=== PATIENT | male | born 1940 | race Caucasian/White ===

== ENCOUNTER 2020-05-25 11:01 | Emergency (ER) | payer OTHER, MEDICARE, SELFPAY ==
[2020-05-25] VITALS (7 sets, daily range): BP systolic 136–146; BP diastolic 79–89; PULSE 64–76; RESP 16–20; TEMP 36.7; O2SAT 96–98
--- NOTE | ~2020-05-25 | XR_ITS ---
EXAMINATION: XR chest 2V EXAM DATE: 05/25/2020 13:33 INDICATION: Chlorine exposure. TECHNIQUE: Frontal and lateral projections of the chest obtained and reviewed. Comparison is made to prior examination from 01/28/2014. FINDINGS: The lungs are clear. There are no pleural effusions. The cardiomediastinal silhouette is within normal limits. There is no pneumothorax suspected. The bones and soft tissues are unremarkab le. IMPRESSION: No acute cardiopulmonary findings. Reviewed, dictated and finalized at location B.
--- NOTE | 2020-05-25 11:19 | ED.GENADULT ---
HPI - General Adult General Chief complaint: Environmental Exposure Stated complaint: Chlorine/Gas exposure Time Seen by Provider: 05/25/20 11:15 Source: patient Mode of arrival: ambulatory Limitations: no limitations History of Present Illness HPI narrative: Patient is a 79-year-old male who presents for evaluation following an exposure to chlorinated water. 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 Patient states the water was very warm, steam was rising and this made it difficult for the patient to breathe. He denies any chest pain, he reported mild eye irritation which is now resolved. He states he still has some mild shortness of breath, mild dry cough. No passing out or loss of consciousness. No fall or head trauma. No nausea or vomiting. Related Data Home Medications Medication Instructions Recorded Confirmed amitriptyline 25 mg PO DAILY 05/25/20 finasteride 5 mg PO DAILY 05/25/20 levothyroxine 112 mcg PO DAILY 05/25/20 losartan 50 mg PO DAILY 05/25/20 omeprazole 20 mg PO DAILY 05/25/20 propranolol 20 mg PO DAILY 05/25/20 tamsulosin 0.4 mg PO DAILY 05/25/20 Allergies Allergy/AdvReac Type Severity Reaction Status Date / Time phenytoin Allergy Mild Rash Unverified 05/25/20 11:14 ATORVASTATIN CALCIUM Allergy Unknown WEAKNESS/MUSCLE Uncoded 05/25/20 11:14 PAIN Review of Systems Review of Systems: Narrative: CONSTITUTIONAL: Denies fever CARDIOVASCULAR: Denies chest pain RESPIRATORY: Reports dry cough, mild shortness of breath GASTROINTESTINAL: Denies abdominal pain SKIN: Denies rash MUSCULOSKELETAL: Denies back pain NEUROLOGIC: Denies headache [facility] Past Medical History Medical History (Updated 05/25/20 @ 14:00 by Saundra Livingston MD) Alcohol abuse Arthritis Basal cell carcinoma CVA (cerebral vascular accident) GI bleed Hyperlipidemia Hypertension Hypothyroidism Seizure Surgical History Surgical History (Updated 05/25/20 @ 11:30 by Saundra Livingston MD) History of testicular surgery Social History Social History (Updated 05/25/20 @ 11:31 by Saundra Livingston MD) Smoking status: Former smoker Alcohol intake: current Substance use: never Living arrangements: with family Gender identity (if verbalized by the patient): Male Exam Narrative: Exam Narrative: GENERAL: Awake, alert, conversant HEAD: Normocephalic, atraumatic. EYES: PERRLA and EOMI. ENT: Nares clear, no rhinorrhea or epistaxis. Mucous membranes moist. NECK: Supple. CHEST: No respiratory distress, breathing even and non labored, no chest wall tenderness HEART: Regular rate, sinus rhythm ABDOMEN:Non distended, non tender EXTREMITIES: Normal range of motion. No edema. SKIN: Warm, dry, no rash. NEURO:No focal deficits. Alert and oriented x3 Course Vital Signs Vital signs: Vital Signs Temperature 36.7 C 05/25/20 11:09 Pulse Rate 76 05/25/20 11:09 Respiratory Rate 18 05/25/20 11:09 Blood Pressure 146/79 H 05/25/20 11:09 Pulse Oximetry 98 05/25/20 11:09 Temperature 36.7 C 05/25/20 11:09 Pulse Rate 66 05/25/20 13:12 Respiratory Rate 18 05/25/20 13:12 Blood Pressure 137/85 05/25/20 13:12 Pulse Oximetry 97 05/25/20 13:12 Medical Decision Making MDM Narrative Medical decision making narrative: Patient presented for evaluation after chlorine exposure from a pool pump. Patient with a little bit of irritation with breathing, but no chest pain. Vital signs are stable, no hypoxemia. Laboratory results are reassuring. Chest x-ray without findings of pneumothorax, no evidence of pneumonia. No evidence of pneumomediastinum. Given no chest pain, did not obtain a troponin. Patient was given a DuoNeb after I spoke with [place] poison control, they recommended DuoNeb treatment for this type of inhalation ex
--- NOTE | 2020-05-25 11:31 | ECG_ITS ---
Measurements Intervals [place] Rate: 69 P: 56 DC: 197 QRS: -6 QRSD: 90 T: 65 QT: 378 QTc: 406 Interpretive Statements SINUS RHYTHM LOW QRS VOLTAGE IN PRECORDIAL LEADS BASELINE WANDER- I, II, AVR, AVL, AVF, V1-V6 BORDERLINE ECG Electronically Signed On 05-25-2020 11:47:45 CDT by Charanjit Grossman D.O.
[2020-05-25] MEDS: ALBUTEROL SULFATE NEB 2.5 MG/0.5 ML INH 5 MG INHALATION (11:45)
[2020-05-25] MEDS: IPRATROPIUM BR 0.02% INH SOLN 0.5 MG/2.5 ML VIAL 1 MG INHALATION (11:46)
[2020-05-25 12:04] LABS: Alveolar/Arterial O2 Gradient 24.5 mmHg; Base Excess ABG -3.2 mEq/l (+/-2.0); Carboxyhemoglobin 0.6 % THb (0-2.0); Fractional Inspired Oxygen 21 %; HCO3 ABG 20.2 mEq/l (22.0-26.0); Methemoglobin ABG 0.5 %THb (0-1.5); Oxygen Content ABG 22.4 %vol (16.0-22.0); Oxygen Saturation ABG 96.8 % (95.0-100.0); Oxyhemoglobin 95.7 % THb (90.0-100.0); PO2 ABG 86.9 mmHg (80.0-100.0); PO2 FiO2 Ratio Arterial Blood 4.14 %; Reduced Hemoglobin 3.2 %THb (0-5.0); Total Hemoglobin 16.6 g/dL (12.0-18.0); pH ABG 7.417 (7.350-7.450)
[2020-05-25 12:05] LABS: Device ROOM AIR; Modified Allen's Test Pass; Site Drawn LEFT RADIAL
[2020-05-25 12:17] LABS: Basophils Absolute Auto 0.1 K/mm3 (0.0-0.1); Basophils Percent Auto 0.7 % (0.2-1.2); Eosinophils Absolute Auto 0.2 K/mm3 (0-0.3); Hematocrit 48.2 % (42.0-52.0); Hemoglobin 16.1 g/dL (14.0-18.0); Immature Granulocyte Absolute 0.05 K/mm3 (0.00-0.031); Immature Granulocyte Percent A 0.4 % (0-0.5); Lymphocytes Percent Auto 22.3 % (18.3-44.2); Mean Corpuscular HGB Conc 33.4 g/dl (32-36); Mean Corpuscular Hemoglobin 30.7 pg (26-34); Mean Platelet Volume 9.6 fl (7.4-10.4); Monocytes Absolute Auto 0.7 K/mm3 (0.1-0.6); Monocytes Percent Auto 6.6 % (2.6-8.5); Neutrophils Absolute Auto 7.6 K/mm3 (1.3-6.7); Platelet Count Result 206 k/mm3 (150-375); Red Blood Count 5.24 M/mm3 (4.6-6.20); Red Cell Distribution Width 13.6 % (11.5-14.5); White Blood Count 11.2 K/mm3 (4.5-10.0)
[2020-05-25 12:26] LABS: Blood Urea Nitrogen 16 mg/dL (9-20); Calcium 9.3 mg/dL (8.4-10.2); Carbon Dioxide 25 mmol/L (22-30); Chloride 106 mmol/L (98-107); Estimated CRCL calculation 66 ml/min; Estimated Glomerular Filt Rate > 60; Glucose 134 mg/dL (75-110); Potassium 4.9 mmol/L (3.4-5.0); Sodium 138 mmol/L (137-145)
--- NOTE | 2020-05-25 13:40 | PC.NURSE ---
Poison control called to follow up on patient. I updated them of current situation
--- NOTE | 2020-05-25 14:50 | PC.NURSE ---
Confirmed with EDP that hydralazine is canceled and not to be given to pt.
== END 2020-05-25 14:52 | disposition home or self-care (01) ==
PROVIDERS: Emergency Provider Emergency Medicine
DX: Z77.098 Contact with and (suspected) exposure to other hazardous, chiefly nonmedicinal, chemicals (principal); M19.90 Unspecified osteoarthritis, unspecified site; Z85.828 Personal history of other malignant neoplasm of skin; Z86.73 Personal history of transient ischemic attack (TIA), and cerebral infarction without residual deficits; E78.5 Hyperlipidemia, unspecified; I10 Essential (primary) hypertension; E03.9 Hypothyroidism, unspecified
CPT/HCPCS: 36415; 36600; 71046; 80048; 82375; 82805; 83050; 85025; 93005; 96372; 99283

== ENCOUNTER → 2022-01-30 11:19 | Outpatient (CLI) | payer MEDICARE, SELFPAY ==
--- NOTE | ~2022-01-30 | XR_ITS ---
XR toe 1st LT min 2V 01/30/2022 11:38 Indication: Left first toe pain Procedure: 4 views left first toe Comparison: No prior studies for comparison. Findings: There is an avulsion fracture plantar base of the first distal phalanx, best seen on the la teral view. Mild soft tissue swelling. No other fracture identified. No foreign bodies. Impression: 1: Avulsion fracture plantar base left first distal phalanx. Reviewed, dictated and finalized at location A. R REACTOR OPERATOR Impression: 1: Avulsion fracture plantar base left first distal phalanx.
== END ==
PROVIDERS: PCP Internal Medicine; Visit Provider Internal Medicine
DX: S92.422A Displaced fracture of distal phalanx of left great toe, initial encounter for closed fracture (principal)
CPT/HCPCS: 73660

== ENCOUNTER → 2022-02-26 14:06 | Outpatient (CLI) | payer MEDICARE, SELFPAY ==
--- NOTE | ~2022-02-26 | XR_ITS ---
XR toe 1st LT min 2V DATE: 02/26/2022 14:17 INDICATION: Left great toe pain TECHNIQUE: 3 views COMPARISON: None FINDINGS: There is hallux valgus and bunion deformity. There is mild osteoarthritis at the first metatarsophalangeal joint. No fracture, dislocation, periosteal reaction or bone destruction. There is an accessory ossicle at t he anterior aspect of the interphalangeal joint of the great toe which simulated of fracture on 022. IMPRESSION: Mild osteophyte is at first metatarsophalangeal joint Mild hallux valgus and bunion deformity No fracture or dislocation Reviewed, dictated and finalized at location A.
== END ==
PROVIDERS: PCP Internal Medicine; Visit Provider Internal Medicine
DX: M19.072 Primary osteoarthritis, left ankle and foot (principal); M20.12 Hallux valgus (acquired), left foot; M21.612 Bunion of left foot; M25.775 Osteophyte, left foot
CPT/HCPCS: 73660

== ENCOUNTER → 2022-08-01 16:22 | Outpatient (CLI) | payer MEDICARE, SELFPAY ==
--- NOTE | ~2022-08-01 | XR_ITS ---
EXAMINATION: XR knee RT min 4V DATE: 08/01/2022 16:33 INDICATION: Right knee pain TECHNIQUE: Weight bearing anteroposterior and Randhawa, sunrise, and flexed lateral views of the rig ht knee were obtained COMPARISON: None. FINDINGS: Alignment is normal. No fracture. Mild joint space narrowing in the medial compartment of the right knee. Normal joint spaces in the lateral and patellofemoral compartments. No joint effusion/layering lipohemarthrosis. Small amount of atherosclerotic calcification at the distal femoral artery. Soft ti ssues are otherwise unremarkable. IMPRESSION: 1. Mild osteoarthritis in medial compartment of the right knee. Reviewed, dictated and finalized at location A.
== END ==
PROVIDERS: PCP Family Medicine; Visit Provider Family Medicine
DX: M25.561 Pain in right knee (principal); M17.11 Unilateral primary osteoarthritis, right knee
CPT/HCPCS: 73564

== ENCOUNTER → 2023-03-13 10:42 | Outpatient (CLI) | payer MEDICARE, SELFPAY ==
--- NOTE | ~2023-03-13 | XR_ITS ---
EXAMINATION: XR wrist LT min 3V DATE: 03/13/2023 11:00 INDICATION: Left wrist pain. Fall. TECHNIQUE: 4 views of left wrist were obtained. COMPARISON: None. FINDINGS: Bone alignment is normal. No fracture. There is mild osteoarthritis of first carpometacarpa l joint. There is a fragment of chronic ossification adjacent to pisiform. There is a degenerative cy st in distal ulna. There is a 2 mm subcutaneous density ulnar to fifth metacarpal. IMPRESSION: 1. Mild osteoarthritis of first carpometacarpal joint. 2. 2 mm subcutaneous density ulnar to fifth metacarpal, which may be a dystrophic calcification or fo reign body. Reviewed, dictated and finalized at location A. IMPRESSION: 1. Mild osteoarthritis of first carpometacarpal joint. 2. 2 mm subcutaneous density ulnar to fifth metacarpal, which may be a dystroph ic calcification or foreign body.
== END ==
PROVIDERS: PCP Family Medicine; Visit Provider Family Medicine
DX: M19.042 Primary osteoarthritis, left hand (principal); R93.6 Abnormal findings on diagnostic imaging of limbs
CPT/HCPCS: 73110

== ENCOUNTER 2023-10-19 11:54 | Emergency (ER) | payer MEDICARE, SELFPAY ==
[2023-10-19] VITALS (19 sets, daily range): BP systolic 121–148; BP diastolic 75–95; PULSE 51–70; RESP 16–20; TEMP 36.1; O2SAT 93–99
--- NOTE | ~2023-10-19 | CT_ITS ---
EXAMINATION: CT brain wo con DATE: 10/19/2023 14:48 INDICATION: Ataxia. Dizziness. TECHNIQUE: Computed tomography (CT) of the head was performed without intravenous contrast. The mA wa s adjusted according to patient size. Iterative reconstruction technique was employed. The dose-lengt h product was 681.00 mGy-cm. COMPARISON: Head CT 01/28/2014 FINDINGS: There is old infarct in left cerebellum. There is an old infarct in the right basal ganglia . There are old infarcts in the deep white matter of the frontal lobes bilaterally. There is no intra cranial hemorrhage, acute infarction, or abnormal intracranial mass lesion. The ventricles are normal in size. There is mild mucosal thickening in the paranasal sinuses. There are likely changes of ocul ar lens replacement surgeries. The mastoid air cells are normal. IMPRESSION: 1. Old infarcts in the brain. Reviewed, dictated and finalized at location E. 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
--- NOTE | 2023-10-19 12:04 | ECG_ITS ---
Measurements Intervals [place] Rate: 53 P: 22 VT: 180 QRS: 2 QRSD: 97 T: 62 QT: 451 QTc: 427 Interpretive Statements SINUS BRADYCARDIA BASELINE WANDER- V2 BORDERLINE ECG COMPARED TO ECG 05/25/2020 11:44:57 SINUS BRADYCARDIA NOW PRESENT Electronically Signed On 10-19-2023 14:20:35 PRICING ANALYST by Charanjit Grossman D.O.
[2023-10-19] MEDS: MECLIZINE HCL 25 MG TABLET PO (12:33)
[2023-10-19] MEDS: ONDANSETRON INJ 4 MG/2 ML VIAL IV PUSH (12:46)
[2023-10-19] MEDS: SODIUM CHLORIDE 0.9% IV 500 ML 999 ML IV CONT (12:46)
[2023-10-19 12:50] LABS: Basophils Absolute Auto 0.1 K/mm3 (0.0-0.1); Eosinophils Absolute Auto 0.4 K/mm3 (0-0.3); Eosinophils Percent Auto 4.4 % (0-4.4); Hematocrit 50.4 % (42.0-52.0); Hemoglobin 16.6 g/dL (14.0-18.0); Immature Granulocyte Absolute 0.03 K/mm3 (0.00-0.031); Immature Granulocyte Percent A 0.3 % (0-0.5); Lymphocytes Absolute Auto 2.43 K/mm3 (0.9-3.2); Lymphocytes Percent Auto 27.3 % (18.3-44.2); Mean Corpuscular HGB Conc 32.9 g/dl (32-36); Mean Corpuscular Hemoglobin 30.6 pg (26-34); Mean Corpuscular Volume 92.8 fl (80-100); Mean Platelet Volume 9.4 fl (7.4-10.4); Monocytes Absolute Auto 0.7 K/mm3 (0.1-0.6); Monocytes Percent Auto 7.5 % (2.6-8.5); Neutrophils Absolute Auto 5.3 K/mm3 (1.3-6.7); Neutrophils Percent Auto 59.5 % (45.5-73.1); Platelet Count Result 224 k/mm3 (150-375); Red Blood Count 5.43 M/mm3 (4.6-6.20); Red Cell Distribution Width 13.3 % (11.5-14.5); White Blood Count 8.9 K/mm3 (4.5-10.0)
[2023-10-19 13:01] LABS: Alanine Aminotransferase 47 U/L (6-50); Albumin Level 4.5 g/dL (3.5-5.1); Alkaline Phosphatase 62 U/L (38-126); Anion Gap 11 mmol/L (8-16); Aspartate Amino Transferase 41 U/L (17-59); Blood Urea Nitrogen 18 mg/dL (9-20); Calcium 9.4 mg/dL (8.4-10.2); Carbon Dioxide 21 mmol/L (22-30); Chloride 103 mmol/L (98-107); Estimated CRCL calculation 78 ml/min; Estimated Glomerular Filt Rate > 60; Glucose 156 mg/dL (65-110); Potassium 4.5 mmol/L (3.4-5.0); Sodium 135 mmol/L (137-145)
--- NOTE | 2023-10-19 14:27 | PC.NURSE ---
attempted to ambulate pt at this time. pt sat on the side of bed and felt dizzy, pt stood up and felt more dizzy and started swaying. pt then directed to sit back down
[2023-10-19] MEDS: diazePAM INJ (*CRX) 10 MG/2 ML SYRINGE 2 MG IV PUSH (14:40)
--- NOTE | 2023-10-19 15:32 | ED.GENADULT ---
HPI - General Adult General Chief complaint: Dizziness Stated complaint: nausea, dizzy Time Seen by Provider: 10/19/23 12:23 History of Present Illness HPI narrative: Patient is an 83-year-old male who presents ER with sudden onset dizziness. Spinning in nature. Worse with turning his head. Associated with diaphoresis as well as nausea vomiting. Has history of vertigo in the past and this feels the same. He has no medications to treat it at home. No numbness or weakness to an arm or leg. No slurred speech. No additional concerns. Related Data Home Medications Medication Instructions Recorded Confirmed fish oil-dha-epa 1,200 mg-144 cap PO .QD 01/06/23 07/28/23 mg-216 mg capsule omeprazole 20 mg capsule,delayed 20 mg PO DAILY 01/06/23 07/28/23 release Allergies Allergy/AdvReac Type Severity Reaction Status Date / Time atorvastatin Allergy Mild Weakness,Muscle Verified 10/19/23 14:38 Pain phenytoin Allergy Mild Rash Verified 07/28/23 15:08 Review of Systems Review of Systems: All systems reviewed & are unremarkable except as noted in HPI and below Constitutional: Constitutional: Denies chills and Denies fever(s) ENT: Reports dizziness, Denies nasal congestion and Denies sore throat Gastrointestinal: Gastrointestinal: Denies abdominal pain, Reports nausea and Reports vomiting Neurologic: Denies syncope, Denies headache(s), Denies focal weakness and Denies numbness [facility] Past Medical History Medical History (Updated 10/19/23 @ 16:09 by Bentley Mortensen MD) Alcohol abuse Arthritis Basal cell carcinoma CVA (cerebral vascular accident) GI bleed Hyperlipidemia Hypertension Hypothyroidism Seizure Surgical History Surgical History History of testicular surgery Family History Family History Mother , Age 89 - CHF Breast cancer Glaucoma Father , Age 81 - Farm Accident GERD (gastroesophageal reflux disease) Lymphoma Grandparent , Age 77 - Heart Arrythmia No problems noted. Grandparent , Age 47 - Gangrene No problems noted. Grandparent , Age 70 - Unknown No problems noted. Grandparent , Age 70 - Unknown No problems noted. Sibling , Age 70 - Thyroid Cancer No problems noted. Social History Social History Smoking status: Former smoker Alcohol intake: current Substance use: never Lack of Transportation: No Lack of Food: Never True Current Housing: I Have Housing Concerned About Future Housing: No Difficulty Paying Gas/Electric Bills: No Difficulty Paying for Meds: No Currently Unemployed: No Education: Master's Degree or Higher Difficulty w/ Childcare or Family Care: No Living arrangements: with family Gender identity (if verbalized by the patient): Male Exam Narrative: GENERAL: Well-appearing, well-nourished, and in no acute distress. HEAD: Normocephalic, atraumatic. EYES: PERRL and left gaze nystagmus. ENT: Mucous membranes moist. TMs normal bilaterally. CHEST: Clear to auscultation. No respiratory distress. HEART: Regular rate and rhythm. Normal peripheral pulses. ABDOMEN: Soft, nontender, nondistended, normal active bowel sounds. EXTREMITIES: Normal range of motion. +1 edema. SKIN: Warm, dry, no rash. NEURO: No upper or lower extremity drift. No facial droop. No dysarthria. Alert and oriented x3. PSYCH: Normal mood and affect. Course Course Emergency Course: Patient with difficulty ambulating after meclizine and fluids. Received a CT scan and Valium after that. Symptoms resolved and he is ambulatory without any issue. Feels comfortable with discharge home. Vital Signs Vital signs: Vital Signs [place]
== END 2023-10-19 16:31 | disposition home or self-care (01) ==
PROVIDERS: Emergency Provider Emergency Medicine; PCP Family Medicine
DX: R42 Dizziness and giddiness (principal); R00.1 Bradycardia, unspecified; M19.90 Unspecified osteoarthritis, unspecified site; I10 Essential (primary) hypertension; E03.9 Hypothyroidism, unspecified; G40.909 Epilepsy, unspecified, not intractable, without status epilepticus; E78.5 Hyperlipidemia, unspecified; Z86.73 Personal history of transient ischemic attack (TIA), and cerebral infarction without residual deficits
CPT/HCPCS: 36415; 70450; 80053; 85025; 93005; 96361; 96374; 96375; 99284; A9270; J2405; J3360; J7040

== ENCOUNTER → 2023-10-28 12:21 | Outpatient (CLI) | payer MEDICARE, SELFPAY ==
--- NOTE | ~2023-10-28 | XR_ITS ---
XR knee RT min 4V 10/28/2023 12:51 Indication: Right knee pain Procedure: 4 views right knee Comparison: 08/01/2022 Findings: There is anatomic alignment. No joint effusion. No fracture or subluxation. No joint effusi on. No foreign bodies. Impression: 1: No acute abnormality of the right knee. Reviewed, dictated and finalized at location B. UNITY MUSIC THERAPIST Impression: 1: No acute abnormality of the right knee.
== END ==
PROVIDERS: PCP Family Medicine; Visit Provider Emergency Medicine
DX: M25.561 Pain in right knee (principal)
CPT/HCPCS: 73564

== ENCOUNTER 2023-10-28 12:47 | Outpatient (CLI) | payer MEDICARE, SELFPAY ==
[2023-10-28 14:48] LABS: Anion Gap 9 mmol/L (8-16); Blood Urea Nitrogen 19 mg/dL (9-20); Calcium 9.7 mg/dL (8.4-10.2); Carbon Dioxide 26 mmol/L (22-30); Chloride 103 mmol/L (98-107); Estimated Glomerular Filt Rate > 60; Glucose 87 mg/dL (65-110); Potassium 4.6 mmol/L (3.4-5.0); Sodium 138 mmol/L (137-145)
[2023-10-28 15:36] LABS: Hemoglobin A1C 5.7 % (<5.7)
== END 2023-10-28 12:48 | disposition home or self-care (01) ==
PROVIDERS: PCP Family Medicine; Visit Provider Emergency Medicine
DX: R26.81 Unsteadiness on feet (principal); H81.8X9 Other disorders of vestibular function, unspecified ear; R73.01 Impaired fasting glucose; M17.11 Unilateral primary osteoarthritis, right knee
CPT/HCPCS: 36415; 73564; 80048; 82607; 83036

== ENCOUNTER 2024-02-22 15:45 | Outpatient (CLI) | payer MEDICARE, SELFPAY ==
[2024-02-22 16:36] LABS: Alanine Aminotransferase 39 U/L (6-50); Aspartate Amino Transferase 36 U/L (17-59)
== END 2024-02-22 15:46 | disposition home or self-care (01) ==
LOC: ANHLAB 15:49
PROVIDERS: PCP Family Medicine; Visit Provider Podiatrist Foot & Ankle Surgery
DX: B35.1 Tinea unguium (principal)
CPT/HCPCS: 36415; 84450; 84460

== ENCOUNTER 2024-05-23 15:39 | Outpatient (CLI) | payer MEDICARE, SELFPAY ==
[2024-05-23 16:50] LABS: Alanine Aminotransferase 30 U/L (6-50); Aspartate Amino Transferase 52 U/L (17-59)
== END 2024-05-23 15:40 | disposition home or self-care (01) ==
PROVIDERS: PCP Family Medicine; Visit Provider Podiatrist Foot & Ankle Surgery
DX: B35.1 Tinea unguium (principal)
CPT/HCPCS: 36415; 84450; 84460

== ENCOUNTER 2024-06-08 13:05 | Outpatient (CLI) | payer MEDICARE, SELFPAY ==
--- NOTE | ~2024-06-08 | XR_ITS ---
XR chest 2V Ordering provider: Jesús Gregg MD History: 83 years Male with . Supraventricular tachycardia . Comparison: May 25, 2020 FINDINGS: MEDIASTINUM: The cardiac silhouette is not enlarged. LUNGS: No infiltrates, effusions or pneumothorax. OTHER: No free air under the diaphragm. Degenerative changes of the spine. IMPRESSION: No acute cardiopulmonary pathology. Reviewed, dictated and finalized at location A.
== END 2024-06-08 13:06 | disposition home or self-care (01) ==
LOC: ANHIMG 13:16
PROVIDERS: PCP Family Medicine; Visit Provider Internal Medicine Cardiovascular Disease
DX: I47.10 Supraventricular tachycardia, unspecified (principal)
CPT/HCPCS: 71046

== ENCOUNTER 2024-08-22 14:44 | Outpatient (CLI) | payer MEDICARE, SELFPAY ==
[2024-08-22 15:52] LABS: Alanine Aminotransferase 31 U/L (6-50); Aspartate Amino Transferase 34 U/L (17-59)
== END 2024-08-22 14:45 | disposition home or self-care (01) ==
LOC: ANHLAB 14:48
PROVIDERS: PCP Family Medicine; Visit Provider Podiatrist Foot & Ankle Surgery
DX: B35.1 Tinea unguium (principal)
CPT/HCPCS: 36415; 84450; 84460

== ENCOUNTER → 2024-10-03 09:17 | Outpatient (REF) | payer MEDICARE, SELFPAY | LOC: ANHLAB 09:17 | PROVIDERS: PCP Family Medicine; Visit Provider Plastic Surgery | DX: C44.319 Basal cell carcinoma of skin of other parts of face (principal); L98.8 Other specified disorders of the skin and subcutaneous tissue | CPT/HCPCS: 88305 ==

== ENCOUNTER → 2024-10-20 15:32 | Outpatient (REF) | payer MEDICARE, SELFPAY | LOC: ANHLAB 15:32 | PROVIDERS: PCP Family Medicine; Visit Provider Plastic Surgery | DX: C44.319 Basal cell carcinoma of skin of other parts of face (principal) | CPT/HCPCS: 88305 ==

== ENCOUNTER 2024-10-26 12:40 | Emergency (ER) | payer MEDICARE, SELFPAY ==
--- NOTE | ~2024-10-26 | XR_ITS ---
EXAMINATION: XR foot RT min 3V DATE: 10/26/2024 13:08 INDICATION: Right foot bruising. TECHNIQUE: 4 views of right foot were obtained. COMPARISON: None. FINDINGS: There is mild hallux valgus. No fracture. Joint spaces are normal. There is an enthesophyte at plantar aspect of calcaneal tuberosity. IMPRESSION: 1. Mild hallux valgus. Reviewed, dictated and finalized at location A. IDE PLANT SUPERVISOR IMPRESSION: 1. Mild hallux valgus.
[2024-10-26 12:54] VITALS: BP 140/83; PULSE 73; RESP 16; TEMP 36.4; O2SAT 99
--- NOTE | 2024-10-26 13:39 | ED_ITS ---
HPI - Extremity Injury (Lower) General Chief Complaint: Extremity Injury, Lower Stated Complaint: right foot looks bruised Source: patient Mode of arrival: ambulatory Limitations: no limitations History of Present Illness HPI Narrative: 84 y/o male presented for c/o bruising to the top of the right foot, base of toes. First noticed 2-3 days ago. Denies any known injury. Reports a history of peripheral neuropathy and denies any significant change in baseline pain level. Denies swelling, wounds or deformity. Related Data Home Medications Medication Instructions Recorded Confirmed fish oil-dha-epa 1,200 mg-144 cap PO .QD 01/06/23 08/09/24 mg-216 mg capsule aspirin 81 mg tablet,delayed 81 mg PO DAILY 08/09/24 08/09/24 release (Adult Aspirin Regimen) vit C 250 mg-vit E 90 mg-zinc 40 1 tablet PO BID 08/09/24 08/09/24 mg-copper 1 mg-xrdrsz-dxsjtl capsule (PreserVision AREDS-2) cholecalciferol (vitamin D3) 1,250 1,250 mcg PO WEEKLY 10/20/24 mcg (50,000 unit) capsule semaglutide (weight loss) 0.25 0.25 mg subcut WEEKLY 10/20/24 mg/0.5 mL subcutaneous pen injector (Quantum OPS) Allergies Allergy/AdvReac Type Severity Reaction Status Date / Time atorvastatin Allergy Mild Weakness,Muscle Verified 10/26/24 13:02 Pain phenytoin Allergy Mild Rash Verified 10/26/24 13:02 Review of Systems Review of Systems: CONSTITUTIONAL: Denies body aches, fever, chills CARDIOVASCULAR: Denies chest pain, palpitations, or edema. RESPIRATORY: Denies cough or dyspnea. SKIN: Denies rash, or wounds. MUSCULOSKELETAL: per HPI NEUROLOGIC: Denies numbness, tingling, or weakness. All systems reviewed & are unremarkable except as noted in HPI and below PMFSH Past Medical History Medical History Alcohol abuse Arthritis Basal cell carcinoma CVA (cerebral vascular accident) GI bleed Hyperlipidemia Hypertension Hypothyroidism Seizure Surgical History Surgical History History of testicular surgery Family History Family History Mother , Age 89 - CHF Breast cancer Glaucoma Father , Age 81 - Farm Accident GERD (gastroesophageal reflux disease) Lymphoma Grandparent , Age 77 - Heart Arrythmia No problems noted. Grandparent , Age 47 - Gangrene No problems noted. Grandparent , Age 70 - Unknown No problems noted. Grandparent , Age 70 - Unknown No problems noted. Sibling , Age 70 - Thyroid Cancer No problems noted. Social History Social History Smoking status: Former smoker Alcohol intake: former Substance use: never Current Housing: Decline to Answer Concerned About Future Housing: Decline to Answer Difficulty Paying Gas/Electric Bills: Decline to Answer Difficulty Paying for Meds: Decline to Answer Currently Unemployed: Decline to Answer Education: Decline to Answer Difficulty w/ Childcare or Family Care: Decline to Answer Living arrangements: with family Gender identity (if verbalized by the patient): Male Comments At time of signature, I have reviewed and agree with nursing past medical, surgical, social and family history unless otherwise noted. Please see nursing chart for further information. There is no relevant family history pertinent to the presenting complaint Exam Narrative: GENERAL: Well-appearing CHEST: Speaks in full sentences. No respiratory distress. HEART: Regular rate and rhythm. Normal and equal peripheral pulses. EXTREMITIES: Right foot with ecchymosis to MTPs, tender with palpation to 3rd and 4th MTP dorsal aspect, nontender to plantar aspect. Minimal swelling to dorsal foot. Foot has normal strength and baseline sensation, normal range of motion without pain with movement. No open wounds, or obvious deformity; alignment normal, pulses palpable and equal bilaterally, skin warm, dry, pink. Capillary refill less than 3 seconds. SKIN: Warm, dry NEURO: Alert and oriented x3. PSYCH: Normal mood and affect Course Course Emergency Course: Patient is aware of diagnosis, understands and agrees to treatment plan. Anticipatory guidance given. Patient agrees to follow-up as directed and is aware of reasons to seek care at the emergency department. Portions of this record may have been created with voice recognition software Level of Care: Express Care Visit Vital Signs Vital signs: Vital Signs Temperature 97.5 F L 10/26/24 12:54 Pulse Rate 73 10/26/24 12:54 Respiratory Rate 16 10/26/24 12:54 Blood Pressure 140/83 10/26/24 12:54 Pulse Oximetry 99 10/26/24 12:54 Temperature 97.5 F L 10/26/24 12:54 Pulse Rate 73 10/26/24 12:54 Respiratory Rate 16 10/26/24 12:54 Blood Pressure 140/83 10/26/24 12:54 Pulse Oximetry 99 10/26/24 12:54 Oxygen Delivery Room Air 10/26/24 12:57 Reviewed MDM - Extremity Injury (Lower) MDM Narrative Medical decision making narrative: Discussed physical exam findings and x-ray. Advised supportive measures and signs/symptoms to go to the ER. Pt is appropriate for outpt treatment and f/u. Differential Diagnosis Differential diagnosis: Likely fracture of toe and other (foot fracture, contusion, PVD) Imaging Data Radiologist's impression: Patient: Quan Cabrales : 1940 MR#: [id number] Age: 84 Acct:[id number] Loc: [id number] ADM Date: 10/26/24Attending Dr: Ordering Physician: Jordana Rivas APRN Date of Service: 10/26/24 Procedure(s): XR foot RT min 3V Accession Number(s): [id number] cc: Jordana Rivas APRN; Lonnie Morrow DO~ EXAMINATION: XR foot RT min 3V DATE: 10/26/2024 13:08 INDICATION: Right foot bruising. TECHNIQUE: 4 views of right foot were obtained. COMPARISON: None. FINDINGS: There is mild hallux valgus. No fracture. Joint spaces are normal. There is an enthesophyte at plantar aspect of calcaneal tuberosity. IMPRESSION: 1. Mild hallux valgus. Discharge Plan Discharge Clinical Impression: Superficial bruising of foot Patient Disposition: Home, Self-Care Condition: Stable Instructions: Foot Contusion (ED) Additional Instructions: Xray did not show a fracture today. You may need to have another xray if symptoms persist. Rest and elevate the right leg; bear weight as tolerated Apply ice 15-20 minute intervals several times a day Tylenol 1000mg every 8 hours as needed for pain Follow up with your primary care provider in 3 days Go to the ER for worsening symptoms or concerns - redness, swelling, pain etc Prescriptions: No Action fish oil-dha-epa 1,200-144-216 mg capsule PO .QD aspirin [Adult Aspirin Regimen] 81 mg tablet,delayed release (DR/EC) 81 mg PO DAILY PreserVision AREDS-2 250-90-40-1 mg capsule 1 tablet PO BID [place] 0.25 mg/0.5 mL pen injector 0.25 mg subcut WEEKLY Rx Instructions: administer weeks 1 through 4 of therapy cholecalciferol (vitamin D3) 1,250 mcg (50,000 unit) capsule 1,250 mcg PO WEEKLY losartan 50 mg tablet 50 mg PO DAILY Qty: 90 1RF ezetimibe [Zetia] 10 mg tablet 10 mg PO DAILY Qty: 90 1RF levothyroxine 125 mcg tablet 125 mcg PO DAILY Qty: 90 1RF propranolol 20 mg tablet 20 mg PO BID Qty: 180 1RF omeprazole 20 mg capsule,delayed release(DR/EC) 20 mg PO BID Qty: 180 1RF tamsulosin 0.4 mg capsule 0.8 mg PO DAILY Qty: 180 1RF finasteride 5 mg tablet 5 mg PO DAILY Qty: 90 1RF Follow-up/Referrals: Lonnie Morrow, [Primary Care Provider] -
== END 2024-10-26 14:00 | disposition home or self-care (01) ==
PROVIDERS: Emergency Provider Nurse Practitioner Family; PCP Family Medicine
DX: S90.31XA Contusion of right foot, initial encounter (principal); X58.XXXA Exposure to other specified factors, initial encounter; I10 Essential (primary) hypertension; E03.9 Hypothyroidism, unspecified; E78.5 Hyperlipidemia, unspecified; Z86.73 Personal history of transient ischemic attack (TIA), and cerebral infarction without residual deficits; M19.90 Unspecified osteoarthritis, unspecified site; Z85.828 Personal history of other malignant neoplasm of skin; Z87.891 Personal history of nicotine dependence; Z79.82 Long term (current) use of aspirin
CPT/HCPCS: 73630; 99213; G0463

== ENCOUNTER 2025-03-27 10:13 | Inpatient (IN) | payer MEDICARE, SELFPAY ==
[2025-03-27] VITALS (40 sets, daily range): BP systolic 76–163; BP diastolic 60–103; PULSE 57–110; RESP 15–39; TEMP 36.4–37.2; O2SAT 89–98; BMI 29.2
--- NOTE | ~2025-03-27 | XR_ITS ---
XR abdomen/kub 1V 03/31/2025 15:58 INDICATION: Abdominal pain. Evaluate for obstruction. TECHNIQUE: KUB COMPARISON: None FINDINGS: Bowel gas pattern is normal. Moderate colonic fecal loading. There is no evidence of free a ir, mass, organomegaly, ascites or obstruction. No abnormal calculi are seen. There are pelvic phleb oliths. The bones appear intact. IMPRESSION: 1: No acute abdominal abnormality identified. Reviewed, dictated and finalized at location A.
--- NOTE | ~2025-03-27 | CT_ITS ---
EXAMINATION: CT abdomen pelvis w con DATE: 03/27/2025 10:50 INDICATION: Right upper quadrant abdominal pain. Hypertension. TECHNIQUE: Computed tomography (CT) of the abdomen and pelvis was performed with 100 mL Omnipaque-350 intravenous contrast. Automated exposure control and iterative reconstruction technique were employe d. The dose-length product was 664.89 mGy-cm. COMPARISON: None FINDINGS: Dependent atelectasis in the bilateral lower lobes. No pleural effusion. Heart size is normal. Athero sclerotic coronary artery calcification and aortic valve calcific lesion. Minimal pericardial effusio n. Liver, gallbladder, spleen, bilateral adrenal glands are normal. There are bilateral renal cysts t he largest on the right measuring 5.0 cm. Peripancreatic inflammatory stranding about the uncinate pr ocess, head and body of the pancreas consistent with acute interstitial pancreatitis. No evident panc reatic necrosis or abscess. Small amount of nonloculated peripancreatic fluid between the uncinate pr ocess of the pancreas and the duodenum and tracking caudally along the right anterior pararenal space . No bowel obstruction. Bladder is normal. No free intraperitoneal gas or fluid. No pathologically en larged abdominal or pelvic lymphadenopathy. Mild scattered degenerative skeletal changes in the spine and pelvis. Bone island at the right sacral ala. IMPRESSION: 1. Acute interstitial pancreatitis. Reviewed, dictated and finalized at location B.
--- NOTE | ~2025-03-27 | MR_ITS ---
MRI of the abdomen: Clinical indication: Pancreatitis. Technique: Coronal SSFSE ARC, WATER:coronal LAVA-FLEX, Coronal 2D FIESTA FatSat, Axial SSFSE BH ARC, Axial 3D DualEcho BH, Axial SSFSE-IR, Axial DWI b=500, Axial 2D FIESTA FatSat, pre and dynamic postco ntrast Axial LAVA ARC, postcontrast Coronal In and Opposed phase LAVA FLEX . Following intravenous ad ministration of 20 cc MultiHance gadolinium, T1-weighted fat-sat imaging was performed in the axial a nd coronal planes. COMPARISON: CT dated 03/29/2025 Findings: There is minimal gallbladder wall thickening. No distinct gallstone seen. The common bile d uct is normal in course and caliber. No filling defects are seen within the CBD. No evidence of intra hepatic biliary ductal dilatation. The pancreatic duct is normal in size. There is probable edematous change of the pancreatic head and neck. There is irregular developing flu id collection in the region of pancreatic head and neck, which could reflect pancreatic necrosis and/ or developing pseudocyst. Liver, spleen, and adrenal glands appear normal. Bilateral renal cysts are present. The aorta and the paraaortic regions appear normal. Small bilateral pleural effusions are noted. Impression: Findings compatible with pancreatitis, especially involving the head and neck, with probable developi ng pancreatic necrosis and/or pseudocyst. No evidence of cholelithiasis or choledocholithiasis. Small bilateral pleural effusions. Reviewed, dictated and finalized at [facility]. Impression: Findings compatible with pancreatitis, especially involving the head and neck, with probable developing pancreatic necrosis and/or pseudocyst. No evidence of cholelithiasis or choledocholithiasis. Small bilateral pleural effusions.
--- NOTE | ~2025-03-27 | XR_ITS ---
EXAM: XR thoracic spine 2V DATE: 04/02/2025 10:54 HISTORY: right mid back pain . COMPARISON: X-ray chest 04/01/2025. FINDINGS: Vertebral body alignment intact. Exaggerated thoracic kyphosis. Osteopenia. Vertebral body heights preserved. Multilevel moderate degenerative disc disease including bridging osteophytes. No traumatic malalignment or fracture. Minimal basilar scar/atelectasis. Possible small pleural effusion s. IMPRESSION: No acute fracture or traumatic malalignment detected in the thoracic spine. Reviewed, dictated and finalized at location K. IMPRESSION: No acute fracture or traumatic malalignment detected in the thoraci c spine.
--- NOTE | ~2025-03-27 | US_ITS ---
EXAMINATION: US abdomen limited DATE: 03/29/2025 10:31 INDICATION: Cholesterolosis. TECHNIQUE: Multiple grayscale and Doppler ultrasound images of the abdomen were obtained. COMPARISON: 03/27/2025 FINDINGS: The pancreatic head and body are normal in appearance. The pancreatic tail is not visualized. Normal caliber main pancreatic duct measuring 2 mm at the neck of the pancreas. The visualized proximal infe rior vena cava is normal. Liver has normal echogenicity and contour, with a smooth surface. No liver lesion identified. No intrahepatic biliary duct dilation suspected. Portal venous flow was seen in th e hepatopetal, normal direction and has normal Doppler waveform. Again seen is ring down artifact ramón sing from the tiny echogenic focus in the gallbladder wall at the fundus consistent with adenomyomato sis. The gallbladder is otherwise normal in appearance. There is no cholelithiasis. The common bile duct measures 5-6 mm, which is normal. Sonographic Fernandez sign was reported as negative by the sonogr apher. IMPRESSION: 1. Focal adenomyomatosis at the fundus of the gallbladder. Otherwise unremarkable right upper quadran t ultrasound. Reviewed, dictated and finalized at location B. IMPRESSION: 1. Focal adenomyomatosis at the fundus of the gallbladder. Otherwise unremarkab le right upper quadrant ultrasound.
--- NOTE | ~2025-03-27 | US_ITS ---
EXAMINATION: US right upper quadrant DATE: 03/27/2025 12:01 INDICATION: Abdominal pain TECHNIQUE: Multiple grayscale and Doppler ultrasound images of the abdomen were obtained. COMPARISON: CT dated 03/27/2025 FINDINGS: There is less pancreas appears unremarkable on ultrasound images of the other was peripancreatic stra nding and prior CT consistent with acute interstitial pancreatitis. Main pancreatic duct measures 2 m m at the body of the pancreas which is normal. No peripancreatic fluid collections identified. Liver has normal echogenicity and contour, with a smooth surface. No liver lesion identified. No intrahepat ic biliary duct dilation suspected. Portal venous flow was seen in the hepatopetal, normal direction and has normal Doppler waveform. There is ringdown artifact such with tiny subtle hyperdensities michael g the wall of the gallbladder fundus consistent with cholesterol crystals in the setting of focal ayush nomyomatosis. No gallbladder dilation, wall thickening or cholelithiasis. Sonographic Fernandez sign was reported as negative by the nuclear weapons specialist. Common bile duct measures 6 7 7 mm in diameter which is wit hin normal limits for age./Portions the right kidney demonstrates normal contour and axis tube with n o hydronephrosis. IMPRESSION: 1. Focal adenomyosis at the fundus of the gallbladder. No choledocholithiasis and no evident biliary or pancreatic ductal dilation.. 2. Normal appearance to the pancreas on ultrasound imaging although findings on prior CT are consiste nt with acute interstitial pancreatitis. Reviewed, dictated and finalized at location B. IMPRESSION: 1. Focal adenomyosis at the fundus of the gallbladder. No choledocholithiasis a nd no evident biliary or pancreatic ductal dilation.. 2. Normal appearance to the pancreas on ultrasound imaging although findings on prior CT are consistent with acute interstitial pancreatitis.
--- NOTE | ~2025-03-27 | CT_ITS ---
CT abdomen pelvis w con Ordering provider: El Esteves MD History: 84 years Male with . acute pancreatitis follow up . Comparison: March 27, 2025 Technique: CT abdomen and pelvis with IV and without oral contrast. Automated exposure control and it erative reconstruction technique were employed. The dose-length product was 1232.78 mGy-cm. 100 mL Om nipaque 350 was given IV. Findings: VISUALIZED LOWER CHEST: Bilateral pleural effusion more on the right side with adjacent atelectasis. Underlying emphysematous changes. Small nodule in the right middle lobe laterally measuring 4.6 mm. Minimal effusion the right oblique fissure. Trace of pericardial effusion UPPER ABDOMINAL ORGANS: Liver: Normal. Gallbladder: Normal. Spleen: Normal. Stomach/duodenum: Sliding hiatus hernia. Pancreas: fat stranding is seen around the head of the pancreas which is increased compared to the pr evious study. No fluid collection is noted. Minimal free fluid is seen anterior to the duodenum. Adrenals: Normal. Kidneys: Bilateral renal cysts with the largest measures 4.5 cm on the right side. PELVIC ORGANS: The bladder is normal. BOWEL AND MESENTERY: Colon: No evidence of diverticulitis. Appendix is not demonstrated. Small Bowel: Normal. No obstruction. Peritoneum/mesentery: No free air or free fluid. No mesenteric lymphadenopathy. RETROPERITONEUM: Mild atheromatous disease of the abdominal aorta. No retroperitoneal lymphadenopat hy. Small para-aortic lymph nodes. MUSCULOSKELETAL: Superficial soft tissues: Small fat-containing umbilical hernia. Otherwise, The superficial soft tiss ues are normal. Bones: Age appropriate degenerative changes of the spine. IMPRESSION: 1. Pancreatitis with slightly increased fat stranding with no definite collections. 2. Trace of pericardial effusion. 3. Bilateral pleural effusion with adjacent atelectasis. 4. Nodule in the right middle lobe. 6 months follow-up CT is advised. Reviewed, dictated and finalized at location A. IMPRESSION: 1. Pancreatitis with slightly increased fat stranding with no definite collect ions. 2. Trace of pericardial effusion. 3. Bilateral pleural effusion with adjacent atelectasis. 4. Nodule in the right middle lobe. 6 months follow-up CT is advised.
--- NOTE | ~2025-03-27 | XR_ITS ---
EXAMINATION: XR chest 1V portable DATE: 04/01/2025 12:19 INDICATION: Hypoxia and pleural effusions TECHNIQUE: frontal view of the chest was obtained. COMPARISON: Chest radiograph dated 03/29/2025 FINDINGS: Mild biapical pleural-parenchymal scarring. There is blunting at the bilateral cardiophrenic angles c onsistent with persistent small bilateral pleural effusions. Mild streaky left basilar atelectasis. T he cardiomediastinal silhouette is normal. Visualized bones and soft tissues are unremarkable. IMPRESSION: 1. Small bilateral pleural effusions with mild streaky left basilar atelectasis. Reviewed, dictated and finalized at location A. IMPRESSION: 1. Small bilateral pleural effusions with mild streaky left basilar atelectasis .
--- NOTE | ~2025-03-27 | NM_ITS ---
EXAMINATION: NM hepatobiliary w pharm DATE: 03/31/2025 12:44 INDICATION: Assess gallbladder ejection fraction. Pancreatitis. COMPARISON: CT dated 03/29/2025 TECHNIQUE: 5 mCi Tc-99m mebrofenin (Choletec) was administered intravenously. Scintigraphic images o f the abdomen were obtained for one hour. 2 mg morphine was administered by slow intravenous infusion , and imaging was continued for 30 additional minutes. FINDINGS: There is normal clearance of radiotracer from the blood pool. There is homogeneous tracer uptake by t he liver. Activity progresses to the common bile duct an bowel with activity first visible at 20 min utes of imaging. Following morphine administration there is gradual accumulation of activity in the g allbladder. There is also progression of activity through the small bowel as well as some reflux of a ctivity into the stomach. IMPRESSION: 1. No biliary obstruction but with delayed accumulation of activity within the gallbladder which occ urs following morphine administration but which essentially precludes acute cholecystitis. Reviewed, dictated and finalized at location A. IMPRESSION: 1. No biliary obstruction but with delayed accumulation of activity within the gallbladder which occurs following morphine administration but which essential ly precludes acute cholecystitis.
--- NOTE | ~2025-03-27 | XR_ITS ---
EXAM: XR lumbar spine 2-3V DATE: 04/02/2025 10:54 HISTORY: back pain . COMPARISON: CT abdomen pelvis 03/29/2025. FINDINGS: 5 nonrib-bearing lumbar-type vertebral bodies. Pedicles intact. Normal vertebral body alig nment. Vertebral body heights preserved. Multilevel disc space narrowing, moderate at L2-3. Moderate mid and lower lumbar facet hypertrophy and sclerosis. No fracture or dislocation. Atherosclerotic aor tic calcifications, without evident aneurysm IMPRESSION: Multilevel lumbar degenerative disc disease, moderate at L2-3. Moderate mid and lower lum bar facet arthropathy. Reviewed, dictated and finalized at location K. IMPRESSION: Multilevel lumbar degenerative disc disease, moderate at L2-3. Mode rate mid and lower lumbar facet arthropathy.
--- NOTE | ~2025-03-27 | XR_ITS ---
XR chest 2V Ordering provider: Bentley Mortensen MD History: 84 years Male with . SOA . Comparison: June 08, 2024. FINDINGS: MEDIASTINUM: The cardiac silhouette is not enlarged. LUNGS: No , effusions or pneumothorax. Opacification in the left lung base. OTHER: No free air under the diaphragm. Degenerative changes of the spine. IMPRESSION: Left basilar atelectasis versus pneumonia. Reviewed, dictated and finalized at location A.
--- NOTE | ~2025-03-27 | XR_ITS ---
EXAMINATION: XR chest 1V portable DATE: 03/29/2025 11:04 INDICATION: Shortness of breath with no oxygen requirement TECHNIQUE: 03/27/2025 COMPARISON: Chest radiograph and CT abdomen and pelvis dated 03/27/2025 FINDINGS: There is artifactual gradient of increasing density at the left side of the image including both the long and the chest wall. Mild opacities in the left lower lung zone, likely combination of a left par acardial fat pad and mild left basilar atelectasis. No pulmonary edema, pleural effusion or pneumotho rax. The cardiomediastinal silhouette is normal. IMPRESSION: 1. Mild opacities in the left lower lung zone likely combination of left pericardial fat pad and atel ectasis with differential including pneumonia in the appropriate clinical setting. Reviewed, dictated and finalized at location B. IMPRESSION: 1. Mild opacities in the left lower lung zone likely combination of left perica rdial fat pad and atelectasis with differential including pneumonia in the appr opriate clinical setting.
[2025-03-27 10:27] LABS: Glucose Point of Care 106 mg/dl (65-105)
--- NOTE | 2025-03-27 10:27 | ECG_ITS ---
Test Date: 2025-03-27 10:27:28 Measurements Intervals [place] Rate: 60 P: 44 AL: 192 QRS: 1 QRSD: 85 T: 62 QT: 416 QTc: 418 Interpretive Statements SINUS RHYTHM LOW QRS VOLTAGE IN PRECORDIAL LEADS BASELINE ARTIFACT- II, III, AVR, AVL, AVF BORDERLINE ECG No previous ECG available for comparison Electronically Signed On 03-27-2025 11:02:17 CDT by Charanjit Grossman D.O.
[2025-03-27 10:31] LABS: Basophils Absolute Auto 0.1 K/mm3 (0.0-0.1); Basophils Percent Auto 0.3 % (0.2-1.2); Eosinophils Absolute Auto 0.1 K/mm3 (0-0.3); Eosinophils Percent Auto 0.7 % (0-4.4); Hematocrit 46.5 % (42.0-52.0); Hemoglobin 15.3 g/dL (14.0-18.0); Immature Granulocyte Absolute 0.08 K/mm3 (0.00-0.031); Immature Granulocyte Percent A 0.4 % (0-0.5); Lymphocytes Absolute Auto 0.84 K/mm3 (0.9-3.2); Lymphocytes Percent Auto 4.3 % (18.3-44.2); Mean Corpuscular HGB Conc 32.9 g/dl (32-36); Mean Corpuscular Hemoglobin 29.7 pg (26-34); Mean Corpuscular Volume 90.1 fl (80-100); Mean Platelet Volume 9.4 fl (7.4-10.4); Monocytes Absolute Auto 0.7 K/mm3 (0.1-0.6); Monocytes Percent Auto 3.8 % (2.6-8.5); Neutrophils Absolute Auto 17.8 K/mm3 (1.3-6.7); Neutrophils Percent Auto 90.5 % (45.5-73.1); Platelet Count Result 230 k/mm3 (150-375); Red Blood Count 5.16 M/mm3 (4.6-6.20); Red Cell Distribution Width 13.7 % (11.5-14.5); White Blood Count 19.7 K/mm3 (4.5-10.0)
[2025-03-27] MEDS: SODIUM CHLORIDE 0.9% IV 1,000 ML 999 ML IV CONT (10:36)
[2025-03-27 10:42] LABS: Estimated CRCL calculation 53 ml/min; Estimated Glomerular Filt Rate > 60
[2025-03-27 10:48] LABS: Alanine Aminotransferase 172 U/L (6-50); Albumin Level 4.3 g/dL (3.5-5.1); Alkaline Phosphatase 121 U/L (38-126); Anion Gap 7 mmol/L (4-12); Aspartate Amino Transferase 295 U/L (17-59); Bilirubin,Total 1.6 mg/dL (0.2-1.3); Blood Urea Nitrogen 22 mg/dL (9-20); Calcium 9.5 mg/dL (8.4-10.2); Carbon Dioxide 24 mmol/L (22-30); Chloride 102 mmol/L (98-107); Estimated CRCL calculation 73 ml/min; Estimated Glomerular Filt Rate > 60; Glucose 136 mg/dL (65-110); Potassium 4.2 mmol/L (3.4-5.0); Sodium 133 mmol/L (137-145)
--- NOTE | 2025-03-27 11:23 | ED_ITS ---
HPI - General Adult General Chief complaint: Nausea/Vomiting/Diarrhea Stated complaint: N/V Time Seen by Provider: 03/27/25 10:28 History of Present Illness HPI narrative: Patient is an 84-year-old male who presents ER with epigastric pain. Sudden onset this morning at 5:00 a.m.. Associated nausea vomiting. Nausea improved with Zofran. Patient did not spun arrival in the 70s. Reports he has not had similar pain before. No fevers or chills or sweats. No chest pain. Has not had any fevers or chills. No alleviating factors. Related Data Home Medications ?Medication ?Instructions ?Recorded ?Confirmed ?Last Taken ?Type fish oil-dha-epa 1,200 mg-144 cap PO .QD 01/06/23 12/08/24 Unknown History mg-216 mg capsule aspirin 81 mg tablet,delayed 81 mg PO DAILY 08/09/24 12/08/24 Unknown History release (Adult Aspirin Regimen) vit C 250 mg-vit E 90 mg-zinc 40 1 tablet PO BID 08/09/24 12/08/24 Unknown History mg-copper 1 [id number] capsule (PreserVision AREDS-2) cholecalciferol (vitamin D3) 1,250 1,250 mcg PO WEEKLY 10/20/24 12/08/24 Unknown History mcg (50,000 unit) capsule semaglutide (weight loss) 0.25 0.25 mg subcut WEEKLY 10/20/24 12/08/24 Unknown History mg/0.5 mL subcutaneous pen injector (Wegovy) Allergies Allergy/AdvReac Type Severity Reaction Status Date / Time atorvastatin Allergy Mild Weakness,Muscle Verified 12/08/24 12:59 Pain phenytoin Allergy Mild Rash Verified 12/08/24 12:59 Review of Systems 2 Review of Systems: All systems reviewed & are unremarkable except as noted in HPI and below Constitutional: Constitutional: Reports no additional constitutional complaints ENT: Reports system reviewed and no additional complaints, except as documented Cardiovascular: Cardiovascular: Reports no additional cardiovascular complaints Respiratory: Respiratory: Reports no additional respiratory complaints Gastrointestinal: Gastrointestinal: Reports abdominal pain, Denies diarrhea, Reports nausea and Reports vomiting Genitourinary: Genitourinary: Reports no additional male genitourinary complaints [facility] Past Medical History Medical History (Updated 03/27/25 @ 16:52 by Bentley Mortensen MD) Seizure CVA (cerebral vascular accident) Basal cell carcinoma Alcohol abuse Hypothyroidism Arthritis GI bleed Hyperlipidemia Hypertension Surgical History Surgical History History of testicular surgery Family History Family History Mother , Age 89 - CHF Breast cancer Glaucoma Father , Age 81 - Farm Accident GERD (gastroesophageal reflux disease) Lymphoma Grandparent , Age 77 - Heart Arrythmia No problems noted. Grandparent , Age 47 - Gangrene No problems noted. Grandparent , Age 70 - Unknown No problems noted. Grandparent , Age 70 - Unknown No problems noted. Sibling , Age 70 - Thyroid Cancer No problems noted. Social History Social History Smoking status: Former smoker Alcohol intake: former Substance use: never Current Housing: Decline to Answer Concerned About Future Housing: Decline to Answer Difficulty Paying Gas/Electric Bills: Decline to Answer Difficulty Paying for Meds: Decline to Answer Currently Unemployed: Decline to Answer Education: Decline to Answer Difficulty w/ Childcare or Family Care: Decline to Answer Living arrangements: with family Gender identity (if verbalized by the patient): Male Exam 2 Narrative: GENERAL: Well-appearing, well-nourished, and in no acute distress. HEAD: Normocephalic, atraumatic. EYES: PERRL and EOMI. ENT: Mucous membranes moist. CHEST: Clear to auscultation. No respiratory distress. HEART: Regular rate and rhythm. Normal peripheral pulses. ABDOMEN: Soft, tender palpation with guarding epigastrium and right upper quadrant., nondistended, normal active bowel sounds. EXTREMITIES: Normal range of motion. No edema. SKIN: Warm, dry, no rash. NEURO: Alert and oriented x3. PSYCH: Normal mood and affect. Course Course Emergency Course: Pain improving on its own. Blood pressure began to increase prior to fluids however he was given a bolus given hypertension. He has evidence pancreatitis. GI consulted. Will also start on broad-spectrum antibiotics in case there is an ascending infection towards the gallbladder that he is afebrile. May have passed some biliary sludge causing his pain given the abnormal contour of the gallbladder. Patient accepted by hospitalist service. Patient did have some mild hypoxia, could be related to obstructive sleep apnea. Patient denies any alcohol use. Vital Signs Vital signs: Vital Signs Temperature 97.6 F 03/27/25 10:18 Pulse Rate 77 03/27/25 10:18 Respiratory Rate 20 03/27/25 10:18 Blood Pressure 76/62 L 03/27/25 10:18 Pulse Oximetry 92 03/27/25 10:18 Oxygen Delivery Room Air 03/27/25 10:18 Temperature 97.6 F 03/27/25 10:18 Pulse Rate 107 H 03/27/25 15:45 Respiratory Rate 25 H 03/27/25 15:45 Blood Pressure 148/80 H 03/27/25 15:31 Pulse Oximetry 93 03/27/25 15:55 Oxygen Delivery Nasal Cannula 03/27/25 15:55 Oxygen Flow Rate 2 03/27/25 15:55 Medical Decision Making Vital Signs Vital Signs: Vital Signs Temperature 97.6 F 03/27/25 10:18 Pulse Rate 77 03/27/25 10:18 Respiratory Rate 20 03/27/25 10:18 Blood Pressure 76/62 L 03/27/25 10:18 Pulse Oximetry 92 03/27/25 10:18 Oxygen Delivery Room Air 03/27/25 10:18 Temperature 97.6 F 03/27/25 10:18 Pulse Rate 107 H 03/27/25 15:45 Respiratory Rate 25 H 03/27/25 15:45 Blood Pressure 148/80 H 03/27/25 15:31 Pulse Oximetry 93 03/27/25 15:55 Oxygen Delivery Nasal Cannula 03/27/25 15:55 Oxygen Flow Rate 2 03/27/25 15:55 Lab Data 03/27/25 10:26 03/27/25 10:40 Labs: Lab Results 03/27/25 03/27/25 03/27/25 Range/Units 10:26 10:40 12:52 WBC 19.7 H (4.5-10.0) K/mm3 RBC 5.16 (4.6-6.20) M/mm3 Hgb 15.3 (14.0-18.0) g/dL Hct 46.5 (42.0-52.0) % MCV 90.1 (80-100) fl MCH 29.7 (26-34) pg MCHC 32.9 (32-36) g/dl RDW 13.7 (11.5-14.5) % Plt Count 230 (150-375) k/mm3 MPV 9.4 (7.4-10.4) fl Immature Gran % (Auto) 0.4 (0-0.5) % Neut % (Auto) 90.5 H (45.5-73.1) % Lymph % (Auto) 4.3 L (18.3-44.2) % [place] % (Auto) 3.8 (2.6-8.5) % Eos % (Auto) 0.7 (0-4.4) % Baso % (Auto) 0.3 (0.2-1.2) % Lymph # (Auto) 0.84 L (0.9-3.2) K/mm3 [place] # (Auto) 0.7 H (0.1-0.6) K/mm3 Eos # (Auto) 0.1 (0-0.3) K/mm3 Baso # (Auto) 0.1 (0.0-0.1) K/mm3 Abs Immat Gran (auto) 0.08 H (0.00-0.031) K/mm3 Absolute Neuts (auto) 17.8 H (1.3-6.7) K/mm3 Absolute Nucleated RBC 0.000 (0.0-0.012) K/mm3 Nucleated RBC % 0.0 (0.0-0.2) % Sodium 133 L (137-145) mmol/L Potassium 4.2 (3.4-5.0) mmol/L Chloride 102 (98-107) mmol/L Carbon Dioxide 24 (22-30) mmol/L Anion Gap 7 (4-12) mmol/L BUN 22 H (9-20) mg/dL Creatinine 0.71 1.00 (0.7-1.3) mg/dL Estim Creat Clear Calc 73 53 ml/min Estimated GFR > 60 > 60 (59 - ) Glucose 136 H (65-110) mg/dL POC Capillary Glucose 106 H (65-105) mg/dl Calcium 9.5 (8.4-10.2) mg/dL Total Bilirubin 1.6 H (0.2-1.3) mg/dL AST 295 H (17-59) U/L ALT 172 H (6-50) U/L Alkaline Phosphatase 121 (38-126) U/L Total Protein 7.0 (6.3-8.2) g/dL Albumin 4.3 (3.5-5.1) g/dL Lipase 05057 H (23-300) U/L TSH Pending Urine Color Yellow (Yellow) Urine Appearance Clear (Clear) Urine pH 7.5 (5.0-9.0) Ur Specific [place] 1.043 H (1.001-1.035) Urine Protein Negative (Negative) mg/dL Urine Glucose (UA) Negative (Negative) mg/dL Urine Ketones Negative (Negative) mg/dL Ur Blood (Man) Negative (Negative) Urine Nitrate Negative (Negative) Urine Bilirubin Negative (Negative) Urine Urobilinogen 2.0 H (<2.0) mg/dL Leukocyte Esterase Rfl Negative (Negative) MAGAN/UL Imaging Data Radiologist's impression: ITS Impressions Abdomen/Pelvis CT 03/27/25 11:04 IMPRESSION: 1. Acute interstitial pancreatitis. Upper Quadrant Ultrasound 03/27/25 12:04 IMPRESSION: 1. Focal adenomyosis at the fundus of the gallbladder. No choledocholithiasis and no evident biliary or pancreatic ductal dilation.. 2. Normal appearance to the pancreas on ultrasound imaging although findings on prior CT are consistent with acute interstitial pancreatitis. Chest X-Ray 03/27/25 13:49 IMPRESSION: Left basilar atelectasis versus pneumonia. Discharge Plan Discharge Clinical Impression: Pancreatitis, Pneumonia, Hypoxia Patient Disposition: Still a Patient Condition: Guarded Prognosis
[2025-03-27 12:16] LABS: Lipase 17543 U/L (23-300)
[2025-03-27 12:59] LABS: Add Urine Microscopic? YES; Appearance Urine Clear (Clear); Bilirubin Urine Negative (Negative); Blood Urine Negative (Negative); Color Urine Yellow (Yellow); Glucose Urine UA Negative (Negative); Ketones Urine Negative (Negative); Leukocyte Esterase Ur Negative LEU/UL (Negative); Nitrate Urine Negative (Negative); Protein Urine Negative (Negative); Specific Grav Ur 1.043 (1.001-1.035); pH Urine 7.5 (5.0-9.0)
--- OUTSIDE RECORDS SUMMARY | 2025-03-27 13:23 | XMS_ITS | Clinical Summary ---
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 11/30/19 24 Active vitamin B-12 (CYANOCOBALAMIN) 500 MCG tablet Take 1 tablet (500 mcg total) by mouth daily. Active ezetimibe (ZETIA) 10 MG tablet Take 1 tablet (10 mg total) by mouth daily. Active finasteride (PROSCAR) 5 MG tablet Take 1 tablet (5 mg total) by mouth nightly. Active omeprazole (PRILOSEC) 20 MG capsule Take 1 capsule (20 mg total) by mouth daily. Active WEGOVY 0.25 mg/dose injection (PEN) Inject 0.25 mg into the skin once a week. Active tamsulosin (FLOMAX) 0.4 MG Cap Take 2 capsules (0.8 mg total) by mouth daily. Active terbinafine (LAMISIL) 250 MG tablet Take 1 tablet (250 mg total) by mouth 2 (two) times a week. Active Multiple Vitamins-Minerals (PRESERVISION AREDS 2) Cap Take 2 capsules by mouth daily. 11/30/19 18 Active vitamin D3 (CHOLECALCIFEROL) 1.25 mg capsule Take 1 capsule (1.25 mg total) by mouth once a week. Active [place]-3 Fatty Acids (FISH OIL) 1200 MG CAPSULE DELAYED RELEASE Take 1,200 mg by mouth daily. Active propranolol (INDERAL) 20 MG tabletIndications: Essential tremor Take 1 tablet (20 mg total) by mouth 2 (two) times daily. 180 tablet 1 02/29/20 025 Active levothyroxine (SYNTHROID) 112 MCG tabletIndications: Acquired hypothyroidism Take 1 tablet (112 mcg total) by mouth every morning. 90 tablet 1 02/29/20 025 Active losartan (COZAAR) 50 MG tabletIndications: Primary hypertension Take 1 tablet (50 mg total) by mouth daily. 90 tablet 02/29/20 25 025 Active Cholecalciferol (VITAMIN D) 50 MCG (1999 UT) Cap 11/30/19 23 Discontinu ed(Formula ry change) KRILL OIL OR 11/30/19 18 Discontinu ed(Formula ry change) Levothyroxine Sodium 112 MCG Cap Take 112 mcg by mouth daily. Discontinu ed(Other- Please enter comment in Notes field) losartan (COZAAR) 50 MG tablet Take 1 tablet (50 mg total) by mouth daily. Discontinu ed(Reorder ) propranolol (INDERAL) 20 MG tablet Take 1 tablet (20 mg total) by mouth 2 (two) times daily. Discontinu ed(Reorder ) Active Problems Problem Noted Date Diagnosed Date Statin myopathy 02/28/2025 Overview (02/28/2025): Initial visit 02/28/2025: He reports he had muscle pain and weakness after trying statin medication. He is currently on ezetimibe 10 mg daily. Assessment & Plan (02/28/2025 1:30 PM CDT): Continue ezetimibe 10 mg daily. Requesting records from previous provider regarding recent labs. Essential tremor 02/28/2025 Overview (02/28/2025): Initial visit 02/28/2025: He reports he has been diagnosed with essential tremor and takes propranolol 20 mg twice daily. He is requesting refill of propranolol. Assessment & Plan (02/28/2025 1:37 PM CDT): Stable. Continue propranolol 20 mg twice daily. Need for spqqzkzqfz-xayvbkk-wbjvbwshx (Tdap) vac cine 02/28/2025 Assessment & Plan (02/28/2025 11:19 AM CDT): Requested records from [employer] regarding TDAP. Gastroesophageal reflux dise ase, unspecified whether esophagitis present 02/28/2025 Overview (02/28/2025): Initial visit 02/28/2025: He reports he has had gastric reflux for the majority of his life. He is currently taking omeprazole 20 mg daily and reports he has been taking this for many years. Assessment & Plan (02/28/2025 1:37 PM CDT): Patient's neuropathy could potentially be related to long-term PPI therapy and decrease vitamin B12 absorption. Requesting records regarding patient's most recent lab work. Other polyneuropathy 02/28/2025 Overview (02/28/2025): Initial visit 02/28/2025: Patient reports he has peripheral neuropathy in his feet and has previously seen podiatry. He reports he is unsure of cause however thinks it may be related to previous history of alcohol abuse for an 8 year time period. When he saw podiatry, they have given him topical L baclofen/gabapentin/amitriptyline/clonidine/lidocaine 2% 6% 5% 0.2% 2% cream and he can use 2 g up to twice daily. He reports this is helpful for his neuropathy symptoms. Assessment & Plan (02/28/2025 1:34 PM CDT): Requesting records from previous provider regarding vitamin B12 levels. 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 Status post bilateral cataract extraction 2024 Overview (02/28/2025): Initial visit 02/28/2025: He reports he has had bilateral cataract surgery. History of seizures 02/28/2025 Overview (02/28/2025): Initial visit 02/28/2025: He reports he had some seizures in the 1980s and was placed on Dilantin and had allergic reaction with hives and there was switched to Tegretol. He is not currently on seizure medication and denies any recent seizure. History of alcohol use 02/28/2025 Overview (02/28/2025): Initial visit 02/28/2025: Reports he has a history of a time period of approximately 8 years in which he was drinking heavily. He reports he is not currently drinking alcohol. Overweight (BMI 25.0-29.9) 02/28/2025 Overview (02/28/2025): Initial visit 02/28/2025: He reports he is lost weight since being started on Wegovy by cardiology. He reports he takes Wegovy 0.25 mg weekly. Assessment & Plan (02/28/2025 1:44 PM CDT): Continue plan of care per cardiology. Requesting records regarding patient's recent labs as I would like to evaluate renal function. Immunity status testing 02/28/2025 Overview (02/28/2025): Initial visit 02/28/2025: Patient reports he thinks he had measles as a kid however unsure if he received vaccine previously Assessment & Plan (02/28/2025 1:46 PM CDT): Due to patient's age and low likelihood of having received current MMR vaccine, I recommend we check his measles titers given the current circumstances of the measles in [place]. Hard of hearing 08/24/2024 Overview (02/28/2025): Initial visit 02/28/2025: He reports he has bilateral hearing aids. He is currently wearing hearing aid in left ear. Heart disease, unspecified 08/18/2024 Primary hypertension 06/08/2024 Overview (02/28/2025): Initial visit 02/28/2025: Reports he has controlled hypertension. Taking losartan 50 mg once daily. Assessment & Plan (02/28/2025 1:31 PM CDT): Blood pressure is appropriate in office today. Continue losartan 50 mg since daily at this time. Requesting record of most recent lab results from previous provider to evaluate renal function. Discussed with patient that we may want to decrease his losartan to 25 mg daily as we do not have to be as aggressive with blood pressure control at his age. Will continue to monitor and discuss again at subsequent visit. B12 deficiency 06/08/2024 Enlarged prostate 06/08/2024 Overview (02/28/2025): Initial visit 02/28/2025: Reports he is taking tamsulosin 0.4 mg twice daily and finasteride 5 mg nightly. Hyperlipidemia, unspecified 06/08/2024 Overview (02/28/2025): fay gayathri Acquired hypothyroidism 06/08/2024 Overview (02/28/2025): Initial visit 02/28/2025: He reports he was diagnosed with hypothyroidism in 2014 and is currently taking levothyroxine 112 mcg daily in AM. He is requesting refill. Assessment & Plan (02/28/2025 1:32 PM CDT): Continue levothyroxine 112 mcg daily at this time. Refill placed to patient's pharmacy. Requesting record of most recent lab results from previous provider to evaluate thyroid function. Other abnormal glucose 06/08/2024 Vitamin D deficiency 06/08/2024 Resolved Problems Problem Noted Date Diagnosed Date Resolved Date Contact with and (suspected) exposure to other communicable diseases 06/08/2024 02/28/2025 Obesity 06/08/2024 02/28/2025 Overview (02/28/2025): contravenotcovered Seizure disorder ([facility] 06/08/2024 02/28/2025 Overview (02/28/2025): idiopathich none sinece 85 Supraventricular tachycardia ([facility]) 06/08/2024 02/28/2025 Encounters Date Type Department Care Team Description 03/23/2025 Scan HEALTH INFO SRVCS Scanned, Doc Med Group 02/28/2025 10:20 AM CDT [facility] [place] [address] [place] [address] Jennifer Mae, New Patient (Just needed a new PCP. /No questions or concerns today. /) 02/28/2025 Travel 02/23/2025 Scan MG HEALTH INFO SRVCS Scanned, Doc Med Group 02/22/2025 Patient Outreach [facility] [place] [address] [place] [address] Jennifer Mae, Pre-visit Gap Closure from Last 3 Months Immunizations Immunization Administration Dates Next Due Arexvy Respiratory Syncytial Virus (RSV, adjuvanted) 0.5 mL, PF 08/18/2023 FLUAD (IIV, Trivalent, 0.5 M L Pre-filled Syringe) 08/09/2024,08/15/2019,09/01/2018 Fluzone High Dose (IIV, triv alent, 0.5mL) 08/26/2017,09/01/2016,08/27/2015 H1N1 Injectable 2009 Influenza 11/12/2009 Influenza (Generic) 08/25/2013,12/10/2012,2008 Influenza Adult (Generic) 08/18/2023,08/2022,08/19/2021,2019 Pneumococcal (Pneumovax 23) 12/28/2017, 3 Pneumococcal (Prevnar 13) 05/30/2015 Shingrix 08/15/2019,03/26/2018 Family History Medical History Relation Comments Cancer Brother 1 Thyroid- metasti sized No Known Problems Brother 3 Miscarriages / Stillbirths Daughter twice Cancer Father Lymphoma-cured Vision loss Father macular degenera tion Alcohol Abuse Maternal Uncle Cancer Mother bilateral breast -controlled No Known Problems Son 2 Relation Status Comments Brother 1 Brother 2 Brother 3 Alive Daughter Alive Father Maternal Uncle Mother Son 1 Alive Son 2 Alive Social History Tobacco Use Types Packs/Day Years Used Date Smoking Tobacco: Former Cigarettes Q uit: 11/30/1958 Passive Smoke Exposure: Past Smokeless Tobacco: Never Tobacco Cessation:Counseling Given: No Comments:maybe one a week Alcohol Use Standard Drinks/Week Comments Not Currently 0 (1 standard drink = 0.6 oz pur e alcohol) [id number] PHQ-2 Answer Date Recorded Patient Health Questionnaire-2 Score 0 02/28/2025 Sex and Gender Information Value Date Recorded Sex Assigned at Male 02/28/2025 10:33 AM CDT Legal Sex Male 3:45 PM CDT Gender Identity Male 02/28/2025 10:33 AM CDT Sexual Orientation Not on file Last Filed Vital Signs Vital Sign Reading Time Taken Comments Blood Pressure 110/67 02/28/2025 10:29 AM CDT Pulse 62 02/28/2025 10:29 AM CDT Temperature 36.8 C (98.3 F) 02/28/2025 10:29 AM CDT Respiratory Rate 16 02/28/2025 10:29 AM CDT Oxygen Saturation 98% 02/28/2025 10:29 AM CDT Inhaled Oxygen Concentration - - Weight 96.6 kg (213 lb) 02/28/2025 10:29 AM CDT Height 180.3 cm (5' 11 ) 02/28/2025 10:29 AM CDT Body Mass Index 29.71 02/28/2025 10:29 AM CDT Plan of Treatment Upcoming Encounters Date Type Department Care Team (Late st Contact Info) Description 05/16/2025 9:40 AM CDT Office Visit [facility] [place] [address] [place] [address] Jennifer Mae, [address] [place] [address] Health Maintenance Due Date Last Done Comments DTaP, Tdap and Td Vaccines (1 - Tdap) 1959 Annual Medicare Wellness Visit 2005 COVID-19 Vaccine ( season) 2026 08/09/2024, 09/01/2023, 09/08/2022, Additional history exists Postponed from 02/06/2025 (Patient Refused) Pneumococcal Vaccine: 50+ Years Completed 12/28/2017, 05/30/2015, 12/10/2012 Zoster Vaccines Completed 08/15/2019, 03/26/2018 RSV Immunization or 60+ Years Completed 08/18/2023 PHQ-2 (Physician [place]) Completed 02/28/2025 Meningococcal B Vaccine Aged Out No l onger eligible based on patient's age to complete this topic Meningococcal Vaccine Aged Out No asad phong eligible based on patient's age to complete this topic RSV Immunizations Under 20 Months Aged Out No longer eligible based on patient's age to complete this topic Procedures Procedure Name Priority Date/Time Associated Diagnosis Comments RUBEOLA IGG Routine 03/01/2025 2:07 PM CDT Immunity status testing from Last 3 Months Results * RUBEOLA IGG (03/01/2025 2:07 PM CDT) MEASLES AB IGG (CSF) >300.00 AU/mL [facility] Comment: AU/mL Interpretation ----- <13.50 Not consistent with immunity 13.50-16.49 Equivocal >16.49 Consistent with immunity The presence of measles IgG suggests immunization or past or current infection with measles virus. For additional information, please refer to http://education.Open-Plug/faq/LTI161 (This link is being provided for informational/ educational purposes only.) 03/01/2025 2:07 PM CDT 03/01/2025 2:08 PM CDT Narrative Resulting Agency Comment Performing Organization Information: Site ID: [place] Name[facility] Address: [address] [address] Director: Izabela Romero MD us Jennifer Mae DO LABORATORY Final Result [facility] [id number] [id number], from Last 3 Months Insurance [employer] Care Teams Entry Level Project Engineer Relationship Specialty Start Date End Date Jennifer Mae DO [address] [place] [address] PCP - General FAMILY PRACTICE 02/07/25
--- OUTSIDE RECORDS SUMMARY | 2025-03-27 13:23 | XMS_ITS | CONTINUITY OF CARE DOCUMENT ---
Author Name godwin connelly Address Unknown Organization [facility] Address [address] [place] [address] Phone [phone] Care Team Providers Care Filing And Polishing Supervisor Name Role Phone Jesús Gregg MD Unavailable eJsús Gregg MD Unavailable LIZBET BAYGAUTAM Unavailable PROBLEMS Condition Status Date Provider Notes Diastolic dysfunction and lvh active Jesús Gregg MD Exposure to SARS-associated coronavirus;had vaccine active Jesús Gregg MD B12 deficiency active Jesús Gregg MD Hyperlipidemia;NEG CRP and lpa active Jesús Gregg MD state[facility] HYPERTENSION active Jesús Gregg MD Hypothyroidism active Jesús Gregg MD Enlarged prostate active Jesús Gregg MD n eg psa Obesity active Jesús Gregg MD contrave notcovered Screening active Jesús Gregg MD PREDIABETES; active Jesús Gregg MD SEIZURE disorder active Jesús Gregg MD id iopathich none sinece 85 Vitamin D deficiency active Jesús Michael D Erythrocytosis active Jesús Gregg MD low iron SVT;nml tsh active Jesús Grgeg MD Hard of hearing active Jesús Gregg MD ENCOUNTERS Date Type Provider Location Encounter Diag nosis - In-person encounter Office Visit Jesús Gregg MD [facility] Hyperlipidemia;NEG CRP and lpaEnlarged prostateObesityScreeningHard of hearing - In-person encounter Office Visit Jesús Gregg MD [facility] Exposure to SARS-associated coronavirus;had [id number] deficiencyHyperlipidemia;NEG CRP and lpaHYPERTENSIONHypothyroidismEnlarged prostateObesityScreeningPREDIABETES;SEIZ URE disorderVitamin D deficiencyErythrocytosisSVT;nml tsh VITAL SIGNS Date Observation Value Provider Body Mass Index (Ratio) 31.80 kg/m2 Deanna Gregg MD oxygen saturation, oximetry 94 % Georgiana Reyes pulse rate 70 /min Georgiana Reyes blood pressure, cuff size regular Yoni apodaca Reyes blood pressure, diastolic 72 mm[Hg] [facility], systolic 118 mm[Hg] Tab estebana Reyes weight E&M 228 [lb_av] Georgiana Reyes respiratory rate E&M 12 /min Georgiana Reyes height E&M 71 [in_i] Georgiana Reyes Body Mass Index (Ratio) 33.05 kg/m2 Deanna Gregg MD blood pressure, diastolic 82 mm[Hg] [facility] blood pressure, systolic 128 mm[Hg] Kathe kLog blood pressure, cuff size regular Yoni apodaca Reyes blood pressure, diastolic 82 mm[Hg] Ta bitha Reyes blood pressure, systolic 128 mm[Hg] Tab estebana Reyes oxygen saturation, oximetry 97 % Georgiana Reyes pulse rate 70 /min Georgiana Reyes respiratory rate E&M 12 /min Georgiana Reyes weight E&M 237 [lb_av] Georgiana Reyes height E&M 71 [in_i] Georgiana Reyes ALLERGIES Allergy Name Onset Date Reaction Criticality Status DILANTIN High Criticality active STATINS High Criticality active RESULTS Date Observation Value Provider Reference Range Interpretation Location hemoglobin A1C, blood, as % of total hemoglobin 6.2 % OF TOTAL HGB [facility] <5.7 [place] [address] [id number] [facility] prostate specific antigen 0.16 ng/mL [facility] < OR = 4.00 Normal [place] [address] [place] [address] [facility] triiodothyronine (T3), serum 98 ng/dL [facility] 76-181 Normal [place] [address] [place] [address] [facility] C-reactive protein, by highly sensitive test <0.2 mg/L [facility] Normal [place] [address] [place] [address] [facility] basophils as percent of blood leukocytes 1.6 % [facility] Normal [place] [address] [place] [address] [facility] eosinophils as percent of blood leukocytes 4.9 % [facility] [address] [place] [address] [facility] monocyte count, blood 10.5 % [facility] Normal [facility] [address] [place] [address] [facility] lymphocyte count, blood 27.4 % [facility] Normal [facility] [address] [place] [address] [facility] neutrophils as percent of blood leukocytes 55.6 % [facility] Normal [facility] [address] [place] [address] [facility] basophils, absolute, manual 114 cells/m cL [facility] 0-200 Normal [facility] [address] [place] [address] [facility] eosinophils, absolute, manual 348 cells/m cL [facility] 15-500 Normal [place] [facility] [address] [place]if [place] [address] [facility] monocytes, absolute, manual 746 cells/m cL [facility] 200-950 Normal [facility] [address] [place]if [place] [address] [facility] lymphocytes, absolute 1945 CELLS/U L [facility] 850-3900 Normal [place] [facility] [address] [place]if [place] [address] [facility] Absolute Neutrophil count 3948 cells/m cL [facility] 0398-4568 Normal [place] [facility] [address] [place]if [place] [address] [facility] mean platelet volume 10.0 fL [facility] 7.5-12.5 Normal [place] [facility] [address] [place]if MAR[place] [address] [facility] platelet count 229 THOUSAN D/UL [facility] 140-400 Normal [place] [facility] [address] [place]if [place] [address] [facility] red blood cell distribution width 13.1 % [facility] 11.0-15.0 Normal [facility] [address] Sharif MAR[place] [address] [facility] mean corpuscular hemoglobin concentration, RBC 32.4 G/DL [facility] 32.0-36.0 Normal [place] [facility] [address] [place]if [place] [address] [facility] mean corpuscular hemoglobin, RBC 30.3 pg [facility] 27.0-33.0 Normal [place] [facility] [address] [place]if MAR[place] [address] [facility] mean corpuscular volume, RBC 93.6 fL [facility] 80.0-100.0 Normal [place] [facility] [address] [place] [address] [facility] hematocrit, blood 52.8 % [facility] 38.5-50.0 High [place] [address] [place]if [place] [address] [facility] hemoglobin electrophoresis, blood 17.1 [facility] 13.2-17.1 Normal [place] [address] Sharif [place] [address] [facility] Vo erythrocyte (RBC) count 5.64 MILLION /UL [facility] 4.20-5.80 Normal [place] [address] [place]if [place] [address] [facility] Vo leukocyte (white blood cells) count, blood 7.1 THOUSAN D/UL [facility] 3.8-10.8 Normal [place] [address] [place]if [place] [address] [facility] Vo thyroxine, serum, free 1.4 ng/dL [facility] 0.8-1.8 Normal [place] [address] Sharif [place] [address] [facility] Vo thyroid stimulating hormone, serum 3.49 u[IU]/m L [facility] 0.40-4.50 Normal [place] [address] [place]if [place] [address] [facility] Vo cholesterol, non-HDL, total 142 MG/DL (CALC) [facility] <130 [place] [address] [place]if [place] [address] [facility] Vo cholesterol/HDL ratio, serum, percent 3.8 (calc) [facility] <5.0 Normal [place] [address] [place]if [place] [address] [facility] Vo LDL cholesterol, serum 122 MG/DL (CALC) [facility] [place] [address] [place]if [place] [address] [facility] Vo triglyceride, serum, fasting 101 mg/dL [facility] <150 Normal [place] [address] [place]if [place] [address] [facility] Thi Vo HDL cholesterol, serum 51 mg/dL [facility] > OR = 40 Normal [place] [address] [place] [address] [facility] cholesterol, serum 193 mg/dL [facility] <200 Normal [place] [address] Sharif MARI [address] [facility] Thi Vo ferritin, serum 44 ng/mL [facility] 24-380 Normal [place] [address] Sharif MARI [address] [facility] Vo iron saturation percent, serum 36 % (CALC) [facility] 20-48 Normal [place] [address] Sharif [place] [address] [facility] Vo iron binding capacity, total 358 MCG/DL (CALC) [facility] 250-425 Normal [place] [address] Sharif [place] [address] [facility] Vo iron, serum 130 ug/dL [facility] 50-180 Normal [place] [address] Sharif MARI [address] [facility] Vo microalbumin/creati nine ratio, urine 3 MG/G CREAT [facility] <30 Normal [facility] [address] [address] [address] Izabela Romero MD microalbumin/total urine volume 4 mg/L [facility] Units converted. See lab report for original value. Normal [facility] [address] [address] [place] [address] Izabela Romero MD creatinine, random, urine 121 mg/dL [facility] 20-320 Normal [facility] [address] [address] [place] [address] Izabela Romero MD HISTORY OF MEDICATION USE Medication Status Instructions Dates Provider Indications Com ments Wegovy 0.25 mg/0.5 mL pen injector active 1 pen injector subcutaneously once a week Jesús Gregg MD HYPERTENSION Contrave 8-90 mg tablet extended release completed Take 1 tablet by mouth as directed one tablet daily in morning x1 week, then one tablet twice daily x1 week, then two tabs in morning and one tablet in evening x1 week, then two tabs by mouth twice daily - Jesús Gregg MD ergocalciferol (vitamin D2) 1,250 mcg (50,000 unit) capsule active TAKE 1 CAPSULE BY MOUTH EVERY WEEK Jesús Gregg MD aspirin 81 mg tablet,chewable active Jesús Gregg MD tamsulosin 0.4 mg capsule active TAKE 2 CAPSULES BY MOUTH ONCE DAILY Georgiana Reyes omeprazole 20 mg capsule,delayed release(DR/EC) active TAKE 1 CAPSULE BY MOUTH TWICE DAILY Georgiana Reyes aspirin tablet 81 mg completed Take 1 tablet by mouth once a day - Jesús Gregg MD propranolol 20 mg tablet active Take 1 tablet by mouth twice a day Georgiana Reyes terbinafine HCl 250 mg tablet active Take 1 tablet by mouth once a day Georgiana Reyes losartan 50 mg tablet active Take 1 tablet by mouth every morning Georgiana Reyes amitriptyline 25 mg tablet active Take 1 tablet by mouth every night Georgiana Reyes ezetimibe 10 mg tablet active Take 1 tablet by mouth once a day Georgiana Reyes cyanocobalamin (vitamin B-12) 2,500 mcg tablet active Take 1 tablet by mouth once a day Georgiana Reyes finasteride 5 mg tablet active Take 1 tablet by mouth once a day Georgiana Reyes levothyroxine 125 mcg tablet active Take 1 tablet by mouth once a day Georgiana Reyes INSURANCE PROVIDERS Payer name Policy type / Coverage type [place] [employer] party ID [employer] MEDICARE [facility] Medicare [id number] 600 ADVANCE DIRECTIVES Name Date DISCUSSED - NO DECISION MADE TREATMENT PLAN Date Name Performer Cardiology Jesús Gregg MD Cardiology Jesús Gregg MD Cardiology Jesús Gregg MD Cardiology Jesús Gregg MD Cardiology: 8 beat 182 on 2 week recodirn 2 0 at 137 2 9 runs total Jesús Gregg MD Cardiology:neg uacr and ihs n eg egfr and strees echo 13 n eg ab i Jesús Gregg MD Cardiology: 6 .2 Jesús Serotmargarita SKINNER Cardiology Jesús Serotmargarita SKINENR Cardiology Jesús Serota Cardiology Jesús Serota Cardiology Jesús Serota :6.2 Jesús Serotmargarita SKINNER Jesús Serota Cardiology:sx Jesús Serotmargarita SKINNER Cardiology Jesús Serota Cardiology Jesús Serota Cardiology Jesús Serota Cardiology Jesús Serota Cardiology Jesús Serota Cardiology Jesús Serota Cardiology:5.8 Jesús Serotmargarita SKINNER Cardiology:neg egfr and strees echo 13 n eg ab i Jesús Serotmargarita SKINNER Cardiology:8 beat 18 2 on 2 week recodirn 2 0 at 137 2 9 runs total Jesús Gregg MD Cardiology Jesús Gregg MD Date Name Holter Monitor [address], Coronary Calcium Score RPM (remote patient monitoring) Sleep Study Home PSA, TOTAL HEMOGLOBIN A1c RPM (remote patient monitoring) TSH, free T4, total T3 Holter Monitor 24 Hr Complete Echo CXR- PA/Lat IRON AND TOTAL IRON BINDING CAPACITY FERRITIN CBC (INCLUDES DIFF/P LT) CT, Coronary Calcium Score CRP, high sensitivit y LIPID PANEL Lipoprotein (a) Microalb/Creatinine Urine, Random HISTORY OF PROCEDURES Procedure Date Procedure Name Provider Procedure Notes S tatus Complex e/m visit add on Jesús Gregg MD completed EKG Jesús Gregg MD complete d
--- OUTSIDE RECORDS SUMMARY | 2025-03-27 13:23 | XMS_ITS | Encounter Summary ---
Author Organization [facility] Address [address] [place] [address] Care Team Providers Care Molder Name Role Phone Jennifer Mae DO Primary Care Provider [phone] Encounter Details Date Type Department Care Team (Latest Contact Info) Description 03/23/2025 Scan HEALTH INFO SRVCS Scanned, Doc Med Group Social History Tobacco Use Types Packs/Day Years Used Date Smoking Tobacco: Former Cigarettes Q uit: 11/30/1958 Passive Smoke Exposure: Past Smokeless Tobacco: Never Comments:maybe one a week Alcohol Use Standard Drinks/Week Comments Not Currently 0 (1 standard drink = 0.6 oz pur e alcohol) [id number] PHQ-2 Answer Date Recorded Patient Health Questionnaire-2 Score 0 02/28/2025 Sex and Gender Information Value Date Recorded Sex Assigned at Male 02/28/2025 10:33 AM CDT Legal Sex Male 3:45 PM CDT Gender Identity Male 02/28/2025 10:33 AM CDT Sexual Orientation Not on file documented as of this encounter Plan of Treatment Upcoming Encounters Date Type Department Care Team (Late st Contact Info) Description 05/16/2025 9:40 AM CDT Office Visit [facility] [place] [address] [place] [address] Jennifer Mae DO [address] [place] [address] documented as of this encounter Visit Diagnoses Not on filedocumented in this encounter Care Teams Molder Relationship Specialty Start Date End Date Jennifer Mae DO [address] [place], [place] [id number] PCP - General FAMILY PRACTICE 02/07/25 documented as of this encounter
--- NOTE | 2025-03-27 14:41 | P.HP_ITS ---
H&P: HPI History of Present Illness Date/Time: 03/27/25 14:41 Chief Complaint: Abdominal pain Narrative: This is an 84-year-old male with a significant past medical history of seizure, CVA, basal cell carcinoma, alcohol abuse, hypothyroidism, arthritis, hypertension, hyperlipidemia, former smoker who presented to the hospital for evaluation of abdominal pain, nausea, vomiting. Patient states that his nausea, vomiting, abdominal pain started this morning. He states that he was started on Wegovy the end of last year for weight loss and has been tapering off the medication per his Tax Expert recommendation. He reported that he took the Wegovy last yesterday. He denies any fever, chills, nausea, vomiting, diarrhea, chest pain, shortness a breath currently. He reports that he used to drink alcohol however he quit 19 years ago. Workup in the hospital included an abdomen/pelvis CT which showed acute interstitial pancreatitis. Right upper quadrant ultrasound showed focal adenomyosis at the fundus of the gallbladder, no choledocholithiasis and no evidence of biliary or pancreatic ductal dilation, normal appearance to the pancreas on US imaging. Chest x-ray shown left basilar atelectasis versus pneumonia. Initial labs showed a white blood cell count 19.7, sodium 133, blood sugar 106-136, total bili 1.6, AST 295, ALT 172, lipase 17,543. UA was obtained and showed a urine specific gravity of 1.043, 2.0 urine urobilinogen, otherwise negative. EKG showed sinus rhythm with a rate of 60, QTC 418. Patient was given 1500 mL of IV fluids, Rocephin, Flagyl while in the ED. GI was consulted. Review of Systems Review of Systems: All systems reviewed & are unremarkable except as noted in HPI and below [facility] Past Medical History Medical History Seizure CVA (cerebral vascular accident) Basal cell carcinoma Alcohol abuse Hypothyroidism Arthritis GI bleed Hyperlipidemia Hypertension Surgical History Surgical History History of testicular surgery Family History Family History Mother , Age 89 - CHF Breast cancer Glaucoma Father , Age 81 - Farm Accident GERD (gastroesophageal reflux disease) Lymphoma Grandparent , Age 77 - Heart Arrythmia No problems noted. Grandparent , Age 47 - Gangrene No problems noted. Grandparent , Age 70 - Unknown No problems noted. Grandparent , Age 70 - Unknown No problems noted. Sibling , Age 70 - Thyroid Cancer No problems noted. Social History Social History Smoking status: Former smoker Alcohol intake: former Substance use: never Current Housing: Decline to Answer Concerned About Future Housing: Decline to Answer Difficulty Paying Gas/Electric Bills: Decline to Answer Difficulty Paying for Meds: Decline to Answer Currently Unemployed: Decline to Answer Education: Decline to Answer Difficulty w/ Childcare or Family Care: Decline to Answer Living arrangements: with family Gender identity (if verbalized by the patient): Male Meds Home Medications and Allergies Home Medications ?Medication ?Instructions ?Recorded ?Confirmed ?Type fish oil-dha-epa 1,200 mg-144 cap PO .QD 01/06/23 12/08/24 History mg-216 mg capsule aspirin 81 mg tablet,delayed 81 mg PO DAILY 08/09/24 12/08/24 History release (Adult Aspirin Regimen) vit C 250 mg-vit E 90 mg-zinc 40 1 tablet PO BID 08/09/24 12/08/24 History mg-copper 1 [id number] capsule (PreserVision AREDS-2) losartan 50 mg tablet 50 mg PO DAILY #90 tabs 08/12/24 12/08/24 Rx omeprazole 20 mg capsule,delayed 20 mg PO BID #180 caps 09/21/24 12/08/24 Rx release tamsulosin 0.4 mg capsule 0.8 mg (2 x 0.4 mg) PO DAILY #180 10/10/24 12/08/24 Rx caps cholecalciferol (vitamin D3) 1,250 1,250 mcg PO WEEKLY 10/20/24 12/08/24 History mcg (50,000 unit) capsule semaglutide (weight loss) 0.25 0.25 mg subcut WEEKLY 10/20/24 12/08/24 History mg/0.5 mL subcutaneous pen injector (Avery) finasteride 5 mg tablet 5 mg PO DAILY #90 tabs 10/25/24 12/08/24 Rx ezetimibe 10 mg tablet (Zetia) 10 mg PO DAILY #90 tabs 12/13/24 Rx levothyroxine 125 mcg tablet 125 mcg PO DAILY #90 tabs 12/13/24 Rx Allergies Allergy/AdvReac Type Severity Reaction Status Date / Time atorvastatin Allergy Mild Weakness,Muscle Verified 12/08/24 12:59 Pain phenytoin Allergy Mild Rash Verified 12/08/24 12:59 Vital Signs Vital Signs - 24 hr 03/27/25 10:18 03/27/25 10:25 03/27/25 10:30 Temperature 97.6 F Pulse Rate 77 62 57 L Respiratory Rate 20 18 18 Blood Pressure 76/62 L Pulse Oximetry 92 Oxygen Delivery Room Air Oxygen Flow Rate 03/27/25 10:31 03/27/25 10:50 03/27/25 11:00 Temperature Pulse Rate 67 85 88 Respiratory Rate 15 26 H 19 Blood Pressure 96/60 L Pulse Oximetry 91 Oxygen Delivery Oxygen Flow Rate 03/27/25 11:03 03/27/25 11:15 03/27/25 11:24 Temperature Pulse Rate 88 93 Respiratory Rate 18 25 H Blood Pressure 111/86 Pulse Oximetry 91 90 89 L Oxygen Delivery Room Air Oxygen Flow Rate 03/27/25 11:24 03/27/25 14:40 Temperature Pulse Rate 104 H Respiratory Rate 24 H Blood Pressure 163/103 H Pulse Oximetry 92 94 Oxygen Delivery Nasal Cannula Oxygen Flow Rate 2 Exam Narrative: General: In no acute distress, well nourished Head: atraumatic, no encephalopathy Eyes: PERRLA, sclera clear ENT: moist mucous membranes, nasal passages clear Neck: supple, no JVD, no adenopathy, trachea midline Cardiac: Normal S1 and S2. RRR, No murmur, gallops or friction rubs, peripheral pulses intact. Respiratory: Lungs clear to auscultation, no adventitious lung sounds, currently on 2L NC Gastrointestinal: soft, non-distended, tenderness over epigastric region, normoactive bowel sounds. : voiding without difficulty. Extremities: moves all extremities well, no edema Skin: clean, dry, intact. No wounds or lesions. Neuro: Alert and oriented x4, cranial nerves intact, no neuro deficits. Psych: normal mood, normal affect, interactive H&P: Results Labs Labs: Short CBC 03/27/25 Range/Units 10:26 WBC 19.7 H (4.5-10.0) K/mm3 Hgb 15.3 (14.0-18.0) g/dL Hct 46.5 (42.0-52.0) % Plt Count 230 (150-375) k/mm3 BMP 03/27/25 03/27/25 10:26 10:40 Sodium 133 L Potassium 4.2 Chloride 102 Carbon Dioxide 24 BUN 22 H Creatinine 0.71 1.00 Glucose 136 H Calcium 9.5 Liver Function 03/27/25 Range/Units 10:26 Total Bilirubin 1.6 H (0.2-1.3) mg/dL AST 295 H (17-59) U/L ALT 172 H (6-50) U/L Alkaline Phosphatase 121 (38-126) U/L Albumin 4.3 (3.5-5.1) g/dL Urine 03/27/25 Range/Units 12:52 Urine Color Yellow (Yellow) Urine Appearance Clear (Clear) Urine pH 7.5 (5.0-9.0) Ur Specific [place] 1.043 H (1.001-1.035) Urine Protein Negative (Negative) mg/dL Urine Glucose (UA) Negative (Negative) mg/dL Imaging Abdomen/pelvis CT: Radiologist's impression: EXAMINATION: CT abdomen pelvis w con DATE: 03/27/2025 10:50 INDICATION: Right upper quadrant abdominal pain. Hypertension. TECHNIQUE: Computed tomography (CT) of the abdomen and pelvis was performed with 100 mL Omnipaque-350 intravenous contrast. Automated exposure control and iterative reconstruction technique were employed. The dose-length product was 664.89 mGy-cm. COMPARISON: None FINDINGS: Dependent atelectasis in the bilateral lower lobes. No pleural effusion. Heart size is normal. Atherosclerotic coronary artery calcification and aortic valve calcific lesion. Minimal pericardial effusion. Liver, gallbladder, spleen, bilateral adrenal glands are normal. There are bilateral renal cysts the largest on the right measuring 5.0 cm. Peripancreatic inflammatory stranding about the uncinate process, head and body of the pancreas consistent with acute interstitial pancreatitis. No evident pancreatic necrosis or abscess. Small amount of nonloculated peripancreatic fluid between the uncinate process of the pancreas and the duodenum and tracking caudally along the right anterior pararenal space. No bowel obstruction. Bladder is normal. No free intraperitoneal gas or fluid. No pathologically enlarged abdominal or pelvic lymphadenopathy. Mild scattered degenerative skeletal changes in the spine and pelvis. Bone island at the right sacral ala. IMPRESSION: 1. Acute interstitial pancreatitis. Reviewed, dictated and finalized at location B. Upper quadrant ultrasound: Radiologist's impression: EXAMINATION: US right upper quadrant DATE: 03/27/2025 12:01 INDICATION: Abdominal pain TECHNIQUE: Multiple grayscale and Doppler ultrasound images of the abdomen were obtained. COMPARISON: CT dated 03/27/2025 FINDINGS: There is less pancreas appears unremarkable on ultrasound images of the other was peripancreatic stranding and prior CT consistent with acute interstitial pancreatitis. Main pancreatic duct measures 2 mm at the body of the pancreas which is normal. No peripancreatic fluid collections identified. Liver has normal echogenicity and contour, with a smooth surface. No liver lesion identified. No intrahepatic biliary duct dilation suspected. Portal venous flow was seen in the hepatopetal, normal direction and has normal Doppler waveform. There is ringdown artifact such with tiny subtle hyperdensities along the wall of the gallbladder fundus consistent with cholesterol crystals in the setting of focal adenomyomatosis. No gallbladder dilation, wall thickening or cholelithiasis. Sonographic Fernandez sign was reported as negative by the track laying machine operator. Common bile duct measures 6 7 7 mm in diameter which is within normal limits for age./Portions the right kidney demonstrates normal contour and axis tube with no hydronephrosis. IMPRESSION: 1. Focal adenomyosis at the fundus of the gallbladder. No choledocholithiasis and no evident biliary or pancreatic ductal dilation.. 2. Normal appearance to the pancreas on ultrasound imaging although findings on prior CT are consistent with acute interstitial pancreatitis. Reviewed, dictated and finalized at location B. Chest x-ray: Radiologist's impression: XR chest 2V Ordering provider: Bentley Mortensen MD History: 84 years Male with . SOA . Comparison: June 08, 2024. FINDINGS: MEDIASTINUM: The cardiac silhouette is not enlarged. LUNGS: No , effusions or pneumothorax. Opacification in the left lung base. OTHER: No free air under the diaphragm. Degenerative changes of the spine. IMPRESSION: Left basilar atelectasis versus pneumonia. Reviewed, dictated and finalized at location A. Assessment and Plan Assessment and plan (1) Acute pancreatitis: Code(s): K85.90 - Acute pancreatitis without necrosis or infection, unspecified Status: Acute Assessment and Plan: Patient states his symptoms started this morning with nausea, vomiting, abdominal pain. He takes Wegovy for weight loss in his last injection was yeste rday. He denies any recent use of alcohol, states he quit 19 years ago. * CT of the abdomen and pelvis show acute interstitial pancreatitis * Right upper quadrant ultrasound showed focal adenomyosis at the fundus of the gallbladder, no choledocholithiasis and no evidence of biliary or pancreatic ductal dilation, normal appearance to the pancreas * Lipase 17,543 * GI consulted * Patient was given 1.5 L IV fluids while in the ED * Continue LR at 125ml/hr * Keep Hct <42 per GI recommendation * Q.6 hour hematocrit and BUN ordered * Continue Rocephin and Flagyl for now * White blood cell count initially 19.7 * Will start a clear liquid diet as tolerated * Continue pain and nausea control * Repeat ultrasound in 3-4 days per GI recommendation (2) Transaminitis: Code(s): R74.01 - Elevation of levels of liver transaminase levels Status: Acute Assessment and Plan: Likely secondary to acute pancreatitis * AST 295, ALT 172 * Continue to trend (3) Elevated bilirubin: Code(s): R17 - Unspecified jaundice Status: Acute Assessment and Plan: * Bilirubin 1.6 * Continue to trend (4) Hypertension: Qualifiers: Hypertension type: primary hypertension Qualified Code(s): I10 - Essential (primary) hypertension Code(s): I10 - Essential (primary) hypertension Status: Acute Assessment and Plan: * Blood pressure ranging 111/86 to 163/103 * Continue losartan (5) Hyperlipidemia: Qualifiers: Hyperlipidemia type: pure hypercholesterolemia Qualified Code(s): E78.00 - Pure hypercholesterolemia, unspecified Code(s): E78.5 - Hyperlipidemia, unspecified Status: Acute Assessment and Plan: * Continue Zeita, aspirin (6) Hypothyroidism: Qualifiers: Hypothyroidism type: acquired Qualified Code(s): E03.9 - Hypothyroidism, unspecified Code(s): E03.9 - Hypothyroidism, unspecified Status: Acute Assessment and Plan: * Continue Synthroid Quality VTE Prophylaxis VTE prophylaxis: pharmacologic ordered Hospitalist MIPS Advance Care Plan I have confirmed that the patient's Advanced Care Plan is present, code status is documented, or surrogate decision maker is listed in patient medical record.: Yes Medication Reconciliation I have utilized all available resources to obtain, update and review the patients current medications (includes all prescriptions, OTC, herbals, cannabis, and nutritional supplements).: Yes
[2025-03-27] MEDS: LACTATED RINGERS 500 ML 999 ML IV CONT (14:46)
[2025-03-27] MEDS: metroNIDAZOLE 500 MG/ISO 100ML 500 MG/100 ML BAG 100 MG IVPB ×2 (15:29→21:01)
--- NOTE | 2025-03-27 16:52 | P.CONGI_ITS ---
Assessment and Plan Assessment and plan (1) Acute pancreatitis: Code(s): K85.90 - Acute pancreatitis without necrosis or infection, unspecified Status: Acute Assessment and Plan: The differential diagnosis for this patient's acute pancreatitis primarily includes biliary pancreatitis versus alcohol-induced pancreatitis. While no overt gallstones or sludge were observed, the presence of gallbladder adenomyosis raises the possibility of subtle, masked microlithiasis or sludge as an underlying cause. Notably, the significant elevation in AST and ALT strongly suggests a biliary etiology. A repeat ultrasound might be indicated in 3-4 days. Initial management should prioritize the prevention of pancreatic necrosis through adequate intravenous hydration with lactated Ringer's solution. A starting infusion rate of approximately 1.5 cc/kg/hr, which translates to around 150 cc/hr for this patient, is appropriate. This rate should be carefully adjusted based on the patient's age and cardiopulmonary status. Close monitoring of hematocrit and BUN every 6 hours for the initial 24 hours is crucial to ensure adequate hemodilution, with a target Hct reduction towards 40%, given the elevated initial value and the associated risk of necrotizing pancreatitis if hemoconcentration persists. Current antibiotic coverage appears adequate, particularly given the suspicion for a biliary origin. While the patient's leukocytosis is most likely secondary to SIRS commonly seen in the early stages of acute pancreatitis, the antibiotic regimen covers potential ascending cholangitis. GI Consult Note Consult date/time: 03/27/25 16:52 HPI: Quan Cabrales is a 84 year old male with a history of seizure disorder, CVA, alcohol abuse, who presented with a 3 day history of nausea, vomiting and severe abdominal pain. He was evaluated this morning in the ED and a diagnosis of interstitial pancreatitis was made on CT scan. Abdominal sonogram did not reveal gallstones, but adenomyosis. The most remarkable laboratory results show: WBC 19.8, Hb 15.3, Hct 46.5, Na 133, K 4.2, Creatinine 0.71, BUN 22, AST 295, ALT 172, Bb 1.6. Lipase 17,543. Review of Systems 2 Review of Systems: All systems reviewed & are unremarkable except as noted in HPI and below PMFSH Past Medical History Medical History (Updated 03/27/25 @ 16:52 by Bentley Mortensen MD) Seizure CVA (cerebral vascular accident) Basal cell carcinoma Alcohol abuse Hypothyroidism Arthritis GI bleed Hyperlipidemia Hypertension Surgical History Surgical History History of testicular surgery Family History Family History Mother , Age 89 - CHF Breast cancer Glaucoma Father , Age 81 - Farm Accident GERD (gastroesophageal reflux disease) Lymphoma Grandparent , Age 77 - Heart Arrythmia No problems noted. Grandparent , Age 47 - Gangrene No problems noted. Grandparent , Age 70 - Unknown No problems noted. Grandparent , Age 70 - Unknown No problems noted. Sibling , Age 70 - Thyroid Cancer No problems noted. Social History Social History Smoking status: Former smoker Alcohol intake: former Substance use: never Current Housing: Decline to Answer Concerned About Future Housing: Decline to Answer Difficulty Paying Gas/Electric Bills: Decline to Answer Difficulty Paying for Meds: Decline to Answer Currently Unemployed: Decline to Answer Education: Decline to Answer Difficulty w/ Childcare or Family Care: Decline to Answer Living arrangements: with family Gender identity (if verbalized by the patient): Male Meds Home Medications and Allergies Home Medications ?Medication ?Instructions ?Recorded ?Confirmed ?Type fish oil-dha-epa 1,200 mg-144 cap PO .QD 01/06/23 12/08/24 History mg-216 mg capsule aspirin 81 mg tablet,delayed 81 mg PO DAILY 08/09/24 12/08/24 History release (Adult Aspirin Regimen) vit C 250 mg-vit E 90 mg-zinc 40 1 tablet PO BID 08/09/24 12/08/24 History mg-copper 1 [id number] capsule (PreserVision AREDS-2) losartan 50 mg tablet 50 mg PO DAILY #90 tabs 08/12/24 12/08/24 Rx omeprazole 20 mg capsule,delayed 20 mg PO BID #180 caps 09/21/24 12/08/24 Rx release tamsulosin 0.4 mg capsule 0.8 mg (2 x 0.4 mg) PO DAILY #180 10/10/24 12/08/24 Rx caps cholecalciferol (vitamin D3) 1,250 1,250 mcg PO WEEKLY 10/20/24 12/08/24 History mcg (50,000 unit) capsule semaglutide (weight loss) 0.25 0.25 mg subcut WEEKLY 10/20/24 12/08/24 History mg/0.5 mL subcutaneous pen injector (Avery) finasteride 5 mg tablet 5 mg PO DAILY #90 tabs 10/25/24 12/08/24 Rx ezetimibe 10 mg tablet (Zetia) 10 mg PO DAILY #90 tabs 12/13/24 Rx levothyroxine 125 mcg tablet 125 mcg PO DAILY #90 tabs 12/13/24 Rx Allergies Allergy/AdvReac Type Severity Reaction Status Date / Time atorvastatin Allergy Mild Weakness,Muscle Verified 12/08/24 12:59 Pain phenytoin Allergy Mild Rash Verified 12/08/24 12:59 Vital Signs Vital Signs - 24 hr 03/27/25 10:18 03/27/25 10:25 03/27/25 10:30 Temperature 97.6 F Pulse Rate 77 62 57 L Respiratory Rate 20 18 18 Blood Pressure 76/62 L Pulse Oximetry 92 Oxygen Delivery Room Air Oxygen Flow Rate 03/27/25 10:31 03/27/25 10:50 03/27/25 11:00 Temperature Pulse Rate 67 85 88 Respiratory Rate 15 26 H 19 Blood Pressure 96/60 L Pulse Oximetry 91 Oxygen Delivery Oxygen Flow Rate 03/27/25 11:03 03/27/25 11:15 03/27/25 11:24 Temperature Pulse Rate 88 93 Respiratory Rate 18 25 H Blood Pressure 111/86 Pulse Oximetry 91 90 89 L Oxygen Delivery Room Air Oxygen Flow Rate 03/27/25 11:24 03/27/25 11:30 03/27/25 11:31 Temperature Pulse Rate 90 88 Respiratory Rate 31 H 27 H Blood Pressure 130/78 Pulse Oximetry 92 93 92 Oxygen Delivery Nasal Cannula Oxygen Flow Rate 2 03/27/25 11:45 03/27/25 12:00 03/27/25 12:01 Temperature Pulse Rate 89 86 84 Respiratory Rate 25 H 24 H 22 H Blood Pressure 129/86 Pulse Oximetry 91 91 93 Oxygen Delivery Oxygen Flow Rate 03/27/25 12:15 03/27/25 12:30 03/27/25 12:31 Temperature Pulse Rate 88 99 93 Respiratory Rate 25 H 29 H 28 H Blood Pressure 145/85 H Pulse Oximetry 92 90 90 Oxygen Delivery Oxygen Flow Rate 03/27/25 12:45 03/27/25 12:51 03/27/25 13:00 Temperature Pulse Rate 99 96 96 Respiratory Rate 23 H 26 H 39 H Blood Pressure 163/95 H Pulse Oximetry 97 95 Oxygen Delivery Oxygen Flow Rate 03/27/25 13:01 03/27/25 13:15 03/27/25 13:45 Temperature Pulse Rate 95 93 96 Respiratory Rate 26 H 30 H 30 H Blood Pressure 136/90 Pulse Oximetry 96 94 94 Oxygen Delivery Oxygen Flow Rate 03/27/25 14:00 03/27/25 14:15 03/27/25 14:30 Temperature Pulse Rate 96 100 101 H Respiratory Rate 23 H 29 H 29 H Blood Pressure Pulse Oximetry 90 Oxygen Delivery Oxygen Flow Rate 03/27/25 14:40 03/27/25 14:40 03/27/25 14:45 Temperature Pulse Rate 104 H 105 H 104 H Respiratory Rate 24 H 23 H 20 Blood Pressure 163/103 H 163/103 H Pulse Oximetry 94 94 94 Oxygen Delivery Oxygen Flow Rate 03/27/25 15:00 03/27/25 15:01 03/27/25 15:15 Temperature Pulse Rate 103 H 102 H 100 Respiratory Rate 29 H 26 H 28 H Blood Pressure 145/78 H Pulse Oximetry Oxygen Delivery Oxygen Flow Rate 03/27/25 15:30 03/27/25 15:31 03/27/25 15:45 Temperature Pulse Rate 106 H 105 H 107 H Respiratory Rate 21 H 25 H 25 H Blood Pressure 148/80 H Pulse Oximetry Oxygen Delivery Oxygen Flow Rate 03/27/25 15:55 Temperature Pulse Rate Respiratory Rate Blood Pressure Pulse Oximetry 93 Oxygen Delivery Nasal Cannula Oxygen Flow Rate 2 Exam 2 Narrative: General: In no acute distress, well nourished Head: atraumatic, no encephalopathy Eyes: EOMI, PERRLA, sclera clear ENT: moist mucous membranes, nasal passages clear Neck: supple, no JVD, no adenopathy, trachea midline Cardiac: Normal S1 and S2. No murmur, gallops or friction rubs, peripheral pulses intact. Respiratory: Lungs clear to auscultation, no adventitious lung sounds Gastrointestinal: soft, non-distended, non-tender, normoactive bowel sounds. : voiding without difficulty. Extremities: moves all extremities well, no edema, good ROM, strength 5/5 Skin: clean, dry, intact. No wounds or lesions. Neuro: Alert and oriented x4, cranial nerves intact, no neuro deficits. Psych: normal mood, normal affect, interactive Results Labs 03/27/25 10:26 03/27/25 10:40 Labs: Short CBC 03/27/25 Range/Units 10:26 WBC 19.7 H (4.5-10.0) K/mm3 Hgb 15.3 (14.0-18.0) g/dL Hct 46.5 (42.0-52.0) % Plt Count 230 (150-375) k/mm3 BMP 03/27/25 03/27/25 10:26 10:40 Sodium 133 L Potassium 4.2 Chloride 102 Carbon Dioxide 24 BUN 22 H Creatinine 0.71 1.00 Glucose 136 H Calcium 9.5 Liver Function 03/27/25 Range/Units 10:26 Total Bilirubin 1.6 H (0.2-1.3) mg/dL AST 295 H (17-59) U/L ALT 172 H (6-50) U/L Alkaline Phosphatase 121 (38-126) U/L Albumin 4.3 (3.5-5.1) g/dL Urine 03/27/25 Range/Units 12:52 Urine Color Yellow (Yellow) Urine Appearance Clear (Clear) Urine pH 7.5 (5.0-9.0) Ur Specific [place] 1.043 H (1.001-1.035) Urine Protein Negative (Negative) mg/dL Urine Glucose (UA) Negative (Negative) mg/dL
--- NOTE | 2025-03-27 16:52 | ADMGEN ---
This patient, Quan Cabrales, was admitted to Medical Room 261-01. Patient/family oriented to hospital policies and general routines including ID bracelet, bed and alarms, visiting hours, pain management, procedures, bathroom and other care routines, personal items, smoking policy, room service/diet, and visiting hours. Information on how to activate the Rapid Response Team has been discussed. Patient/Family are encouraged to report perceived risks to care and to ask questions if they do not understand what they are told or what they should do.
[2025-03-27] MEDS: LACTATED RINGERS 1,000 ML 125 ML IV CONT (17:22)
[2025-03-27 18:34] LABS: Hematocrit 52.9 % (42.0-52.0); Hemoglobin 16.6 g/dL (14.0-18.0); Mean Corpuscular HGB Conc 31.4 g/dl (32-36); Mean Corpuscular Hemoglobin 29.9 pg (26-34); Mean Corpuscular Volume 95.1 fl (80-100); Mean Platelet Volume 9.4 fl (7.4-10.4); Platelet Count Result 210 k/mm3 (150-375); Red Blood Count 5.56 M/mm3 (4.6-6.20); Red Cell Distribution Width 13.8 % (11.5-14.5); White Blood Count 24.4 K/mm3 (4.5-10.0)
[2025-03-27 18:45] LABS: Blood Urea Nitrogen 20 mg/dL (9-20)
[2025-03-27] MEDS: ACETAMINOPHEN 325 MG TABLET 650 MG PO (19:10)
[2025-03-27] MEDS: ONDANSETRON INJ 4 MG/2 ML VIAL IV PUSH (19:10)
[2025-03-27] MEDS: CALCIUM CARBONATE (TUMS) 500 MG (200 MG ELEMENTAL) PO (20:55)
[2025-03-27] MEDS: PROPRANOLOL HCL 20 MG TABLET PO (20:55)
[2025-03-27] MEDS: PANTOPRAZOLE 40 MG TABLET PO (20:56)
[2025-03-27] MEDS: MORPHINE SULFATE (*CRX) 2 MG/ML INJ IV PUSH (21:05)
[2025-03-27] MEDS: TAMSULOSIN HCL 0.4 MG CAPSULE 0.8 MG PO (21:08)
[2025-03-27] MEDS: FINASTERIDE 5 MG TABLET PO (21:09)
[2025-03-28] VITALS (8 sets, daily range): BP systolic 129–142; BP diastolic 61–78; PULSE 85–99; RESP 14–97; TEMP 36.8; O2SAT 91–99
[2025-03-28] MEDS: LACTATED RINGERS 1,000 ML 125 ML IV CONT ×2 (01:42→16:14)
[2025-03-28] MEDS: LEVOTHYROXINE SODIUM 125 MCG TABLET PO (05:38)
[2025-03-28] MEDS: metroNIDAZOLE 500 MG/ISO 100ML 500 MG/100 ML BAG 100 MG IVPB ×3 (05:38→20:59)
[2025-03-28 05:56] LABS: Alanine Aminotransferase 219 U/L (6-50); Albumin Level 3.6 g/dL (3.5-5.1); Alkaline Phosphatase 108 U/L (38-126); Anion Gap 8 mmol/L (4-12); Aspartate Amino Transferase 136 U/L (17-59); Bilirubin,Total 1.6 mg/dL (0.2-1.3); Blood Urea Nitrogen 17 mg/dL (9-20); Calcium 8.9 mg/dL (8.4-10.2); Carbon Dioxide 22 mmol/L (22-30); Chloride 104 mmol/L (98-107); Estimated CRCL calculation 76 ml/min; Estimated Glomerular Filt Rate > 60; Glucose 110 mg/dL (65-110); Magnesium 1.7 mg/dL (1.6-2.3); Potassium 3.9 mmol/L (3.4-5.0); Sodium 134 mmol/L (137-145)
--- NOTE | 2025-03-28 08:17 | P.PNIM_ITS ---
Progress Note: A&P Assessment and Plan (1) Acute pancreatitis: Code(s): K85.90 - Acute pancreatitis without necrosis or infection, unspecified Status: Acute Assessment and Plan: Patient states his symptoms started this morning with nausea, vomiting, abdominal pain. He takes Wegovy for weight loss in his last injection was yesterday. He denies any recent use of alcohol, states he quit 19 years ago. * CT of the abdomen and pelvis show acute interstitial pancreatitis * Right upper quadrant ultrasound showed focal adenomyosis at the fundus of the gallbladder, no choledocholithiasis and no evidence of biliary or pancreatic ductal dilation, normal appearance to the pancreas * Lipase 17,543 * GI consulted * Patient was given 1.5 L IV fluids while in the ED * Continue LR at 125ml/hr * Keep Hct <42 per GI recommendation * Q.6 hour hematocrit and BUN ordered * Continue Rocephin and Flagyl for now * White blood cell count initially 19.7 * Will start a clear liquid diet as tolerated * Continue pain and nausea control * Repeat ultrasound in 3-4 days per GI recommendation * advancing diet to clears (2) Transaminitis: Code(s): R74.01 - Elevation of levels of liver transaminase levels Status: Acute Assessment and Plan: Likely secondary to acute pancreatitis * AST 295, ALT 172 * Continue to trend (3) Elevated bilirubin: Code(s): R17 - Unspecified jaundice Status: Acute Assessment and Plan: * Bilirubin 1.6 * Continue to trend (4) Hypertension: Qualifiers: Hypertension type: primary hypertension Qualified Code(s): I10 - Essential (primary) hypertension Code(s): I10 - Essential (primary) hypertension Status: Acute Assessment and Plan: * Blood pressure stable * Continue losartan (5) Hyperlipidemia: Qualifiers: Hyperlipidemia type: pure hypercholesterolemia Qualified Code(s): E78.00 - Pure hypercholesterolemia, unspecified Code(s): E78.5 - Hyperlipidemia, unspecified Status: Acute Assessment and Plan: * Continue Zeita, aspirin (6) Hypothyroidism: Qualifiers: Hypothyroidism type: acquired Qualified Code(s): E03.9 - Hypothyroidism, unspecified Code(s): E03.9 - Hypothyroidism, unspecified Status: Acute Assessment and Plan: * Continue Synthroid Time Spent With Patient Time with patient: 25 - 35 minutes Subjective Date/time seen: 03/28/25 08:17 Interval history: 84-year-old male with PMH/ of seizure, CVA, basal cell carcinoma, alcohol abuse, hypothyroidism, arthritis, hypertension, hyperlipidemia, former smoker who admitted to the hospital for evaluation of abdominal pain, nausea, vomiting. He recently was started on Wegovy for weight loss and has been tapering off the medication per his [employer] recommendation. CT which showed acute interstitial pancreatitis. Right upper quadrant ultrasound showed focal adenomyosis at the fundus of the gallbladder, no choledocholithiasis and no evidence of biliary or pancreatic ductal dilation, normal appearance to the pancreas on US imaging. Chest x-ray shown left basilar atelectasis versus pneumonia. Initial labs showed a white blood cell count 19.7, sodium 133, blood sugar 106- 136, total bili 1.6, AST 295, ALT 172, lipase 17,543. UA was obtained and showed a urine specific gravity of 1.043, 2.0 urine urobilinogen, otherwise negative. EKG showed sinus rhythm with a rate of 60, QTC 418. Patient was given 1500 mL of IV fluids, Rocephin, Flagyl while in the ED. Pt is seen and examined. Gi is consulted. On IV antibiotics, IV fluids. He denies n/v/d. no abd pain during exam. Unlikley pneumonia as not having any resp complains/issues Review of Systems Review of Systems: All systems reviewed & are unremarkable except as noted in HPI and below Exam Narrative: General: In no acute distress, well nourished Head: atraumatic, no encephalopathy Eyes: PERRLA, sclera clear ENT: moist mucous membranes, nasal passages clear Neck: supple, no JVD, no adenopathy, trachea midline Cardiac: Normal S1 and S2. RRR, No murmur, gallops or friction rubs, peripheral pulses intact. Respiratory: Lungs clear to auscultation, no adventitious lung sounds, currently on 2L NC Gastrointestinal: soft, non-distended, tenderness over epigastric region, nor moactive bowel sounds. : voiding without difficulty. Extremities: moves all extremities well, no edema Skin: clean, dry, intact. No wounds or lesions. Neuro: Alert and oriented x4, cranial nerves intact, no neuro deficits. Psych: normal mood, normal affect, interactive Objective Data Vital Signs Vital Signs: Vital Signs - 24 hr 03/27/25 10:18 03/27/25 10:25 03/27/25 10:30 Temperature 97.6 F Pulse Rate 77 62 57 L Respiratory Rate 20 18 18 Blood Pressure 76/62 L Pulse Oximetry 92 Oxygen Delivery Room Air Oxygen Flow Rate Fraction of Inspired Oxygen 03/27/25 10:31 03/27/25 10:50 03/27/25 11:00 Temperature Pulse Rate 67 85 88 Respiratory Rate 15 26 H 19 Blood Pressure 96/60 L Pulse Oximetry 91 Oxygen Delivery Oxygen Flow Rate Fraction of Inspired Oxygen 03/27/25 11:03 03/27/25 11:15 03/27/25 11:24 Temperature Pulse Rate 88 93 Respiratory Rate 18 25 H Blood Pressure 111/86 Pulse Oximetry 91 90 89 L Oxygen Delivery Room Air Oxygen Flow Rate Fraction of Inspired Oxygen 03/27/25 11:24 03/27/25 11:30 03/27/25 11:31 Temperature Pulse Rate 90 88 Respiratory Rate 31 H 27 H Blood Pressure 130/78 Pulse Oximetry 92 93 92 Oxygen Delivery Nasal Cannula Oxygen Flow Rate 2 Fraction of Inspired Oxygen 03/27/25 11:45 03/27/25 12:00 03/27/25 12:01 Temperature Pulse Rate 89 86 84 Respiratory Rate 25 H 24 H 22 H Blood Pressure 129/86 Pulse Oximetry 91 91 93 Oxygen Delivery Oxygen Flow Rate Fraction of Inspired Oxygen 03/27/25 12:15 03/27/25 12:30 03/27/25 12:31 Temperature Pulse Rate 88 99 93 Respiratory Rate 25 H 29 H 28 H Blood Pressure 145/85 H Pulse Oximetry 92 90 90 Oxygen Delivery Oxygen Flow Rate Fraction of Inspired Oxygen 03/27/25 12:45 03/27/25 12:51 03/27/25 13:00 Temperature Pulse Rate 99 96 96 Respiratory Rate 23 H 26 H 39 H Blood Pressure 163/95 H Pulse Oximetry 97 95 Oxygen Delivery Oxygen Flow Rate Fraction of Inspired Oxygen 03/27/25 13:01 03/27/25 13:15 03/27/25 13:45 Temperature Pulse Rate 95 93 96 Respiratory Rate 26 H 30 H 30 H Blood Pressure 136/90 Pulse Oximetry 96 94 94 Oxygen Delivery Oxygen Flow Rate Fraction of Inspired Oxygen 03/27/25 14:00 03/27/25 14:15 03/27/25 14:30 Temperature Pulse Rate 96 100 101 H Respiratory Rate 23 H 29 H 29 H Blood Pressure Pulse Oximetry 90 Oxygen Delivery Oxygen Flow Rate Fraction of Inspired Oxygen 03/27/25 14:40 03/27/25 14:40 03/27/25 14:45 Temperature Pulse Rate 104 H 105 H 104 H Respiratory Rate 24 H 23 H 20 Blood Pressure 163/103 H 163/103 H Pulse Oximetry 94 94 94 Oxygen Delivery Oxygen Flow Rate Fraction of Inspired Oxygen 03/27/25 15:00 03/27/25 15:01 03/27/25 15:15 Temperature Pulse Rate 103 H 102 H 100 Respiratory Rate 29 H 26 H 28 H Blood Pressure 145/78 H Pulse Oximetry Oxygen Delivery Oxygen Flow Rate Fraction of Inspired Oxygen 03/27/25 15:30 03/27/25 15:31 03/27/25 15:45 Temperature Pulse Rate 106 H 105 H 107 H Respiratory Rate 21 H 25 H 25 H Blood Pressure 148/80 H Pulse Oximetry Oxygen Delivery Oxygen Flow Rate Fraction of Inspired Oxygen 03/27/25 15:55 03/27/25 17:08 03/27/25 17:20 Temperature 98.9 F Pulse Rate 108 H Respiratory Rate 18 Blood Pressure 154/87 H Pulse Oximetry 93 94 Oxygen Delivery Nasal Cannula Room Air Oxygen Flow Rate 2 Fraction of Inspired Oxygen 03/27/25 20:00 03/27/25 20:45 03/27/25 20:55 Temperature Pulse Rate 74 110 H Respiratory Rate 20 Blood Pressure Pulse Oximetry 98 94 Oxygen Delivery Room Air Nasal Cannula Oxygen Flow Rate 1 Fraction of Inspired Oxygen 03/27/25 20:58 03/28/25 03:43 Temperature 98.8 F 98.2 F Pulse Rate 110 H 90 Respiratory Rate 18 16 Blood Pressure 155/91 H 129/73 Pulse Oximetry 98 91 Oxygen Delivery Oxygen Flow Rate Fraction of Inspired Oxygen Intake/Output Intake/Output: Intake & Output 03/25/25 03/26/25 03/27/25 03/28/25 23:59 23:59 23:59 23:59 Intake Total 1770 1350 Output Total 350 Balance 1420 1350 Meds/Results Medications: Active Medications Generic Name Dose Route Start Last Admin Trade Name Freq PRN Reason Stop Dose Admin Acetaminophen 650 mg 03/27/25 15:10 03/27/25 19:10 Acetaminophen 325 Mg Tablet PO 650 mg Q4H PRN Administration Mild Pain (1-3) or Fever Aspirin 81 mg 03/28/25 09:00 Aspirin 81 Mg Enteric Tablet PO DAILY [facility] Calcium Carbonate 200 mg 03/27/25 20:13 03/27/25 20:55 Calcium Carbonate (Tums) 500 Mg (200 Mg Elemental) PO 200 mg Q6H PRN Administration Indigestion Cyanocobalamin 500 mcg 03/28/25 09:00 Cyanocobalamin 500 Mcg Tablet PO DAILY [facility] Diclofenac Sodium 0 applic 03/28/25 21:00 Diclofenac Sodium 1% 100 Gm Gel (*Bkc) TOPICAL HS [facility] Ezetimibe 10 mg 03/28/25 09:00 Ezetimibe 10 Mg Tablet PO DAILY [facility] Enoxaparin Sodium 40 mg 03/28/25 09:00 Enoxaparin 40 Mg/0.4 Ml Syringe SUB-Q DAILY [facility] Ergocalciferol 50,000 units 03/28/25 09:00 Ergocalciferol 50,000 Units Capsule PO Tu@0900 [facility] Finasteride 5 mg 03/27/25 21:00 03/27/25 21:09 Finasteride 5 Mg Tablet PO 5 mg HS [facility] Administration Fish Oil 1 gm 03/28/25 09:00 [place] 3 Polyunsat Fatty Acids 1 Gm Cap PO DAILY [facility] Ceftriaxone Sodium 1 gm in 50 mls @ 100 mls/hr 03/28/25 09:00 Rocephin 1 Gm/Ns 50 Ml IVPB Q24H [facility] Metronidazole 500 mg in 100 mls @ 100 mls/hr 03/27/25 22:00 03/28/25 06:38 Flagyl 500 Mg/Iso Soln 100 Ml IVPB Infused Q8H [facility] Infusion Lactated Ringer's 1,000 mls @ 125 mls/hr 03/27/25 14:35 03/28/25 01:42 Lr - Lactated Ringers Iv IV CONT 125 mls/hr .Q8H [facility] Administration Levothyroxine Sodium 125 mcg 03/28/25 06:30 03/28/25 05:38 Levothyroxine Sodium 125 Mcg Tablet PO 125 mcg DAILY@0630 [facility] Administration Losartan Potassium 50 mg 03/28/25 09:00 Losartan Potassium 50 Mg Tablet PO DAILY [facility] Meclizine HCl 12.5 mg 03/27/25 20:13 Meclizine Hcl 12.5 Mg Tablet PO TID PRN dizziness Morphine Sulfate 2 mg 03/27/25 14:35 03/27/25 21:05 Morphine Sulfate (*Crx) 2 Mg/Ml Inj IV PUSH 2 mg Q2H PRN Administration Pain Rated 7-10 Ondansetron HCl 4 mg 03/27/25 14:35 03/27/25 19:10 Ondansetron Inj 4 Mg/2 Ml Vial IV PUSH 4 mg Q4H PRN Administration Nausea Pantoprazole Sodium 40 mg 03/27/25 20:15 03/27/25 20:56 Pantoprazole 40 Mg Tablet PO 40 mg QAM [facility] Administration Propranolol HCl 20 mg 03/27/25 21:00 03/27/25 20:55 Propranolol Hcl 20 Mg Tablet PO 20 mg Q12H [facility] Administration Tamsulosin HCl 0.8 mg 03/27/25 21:00 03/27/25 21:08 Tamsulosin Hcl 0.4 Mg Capsule PO 0.8 mg HS [facility] Administration Terbinafine HCl 250 mg 03/28/25 09:00 Terbinafine Hcl 250 Mg Tablet PO TuFr@0900 [facility] Radiology Results: ITS Impressions Abdomen/Pelvis CT 03/27/25 11:04 IMPRESSION: 1. Acute interstitial pancreatitis. Upper Quadrant Ultrasound 03/27/25 12:04 IMPRESSION: 1. Focal adenomyosis at the fundus of the gallbladder. No choledocholithiasis and no evident biliary or pancreatic ductal dilation.. 2. Normal appearance to the pancreas on ultrasound imaging although findings on prior CT are consistent with acute interstitial pancreatitis. Chest X-Ray 03/27/25 13:49 IMPRESSION: Left basilar atelectasis versus pneumonia. Labs Labs: Laboratory Results - last 24 hr 03/27/25 03/27/25 03/27/25 10:26 10:40 12:52 WBC 19.7 H RBC 5.16 Hgb 15.3 Hct 46.5 MCV 90.1 MCH 29.7 MCHC 32.9 RDW 13.7 Plt Count 230 MPV 9.4 Immature Gran % (Auto) 0.4 Neut % (Auto) 90.5 H Lymph % (Auto) 4.3 L [place] % (Auto) 3.8 Eos % (Auto) 0.7 Baso % (Auto) 0.3 Lymph # (Auto) 0.84 L [place] # (Auto) 0.7 H Eos # (Auto) 0.1 Baso # (Auto) 0.1 Abs Immat Gran (auto) 0.08 H Absolute Neuts (auto) 17.8 H Absolute Nucleated RBC 0.000 Nucleated RBC % 0.0 Sodium 133 L Potassium 4.2 Chloride 102 Carbon Dioxide 24 Anion Gap 7 BUN 22 H Creatinine 0.71 1.00 Estim Creat Clear Calc 73 53 Estimated GFR > 60 > 60 Glucose 136 H POC Capillary Glucose 106 H Calcium 9.5 Magnesium Total Bilirubin 1.6 H AST 295 H ALT 172 H Alkaline Phosphatase 121 Total Protein 7.0 Albumin 4.3 Lipase 35560 H TSH 3.260 Urine Color Yellow Urine Appearance Clear Urine pH 7.5 Ur Specific [place] 1.043 H Urine Protein Negative Urine Glucose (UA) Negative Urine Ketones Negative Ur Blood (Man) Negative Urine Nitrate Negative Urine Bilirubin Negative Urine Urobilinogen 2.0 H Leukocyte Esterase Rfl Negative 03/27/25 03/28/25 18:29 04:46 WBC 24.4 H RBC 5.56 Hgb 16.6 Hct 52.9 H MCV 95.1 D MCH 29.9 MCHC 31.4 L RDW 13.8 Plt Count 210 MPV 9.4 Immature Gran % (Auto) Neut % (Auto) Lymph % (Auto) [place] % (Auto) Eos % (Auto) Baso % (Auto) Lymph # (Auto) [place] # (Auto) Eos # (Auto) Baso # (Auto) Abs Immat Gran (auto) Absolute Neuts (auto) Absolute Nucleated RBC Nucleated RBC % Sodium 134 L Potassium 3.9 Chloride 104 Carbon Dioxide 22 Anion Gap 8 BUN 20 17 Creatinine 0.68 L Estim Creat Clear Calc 76 Estimated GFR > 60 Glucose 110 POC Capillary Glucose Calcium 8.9 Magnesium 1.7 Total Bilirubin 1.6 H AST 136 H ALT 219 H Alkaline Phosphatase 108 Total Protein 6.0 L Albumin 3.6 Lipase TSH Urine Color Urine Appearance Urine pH Ur Specific [place] Urine Protein Urine Glucose (UA) Urine Ketones Ur Blood (Man) Urine Nitrate Urine Bilirubin Urine Urobilinogen Leukocyte Esterase Rfl Quality VTE Prophylaxis VTE prophylaxis: pharmacologic ordered
[2025-03-28] MEDS: CYANOCOBALAMIN 500 MCG TABLET PO (09:42)
[2025-03-28] MEDS: ASPIRIN 81 MG ENTERIC TABLET PO (09:42)
[2025-03-28] MEDS: PROPRANOLOL HCL 20 MG TABLET PO ×2 (09:43→20:56)
[2025-03-28] MEDS: PANTOPRAZOLE 40 MG TABLET PO (09:43)
[2025-03-28] MEDS: ERGOCALCIFEROL 50,000 UNITS CAPSULE 50000 UNITS PO (09:43)
[2025-03-28] MEDS: EZETIMIBE 10 MG TABLET PO (09:43)
[2025-03-28] MEDS: LOSARTAN POTASSIUM 50 MG TABLET PO (09:43)
[2025-03-28] MEDS: ENOXAPARIN 40 MG/0.4 ML SYRINGE SUB-Q (09:44)
[2025-03-28] MEDS: TERBINAFINE HCL 250 MG TABLET PO (09:44)
[2025-03-28] MEDS: ACETAMINOPHEN 325 MG TABLET 650 MG PO (10:02)
--- NOTE | 2025-03-28 10:49 | P.CDI_ITS ---
CDI Query Clarification Request Pneumonia documented by ER provider, Please clarify if pneumonia has been ruled in or ruled out. The chart reflects the following: ER documented: Clinical Impression: Pancreatitis, Pneumonia, Hypoxia Chest X-Ray 03/27/25 13:49 IMPRESSION: Left basilar atelectasis versus pneumonia Initial labs showed a white blood cell count 19.7, sodium 133, blood sugar 106- 136, total bili 1.6, AST 295, ALT 172, lipase 17,543. UA was obtained and showed a urine specific gravity of 1.043, 2.0 urine urobilinogen, otherwise negative. EKG showed sinus rhythm with a rate of 60, QTC 418. Patient was given 1500 mL of IV fluids, Rocephin, Flagyl while in the ED. <Melany Vang RN - Last Filed: 03/28/25 10:54> Provider Comments doesnot appear to be pnemonia at this time <Cee Menard APRN - Last Filed: 03/28/25 15:37>
[2025-03-28] MEDS: MORPHINE SULFATE (*CRX) 2 MG/ML INJ IV PUSH (13:55)
[2025-03-28 13:58] LABS: Glucose Point of Care 150 mg/dl (65-105)
--- NOTE | 2025-03-28 14:38 | P.PNGI_ITS ---
Progress Note: A&P Assessment and Plan (1) Acute pancreatitis: Code(s): K85.90 - Acute pancreatitis without necrosis or infection, unspecified Status: Acute Assessment and Plan: better on iv fluids, normal bun, hct 50, monitor clinically he is better elevated liver enzymes from pancreatitis imaging revealed normal bile duct size he denies alcohol use (2) Transaminitis: Code(s): R74.01 - Elevation of levels of liver transaminase levels Status: Acute (3) Leukocytosis: Code(s): D72.829 - Elevated white blood cell count, unspecified Status: Acute Assessment and Plan: could be from pancreatitis covered with abx (4) Abdominal pain: Code(s): R10.9 - Unspecified abdominal pain Status: Acute Subjective Date/time seen: 03/28/25 14:38 Interval history: he is feeling better since admission, still with pain but requiring less pain med tolerated liquid diet Review of Systems Review of Systems: All systems reviewed & are unremarkable except as noted in HPI and below Exam Const: General: comfortable and no acute distress HENMT: Face/Nose/Sinus: Normal nares present Eyes: General: appearance normal, both eyes and all related structures Neck: Neck: supple Resp: Auscultation: clear to auscultation bilaterally Cardio: Rate: regular rate Rhythm: regular rhythm GI: Inspection: non-distended GI Palp: Yes Soft to palpation and Yes Tenderness to palpation present (GI) (minimally tender, no rebound, improved sin ce yesterday) Auscultation: normal bowel sounds Skin: General skin exam: normal color Neuro: Speech: normal speech Motor exam (neuro): 5/5 motor strength present throughout Extrem: General: normal to inspection Psych: Mental Status: mental status grossly normal Objective Data Vital Signs Vital Signs: Vital Signs - 24 hr 03/27/25 14:40 03/27/25 14:40 03/27/25 14:45 Temperature Pulse Rate 104 H 105 H 104 H Respiratory Rate 24 H 23 H 20 Blood Pressure 163/103 H 163/103 H Pulse Oximetry 94 94 94 Oxygen Delivery Oxygen Flow Rate Fraction of Inspired Oxygen 03/27/25 15:00 03/27/25 15:01 03/27/25 15:15 Temperature Pulse Rate 103 H 102 H 100 Respiratory Rate 29 H 26 H 28 H Blood Pressure 145/78 H Pulse Oximetry Oxygen Delivery Oxygen Flow Rate Fraction of Inspired Oxygen 03/27/25 15:30 03/27/25 15:31 03/27/25 15:45 Temperature Pulse Rate 106 H 105 H 107 H Respiratory Rate 21 H 25 H 25 H Blood Pressure 148/80 H Pulse Oximetry Oxygen Delivery Oxygen Flow Rate Fraction of Inspired Oxygen 03/27/25 15:55 03/27/25 17:08 03/27/25 17:20 Temperature 98.9 F Pulse Rate 108 H Respiratory Rate 18 Blood Pressure 154/87 H Pulse Oximetry 93 94 Oxygen Delivery Nasal Cannula Room Air Oxygen Flow Rate 2 Fraction of Inspired Oxygen 03/27/25 20:00 03/27/25 20:45 03/27/25 20:55 Temperature Pulse Rate 74 110 H Respiratory Rate 20 Blood Pressure Pulse Oximetry 98 94 Oxygen Delivery Room Air Nasal Cannula Oxygen Flow Rate 1 Fraction of Inspired Oxygen 03/27/25 20:58 03/28/25 03:43 03/28/25 09:43 Temperature 98.8 F 98.2 F Pulse Rate 110 H 90 97 Respiratory Rate 18 16 Blood Pressure 155/91 H 129/73 Pulse Oximetry 98 91 Oxygen Delivery Oxygen Flow Rate Fraction of Inspired Oxygen 03/28/25 09:45 03/28/25 09:50 Temperature Pulse Rate Respiratory Rate 97 H Blood Pressure 130/61 Pulse Oximetry 99 Oxygen Delivery Oxygen Flow Rate Fraction of Inspired Oxygen Intake/Output Intake/Output: Intake & Output 03/25/25 03/26/25 03/27/25 03/28/25 23:59 23:59 23:59 23:59 Intake Total 1770 1350 Output Total 350 Balance 1420 1350 Meds/Results Medications: Active Medications Generic Name Dose Route Start Last Admin Trade Name Freq PRN Reason Stop Dose Admin Acetaminophen 650 mg 03/27/25 15:10 03/28/25 10:02 Acetaminophen 325 Mg Tablet PO 650 mg Q4H PRN Administration Mild Pain (1-3) or Fever Aspirin 81 mg 03/28/25 09:00 03/28/25 09:42 Aspirin 81 Mg Enteric Tablet PO 81 mg DAILY [facility] Administration Calcium Carbonate 200 mg 03/27/25 20:13 03/27/25 20:55 Calcium Carbonate (Tums) 500 Mg (200 Mg Elemental) PO 200 mg Q6H PRN Administration Indigestion Cyanocobalamin 500 mcg 03/28/25 09:00 03/28/25 09:42 Cyanocobalamin 500 Mcg Tablet PO 500 mcg DAILY [facility] Administration Diclofenac Sodium 0 applic 03/28/25 21:00 Diclofenac Sodium 1% 100 Gm Gel (*Bkc) TOPICAL HS [facility] Ezetimibe 10 mg 03/28/25 09:00 03/28/25 09:43 Ezetimibe 10 Mg Tablet PO 10 mg DAILY [facility] Administration Enoxaparin Sodium 40 mg 03/28/25 09:00 03/28/25 09:44 Enoxaparin 40 Mg/0.4 Ml Syringe SUB-Q 40 mg DAILY [facility] Administration Ergocalciferol 50,000 units 03/28/25 09:00 03/28/25 09:43 Ergocalciferol 50,000 Units Capsule PO 50,000 units Tu@0900 [facility] Administration Finasteride 5 mg 03/27/25 21:00 03/27/25 21:09 Finasteride 5 Mg Tablet PO 5 mg HS [facility] Administration Fish Oil 1 gm 03/28/25 21:00 [place] 3 Polyunsat Fatty Acids 1 Gm Cap PO QHS [facility] Ceftriaxone Sodium 1 gm in 50 mls @ 100 mls/hr 03/28/25 09:00 03/28/25 09:44 Rocephin 1 Gm/Ns 50 Ml IVPB 100 mls/hr Q24H [facility] Administration Metronidazole 500 mg in 100 mls @ 100 mls/hr 03/27/25 22:00 03/28/25 13:35 Flagyl 500 Mg/Iso Soln 100 Ml IVPB 100 mls/hr Q8H [facility] Administration Lactated Ringer's 1,000 mls @ 125 mls/hr 03/27/25 14:35 03/28/25 01:42 Lr - Lactated Ringers Iv IV CONT 125 mls/hr .Q8H [facility] Administration Levothyroxine Sodium 125 mcg 03/28/25 06:30 03/28/25 05:38 Levothyroxine Sodium 125 Mcg Tablet PO 125 mcg DAILY@0630 [facility] Administration Losartan Potassium 50 mg 03/28/25 09:00 03/28/25 09:43 Losartan Potassium 50 Mg Tablet PO 50 mg DAILY [facility] Administration Meclizine HCl 12.5 mg 03/27/25 20:13 Meclizine Hcl 12.5 Mg Tablet PO TID PRN dizziness Morphine Sulfate 2 mg 03/27/25 14:35 03/28/25 13:55 Morphine Sulfate (*Crx) 2 Mg/Ml Inj IV PUSH 2 mg Q2H PRN Administration Pain Rated 7-10 Ondansetron HCl 4 mg 03/27/25 14:35 03/27/25 19:10 Ondansetron Inj 4 Mg/2 Ml Vial IV PUSH 4 mg Q4H PRN Administration Nausea Pantoprazole Sodium 40 mg 03/27/25 20:15 03/28/25 09:43 Pantoprazole 40 Mg Tablet PO 40 mg QAM [facility] Administration Propranolol HCl 20 mg 03/27/25 21:00 03/28/25 09:43 Propranolol Hcl 20 Mg Tablet PO 20 mg Q12H [facility] Administration Tamsulosin HCl 0.8 mg 03/27/25 21:00 03/27/25 21:08 Tamsulosin Hcl 0.4 Mg Capsule PO 0.8 mg HS [facility] Administration Terbinafine HCl 250 mg 03/28/25 09:00 03/28/25 09:44 Terbinafine Hcl 250 Mg Tablet PO 250 mg TuFr@0900 [facility] Administration Radiology Results: ITS Impressions Abdomen/Pelvis CT 03/27/25 11:04 IMPRESSION: 1. Acute interstitial pancreatitis. Upper Quadrant Ultrasound 03/27/25 12:04 IMPRESSION: 1. Focal adenomyosis at the fundus of the gallbladder. No choledocholithiasis and no evident biliary or pancreatic ductal dilation.. 2. Normal appearance to the pancreas on ultrasound imaging although findings on prior CT are consistent with acute interstitial pancreatitis. Chest X-Ray 03/27/25 13:49 IMPRESSION: Left basilar atelectasis versus pneumonia. Labs Labs: Laboratory Results - last 24 hr 03/27/25 03/27/25 03/28/25 10:26 18:29 04:46 WBC 24.4 H RBC 5.56 Hgb 16.6 Hct 52.9 H MCV 95.1 D MCH 29.9 MCHC 31.4 L RDW 13.8 Plt Count 210 MPV 9.4 Sodium 134 L Potassium 3.9 Chloride 104 Carbon Dioxide 22 Anion Gap 8 BUN 20 17 Creatinine 0.68 L Estim Creat Clear Calc 76 Estimated GFR > 60 Glucose 110 POC Capillary Glucose Calcium 8.9 Magnesium 1.7 Total Bilirubin 1.6 H AST 136 H ALT 219 H Alkaline Phosphatase 108 Total Protein 6.0 L Albumin 3.6 TSH 3.260 03/28/25 13:50 WBC RBC Hgb Hct MCV MCH MCHC RDW Plt Count MPV Sodium Potassium Chloride Carbon Dioxide Anion Gap BUN Creatinine Estim Creat Clear Calc Estimated GFR Glucose POC Capillary Glucose 150 H Calcium Magnesium Total Bilirubin AST ALT Alkaline Phosphatase Total Protein Albumin TSH
[2025-03-28 16:56] LABS: Hematocrit 43.3 % (42.0-52.0); Hemoglobin 14.3 g/dL (14.0-18.0); Mean Corpuscular Hemoglobin 29.9 pg (26-34); Mean Corpuscular Volume 90.4 fl (80-100); Mean Platelet Volume 9.2 fl (7.4-10.4); Platelet Count Result 128 k/mm3 (150-375); Red Blood Count 4.79 M/mm3 (4.6-6.20); Red Cell Distribution Width 13.9 % (11.5-14.5); White Blood Count 13.1 K/mm3 (4.5-10.0)
[2025-03-28 17:06] LABS: Blood Urea Nitrogen 15 mg/dL (9-20)
[2025-03-28] MEDS: OMEGA 3 POLYUNSAT FATTY ACIDS 1 GM CAP PO (20:55)
[2025-03-28] MEDS: TAMSULOSIN HCL 0.4 MG CAPSULE 0.8 MG PO (20:56)
[2025-03-28] MEDS: DICLOFENAC SODIUM 1% 100 GM GEL (*BKC) TOPICAL (20:56)
[2025-03-28] MEDS: FINASTERIDE 5 MG TABLET PO (20:56)
[2025-03-29] VITALS (9 sets, daily range): BP systolic 113–138; BP diastolic 62–80; PULSE 86–88; RESP 16–20; TEMP 36.6–37; O2SAT 88–94
[2025-03-29] MEDS: metroNIDAZOLE 500 MG/ISO 100ML 500 MG/100 ML BAG 100 MG IVPB ×3 (05:04→23:50)
[2025-03-29] MEDS: LEVOTHYROXINE SODIUM 125 MCG TABLET PO (05:04)
[2025-03-29 05:35] LABS: Alanine Aminotransferase 124 U/L (6-50); Albumin Level 3.3 g/dL (3.5-5.1); Alkaline Phosphatase 99 U/L (38-126); Anion Gap 9 mmol/L (4-12); Aspartate Amino Transferase 51 U/L (17-59); Bilirubin,Total 1.1 mg/dL (0.2-1.3); Blood Urea Nitrogen 15 mg/dL (9-20); Calcium 8.5 mg/dL (8.4-10.2); Carbon Dioxide 20 mmol/L (22-30); Chloride 102 mmol/L (98-107); Estimated CRCL calculation 83 ml/min; Estimated Glomerular Filt Rate > 60; Glucose 113 mg/dL (65-110); Magnesium 1.7 mg/dL (1.6-2.3); Potassium 3.7 mmol/L (3.4-5.0); Sodium 131 mmol/L (137-145)
--- NOTE | 2025-03-29 07:12 | WPDGIPROGNO ---
Progress Note: A&P Assessment and Plan (1) Acute pancreatitis: Code(s): K85.90 - Acute pancreatitis without necrosis or infection, unspecified Status: Acute Assessment and Plan: Patient with acute pancreatitis, clinically doing well. Transaminases in robyn tendency to decrease, suggesting biliary etiology despite initial sonogram not showing gallstones. However, there is still suspicion of biliary pancreatitis therefore will order a repeat abdominal sonogram today. Will advance diet and continue monitoring. Subjective Date/time seen: 03/29/25 07:12 Interval history: Patient doing better, minimal abdominal pain, tolerating liquid diet very Exam Narrative: Abdomen soft, nontender, nondistended, rest of the examination wit Objective Data Vital Signs Vital Signs: Vital Signs - 24 hr 03/28/25 09:43 03/28/25 09:45 03/28/25 09:50 Temperature Pulse Rate 97 Respiratory Rate 97 H Blood Pressure 130/61 Pulse Oximetry 99 Oxygen Delivery Fraction of Inspired Oxygen 03/28/25 14:00 03/28/25 20:00 03/28/25 20:56 Temperature 98.3 F Pulse Rate 85 85 Respiratory Rate 14 Blood Pressure 132/78 Pulse Oximetry 91 Oxygen Delivery Room Air Fraction of Inspired Oxygen 03/28/25 21:15 03/28/25 22:14 03/29/25 06:00 Temperature 98.2 F 98.4 F Pulse Rate 99 94 86 Respiratory Rate 18 20 20 Blood Pressure 142/77 H 132/80 Pulse Oximetry 92 94 91 Oxygen Delivery Room Air Fraction of Inspired Oxygen 21 Intake/Output Intake/Output: Intake & Output 03/26/25 03/27/25 03/28/25 03/29/25 23:59 23:59 23:59 23:59 Intake Total 1770 2840 475 Output Total 350 150 300 Balance 1420 2690 175 Meds/Results Medications: Active Medications Generic Name Dose Route Start Last Admin Trade Name Freq PRN Reason Stop Dose Admin Acetaminophen 650 mg 03/27/25 15:10 03/28/25 10:02 Acetaminophen 325 Mg Tablet PO 650 mg Q4H PRN Administration Mild Pain (1-3) or Fever Aspirin 81 mg 03/28/25 09:00 03/28/25 09:42 Aspirin 81 Mg Enteric Tablet PO 81 mg DAILY DANYELL Administration Calcium Carbonate 200 mg 03/27/25 20:13 03/27/25 20:55 Calcium Carbonate (Tums) 500 Mg (200 Mg Elemental) PO 200 mg Q6H PRN Administration Indigestion Cyanocobalamin 500 mcg 03/28/25 09:00 03/28/25 09:42 Cyanocobalamin 500 Mcg Tablet PO 500 mcg DAILY DANYELL Administration Diclofenac Sodium 0 applic 03/28/25 21:00 03/28/25 20:56 Diclofenac Sodium 1% 100 Gm Gel (*Bkc) TOPICAL 1 applic HS DANYELL Administration Ezetimibe 10 mg 03/28/25 09:00 03/28/25 09:43 Ezetimibe 10 Mg Tablet PO 10 mg DAILY DANYELL Administration Enoxaparin Sodium 40 mg 03/28/25 09:00 03/28/25 09:44 Enoxaparin 40 Mg/0.4 Ml Syringe SUB-Q 40 mg DAILY DANYELL Administration Ergocalciferol 50,000 units 03/28/25 09:00 03/28/25 09:43 Ergocalciferol 50,000 Units Capsule PO 50,000 units Tu@0900 DANYELL Administration Finasteride 5 mg 03/27/25 21:00 03/28/25 20:56 Finasteride 5 Mg Tablet PO 5 mg HS DANYELL Administration Fish Oil 1 gm 03/28/25 21:00 03/28/25 20:55 [place] 3 Polyunsat Fatty Acids 1 Gm Cap PO 1 gm QHS DANYELL Administration Ceftriaxone Sodium 1 gm in 50 mls @ 100 mls/hr 03/28/25 09:00 03/28/25 10:15 Rocephin 1 Gm/Ns 50 Ml IVPB Infused Q24H DANYELL Infusion Metronidazole 500 mg in 100 mls @ 100 mls/hr 03/27/25 22:00 03/29/25 05:04 Flagyl 500 Mg/Iso Soln 100 Ml IVPB 100 mls/hr Q8H DANYELL Administration Lactated Ringer's 1,000 mls @ 125 mls/hr 03/27/25 14:35 03/29/25 04:38 Lr - Lactated Ringers Iv IV CONT Not Given .Q8H DANYELL Levothyroxine Sodium 125 mcg 03/28/25 06:30 03/29/25 05:04 Levothyroxine Sodium 125 Mcg Tablet PO 125 mcg DAILY@0630 DANYELL Administration Losartan Potassium 50 mg 03/28/25 09:00 03/28/25 09:43 Losartan Potassium 50 Mg Tablet PO 50 mg DAILY DANYELL Administration Meclizine HCl 12.5 mg 03/27/25 20:13 Meclizine Hcl 12.5 Mg Tablet PO TID PRN dizziness Morphine Sulfate 2 mg 03/27/25 14:35 03/28/25 13:55 Morphine Sulfate (*Crx) 2 Mg/Ml Inj IV PUSH 2 mg Q2H PRN Administration Pain Rated 7-10 Ondansetron HCl 4 mg 03/27/25 14:35 03/27/25 19:10 Ondansetron Inj 4 Mg/2 Ml Vial IV PUSH 4 mg Q4H PRN Administration Nausea Pantoprazole Sodium 40 mg 03/27/25 20:15 03/28/25 09:43 Pantoprazole 40 Mg Tablet PO 40 mg QAM DANYELL Administration Propranolol HCl 20 mg 03/27/25 21:00 03/28/25 20:56 Propranolol Hcl 20 Mg Tablet PO 20 mg Q12H DANYELL Administration Tamsulosin HCl 0.8 mg 03/27/25 21:00 03/28/25 20:56 Tamsulosin Hcl 0.4 Mg Capsule PO 0.8 mg HS DANYELL Administration Terbinafine HCl 250 mg 03/28/25 09:00 03/28/25 09:44 Terbinafine Hcl 250 Mg Tablet PO 250 mg TuFr@0900 DANYELL Administration Radiology Results: ITS Impressions Abdomen/Pelvis CT 03/27/25 11:04 IMPRESSION: 1. Acute interstitial pancreatitis. Upper Quadrant Ultrasound 03/27/25 12:04 IMPRESSION: 1. Focal adenomyosis at the fundus of the gallbladder. No choledocholithiasis and no evident biliary or pancreatic ductal dilation.. 2. Normal appearance to the pancreas on ultrasound imaging although findings on prior CT are consistent with acute interstitial pancreatitis. Chest X-Ray 03/27/25 13:49 IMPRESSION: Left basilar atelectasis versus pneumonia. Labs Labs: Laboratory Results - last 24 hr 03/28/25 03/28/25 03/29/25 13:50 16:51 04:54 WBC 13.1 H RBC 4.79 Hgb 14.3 Hct 43.3 MCV 90.4 MCH 29.9 MCHC 33.0 RDW 13.9 Plt Count 128 L MPV 9.2 Sodium 131 L Potassium 3.7 Chloride 102 Carbon Dioxide 20 L Anion Gap 9 BUN 15 15 Creatinine 0.62 L Estim Creat Clear Calc 83 Estimated GFR > 60 Glucose 113 H POC Capillary Glucose 150 H Calcium 8.5 Magnesium 1.7 Total Bilirubin 1.1 AST 51 ALT 124 H Alkaline Phosphatase 99 Total Protein 6.0 L Albumin 3.3 L
--- NOTE | 2025-03-29 08:13 | P.PNIM_ITS ---
Progress Note: A&P Assessment and Plan (1) Hospital-acquired pneumonia: Code(s): J18.9 - Pneumonia, unspecified organism; Y95 - Nosocomial condition Status: Acute Assessment and Plan: WBC elevated at 22.4, compared to 13.1 on 03/28. Remains afebrile. Endorsing increased SOB and difficulty with deep breathing. CXR: Mild opacities in the left lower lung zone likely combination of left pericardial fat pad and atelectasis with differential including pneumonia in the appropriate clinical setting. Appears worse compared to CXR from 03/27 which showed left basilar atelectasis vs pneumonia - started on CAP tx: cefepime q8H started 03/29 - MRSA ordered - Viral PCR: Flu/COVID/RSV ordered - Consider ordering legionella, mycoplasma and pneumococcal - 1 L NC, baseline room air. Wean as tolerated, keep SpO2 >90. - Monitor vital signs, I&Os, neuro status and patient is a fall risk - Follow WBC, serum electrolytes, temperature curves and cultures - Send sputum cultures (2) Acute pancreatitis: Code(s): K85.90 - Acute pancreatitis without necrosis or infection, unspecified Status: Acute Assessment and Plan: Nausea, vomiting, abdominal pain. Takes Wegovy for weight loss in his last injection was 03/26. He denies any recent use of alcohol, states he quit 19 years ago. 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 - Keep Hct <42 per GI recommendation Q.6 hour hematocrit and BUN ordered - GI consulted Ddx: acute pancreatitis primarily includes biliary pancreatitis versus alcohol-induced pancreatitis. No overt gallstones or sludge were observed, the presence of gallbladder adenomyosis raises the possibility of subtle, masked microlithiasis or sludge as an underlying cause. Significant elevation in AST and ALT strongly suggests a biliary etiology. LR 150 ml/hr to prevent pancreatic necrosis Leukocytosis is most likely secondary to SIRS commonly seen in the early stages of acute pancreatitis, the antibiotic regimen covers potential ascending cholangitis. Continue rocephin and flagyl (3) Transaminitis: Code(s): R74.01 - Elevation of levels of liver transaminase levels Status: Acute Assessment and Plan: Likely secondary to acute pancreatitis Downtrending, continue to monitor (4) Elevated bilirubin: Code(s): R17 - Unspecified jaundice Status: Acute Assessment and Plan: * Bilirubin 1.6 on admission, returned to WNL * Continue to trend (5) Hypertension: Qualifiers: Hypertension type: primary hypertension Qualified Code(s): I10 - Essential (primary) hypertension Code(s): I10 - Essential (primary) hypertension Status: Acute Assessment and Plan: Chronic, continue home medications - losartan 50 mg daily - propranolol 20 mg BID - blood pressures remain stable, continue to monitor (6) Hyperlipidemia: Qualifiers: Hyperlipidemia type: pure hypercholesterolemia Qualified Code(s): E78.00 - Pure hypercholesterolemia, unspecified Code(s): E78.5 - Hyperlipidemia, unspecified Status: Acute Assessment and Plan: * Continue Zeita, aspirin (7) Hypothyroidism: Qualifiers: Hypothyroidism type: acquired Qualified Code(s): E03.9 - Hypothyroidism, unspecified Code(s): E03.9 - Hypothyroidism, unspecified Status: Acute Assessment and Plan: * Continue Synthroid Time Spent With Patient Time with patient: 25 - 35 minutes Subjective Date/time seen: 03/29/25 08:13 Interval history: 84-year-old male with a significant past medical history of seizure, CVA, basal cell carcinoma, alcohol abuse, hypothyroidism, arthritis, hypertension, hyperlipidemia, former smoker who presented to the hospital for evaluation of abdominal pain, nausea, vomiting. Patient is pleasant sitting up in bed. Patient states he is having slight difficulty with deep breathing. He denies feeling short of breath but was slightly hypoxic at 88% on room air per RN, placed on 1L NC at that time. Chest XR ordered and showing worsening opacities since admission. Started on HAP. Patient has not had a BM or passed gas since Thursday. Continues to have a slight abdominal pain. Started on bowel regimen. He has been advanced to a bland low fiber diet by GI. He has no other complaints denying chest pain, palpitations and nausea/vomiting. Review of Systems Review of Systems: All systems reviewed & are unremarkable except as noted in HPI and below Exam Narrative: AF General: well nourished, well-developed male in no acute respiratory distress who is nontoxic appearing, lying semi recumbent in bed. HEENT: Normocephalic. Atraumatic. Pupils equal round reactive to light. Extraoc ular movement intact. Sclera clear and anicteric. Nares patent. No oral lesions. Moist mucous membranes. Tongue is midline. Palate sallie symmetrically. No facial asymmetry. Neck: Neck was supple. No dominant adenopathy, thyromegaly or masses. 2+ carotid upstrokes without bruits. Chest: Lungs are clear to auscultation bilaterlly. No wheezes or crackles. CV: Heart was regular rate and rhythm. S1/S2. No murmurs, gallops, or rubs. Abd: Abdomen was soft. Nontender. Nondistended. Postive bowel sounds. No organomegaly or masses. Ext: No clubbing, cyanosis, or edema. 2+ DP pulses bilaterally. Neuro: Patient is alert and oriented x4. Strenth is 5/5 in both upper and lower extremities. Cranial nerves 2-12 are intact. Speech is clear. Psych: Normal nood and affect. Patient is pleasant and cooperative. Skin: Warm and dry. No rashes noted. Objective Data Vital Signs Vital Signs: Vital Signs - 24 hr 03/28/25 09:43 03/28/25 09:45 03/28/25 09:50 Temperature Pulse Rate 97 Respiratory Rate 97 H Blood Pressure 130/61 Pulse Oximetry 99 Oxygen Delivery Fraction of Inspired Oxygen 03/28/25 14:00 03/28/25 20:00 03/28/25 20:56 Temperature 98.3 F Pulse Rate 85 85 Respiratory Rate 14 Blood Pressure 132/78 Pulse Oximetry 91 Oxygen Delivery Room Air Fraction of Inspired Oxygen 03/28/25 21:15 03/28/25 22:14 03/29/25 06:00 Temperature 98.2 F 98.4 F Pulse Rate 99 94 86 Respiratory Rate 18 20 20 Blood Pressure 142/77 H 132/80 Pulse Oximetry 92 94 91 Oxygen Delivery Room Air Fraction of Inspired Oxygen 21 03/29/25 08:00 Temperature Pulse Rate Respiratory Rate Blood Pressure Pulse Oximetry 92 Oxygen Delivery Room Air Fraction of Inspired Oxygen Intake/Output Intake/Output: Intake & Output 03/26/25 03/27/25 03/28/25 03/29/25 23:59 23:59 23:59 23:59 Intake Total 1770 2840 475 Output Total 350 150 800 Balance 1420 2690 -325 Meds/Results Medications: Active Medications Generic Name Dose Route Start Last Admin Trade Name Freq PRN Reason Stop Dose Admin Acetaminophen 650 mg 03/27/25 15:10 03/28/25 10:02 Acetaminophen 325 Mg Tablet PO 650 mg Q4H PRN Administration Mild Pain (1-3) or Fever Aspirin 81 mg 03/28/25 09:00 03/28/25 09:42 Aspirin 81 Mg Enteric Tablet PO 81 mg DAILY DANYELL Administration Calcium Carbonate 200 mg 03/27/25 20:13 03/27/25 20:55 Calcium Carbonate (Tums) 500 Mg (200 Mg Elemental) PO 200 mg Q6H PRN Administration Indigestion Cyanocobalamin 500 mcg 03/28/25 09:00 03/28/25 09:42 Cyanocobalamin 500 Mcg Tablet PO 500 mcg DAILY DANYELL Administration Diclofenac Sodium 0 applic 03/28/25 21:00 03/28/25 20:56 Diclofenac Sodium 1% 100 Gm Gel (*Bkc) TOPICAL 1 applic HS DANYELL Administration Ezetimibe 10 mg 03/28/25 09:00 03/28/25 09:43 Ezetimibe 10 Mg Tablet PO 10 mg DAILY DANYELL Administration Enoxaparin Sodium 40 mg 03/28/25 09:00 03/28/25 09:44 Enoxaparin 40 Mg/0.4 Ml Syringe SUB-Q 40 mg DAILY DANYELL Administration Ergocalciferol 50,000 units 03/28/25 09:00 03/28/25 09:43 Ergocalciferol 50,000 Units Capsule PO 50,000 units Tu@0900 DANYELL Administration Finasteride 5 mg 03/27/25 21:00 03/28/25 20:56 Finasteride 5 Mg Tablet PO 5 mg HS DANYELL Administration Fish Oil 1 gm 03/28/25 21:00 03/28/25 20:55 [place] 3 Polyunsat Fatty Acids 1 Gm Cap PO 1 gm QHS DANYELL Administration Ceftriaxone Sodium 1 gm in 50 mls @ 100 mls/hr 03/28/25 09:00 03/28/25 10:15 Rocephin 1 Gm/Ns 50 Ml IVPB Infused Q24H DANYELL Infusion Metronidazole 500 mg in 100 mls @ 100 mls/hr 03/27/25 22:00 03/29/25 05:04 Flagyl 500 Mg/Iso Soln 100 Ml IVPB 100 mls/hr Q8H DANYELL Administration Lactated Ringer's 1,000 mls @ 125 mls/hr 03/27/25 14:35 03/29/25 04:38 Lr - Lactated Ringers Iv IV CONT Not Given .Q8H DANYELL Levothyroxine Sodium 125 mcg 03/28/25 06:30 03/29/25 05:04 Levothyroxine Sodium 125 Mcg Tablet PO 125 mcg DAILY@0630 DANYELL Administration Losartan Potassium 50 mg 03/28/25 09:00 03/28/25 09:43 Losartan Potassium 50 Mg Tablet PO 50 mg DAILY DANYELL Administration Meclizine HCl 12.5 mg 03/27/25 20:13 Meclizine Hcl 12.5 Mg Tablet PO TID PRN dizziness Morphine Sulfate 2 mg 03/27/25 14:35 03/28/25 13:55 Morphine Sulfate (*Crx) 2 Mg/Ml Inj IV PUSH 2 mg Q2H PRN Administration Pain Rated 7-10 Ondansetron HCl 4 mg 03/27/25 14:35 03/27/25 19:10 Ondansetron Inj 4 Mg/2 Ml Vial IV PUSH 4 mg Q4H PRN Administration Nausea Pantoprazole Sodium 40 mg 03/27/25 20:15 03/28/25 09:43 Pantoprazole 40 Mg Tablet PO 40 mg QAM DANYELL Administration Propranolol HCl 20 mg 03/27/25 21:00 03/28/25 20:56 Propranolol Hcl 20 Mg Tablet PO 20 mg Q12H DANYELL Administration Tamsulosin HCl 0.8 mg 03/27/25 21:00 03/28/25 20:56 Tamsulosin Hcl 0.4 Mg Capsule PO 0.8 mg HS DANYELL Administration Terbinafine HCl 250 mg 03/28/25 09:00 03/28/25 09:44 Terbinafine Hcl 250 Mg Tablet PO 250 mg TuFr@0900 DANYELL Administration Radiology Results: ITS Impressions Abdomen/Pelvis CT 03/27/25 11:04 IMPRESSION: 1. Acute interstitial pancreatitis. Upper Quadrant Ultrasound 03/27/25 12:04 IMPRESSION: 1. Focal adenomyosis at the fundus of the gallbladder. No choledocholithiasis and no evident biliary or pancreatic ductal dilation.. 2. Normal appearance to the pancreas on ultrasound imaging although findings on prior CT are consistent with acute interstitial pancreatitis. Chest X-Ray 03/27/25 13:49 IMPRESSION: Left basilar atelectasis versus pneumonia. Labs Labs: Laboratory Results - last 24 hr 03/28/25 03/28/25 03/29/25 13:50 16:51 04:54 WBC 13.1 H RBC 4.79 Hgb 14.3 Hct 43.3 MCV 90.4 MCH 29.9 MCHC 33.0 RDW 13.9 Plt Count 128 L MPV 9.2 Sodium 131 L Potassium 3.7 Chloride 102 Carbon Dioxide 20 L Anion Gap 9 BUN 15 15 Creatinine 0.62 L Estim Creat Clear Calc 83 Estimated GFR > 60 Glucose 113 H POC Capillary Glucose 150 H Calcium 8.5 Magnesium 1.7 Total Bilirubin 1.1 AST 51 ALT 124 H Alkaline Phosphatase 99 Total Protein 6.0 L Albumin 3.3 L Quality VTE Prophylaxis VTE prophylaxis: pharmacologic ordered
[2025-03-29 08:27] LABS: Hematocrit 42.1 % (42.0-52.0); Hemoglobin 14.1 g/dL (14.0-18.0); Mean Corpuscular HGB Conc 33.5 g/dl (32-36); Mean Corpuscular Hemoglobin 30.1 pg (26-34); Mean Platelet Volume 10.3 fl (7.4-10.4); Platelet Count Result 139 k/mm3 (150-375); Red Blood Count 4.68 M/mm3 (4.6-6.20); Red Cell Distribution Width 14.1 % (11.5-14.5); White Blood Count 22.4 K/mm3 (4.5-10.0)
[2025-03-29 08:54] LABS: Lipase 443 U/L (23-300)
[2025-03-29] MEDS: PROPRANOLOL HCL 20 MG TABLET PO ×2 (10:40→21:35)
[2025-03-29] MEDS: PANTOPRAZOLE 40 MG TABLET PO (10:40)
[2025-03-29] MEDS: LOSARTAN POTASSIUM 50 MG TABLET PO (10:40)
[2025-03-29] MEDS: ASPIRIN 81 MG ENTERIC TABLET PO (10:40)
[2025-03-29] MEDS: EZETIMIBE 10 MG TABLET PO (10:41)
[2025-03-29] MEDS: CYANOCOBALAMIN 500 MCG TABLET PO (10:41)
[2025-03-29] MEDS: ENOXAPARIN 40 MG/0.4 ML SYRINGE SUB-Q (10:43)
--- NOTE | 2025-03-29 10:56 | PC.NURSE ---
Am medications administered late due to patient NPO for ultrasound, Shannen ARREAGA aware
[2025-03-29] MEDS: polyethylene glycoL 3350 17 GM POWD.PACK PO (11:43)
--- NOTE | 2025-03-29 15:19 | WPDGIPROGNO ---
Progress Note: A&P Assessment and Plan (1) Acute pancreatitis: Code(s): K85.90 - Acute pancreatitis without necrosis or infection, unspecified Status: Acute Assessment and Plan: Increased white blood cell count noted. While the patient's clinical status has improved and hematocrit is now stable and within an adequate range (reflecting successful hydration), a new chest x-ray reveals findings suggestive of pneumonia, antibiotics were started. Given the patient's hospitalization exceeding 48 hours, frequent hematocrit checks every 6 hours are no longer necessary. Today's repeat ultrasound showed no evidence of sludge. However, the presence of adenomyosis and the initially elevated transaminases not trending down warrant surgical consultation for a possible laparoscopic cholecystectomy at some point. A follow-up abdominal CT scan will be obtained to investigate alternative causes for the recent increase in WBC. Subjective Date/time seen: 03/29/25 15:19 Interval history: the patient is tolerating bland diet No nausea, vomiting or fever. Exam Narrative: Abdomen: Soft, nontender, nondistended, rest of the examination wi Objective Data Vital Signs Vital Signs: Vital Signs - 24 hr 03/28/25 20:00 03/28/25 20:56 03/28/25 21:15 Temperature 98.2 F Pulse Rate 85 99 Respiratory Rate 18 Blood Pressure 142/77 H Pulse Oximetry 92 Oxygen Delivery Room Air Oxygen Flow Rate Fraction of Inspired Oxygen 03/28/25 22:14 03/29/25 06:00 03/29/25 08:00 Temperature 98.4 F Pulse Rate 94 86 Respiratory Rate 20 20 Blood Pressure 132/80 Pulse Oximetry 94 91 92 Oxygen Delivery Room Air Room Air Oxygen Flow Rate Fraction of Inspired Oxygen 21 03/29/25 10:40 03/29/25 11:11 03/29/25 11:12 Temperature Pulse Rate 88 Respiratory Rate Blood Pressure Pulse Oximetry 88 L 94 Oxygen Delivery Room Air Nasal Cannula Oxygen Flow Rate 1 Fraction of Inspired Oxygen 03/29/25 14:00 Temperature 97.8 F Pulse Rate 87 Respiratory Rate 18 Blood Pressure 113/62 Pulse Oximetry 92 Oxygen Delivery Oxygen Flow Rate Fraction of Inspired Oxygen Intake/Output Intake/Output: Intake & Output 03/26/25 03/27/25 03/28/25 03/29/25 23:59 23:59 23:59 23:59 Intake Total 1770 2840 1805 Output Total 350 150 800 Balance 1420 2690 1005 Meds/Results Medications: Active Medications Generic Name Dose Route Start Last Admin Trade Name Freq PRN Reason Stop Dose Admin Acetaminophen 650 mg 03/27/25 15:10 03/28/25 10:02 Acetaminophen 325 Mg Tablet PO 650 mg Q4H PRN Administration Mild Pain (1-3) or Fever Aspirin 81 mg 03/28/25 09:00 03/29/25 10:40 Aspirin 81 Mg Enteric Tablet PO 81 mg DAILY DANYELL Administration Calcium Carbonate 200 mg 03/27/25 20:13 03/27/25 20:55 Calcium Carbonate (Tums) 500 Mg (200 Mg Elemental) PO 200 mg Q6H PRN Administration Indigestion Cyanocobalamin 500 mcg 03/28/25 09:00 03/29/25 10:41 Cyanocobalamin 500 Mcg Tablet PO 500 mcg DAILY [facility] Administration Diclofenac Sodium 0 applic 03/28/25 21:00 03/28/25 20:56 Diclofenac Sodium 1% 100 Gm Gel (*Bkc) TOPICAL 1 applic HS DANYELL Administration Ezetimibe 10 mg 03/28/25 09:00 03/29/25 10:41 Ezetimibe 10 Mg Tablet PO 10 mg DAILY DANYELL Administration Enoxaparin Sodium 40 mg 03/28/25 09:00 03/29/25 10:43 Enoxaparin 40 Mg/0.4 Ml Syringe SUB-Q 40 mg DAILY DANYELL Administration Ergocalciferol 50,000 units 03/28/25 09:00 03/28/25 09:43 Ergocalciferol 50,000 Units Capsule PO 50,000 units Tu@0900 DANYELL Administration Finasteride 5 mg 03/27/25 21:00 03/28/25 20:56 Finasteride 5 Mg Tablet PO 5 mg HS DANYELL Administration Fish Oil 1 gm 03/28/25 21:00 03/28/25 20:55 [place] 3 Polyunsat Fatty Acids 1 Gm Cap PO 1 gm QHS DANYELL Administration Metronidazole 500 mg in 100 mls @ 100 mls/hr 03/27/25 22:00 03/29/25 14:35 Flagyl 500 Mg/Iso Soln 100 Ml IVPB 100 mls/hr Q8H DANYELL Administration Cefepime HCl 2 gm in 50 mls @ 100 mls/hr 03/29/25 14:30 Maxipime 2 Gm/Ns 50 Ml IVPB Q8HR [facility] Levothyroxine Sodium 125 mcg 03/28/25 06:30 03/29/25 05:04 Levothyroxine Sodium 125 Mcg Tablet PO 125 mcg DAILY@0630 DANYELL Administration Losartan Potassium 50 mg 03/28/25 09:00 03/29/25 10:40 Losartan Potassium 50 Mg Tablet PO 50 mg DAILY DANYELL Administration Meclizine HCl 12.5 mg 03/27/25 20:13 Meclizine Hcl 12.5 Mg Tablet PO TID PRN dizziness Morphine Sulfate 2 mg 03/27/25 14:35 03/28/25 13:55 Morphine Sulfate (*Crx) 2 Mg/Ml Inj IV PUSH 2 mg Q2H PRN Administration Pain Rated 7-10 Ondansetron HCl 4 mg 03/27/25 14:35 03/27/25 19:10 Ondansetron Inj 4 Mg/2 Ml Vial IV PUSH 4 mg Q4H PRN Administration Nausea Pantoprazole Sodium 40 mg 03/27/25 20:15 03/29/25 10:40 Pantoprazole 40 Mg Tablet PO 40 mg QAM DANYELL Administration Polyethylene Glycol 17 gm 03/29/25 11:10 03/29/25 11:43 Polyethylene Glycol 3350 17 Gm Powd.Pack PO 17 gm QAM DANYELL Administration Propranolol HCl 20 mg 03/27/25 21:00 03/29/25 10:40 Propranolol Hcl 20 Mg Tablet PO 20 mg Q12H DANYELL Administration Senna/Docusate Sodium 1 tab 03/29/25 21:00 Senna/Docusate Sodium Tablet PO [facility] Tamsulosin HCl 0.8 mg 03/27/25 21:00 03/28/25 20:56 Tamsulosin Hcl 0.4 Mg Capsule PO 0.8 mg HS [facility] Administration Terbinafine HCl 250 mg 03/28/25 09:00 03/28/25 09:44 Terbinafine Hcl 250 Mg Tablet PO 250 mg TuFr@0900 DANYELL Administration Radiology Results: ITS Impressions Abdomen/Pelvis CT 03/27/25 11:04 IMPRESSION: 1. Acute interstitial pancreatitis. Upper Quadrant Ultrasound 03/27/25 12:04 IMPRESSION: 1. Focal adenomyosis at the fundus of the gallbladder. No choledocholithiasis and no evident biliary or pancreatic ductal dilation.. 2. Normal appearance to the pancreas on ultrasound imaging although findings on prior CT are consistent with acute interstitial pancreatitis. Abdomen Ultrasound 03/29/25 10:33 IMPRESSION: 1. Focal adenomyomatosis at the fundus of the gallbladder. Otherwise unremarkable right upper quadrant ultrasound. Chest X-Ray 03/29/25 11:25 IMPRESSION: 1. Mild opacities in the left lower lung zone likely combination of left pericardial fat pad and atelectasis with differential including pneumonia in the appropriate clinical setting. Labs Labs: Laboratory Results - last 24 hr 03/28/25 03/29/25 03/29/25 16:51 04:53 04:54 WBC 13.1 H 22.4 H RBC 4.79 4.68 Hgb 14.3 14.1 Hct 43.3 42.1 MCV 90.4 90.0 MCH 29.9 30.1 MCHC 33.0 33.5 RDW 13.9 14.1 Plt Count 128 L 139 L MPV 9.2 10.3 Sodium 131 L Potassium 3.7 Chloride 102 Carbon Dioxide 20 L Anion Gap 9 BUN 15 15 Creatinine 0.62 L Estim Creat Clear Calc 83 Estimated GFR > 60 Glucose 113 H Calcium 8.5 Magnesium 1.7 Total Bilirubin 1.1 AST 51 ALT 124 H Alkaline Phosphatase 99 Total Protein 6.0 L Albumin 3.3 L Lipase 443 H
[2025-03-29] MEDS: CEFEPIME 2 GM/NS 50 ML 2 GM/50 ML BAG IVPB ×2 (15:40→23:05)
[2025-03-29 15:55] LABS: Influenza A QL RT-PCR Negative (Negative); Influenza B QL RT-PCR Negative (Negative); RSV RNA, RT-PCR Negative (Negative); SARS-CoV-2 RNA PCR Negative (Negative)
[2025-03-29 16:31] LABS: MRSA (PCR) NOT DETECTED (NOT DETECTE)
[2025-03-29] MEDS: TAMSULOSIN HCL 0.4 MG CAPSULE 0.8 MG PO (21:34)
[2025-03-29] MEDS: SENNA/DOCUSATE SODIUM TABLET 1 TAB PO (21:34)
[2025-03-29] MEDS: OMEGA 3 POLYUNSAT FATTY ACIDS 1 GM CAP PO (21:34)
[2025-03-29] MEDS: FINASTERIDE 5 MG TABLET PO (21:34)
[2025-03-29] MEDS: DICLOFENAC SODIUM 1% 100 GM GEL (*BKC) TOPICAL (23:08)
[2025-03-30] VITALS (11 sets, daily range): BP systolic 120–148; BP diastolic 73–79; PULSE 79–91; RESP 16–20; TEMP 36.4–37.8; O2SAT 90–92
[2025-03-30] MEDS: LEVOTHYROXINE SODIUM 125 MCG TABLET PO (04:57)
[2025-03-30] MEDS: CEFEPIME 2 GM/NS 50 ML 2 GM/50 ML BAG IVPB (05:00)
[2025-03-30] MEDS: metroNIDAZOLE 500 MG/ISO 100ML 500 MG/100 ML BAG 100 MG IVPB (05:24)
[2025-03-30 05:28] LABS: Basophils Percent Auto 0.2 % (0.2-1.2); Hematocrit 40.9 % (42.0-52.0); Hemoglobin 13.9 g/dL (14.0-18.0); Immature Granulocyte Percent A 1.3 % (0-0.5); Immature Platelet Fraction Pct 4.1 % (0.9-11.2); Lymphocytes Absolute Auto 0.78 K/mm3 (0.9-3.2); Lymphocytes Percent Auto 3.4 % (18.3-44.2); Mean Corpuscular Hemoglobin 30.1 pg (26-34); Mean Corpuscular Volume 88.5 fl (80-100); Mean Platelet Volume 10.3 fl (7.4-10.4); Monocytes Percent Auto 8.8 % (2.6-8.5); Neutrophils Absolute Auto 19.9 K/mm3 (1.3-6.7); Neutrophils Percent Auto 86.3 % (45.5-73.1); Platelet Count Result 143 k/mm3 (150-375); Red Blood Count 4.62 M/mm3 (4.6-6.20); Red Cell Distribution Width 13.8 % (11.5-14.5); White Blood Count 23.1 K/mm3 (4.5-10.0)
[2025-03-30 05:39] LABS: Alanine Aminotransferase 83 U/L (6-50); Albumin Level 3.2 g/dL (3.5-5.1); Alkaline Phosphatase 109 U/L (38-126); Anion Gap 10 mmol/L (4-12); Aspartate Amino Transferase 31 U/L (17-59); Bilirubin,Total 1.4 mg/dL (0.2-1.3); Blood Urea Nitrogen 16 mg/dL (9-20); Calcium 8.5 mg/dL (8.4-10.2); Carbon Dioxide 20 mmol/L (22-30); Chloride 100 mmol/L (98-107); Estimated CRCL calculation 81 ml/min; Estimated Glomerular Filt Rate > 60; Glucose 99 mg/dL (65-110); Magnesium 1.9 mg/dL (1.6-2.3); Potassium 3.5 mmol/L (3.4-5.0); Sodium 130 mmol/L (137-145)
--- NOTE | 2025-03-30 06:53 | P.PNIM_ITS ---
Progress Note: A&P Assessment and Plan (1) Pleural effusion: Code(s): J90 - Pleural effusion, not elsewhere classified Status: Acute Assessment and Plan: WBC elevated at 22.4, compared to 13.1 on 03/28. Remains afebrile. Endorsing increased SOB and difficulty with deep breathing. CXR: Mild opacities in the left lower lung zone likely combination of left pericardial fat pad and atelectasis with differential including pneumonia in the appropriate clinical setting. Appears worse compared to CXR from 03/27 which showed left basilar atelectasis vs pneumonia CT abd/pelvis: bilateral pleural effusion with adjacent atelectasis - started on HAP tx however not HAP per pulmonology, antibiotics discontinued - MRSA negative - Viral PCR: Flu/COVID/RSV ordered - 4 L NC, baseline room air. Wean as tolerated, keep SpO2 >90. - Monitor vital signs, I&Os, neuro status and patient is a fall risk - Follow WBC, serum electrolytes, temperature curves and cultures - Send sputum cultures - Pulmonology consulted by GI Does not appear to be HAP, likely pancreatitis with volume overload No antibiotics required, patient remains on antibiotics for pancreatitis Recommend minimizing IV fluids and begin mariano diuresis as tolerated from pancreatic perspective Spoke with GI and will hold on diuresis at this time as patient is voiding normally and concern for pancreatitis (2) Acute pancreatitis: Code(s): K85.90 - Acute pancreatitis without necrosis or infection, unspecified Status: Acute Assessment and Plan: Nausea, vomiting, abdominal pain. Takes Wegovy for weight loss in his last injection was 03/26. He denies any recent use of alcohol, states he quit 19 years ago. - Lipase 17,543, repeat 443 - Given 1.5 L IV fluids in the ED, was on LR 125 ml/hr however DC for worsening SOB - Antibiotics discontinued as concern for cholangitis has resolved - Diet: low fiber, tolerating well - CT of the abdomen and pelvis show acute interstitial pancreatitis - Right upper quadrant ultrasound showed focal adenomyosis at the fundus of the gallbladder, no choledocholithiasis and no evidence of biliary or pancreatic ductal dilation, normal appearance to the pancreas - Repeat US today to reassess biliary pancreatitis concern Focal adenomyomatosis at the fundus of the gallbladder. - Repeat CT abdomen/pelvis showed pancreatitis with slightly increased fat stranding with no definite collections - Keep Hct <42 per GI recommendation Q.6 hour hematocrit and BUN ordered - GI consulted Ddx: acute pancreatitis primarily includes biliary pancreatitis versus alcohol-induced pancreatitis. No overt gallstones or sludge were observed, the presence of gallbladder adenomyosis raises the possibility of subtle, masked microlithiasis or sludge as an underlying cause. Significant elevation in AST and ALT strongly suggests a biliary etiology. Leukocytosis is most likely inflammatory from the pancreatitis (3) Transaminitis: Code(s): R74.01 - Elevation of levels of liver transaminase levels Status: Acute Assessment and Plan: Likely secondary to acute pancreatitis Downtrending, continue to monitor (4) Elevated bilirubin: Code(s): R17 - Unspecified jaundice Status: Acute Assessment and Plan: * Bilirubin 1.6 on admission, returned to WNL * Continue to trend (5) Adenomyomatosis of gallbladder: Code(s): D13.5 - Benign neoplasm of extrahepatic bile ducts Status: Acute Assessment and Plan: The patient was found to have adenomyomatosis in the fundus of the gallbladder. This is an incidental finding on ultrasound. This is not a finding that warrants a cholecystectomy and would not cause the biliary pancreatitis. (6) Pulmonary nodule: Code(s): R91.1 - Solitary pulmonary nodule Status: Acute Assessment and Plan: CT abd/pelvis showed a nodule in the right middle lobe Follow up in the outpatient setting with CT in 6 months (7) Hypertension: Qualifiers: Hypertension type: primary hypertension Qualified Code(s): I10 - Essential (primary) hypertension Code(s): I10 - Essential (primary) hypertension Status: Acute Assessment and Plan: Chronic, continue home medications - losartan 50 mg daily - propranolol 20 mg BID - blood pressures remain stable, continue to monitor (8) Hyperlipidemia: Qualifiers: Hyperlipidemia type: pure hypercholesterolemia Qualified Code(s): E78.00 - Pure hypercholesterolemia, unspecified Code(s): E78.5 - Hyperlipidemia, unspecified Status: Acute Assessment and Plan: * Continue Zeita, aspirin (9) Hypothyroidism: Qualifiers: Hypothyroidism type: acquired Qualified Code(s): E03.9 - Hypothyroidism, unspecified Code(s): E03.9 - Hypothyroidism, unspecified Status: Acute Assessment and Plan: * Continue Synthroid Time Spent With Patient Time with patient: Greater than 35 minutes Subjective Date/time seen: 03/30/25 06:53 Interval history: 84-year-old male with a significant past medical history of seizure, CVA, basal cell carcinoma, alcohol abuse, hypothyroidism, arthritis, hypertension, hyperlipidemia, former smoker who presented to the hospital for evaluation of abdominal pain, nausea, vomiting. Patient is lying comfortably in bed. He continues to endorse slight shortness of breath but notes that is improved and denies cough. He has been requiring more oxygen supplementation up to 4 L overnight. Attempted to be weaned by pulmonology however was again placed on 4 L due to hypoxia. He is tolerating his current diet well denying any nausea/vomiting/abdominal pain. He has no other complaints denying chest pain and palpitations. Review of Systems Review of Systems: All systems reviewed & are unremarkable except as noted in HPI and below Exam Narrative: AF HR 80 RR 16 Spo2 92 4L NC (baseline RA) BP 120/73 General: male in no acute respiratory distress who is nontoxic appearing, lying semi recumbent in bed. HEENT: Normocephalic. Atraumatic. Extraocular movement intact. Sclera clear and anicteric. No facial asymmetry. Chest: Lungs are crackles to auscultation bilaterally. No wheezes. CV: Heart was regular rate and rhythm. Abd: Abdomen was soft. Nontender. Nondistended. Positive bowel sounds. Ext: No clubbing, cyanosis, or edema. DP pulses bilaterally. Neuro: Patient is alert and oriented x4. Speech is clear. Objective Data Vital Signs Vital Signs: Vital Signs - 24 hr 03/29/25 08:00 03/29/25 10:40 03/29/25 11:11 Temperature Pulse Rate 88 Respiratory Rate Blood Pressure Pulse Oximetry 92 88 L Oxygen Delivery Room Air Room Air Oxygen Flow Rate 03/29/25 11:12 03/29/25 14:00 03/29/25 19:35 Temperature 97.8 F 98.6 F Pulse Rate 87 86 Respiratory Rate 18 16 Blood Pressure 113/62 138/71 Pulse Oximetry 94 92 93 Oxygen Delivery Nasal Cannula Oxygen Flow Rate 1 03/29/25 21:29 03/29/25 21:35 03/30/25 04:58 Temperature 97.6 F Pulse Rate 86 79 Respiratory Rate 16 Blood Pressure 131/77 Pulse Oximetry 93 91 Oxygen Delivery Nasal Cannula Oxygen Flow Rate 2 Intake/Output Intake/Output: Intake & Output 03/27/25 03/28/25 03/29/25 03/30/25 23:59 23:59 23:59 23:59 Intake Total 1770 2840 2645 1000 Output Total 350 150 800 Balance 1420 2690 1845 1000 Meds/Results Medications: Active Medications Generic Name Dose Route Start Last Admin Trade Name Freq PRN Reason Stop Dose Admin Acetaminophen 650 mg 03/27/25 15:10 03/28/25 10:02 Acetaminophen 325 Mg Tablet PO 650 mg Q4H PRN Administration Mild Pain (1-3) or Fever Aspirin 81 mg 03/28/25 09:00 03/29/25 10:40 Aspirin 81 Mg Enteric Tablet PO 81 mg DAILY DANYELL Administration Calcium Carbonate 200 mg 03/27/25 20:13 03/27/25 20:55 Calcium Carbonate (Tums) 500 Mg (200 Mg Elemental) PO 200 mg Q6H PRN Administration Indigestion Cyanocobalamin 500 mcg 03/28/25 09:00 03/29/25 10:41 Cyanocobalamin 500 Mcg Tablet PO 500 mcg DAILY DANYELL Administration Diclofenac Sodium 0 applic 03/28/25 21:00 03/29/25 23:08 Diclofenac Sodium 1% 100 Gm Gel (*Bkc) TOPICAL 1 applic HS DANYELL Administration Ezetimibe 10 mg 03/28/25 09:00 03/29/25 10:41 Ezetimibe 10 Mg Tablet PO 10 mg DAILY DANYELL Administration Enoxaparin Sodium 40 mg 03/28/25 09:00 03/29/25 10:43 Enoxaparin 40 Mg/0.4 Ml Syringe SUB-Q 40 mg DAILY DANYELL Administration Ergocalciferol 50,000 units 03/28/25 09:00 03/28/25 09:43 Ergocalciferol 50,000 Units Capsule PO 50,000 units Tu@0900 DANYELL Administration Finasteride 5 mg 03/27/25 21:00 03/29/25 21:34 Finasteride 5 Mg Tablet PO 5 mg HS DANYELL Administration Fish Oil 1 gm 03/28/25 21:00 03/29/25 21:34 [place] 3 Polyunsat Fatty Acids 1 Gm Cap PO 1 gm QHS DANYELL Administration Metronidazole 500 mg in 100 mls @ 100 mls/hr 03/27/25 22:00 03/30/25 06:24 Flagyl 500 Mg/Iso Soln 100 Ml IVPB Infused Q8H DANYELL Infusion Cefepime HCl 2 gm in 50 mls @ 100 mls/hr 03/29/25 14:30 03/30/25 05:30 Maxipime 2 Gm/Ns 50 Ml IVPB Infused Q8HR DANYELL Infusion Levothyroxine Sodium 125 mcg 03/28/25 06:30 03/30/25 04:57 Levothyroxine Sodium 125 Mcg Tablet PO 125 mcg DAILY@0630 DANYELL Administration Losartan Potassium 50 mg 03/28/25 09:00 03/29/25 10:40 Losartan Potassium 50 Mg Tablet PO 50 mg DAILY DANYELL Administration Meclizine HCl 12.5 mg 03/27/25 20:13 Meclizine Hcl 12.5 Mg Tablet PO TID PRN dizziness Morphine Sulfate 2 mg 03/27/25 14:35 03/28/25 13:55 Morphine Sulfate (*Crx) 2 Mg/Ml Inj IV PUSH 2 mg Q2H PRN Administration Pain Rated 7-10 Ondansetron HCl 4 mg 03/27/25 14:35 03/27/25 19:10 Ondansetron Inj 4 Mg/2 Ml Vial IV PUSH 4 mg Q4H PRN Administration Nausea Pantoprazole Sodium 40 mg 03/27/25 20:15 03/29/25 10:40 Pantoprazole 40 Mg Tablet PO 40 mg QAM DANYELL Administration Polyethylene Glycol 17 gm 03/29/25 11:10 03/29/25 11:43 Polyethylene Glycol 3350 17 Gm Powd.Pack PO 17 gm QAM DANYELL Administration Propranolol HCl 20 mg 03/27/25 21:00 03/29/25 21:35 Propranolol Hcl 20 Mg Tablet PO 20 mg Q12H DANYELL Administration Senna/Docusate Sodium 1 tab 03/29/25 21:00 03/29/25 21:34 Senna/Docusate Sodium Tablet PO 1 tab HS [facility] Administration Tamsulosin HCl 0.8 mg 03/27/25 21:00 03/29/25 21:34 Tamsulosin Hcl 0.4 Mg Capsule PO 0.8 mg HS DANYELL Administration Terbinafine HCl 250 mg 03/28/25 09:00 03/28/25 09:44 Terbinafine Hcl 250 Mg Tablet PO 250 mg TuFr@0900 DANYELL Administration Radiology Results: ITS Impressions Upper Quadrant Ultrasound 03/27/25 12:04 IMPRESSION: 1. Focal adenomyosis at the fundus of the gallbladder. No choledocholithiasis and no evident biliary or pancreatic ductal dilation.. 2. Normal appearance to the pancreas on ultrasound imaging although findings on prior CT are consistent with acute interstitial pancreatitis. Abdomen Ultrasound 03/29/25 10:33 IMPRESSION: 1. Focal adenomyomatosis at the fundus of the gallbladder. Otherwise unremarkable right upper quadrant ultrasound. Chest X-Ray 03/29/25 11:25 IMPRESSION: 1. Mild opacities in the left lower lung zone likely combination of left pericardial fat pad and atelectasis with differential including pneumonia in the appropriate clinical setting. Abdomen/Pelvis CT 03/29/25 23:27 IMPRESSION: 1. Pancreatitis with slightly increased fat stranding with no definite collections. 2. Trace of pericardial effusion. 3. Bilateral pleural effusion with adjacent atelectasis. 4. Nodule in the right middle lobe. 6 months follow-up CT is advised. Labs Labs: Laboratory Results - last 24 hr 03/29/25 03/29/25 03/29/25 04:53 04:54 14:45 WBC 22.4 H RBC 4.68 Hgb 14.1 Hct 42.1 MCV 90.0 MCH 30.1 MCHC 33.5 RDW 14.1 Plt Count 139 L MPV 10.3 Immature Gran % (Auto) Neut % (Auto) Lymph % (Auto) [place] % (Auto) Eos % (Auto) Baso % (Auto) Lymph # (Auto) [place] # (Auto) Eos # (Auto) Baso # (Auto) Abs Immat Gran (auto) Absolute Neuts (auto) Absolute Nucleated RBC Nucleated RBC % % Immature Plt Fraction Sodium Potassium Chloride Carbon Dioxide Anion Gap BUN Creatinine Estim Creat Clear Calc Estimated GFR Glucose Calcium Magnesium Total Bilirubin AST ALT Alkaline Phosphatase Total Protein Albumin Lipase 443 H Nasal MRSA (PCR) Not detected Influenza A (RT-PCR) Influenza B (RT-PCR) RSV (RT-PCR) SARS-CoV-2 RNA (RT-PCR) 03/29/25 03/30/25 14:46 04:42 WBC 23.1 H RBC 4.62 Hgb 13.9 L Hct 40.9 L MCV 88.5 MCH 30.1 MCHC 34.0 RDW 13.8 Plt Count 143 L MPV 10.3 Immature Gran % (Auto) 1.3 H Neut % (Auto) 86.3 H Lymph % (Auto) 3.4 L [place] % (Auto) 8.8 H Eos % (Auto) 0.0 Baso % (Auto) 0.2 Lymph # (Auto) 0.78 L [place] # (Auto) 2.0 H Eos # (Auto) 0.0 Baso # (Auto) 0.0 Abs Immat Gran (auto) 0.30 H Absolute Neuts (auto) 19.9 H Absolute Nucleated RBC 0.000 Nucleated RBC % 0.0 % Immature Plt Fraction 4.1 Sodium 130 L Potassium 3.5 Chloride 100 Carbon Dioxide 20 L Anion Gap 10 BUN 16 Creatinine 0.64 L Estim Creat Clear Calc 81 Estimated GFR > 60 Glucose 99 Calcium 8.5 Magnesium 1.9 Total Bilirubin 1.4 H AST 31 ALT 83 H Alkaline Phosphatase 109 Total Protein 6.0 L Albumin 3.2 L Lipase Nasal MRSA (PCR) Influenza A (RT-PCR) Negative Influenza B (RT-PCR) Negative RSV (RT-PCR) Negative SARS-CoV-2 RNA (RT-PCR) Negative Quality VTE Prophylaxis VTE prophylaxis: pharmacologic ordered
--- NOTE | 2025-03-30 07:01 | WPDGIPROGNO ---
Progress Note: A&P Assessment and Plan (1) Acute pancreatitis: Code(s): K85.90 - Acute pancreatitis without necrosis or infection, unspecified Status: Acute Assessment and Plan: The patient was admitted with acute pancreatitis that has responded well to fluid resuscitation, avoiding hemoconcentration and subsequent necrosis. While a follow-up CT scan, requested for increasing leukocytosis, showed no pancreatic complications, the marked elevation in white blood cell count without intra-abdominal complications is not easily explained. The patient is currently receiving cefepime and metronidazole for an initial suspicion of biliary-source / intra-abdominal infection. However, given the new onset pleural effusions in the context of disproportionate leukocytosis for his uncomplicated pancreatitis course, a Pulmonary consultation is warranted. Despite the absence of evident gallstones or sludge on imaging, the initial elevation of transaminases and its rapid resolution remains suggestive of a biliary etiology. Therefore, a surgical consultation is also recommended to assess the need for cholecystectomy once the pulmonary issues and leukocytosis are addressed. Will order procalcitonin and CRP now to help working out infectious etiologies and guide further management (? change of antibiotics? ) (2) Pleural effusion: Code(s): J90 - Pleural effusion, not elsewhere classified Status: Acute Subjective Date/time seen: 03/30/25 07:01 Interval history: the patient is not complaining of abdominal pain, and is tolerating feedings well. White count steadily increasing from 22.[address] yesterday showed no pancreatic necrosis, only mild increase in peripancreatic fluid and new onset pleural effusions Exam Narrative: alert and awake, oriented x3, cooperative. Lungs: Decreased breath sound in both bases. Abdomen: Soft, nontender, nondistended, no rebound. Rest of the exam unchanged. Objective Data Vital Signs Vital Signs: Vital Signs - 24 hr 03/29/25 08:00 03/29/25 10:40 03/29/25 11:11 Temperature Pulse Rate 88 Respiratory Rate Blood Pressure Pulse Oximetry 92 88 L Oxygen Delivery Room Air Room Air Oxygen Flow Rate 03/29/25 11:12 03/29/25 14:00 03/29/25 19:35 Temperature 97.8 F 98.6 F Pulse Rate 87 86 Respiratory Rate 18 16 Blood Pressure 113/62 138/71 Pulse Oximetry 94 92 93 Oxygen Delivery Nasal Cannula Oxygen Flow Rate 1 03/29/25 21:29 03/29/25 21:35 03/30/25 04:58 Temperature 97.6 F Pulse Rate 86 79 Respiratory Rate 16 Blood Pressure 131/77 Pulse Oximetry 93 91 Oxygen Delivery Nasal Cannula Oxygen Flow Rate 2 Intake/Output Intake/Output: Intake & Output 03/27/25 03/28/25 03/29/25 03/30/25 23:59 23:59 23:59 23:59 Intake Total 1770 2840 2645 1000 Output Total 350 150 800 Balance 1420 2690 1845 1000 Meds/Results Medications: Active Medications Generic Name Dose Route Start Last Admin Trade Name Freq PRN Reason Stop Dose Admin Acetaminophen 650 mg 03/27/25 15:10 03/28/25 10:02 Acetaminophen 325 Mg Tablet PO 650 mg Q4H PRN Administration Mild Pain (1-3) or Fever Aspirin 81 mg 03/28/25 09:00 03/29/25 10:40 Aspirin 81 Mg Enteric Tablet PO 81 mg DAILY DANYELL Administration Calcium Carbonate 200 mg 03/27/25 20:13 03/27/25 20:55 Calcium Carbonate (Tums) 500 Mg (200 Mg Elemental) PO 200 mg Q6H PRN Administration Indigestion Cyanocobalamin 500 mcg 03/28/25 09:00 03/29/25 10:41 Cyanocobalamin 500 Mcg Tablet PO 500 mcg DAILY DANYELL Administration Diclofenac Sodium 0 applic 03/28/25 21:00 03/29/25 23:08 Diclofenac Sodium 1% 100 Gm Gel (*Bkc) TOPICAL 1 applic HS DANYELL Administration Ezetimibe 10 mg 03/28/25 09:00 03/29/25 10:41 Ezetimibe 10 Mg Tablet PO 10 mg DAILY DANYELL Administration Enoxaparin Sodium 40 mg 03/28/25 09:00 03/29/25 10:43 Enoxaparin 40 Mg/0.4 Ml Syringe SUB-Q 40 mg DAILY DANYELL Administration Ergocalciferol 50,000 units 03/28/25 09:00 03/28/25 09:43 Ergocalciferol 50,000 Units Capsule PO 50,000 units Tu@0900 DANYELL Administration Finasteride 5 mg 03/27/25 21:00 03/29/25 21:34 Finasteride 5 Mg Tablet PO 5 mg HS DANYELL Administration Fish Oil 1 gm 03/28/25 21:00 03/29/25 21:34 [place] 3 Polyunsat Fatty Acids 1 Gm Cap PO 1 gm QHS DANYELL Administration Metronidazole 500 mg in 100 mls @ 100 mls/hr 03/27/25 22:00 03/30/25 06:24 Flagyl 500 Mg/Iso Soln 100 Ml IVPB Infused Q8H DANYELL Infusion Cefepime HCl 2 gm in 50 mls @ 100 mls/hr 03/29/25 14:30 03/30/25 05:30 Maxipime 2 Gm/Ns 50 Ml IVPB Infused Q8HR DANYELL Infusion Levothyroxine Sodium 125 mcg 03/28/25 06:30 03/30/25 04:57 Levothyroxine Sodium 125 Mcg Tablet PO 125 mcg DAILY@0630 DANYELL Administration Losartan Potassium 50 mg 03/28/25 09:00 03/29/25 10:40 Losartan Potassium 50 Mg Tablet PO 50 mg DAILY DANYELL Administration Meclizine HCl 12.5 mg 03/27/25 20:13 Meclizine Hcl 12.5 Mg Tablet PO TID PRN dizziness Morphine Sulfate 2 mg 03/27/25 14:35 03/28/25 13:55 Morphine Sulfate (*Crx) 2 Mg/Ml Inj IV PUSH 2 mg Q2H PRN Administration Pain Rated 7-10 Ondansetron HCl 4 mg 03/27/25 14:35 03/27/25 19:10 Ondansetron Inj 4 Mg/2 Ml Vial IV PUSH 4 mg Q4H PRN Administration Nausea Pantoprazole Sodium 40 mg 03/27/25 20:15 03/29/25 10:40 Pantoprazole 40 Mg Tablet PO 40 mg QAM DANYELL Administration Polyethylene Glycol 17 gm 03/29/25 11:10 03/29/25 11:43 Polyethylene Glycol 3350 17 Gm Powd.Pack PO 17 gm QAM DANYELL Administration Propranolol HCl 20 mg 03/27/25 21:00 03/29/25 21:35 Propranolol Hcl 20 Mg Tablet PO 20 mg Q12H DANYELL Administration Senna/Docusate Sodium 1 tab 03/29/25 21:00 03/29/25 21:34 Senna/Docusate Sodium Tablet PO 1 tab HS DANYELL Administration Tamsulosin HCl 0.8 mg 03/27/25 21:00 03/29/25 21:34 Tamsulosin Hcl 0.4 Mg Capsule PO 0.8 mg HS DANYELL Administration Terbinafine HCl 250 mg 03/28/25 09:00 03/28/25 09:44 Terbinafine Hcl 250 Mg Tablet PO 250 mg TuFr@0900 DANYELL Administration Radiology Results: ITS Impressions Upper Quadrant Ultrasound 03/27/25 12:04 IMPRESSION: 1. Focal adenomyosis at the fundus of the gallbladder. No choledocholithiasis and no evident biliary or pancreatic ductal dilation.. 2. Normal appearance to the pancreas on ultrasound imaging although findings on prior CT are consistent with acute interstitial pancreatitis. Abdomen Ultrasound 03/29/25 10:33 IMPRESSION: 1. Focal adenomyomatosis at the fundus of the gallbladder. Otherwise unremarkable right upper quadrant ultrasound. Chest X-Ray 03/29/25 11:25 IMPRESSION: 1. Mild opacities in the left lower lung zone likely combination of left pericardial fat pad and atelectasis with differential including pneumonia in the appropriate clinical setting. Abdomen/Pelvis CT 03/29/25 23:27 IMPRESSION: 1. Pancreatitis with slightly increased fat stranding with no definite collections. 2. Trace of pericardial effusion. 3. Bilateral pleural effusion with adjacent atelectasis. 4. Nodule in the right middle lobe. 6 months follow-up CT is advised. Labs Labs: Laboratory Results - last 24 hr 03/29/25 03/29/25 03/29/25 04:53 04:54 14:45 WBC 22.4 H RBC 4.68 Hgb 14.1 Hct 42.1 MCV 90.0 MCH 30.1 MCHC 33.5 RDW 14.1 Plt Count 139 L MPV 10.3 Immature Gran % (Auto) Neut % (Auto) Lymph % (Auto) [place] % (Auto) Eos % (Auto) Baso % (Auto) Lymph # (Auto) [place] # (Auto) Eos # (Auto) Baso # (Auto) Abs Immat Gran (auto) Absolute Neuts (auto) Absolute Nucleated RBC Nucleated RBC % % Immature Plt Fraction Sodium Potassium Chloride Carbon Dioxide Anion Gap BUN Creatinine Estim Creat Clear Calc Estimated GFR Glucose Calcium Magnesium Total Bilirubin AST ALT Alkaline Phosphatase Total Protein Albumin Lipase 443 H Nasal MRSA (PCR) Not detected Influenza A (RT-PCR) Influenza B (RT-PCR) RSV (RT-PCR) SARS-CoV-2 RNA (RT-PCR) 03/29/25 03/30/25 14:46 04:42 WBC 23.1 H RBC 4.62 Hgb 13.9 L Hct 40.9 L MCV 88.5 MCH 30.1 MCHC 34.0 RDW 13.8 Plt Count 143 L MPV 10.3 Immature Gran % (Auto) 1.3 H Neut % (Auto) 86.3 H Lymph % (Auto) 3.4 L [place] % (Auto) 8.8 H Eos % (Auto) 0.0 Baso % (Auto) 0.2 Lymph # (Auto) 0.78 L [place] # (Auto) 2.0 H Eos # (Auto) 0.0 Baso # (Auto) 0.0 Abs Immat Gran (auto) 0.30 H Absolute Neuts (auto) 19.9 H Absolute Nucleated RBC 0.000 Nucleated RBC % 0.0 % Immature Plt Fraction 4.1 Sodium 130 L Potassium 3.5 Chloride 100 Carbon Dioxide 20 L Anion Gap 10 BUN 16 Creatinine 0.64 L Estim Creat Clear Calc 81 Estimated GFR > 60 Glucose 99 Calcium 8.5 Magnesium 1.9 Total Bilirubin 1.4 H AST 31 ALT 83 H Alkaline Phosphatase 109 Total Protein 6.0 L Albumin 3.2 L Lipase Nasal MRSA (PCR) Influenza A (RT-PCR) Negative Influenza B (RT-PCR) Negative RSV (RT-PCR) Negative SARS-CoV-2 RNA (RT-PCR) Negative
[2025-03-30 08:00] LABS: Lactic Acid Reflex 1.3 mmol/L (0.7-2.0)
[2025-03-30 08:14] LABS: CRP 19.7 mg/dL (<1.0)
[2025-03-30] MEDS: ASPIRIN 81 MG ENTERIC TABLET PO (08:14)
[2025-03-30] MEDS: LOSARTAN POTASSIUM 50 MG TABLET PO (08:14)
[2025-03-30] MEDS: EZETIMIBE 10 MG TABLET PO (08:14)
[2025-03-30] MEDS: CYANOCOBALAMIN 500 MCG TABLET PO (08:14)
[2025-03-30] MEDS: PROPRANOLOL HCL 20 MG TABLET PO ×2 (08:14→20:24)
[2025-03-30] MEDS: PANTOPRAZOLE 40 MG TABLET PO (08:14)
[2025-03-30] MEDS: ENOXAPARIN 40 MG/0.4 ML SYRINGE SUB-Q (08:15)
[2025-03-30] MEDS: polyethylene glycoL 3350 17 GM POWD.PACK PO (08:15)
[2025-03-30 08:19] LABS: Procalcitonin 1.5 ng/mL
[2025-03-30 09:48] LABS: NT Pro B Type Natriuretic Pept 5360 pg/mL (19.9-100)
--- NOTE | 2025-03-30 09:53 | P.CONPL_ITS ---
Assessment and Plan Assessment and plan (1) Pleural effusion: Code(s): J90 - Pleural effusion, not elsewhere classified Status: Acute Assessment and Plan: patient admitted with pancreatitis, treated with IV fluids and is 6.9 L cumulative positive since admission, repeat CT scan on 03/29 with small to moderate right-sided pleural effusion right greater than left with BNP 5306, currently on room air. etiology of pleural effusions includes: pancreatitis with fluid overload. Plan: Currently patient is asymptomatic other than some mild restriction when he takes a deep breath, on room air. I would not perform a thoracentesis at this time. would minimize his IV fluids and begin gentle diuresis if this can be tolerated from his pancreatitis viewpoint. He does not need antibiotics from a pulmonary perspective. Will sign off, call with questions. History of Present Illness History of Present Illness Consult date: 03/30/25 Chief complaint: pancreatitis Narrative: 03/30/2025: This is a new pulmonary consult for bilateral pleural effusions. 84-year-old with a history of seizures, CVA, hypothyroidism, arthritis, hypertension, hyperlipidemia. Patient tells me he is a never smoker and has no secondhand tobacco smoke. No history of COPD. No history of asthma. 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 Patient presented to the hospital on 03/27 with pancreatitis and a CT scan of the abdomen that showed no pleural effusions with dependent atelectasis. Patient was treated with IV fluids, cefepime, Flagyl and has improved. Repeat CT scan on 03/29/2025 demonstrated small to moderate bilateral pleural effusions right greater than left with compressive atelectasis. 03/30/2025: Patient tells me that it feels like it is somewhat hard to take a deep breath but he is in no respiratory distress and denies robyn shortness of breath. Currently patient denies any other respiratory symptoms. He denies fever, chills, cough, rigors, sweats, phlegm production, hemoptysis or chest pain. Patient is on 4 L nasal cannula when I enter the room with saturations 96%. I turned him to room air and after 12 minutes his saturations were 91%. Since admission the patient is 6.9 L cumulative positive. BNP is 5360. Review of Systems 2 Constitutional: Constitutional: Reports no additional constitutional complaints Eyes: Eyes: Reports no additional eye complaints ENT: Reports system reviewed and no additional complaints, except as documented Cardiovascular: Cardiovascular: Reports no additional cardiovascular complaints Respiratory: Respiratory: Reports no additional respiratory complaints Gastrointestinal: Gastrointestinal: Reports no additional gastrointestinal complaints Musculoskeletal: Musculoskeletal: Reports no additional musculoskeletal complaints Neurologic: Reports system reviewed and no additional complaints, except as documented Psychiatric: Psychiatric: Reports no additional psychiatric complaints Endocrine: Endocrine: Reports no additional endocrine complaints Hematologic/Lymphatic: Hematologic/Lymphatic: Reports no additional hematologic/lymphatic complaints Allergic/Immunologic: Allergic/Immunologic: Reports no additional allergic/immunologic complaints [facility] Past Medical History Medical History (Updated 03/30/25 @ 07:05 by El Esteves MD) Abdominal pain Leukocytosis Seizure CVA (cerebral vascular accident) Basal cell carcinoma Alcohol abuse Hypothyroidism Arthritis GI bleed Hyperlipidemia Hypertension Surgical History Surgical History History of testicular surgery Family History Family History Mother , Age 89 - CHF Breast cancer Glaucoma Father , Age 81 - Farm Accident GERD (gastroesophageal reflux disease) Lymphoma Grandparent , Age 77 - Heart Arrythmia No problems noted. Grandparent , Age 47 - Gangrene No problems noted. Grandparent , Age 70 - Unknown No problems noted. Grandparent , Age 70 - Unknown No problems noted. Sibling , Age 70 - Thyroid Cancer No problems noted. Social History Social History Smoking status: Never smoker Alcohol intake: former Substance use: never Do You Feel Safe in your Home?: Yes Lack of Transportation: No Lack of Food: Never True Current Housing: I Have Housing Concerned About Future Housing: No Difficulty Paying Gas/Electric Bills: No Difficulty Paying for Meds: No Currently Unemployed: No Education: Master's Degree or Higher Difficulty w/ Childcare or Family Care: No Living arrangements: with family Gender identity (if verbalized by the patient): Male Spiritual care concerns: No Meds Home Medications and Allergies Home Medications ?Medication ?Instructions ?Recorded ?Confirmed ?Type aspirin 81 mg tablet,delayed 81 mg PO DAILY 08/09/24 03/27/25 History release (Adult Aspirin Regimen) vit C 250 mg-vit E 90 mg-zinc 40 1 tablet PO BID 08/09/24 03/27/25 History mg-copper 1 kn-juganr-ercujo capsule (PreserVision AREDS-2) losartan 50 mg tablet 50 mg PO DAILY #90 tabs 08/12/24 03/27/25 Rx omeprazole 20 mg capsule,delayed 20 mg PO BID #180 caps 09/21/24 03/27/25 Rx release tamsulosin 0.4 mg capsule 0.8 mg (2 x 0.4 mg) PO DAILY #180 10/10/24 03/27/25 Rx caps cholecalciferol (vitamin D3) 1,250 1,250 mcg PO WEEKLY 10/20/24 03/27/25 History mcg (50,000 unit) capsule semaglutide (weight loss) 0.25 0.25 mg subcut WEEKLY 10/20/24 03/27/25 History mg/0.5 mL subcutaneous pen injector (Avery) finasteride 5 mg tablet 5 mg PO DAILY #90 tabs 10/25/24 03/27/25 Rx ezetimibe 10 mg tablet (Zetia) 10 mg PO DAILY #90 tabs 12/13/24 03/27/25 Rx levothyroxine 125 mcg tablet 125 mcg PO DAILY #90 tabs 12/13/24 03/27/25 Rx cyanocobalamin (vitamin B-12) 500 500 mcg PO DAILY 03/27/25 03/27/25 History mcg tablet (Vitamin B-12) diclofenac sodium 1 % topical gel 4 g topical HS 03/27/25 03/27/25 History (Arthritis Pain (diclofenac)) meclizine 12.5 mg tablet 12.5 mg PO TID PRN dizziness 03/27/25 03/27/25 History omega 8-mtf-svs-fish oil 1,200 mg 1 cap PO DAILY 03/27/25 03/27/25 History (144 mg-216 mg) capsule (Fish Oil) propranolol 20 mg tablet 20 mg PO Q12H 03/27/25 03/27/25 History terbinafine HCl 250 mg tablet 250 mg PO .twice weekly 03/27/25 03/27/25 History Allergies Allergy/AdvReac Type Severity Reaction Status Date / Time atorvastatin Allergy Mild Weakness,Muscle Verified 12/08/24 12:59 Pain phenytoin Allergy Mild Rash Verified 12/08/24 12:59 Vital Signs Vital Signs - 24 hr 03/29/25 10:40 03/29/25 11:11 03/29/25 11:12 Temperature Pulse Rate 88 Respiratory Rate Blood Pressure Pulse Oximetry 88 L 94 Oxygen Delivery Room Air Nasal Cannula Oxygen Flow Rate 1 03/29/25 14:00 03/29/25 19:35 03/29/25 21:29 Temperature 36.6 C 37.0 C Pulse Rate 87 86 Respiratory Rate 18 16 Blood Pressure 113/62 138/71 Pulse Oximetry 92 93 93 Oxygen Delivery Nasal Cannula Oxygen Flow Rate 2 03/29/25 21:35 03/30/25 04:58 03/30/25 08:12 Temperature 36.4 C Pulse Rate 86 79 80 Respiratory Rate 16 Blood Pressure 131/77 120/73 Pulse Oximetry 91 92 Oxygen Delivery Oxygen Flow Rate 03/30/25 08:14 Temperature Pulse Rate 80 Respiratory Rate Blood Pressure Pulse Oximetry Oxygen Delivery Oxygen Flow Rate Exam 2 Const: General: cooperative, healthy appearing and comfortable O rientation/consciousness: oriented to person, oriented to place and oriented to time HENMT: Head: normal to inspection Ears: hearing grossly normal bilaterally Eyes: General: appearance normal, both eyes and all related structures Neck: Neck: normal visual inspection Chest: Chest palpation & inspection: normal inspection of the chest Resp: Effort & Inspection: normal respiratory effort and able to speak in complete sentences Auscultation: crackles, no rales, no rhonchi, no wheezes and lung sounds not diminished Other: Bibasilar crackles, decreased breath sounds right base Cardio: Jugular venous distension: no JVD GI: Inspection: normal to inspection GI Palp: No abdominal tenderness Skin: General skin exam: normal color Neuro: General: oriented to person, oriented to place and oriented to time Extrem: General: normal to inspection and no edema Psych: Appearance: grossly normal Results Laboratory Findings 03/30/25 04:42 03/30/25 04:42 Abnormal lab findings: Abnormal Labs 03/27/25 03/27/25 03/27/25 10:26 12:52 18:29 WBC 19.7 H 24.4 H Hgb Hct 52.9 H MCHC 31.4 L Plt Count Immature Gran % (Auto) Neut % (Auto) 90.5 H Lymph % (Auto) 4.3 L [place] % (Auto) Lymph # (Auto) 0.84 L [place] # (Auto) 0.7 H Abs Immat Gran (auto) 0.08 H Absolute Neuts (auto) 17.8 H Sodium 133 L Carbon Dioxide BUN 22 H Creatinine Glucose 136 H POC Capillary Glucose 106 H Total Bilirubin 1.6 H AST 295 H ALT 172 H C-Reactive Protein NT-Pro-B Natriuret Pep Total Protein Albumin Lipase 67825 H Ur Specific [place] 1.043 H Urine Urobilinogen 2.0 H 03/28/25 03/28/25 03/28/25 04:46 13:50 16:51 WBC 13.1 H Hgb Hct MCHC Plt Count 128 L Immature Gran % (Auto) Neut % (Auto) Lymph % (Auto) [place] % (Auto) Lymph # (Auto) [place] # (Auto) Abs Immat Gran (auto) Absolute Neuts (auto) Sodium 134 L Carbon Dioxide BUN Creatinine 0.68 L Glucose POC Capillary Glucose 150 H Total Bilirubin 1.6 H AST 136 H ALT 219 H C-Reactive Protein NT-Pro-B Natriuret Pep Total Protein 6.0 L Albumin Lipase Ur Specific [place] Urine Urobilinogen 03/29/25 03/29/25 03/30/25 04:53 04:54 04:42 WBC 22.4 H 23.1 H Hgb 13.9 L Hct 40.9 L MCHC Plt Count 139 L 143 L Immature Gran % (Auto) 1.3 H Neut % (Auto) 86.3 H Lymph % (Auto) 3.4 L [place] % (Auto) 8.8 H Lymph # (Auto) 0.78 L [place] # (Auto) 2.0 H Abs Immat Gran (auto) 0.30 H Absolute Neuts (auto) 19.9 H Sodium 131 L 130 L Carbon Dioxide 20 L 20 L BUN Creatinine 0.62 L 0.64 L Glucose 113 H POC Capillary Glucose Total Bilirubin 1.4 H AST ALT 124 H 83 H C-Reactive Protein NT-Pro-B Natriuret Pep Total Protein 6.0 L 6.0 L Albumin 3.3 L 3.2 L Lipase 443 H Ur Specific [place] Urine Urobilinogen 03/30/25 03/30/25 07:18 07:25 WBC Hgb Hct MCHC Plt Count Immature Gran % (Auto) Neut % (Auto) Lymph % (Auto) [place] % (Auto) Lymph # (Auto) [place] # (Auto) Abs Immat Gran (auto) Absolute Neuts (auto) Sodium Carbon Dioxide BUN Creatinine Glucose POC Capillary Glucose Total Bilirubin AST ALT C-Reactive Protein 19.7 H NT-Pro-B Natriuret Pep 5360 H Total Protein Albumin Lipase Ur Specific [place] Urine Urobilinogen Diagnostic Findings Additional studies: ITS Impressions Abdomen/Pelvis CT 03/27/25 11:04 IMPRESSION: 1. Acute interstitial pancreatitis. Upper Quadrant Ultrasound 03/27/25 12:04 IMPRESSION: 1. Focal adenomyosis at the fundus of the gallbladder. No choledocholithiasis and no evident biliary or pancreatic ductal dilation.. 2. Normal appearance to the pancreas on ultrasound imaging although findings on prior CT are consistent with acute interstitial pancreatitis. Chest X-Ray 03/27/25 13:49 IMPRESSION: Left basilar atelectasis versus pneumonia. Abdomen Ultrasound 03/29/25 10:33 IMPRESSION: 1. Focal adenomyomatosis at the fundus of the gallbladder. Otherwise unremarkable right upper quadrant ultrasound. Chest X-Ray 03/29/25 11:25 IMPRESSION: 1. Mild opacities in the left lower lung zone likely combination of left pericardial fat pad and atelectasis with differential including pneumonia in the appropriate clinical setting. Abdomen/Pelvis CT 03/29/25 23:27 IMPRESSION: 1. Pancreatitis with slightly increased fat stranding with no definite collections. 2. Trace of pericardial effusion. 3. Bilateral pleural effusion with adjacent atelectasis. 4. Nodule in the right middle lobe. 6 months follow-up CT is advised.
--- NOTE | 2025-03-30 11:15 | PM.CNGS ---
Assessment and Plan Assessment and plan (1) Acute pancreatitis: Code(s): K85.90 - Acute pancreatitis without necrosis or infection, unspecified Status: Acute Assessment and Plan: Patient presents with acute pancreatitis, which has been improving. Etiology unclear and GI has been following. I have discussed the patient's case with Dr. Thomson. At present, there are no findings on imaging that would cause biliary pancreatitis or indicate a need for a cholecystectomy at this time. Additionally, his more acute issue seems to be his deteriorating respiratory condition. Therefore, we will sign off at this time. Please do not hesitate to call if there are any changes or new findings regarding his gallbladder and we could re-evaluate him at that time. (2) Adenomyomatosis of gallbladder: Code(s): D13.5 - Benign neoplasm of extrahepatic bile ducts Status: Acute Assessment and Plan: The patient was found to have adenomyomatosis in the fundus of the gallbladder. This is an incidental finding on ultrasound. This is not a finding that warrants a cholecystectomy and would not cause the biliary pancreatitis. (3) Transaminitis: Code(s): R74.01 - Elevation of levels of liver transaminase levels Status: Acute (4) Hospital-acquired pneumonia: Code(s): J18.9 - Pneumonia, unspecified organism; Y95 - Nosocomial condition Status: Acute (5) Pleural effusion: Code(s): J90 - Pleural effusion, not elsewhere classified Status: Acute (6) Hypertension: Qualifiers: Hypertension type: primary hypertension Qualified Code(s): I10 - Essential (primary) hypertension Code(s): I10 - Essential (primary) hypertension Status: Acute (7) History of alcohol abuse: Code(s): F10.11 - Alcohol abuse, in remission Status: Acute Plan I have discussed the patient's case and plan of care with Dr. Thomson. History of Present Illness Consult details Consult date: 03/30/25 Reason for consult: other (Possible biliary pancreatitis) Requesting physician: El Esteves MD Narrative: This is an 84-year-old man with a history of seizures, CVA, alcohol abuse (10 years ago), and HTN, who we have been asked to see in surgical consultation for possible biliary pancreatitis. He presented to the ED 3 days ago with complaints of epigastric pain x less than 6 hours. He had associated nausea and vomiting. Workup in the ED showed CT evidence of acute interstitial pancreatitis. Lipase 17,000. Labs also showed a white blood cell count 99207, total bilirubin 1.6, AST 295, ALT 172. He has been admitted and treated for the pancreatitis. GI has been following. Right upper quadrant abdominal ultrasound showed focal adenomyomatosis at the fundus of the gallbladder, but no cholelithiasis or findings of acute cholecystitis. His pancreatitis has been improving with a lipase down to 400. He is no longer having any abdominal pain. Although, his white blood cell count has been trending up over the past few days to 23,000. LFTs have been improving. He had a repeat abdominal ultrasound and CT scan of the abdomen and pelvis yesterday. Ultrasound still showed focal adenomyomatosis at the fundus of the gallbladder, but otherwise unremarkable exam. CT scan showed pancreatitis with slightly increased fat stranding but no definitive fluid collections, trace pericardial effusion, bilateral pleural effusions with adjacent atelectasis, and nodule in the right middle lobe. He has developed increased work of breathing and hypoxia over the last 24 hours. He is now on 4 L of O2 after being on room air yesterday. He is now being treated for hospital-acquired pneumonia and pulmonology has been consulted. He has no abdominal complaints today. He has been advanced to a low-fiber diet and is tolerating solid foods. No previous episodes of pancreatitis. He denies any previous abdominal surgery. Of note, he has been taking Wegovy for the past year with about 30 lb weight loss. Review of Systems Review of Systems: All systems reviewed & are unremarkable except as noted in HPI and below PMFSH Past Medical History Medical History Abdominal pain Leukocytosis Seizure CVA (cerebral vascular accident) Basal cell carcinoma Alcohol abuse Hypothyroidism Arthritis GI bleed Hyperlipidemia Hypertension Surgical History Surgical History History of testicular surgery Family History Family History Mother , Age 89 - CHF Breast cancer Glaucoma Father , Age 81 - Farm Accident GERD (gastroesophageal reflux disease) Lymphoma Grandparent , Age 77 - Heart Arrythmia No problems noted. Grandparent , Age 47 - Gangrene No problems noted. Grandparent , Age 70 - Unknown No problems noted. Grandparent , Age 70 - Unknown No problems noted. Sibling , Age 70 - Thyroid Cancer No problems noted. Social History Social History Smoking status: Never smoker Alcohol intake: former Substance use: never Do You Feel Safe in your Home?: Yes Lack of Transportation: No Lack of Food: Never True Current Housing: I Have Housing Concerned About Future Housing: No Difficulty Paying Gas/Electric Bills: No Difficulty Paying for Meds: No Currently Unemployed: No Education: Master's Degree or Higher Difficulty w/ Childcare or Family Care: No Living arrangements: with family Gender identity (if verbalized by the patient): Male Spiritual care concerns: No Meds Home Medications and Allergies Home Medications ?Medication ?Instructions ?Recorded ?Confirmed ?Type aspirin 81 mg tablet,delayed 81 mg PO DAILY 08/09/24 03/27/25 History release (Adult Aspirin Regimen) vit C 250 mg-vit E 90 mg-zinc 40 1 tablet PO BID 08/09/24 03/27/25 History mg-copper 1 ke-ztyasw-fldgnl capsule (PreserVision AREDS-2) losartan 50 mg tablet 50 mg PO DAILY #90 tabs 08/12/24 03/27/25 Rx omeprazole 20 mg capsule,delayed 20 mg PO BID #180 caps 09/21/24 03/27/25 Rx release tamsulosin 0.4 mg capsule 0.8 mg (2 x 0.4 mg) PO DAILY #180 10/10/24 03/27/25 Rx caps cholecalciferol (vitamin D3) 1,250 1,250 mcg PO WEEKLY 10/20/24 03/27/25 History mcg (50,000 unit) capsule semaglutide (weight loss) 0.25 0.25 mg subcut WEEKLY 10/20/24 03/27/25 History mg/0.5 mL subcutaneous pen injector (Wegovy) finasteride 5 mg tablet 5 mg PO DAILY #90 tabs 10/25/24 03/27/25 Rx ezetimibe 10 mg tablet (Zetia) 10 mg PO DAILY #90 tabs 12/13/24 03/27/25 Rx levothyroxine 125 mcg tablet 125 mcg PO DAILY #90 tabs 12/13/24 03/27/25 Rx cyanocobalamin (vitamin B-12) 500 500 mcg PO DAILY 03/27/25 03/27/25 History mcg tablet (Vitamin B-12) diclofenac sodium 1 % topical gel 4 g topical HS 03/27/25 03/27/25 History (Arthritis Pain (diclofenac)) meclizine 12.5 mg tablet 12.5 mg PO TID PRN dizziness 03/27/25 03/27/25 History omega 3-pnx-rqk-fish oil 1,200 mg 1 cap PO DAILY 03/27/25 03/27/25 History (144 mg-216 mg) capsule (Fish Oil) propranolol 20 mg tablet 20 mg PO Q12H 03/27/25 03/27/25 History terbinafine HCl 250 mg tablet 250 mg PO .twice weekly 03/27/25 03/27/25 History Allergies Allergy/AdvReac Type Severity Reaction Status Date / Time atorvastatin Allergy Mild Weakness,Muscle Verified 12/08/24 12:59 Pain phenytoin Allergy Mild Rash Verified 12/08/24 12:59 Vital Signs Vital Signs - 24 hr 03/29/25 14:00 03/29/25 19:35 03/29/25 21:29 Temperature 97.8 F 98.6 F Pulse Rate 87 86 Respiratory Rate 18 16 Blood Pressure 113/62 138/71 Pulse Oximetry 92 93 93 Oxygen Delivery Nasal Cannula Oxygen Flow Rate 2 03/29/25 21:35 03/30/25 04:58 03/30/25 08:12 Temperature 97.6 F Pulse Rate 86 79 80 Respiratory Rate 16 Blood Pressure 131/77 120/73 Pulse Oximetry 91 92 Oxygen Delivery Oxygen Flow Rate 03/30/25 08:14 Temperature Pulse Rate 80 Respiratory Rate Blood Pressure Pulse Oximetry Oxygen Delivery Oxygen Flow Rate Exam Const: General: comfortable and awake Nutritional Appearance: average body habitus Orientation/consciousness: patient oriented x3 HENMT: Head: normocephalic and atraumatic Ears: hearing grossly normal bilaterally Mouth: Yes moist mucous membranes Eyes: General: appearance normal, both eyes and all related structures Pupils: Equal, round and reactive pupils present Neck: Neck: normal visual inspection and full ROM Resp: Effort & Inspection: labored (increased work of breathing) and tachypneic Auscultation: clear to auscultation bilaterally Cardio: Rate: regular rate Rhythm: regular rhythm Peripheral pulses: Peripheral pulses 2+ throughout GI: Inspection: non-distended GI Palp: Yes Soft to palpation, No Tenderness to palpation present (GI), No Guarding due to palpation present (GI), Yes No hepatosplenomegaly present, Yes Hernia present umbilical < 3 cm (soft, reducible, nontender) and No Rebound tenderness present Auscultation: Hypoactive bowel sounds present Skin: General skin exam: normal color Neuro: General: moves all extremities and no focal motor deficits Speech: normal speech Motor exam (neuro): 5/5 motor strength present throughout Extrem: General: normal to inspection and no edema Psych: Mental Status: mental status grossly normal Attitude: cooperative Insight: Good insight present (Psych) Judgement: Good judgement present (Psych) Results Labs 03/30/25 04:42 03/30/25 04:42 Labs: Abnormal lab results 03/30/25 03/30/25 03/30/25 Range/Units 04:42 07:18 07:25 WBC 23.1 H (4.5-10.0) K/mm3 Hgb 13.9 L (14.0-18.0) g/dL Hct 40.9 L (42.0-52.0) % Plt Count 143 L (150-375) k/mm3 Immature Gran % (Auto) 1.3 H (0-0.5) % Neut % (Auto) 86.3 H (45.5-73.1) % Lymph % (Auto) 3.4 L (18.3-44.2) % [place] % (Auto) 8.8 H (2.6-8.5) % Lymph # (Auto) 0.78 L (0.9-3.2) K/mm3 [place] # (Auto) 2.0 H (0.1-0.6) K/mm3 Abs Immat Gran (auto) 0.30 H (0.00-0.031) K/mm3 Absolute Neuts (auto) 19.9 H (1.3-6.7) K/mm3 Sodium 130 L (137-145) mmol/L Carbon Dioxide 20 L (22-30) mmol/L Creatinine 0.64 L (0.7-1.3) mg/dL Total Bilirubin 1.4 H (0.2-1.3) mg/dL ALT 83 H (6-50) U/L C-Reactive Protein 19.7 H (<1.0) mg/dL NT-Pro-B Natriuret Pep 5360 H (19.9-100) pg/mL Total Protein 6.0 L (6.3-8.2) g/dL Albumin 3.2 L (3.5-5.1) g/dL Diabetes panel 03/30/25 Range/Units 04:42 Sodium 130 L (137-145) mmol/L Potassium 3.5 (3.4-5.0) mmol/L Chloride 100 (98-107) mmol/L Carbon Dioxide 20 L (22-30) mmol/L BUN 16 (9-20) mg/dL Creatinine 0.64 L (0.7-1.3) mg/dL Glucose 99 (65-110) mg/dL Calcium 8.5 (8.4-10.2) mg/dL AST 31 (17-59) U/L ALT 83 H (6-50) U/L Alkaline Phosphatase 109 (38-126) U/L Total Protein 6.0 L (6.3-8.2) g/dL Albumin 3.2 L (3.5-5.1) g/dL Calcium panel 03/30/25 Range/Units 04:42 Calcium 8.5 (8.4-10.2) mg/dL Albumin 3.2 L (3.5-5.1) g/dL Pituitary panel 03/30/25 Range/Units 04:42 Sodium 130 L (137-145) mmol/L Potassium 3.5 (3.4-5.0) mmol/L Chloride 100 (98-107) mmol/L Carbon Dioxide 20 L (22-30) mmol/L BUN 16 (9-20) mg/dL Creatinine 0.64 L (0.7-1.3) mg/dL Glucose 99 (65-110) mg/dL Calcium 8.5 (8.4-10.2) mg/dL Adrenal panel 03/30/25 Range/Units 04:42 Sodium 130 L (137-145) mmol/L Potassium 3.5 (3.4-5.0) mmol/L Chloride 100 (98-107) mmol/L Carbon Dioxide 20 L (22-30) mmol/L BUN 16 (9-20) mg/dL Creatinine 0.64 L (0.7-1.3) mg/dL Glucose 99 (65-110) mg/dL Calcium 8.5 (8.4-10.2) mg/dL Total Bilirubin 1.4 H (0.2-1.3) mg/dL AST 31 (17-59) U/L ALT 83 H (6-50) U/L Alkaline Phosphatase 109 (38-126) U/L Total Protein 6.0 L (6.3-8.2) g/dL Albumin 3.2 L (3.5-5.1) g/dL All other labs normal. Imaging Additional studies: ITS Impressions Abdomen/Pelvis CT 03/27/25 11:04 IMPRESSION: 1. Acute interstitial pancreatitis. Upper Quadrant Ultrasound 03/27/25 12:04 IMPRESSION: 1. Focal adenomyosis at the fundus of the gallbladder. No choledocholithiasis and no evident biliary or pancreatic ductal dilation.. 2. Normal appearance to the pancreas on ultrasound imaging although findings on prior CT are consistent with acute interstitial pancreatitis. Chest X-Ray 03/27/25 13:49 IMPRESSION: Left basilar atelectasis versus pneumonia. Abdomen Ultrasound 03/29/25 10:33 IMPRESSION: 1. Focal adenomyomatosis at the fundus of the gallbladder. Otherwise unremarkable right upper quadrant ultrasound. Chest X-Ray 03/29/25 11:25 IMPRESSION: 1. Mild opacities in the left lower lung zone likely combination of left pericardial fat pad and atelectasis with differential including pneumonia in the appropriate clinical setting. Abdomen/Pelvis CT 03/29/25 23:27 IMPRESSION: 1. Pancreatitis with slightly increased fat stranding with no definite collections. 2. Trace of pericardial effusion. 3. Bilateral pleural effusion with adjacent atelectasis. 4. Nodule in the right middle lobe. 6 months follow-up CT is advised.
--- NOTE | 2025-03-30 15:06 | WPDGIPROGNO ---
Progress Note: A&P Assessment and Plan (1) Acute pancreatitis: Code(s): K85.90 - Acute pancreatitis without necrosis or infection, unspecified Status: Acute Assessment and Plan: Case reviewed with the covering hospitalist today. Consistent with this morning's assessment, the white blood cell count is elevated beyond what is typically expected for the patient's non-severe pancreatitis. Nevertheless, current findings of increased peripancreatic inflammation correlate with elevated procalcitonin and C-reactive protein levels. Although no obvious source of active infection has been identified, the leukocytosis likely reflects the persistent peripancreatic inflammation. The plan is to continue monitoring without antibiotics at this time, daily checking the above inflammatory markers for improvement.. Subjective Date/time seen: 03/30/25 15:06 Objective Data Vital Signs Vital Signs: Vital Signs - 24 hr 03/29/25 19:35 03/29/25 21:29 03/29/25 21:35 Temperature 98.6 F Pulse Rate 86 86 Respiratory Rate 16 Blood Pressure 138/71 Pulse Oximetry 93 93 Oxygen Delivery Nasal Cannula Oxygen Flow Rate 2 Fraction of Inspired Oxygen 03/30/25 04:58 03/30/25 08:00 03/30/25 08:12 Temperature 97.6 F Pulse Rate 79 80 Respiratory Rate 16 Blood Pressure 131/77 120/73 Pulse Oximetry 91 92 92 Oxygen Delivery Nasal Cannula Oxygen Flow Rate 4 Fraction of Inspired Oxygen 03/30/25 08:14 03/30/25 14:00 03/30/25 14:17 Temperature 98.3 F Pulse Rate 80 81 80 Respiratory Rate 18 16 Blood Pressure 141/76 H Pulse Oximetry 91 92 Oxygen Delivery Nasal Cannula Oxygen Flow Rate 4 Fraction of Inspired Oxygen 21 Intake/Output Intake/Output: Intake & Output 03/27/25 03/28/25 03/29/25 03/30/25 23:59 23:59 23:59 23:59 Intake Total 1770 2840 2645 1236 Output Total 350 150 800 Balance 1420 2690 1845 1236 Meds/Results Medications: Active Medications Generic Name Dose Route Start Last Admin Trade Name Freq PRN Reason Stop Dose Admin Acetaminophen 650 mg 03/27/25 15:10 03/28/25 10:02 Acetaminophen 325 Mg Tablet PO 650 mg Q4H PRN Administration Mild Pain (1-3) or Fever Aspirin 81 mg 03/28/25 09:00 03/30/25 08:14 Aspirin 81 Mg Enteric Tablet PO 81 mg DAILY DANYELL Administration Calcium Carbonate 200 mg 03/27/25 20:13 03/27/25 20:55 Calcium Carbonate (Tums) 500 Mg (200 Mg Elemental) PO 200 mg Q6H PRN Administration Indigestion Cyanocobalamin 500 mcg 03/28/25 09:00 03/30/25 08:14 Cyanocobalamin 500 Mcg Tablet PO 500 mcg DAILY DANYELL Administration Diclofenac Sodium 0 applic 03/28/25 21:00 03/29/25 23:08 Diclofenac Sodium 1% 100 Gm Gel (*Bkc) TOPICAL 1 applic HS DANYELL Administration Ezetimibe 10 mg 03/28/25 09:00 03/30/25 08:14 Ezetimibe 10 Mg Tablet PO 10 mg DAILY DANYELL Administration Enoxaparin Sodium 40 mg 03/28/25 09:00 03/30/25 08:15 Enoxaparin 40 Mg/0.4 Ml Syringe SUB-Q 40 mg DAILY DANYELL Administration Ergocalciferol 50,000 units 03/28/25 09:00 03/28/25 09:43 Ergocalciferol 50,000 Units Capsule PO 50,000 units Tu@0900 DANYELL Administration Finasteride 5 mg 03/27/25 21:00 03/29/25 21:34 Finasteride 5 Mg Tablet PO 5 mg HS DANYELL Administration Fish Oil 1 gm 03/28/25 21:00 03/29/25 21:34 [place] 3 Polyunsat Fatty Acids 1 Gm Cap PO 1 gm QHS DANYELL Administration Levothyroxine Sodium 125 mcg 03/28/25 06:30 03/30/25 04:57 Levothyroxine Sodium 125 Mcg Tablet PO 125 mcg DAILY@0630 DANYELL Administration Losartan Potassium 50 mg 03/28/25 09:00 03/30/25 08:14 Losartan Potassium 50 Mg Tablet PO 50 mg DAILY DANYELL Administration Meclizine HCl 12.5 mg 03/27/25 20:13 Meclizine Hcl 12.5 Mg Tablet PO TID PRN dizziness Melatonin 3 mg 03/30/25 21:13 Melatonin 3 Mg Tablet PO 03/30/25 21:14 ONCE ONE Morphine Sulfate 2 mg 03/27/25 14:35 03/28/25 13:55 Morphine Sulfate (*Crx) 2 Mg/Ml Inj IV PUSH 2 mg Q2H PRN Administration Pain Rated 7-10 Ondansetron HCl 4 mg 03/27/25 14:35 03/27/25 19:10 Ondansetron Inj 4 Mg/2 Ml Vial IV PUSH 4 mg Q4H PRN Administration Nausea Pantoprazole Sodium 40 mg 03/27/25 20:15 03/30/25 08:14 Pantoprazole 40 Mg Tablet PO 40 mg QAM DANYELL Administration Polyethylene Glycol 17 gm 03/29/25 11:10 03/30/25 08:15 Polyethylene Glycol 3350 17 Gm Powd.Pack PO 17 gm QAM DANYELL Administration Propranolol HCl 20 mg 03/27/25 21:00 03/30/25 08:14 Propranolol Hcl 20 Mg Tablet PO 20 mg Q12H DANYELL Administration Senna/Docusate Sodium 1 tab 03/29/25 21:00 03/29/25 21:34 Senna/Docusate Sodium Tablet PO 1 tab HS DANYELL Administration Tamsulosin HCl 0.8 mg 03/27/25 21:00 03/29/25 21:34 Tamsulosin Hcl 0.4 Mg Capsule PO 0.8 mg HS DANYELL Administration Terbinafine HCl 250 mg 03/28/25 09:00 03/28/25 09:44 Terbinafine Hcl 250 Mg Tablet PO 250 mg TuFr@0900 DANYELL Administration Radiology Results: ITS Impressions Upper Quadrant Ultrasound 03/27/25 12:04 IMPRESSION: 1. Focal adenomyosis at the fundus of the gallbladder. No choledocholithiasis and no evident biliary or pancreatic ductal dilation.. 2. Normal appearance to the pancreas on ultrasound imaging although findings on prior CT are consistent with acute interstitial pancreatitis. Abdomen Ultrasound 03/29/25 10:33 IMPRESSION: 1. Focal adenomyomatosis at the fundus of the gallbladder. Otherwise unremarkable right upper quadrant ultrasound. Chest X-Ray 03/29/25 11:25 IMPRESSION: 1. Mild opacities in the left lower lung zone likely combination of left pericardial fat pad and atelectasis with differential including pneumonia in the appropriate clinical setting. Abdomen/Pelvis CT 03/29/25 23:27 IMPRESSION: 1. Pancreatitis with slightly increased fat stranding with no definite collections. 2. Trace of pericardial effusion. 3. Bilateral pleural effusion with adjacent atelectasis. 4. Nodule in the right middle lobe. 6 months follow-up CT is advised. Labs Labs: Laboratory Results - last 24 hr 03/29/25 03/29/25 03/30/25 14:45 14:46 04:42 WBC 23.1 H RBC 4.62 Hgb 13.9 L Hct 40.9 L MCV 88.5 MCH 30.1 MCHC 34.0 RDW 13.8 Plt Count 143 L MPV 10.3 Immature Gran % (Auto) 1.3 H Neut % (Auto) 86.3 H Lymph % (Auto) 3.4 L [place] % (Auto) 8.8 H Eos % (Auto) 0.0 Baso % (Auto) 0.2 Lymph # (Auto) 0.78 L [place] # (Auto) 2.0 H Eos # (Auto) 0.0 Baso # (Auto) 0.0 Abs Immat Gran (auto) 0.30 H Absolute Neuts (auto) 19.9 H Absolute Nucleated RBC 0.000 Nucleated RBC % 0.0 % Immature Plt Fraction 4.1 Sodium 130 L Potassium 3.5 Chloride 100 Carbon Dioxide 20 L Anion Gap 10 BUN 16 Creatinine 0.64 L Estim Creat Clear Calc 81 Estimated GFR > 60 Glucose 99 Lactic Acid Calcium 8.5 Magnesium 1.9 Total Bilirubin 1.4 H AST 31 ALT 83 H Alkaline Phosphatase 109 C-Reactive Protein NT-Pro-B Natriuret Pep Total Protein 6.0 L Albumin 3.2 L Procalcitonin Nasal MRSA (PCR) Not detected Influenza A (RT-PCR) Negative Influenza B (RT-PCR) Negative RSV (RT-PCR) Negative SARS-CoV-2 RNA (RT-PCR) Negative 03/30/25 03/30/25 07:18 07:25 WBC RBC Hgb Hct MCV MCH MCHC RDW Plt Count MPV Immature Gran % (Auto) Neut % (Auto) Lymph % (Auto) [place] % (Auto) Eos % (Auto) Baso % (Auto) Lymph # (Auto) [place] # (Auto) Eos # (Auto) Baso # (Auto) Abs Immat Gran (auto) Absolute Neuts (auto) Absolute Nucleated RBC Nucleated RBC % % Immature Plt Fraction Sodium Potassium Chloride Carbon Dioxide Anion Gap BUN Creatinine Estim Creat Clear Calc Estimated GFR Glucose Lactic Acid 1.3 Calcium Magnesium Total Bilirubin AST ALT Alkaline Phosphatase C-Reactive Protein 19.7 H NT-Pro-B Natriuret Pep 5360 H Total Protein Albumin Procalcitonin 1.5 Nasal MRSA (PCR) Influenza A (RT-PCR) Influenza B (RT-PCR) RSV (RT-PCR) SARS-CoV-2 RNA (RT-PCR)
[2025-03-30] MEDS: TAMSULOSIN HCL 0.4 MG CAPSULE 0.8 MG PO (20:22)
[2025-03-30] MEDS: OMEGA 3 POLYUNSAT FATTY ACIDS 1 GM CAP PO (20:23)
[2025-03-30] MEDS: SENNA/DOCUSATE SODIUM TABLET 1 TAB PO (20:23)
[2025-03-30] MEDS: FINASTERIDE 5 MG TABLET PO (20:23)
[2025-03-30] MEDS: MELATONIN 3 MG TABLET PO (20:23)
[2025-03-30] MEDS: ACETAMINOPHEN 325 MG TABLET 650 MG PO (20:24)
[2025-03-30] MEDS: DICLOFENAC SODIUM 1% 100 GM GEL (*BKC) TOPICAL (20:27)
[2025-03-31] VITALS (10 sets, daily range): BP systolic 118–140; BP diastolic 65–88; PULSE 71–86; RESP 16–20; TEMP 36.7–37.4; O2SAT 92–96
[2025-03-31] MEDS: LEVOTHYROXINE SODIUM 125 MCG TABLET PO (04:48)
[2025-03-31 05:21] LABS: Basophils Absolute Auto 0.1 K/mm3 (0.0-0.1); Basophils Percent Auto 0.3 % (0.2-1.2); Eosinophils Absolute Auto 0.1 K/mm3 (0-0.3); Eosinophils Percent Auto 0.6 % (0-4.4); Hemoglobin 14.1 g/dL (14.0-18.0); Immature Granulocyte Absolute 0.23 K/mm3 (0.00-0.031); Immature Granulocyte Percent A 1.2 % (0-0.5); Lymphocytes Absolute Auto 1.08 K/mm3 (0.9-3.2); Lymphocytes Percent Auto 5.6 % (18.3-44.2); Mean Corpuscular HGB Conc 33.6 g/dl (32-36); Mean Corpuscular Hemoglobin 29.6 pg (26-34); Mean Corpuscular Volume 88.1 fl (80-100); Monocytes Absolute Auto 1.7 K/mm3 (0.1-0.6); Monocytes Percent Auto 8.5 % (2.6-8.5); Neutrophils Absolute Auto 16.2 K/mm3 (1.3-6.7); Neutrophils Percent Auto 83.8 % (45.5-73.1); Platelet Count Result 177 k/mm3 (150-375); Red Blood Count 4.77 M/mm3 (4.6-6.20); Red Cell Distribution Width 13.7 % (11.5-14.5); White Blood Count 19.3 K/mm3 (4.5-10.0)
[2025-03-31 05:35] LABS: Alanine Aminotransferase 61 U/L (6-50); Albumin Level 3.1 g/dL (3.5-5.1); Alkaline Phosphatase 118 U/L (38-126); Anion Gap 6 mmol/L (4-12); Aspartate Amino Transferase 25 U/L (17-59); Bilirubin,Total 1.6 mg/dL (0.2-1.3); Blood Urea Nitrogen 15 mg/dL (9-20); Calcium 8.4 mg/dL (8.4-10.2); Carbon Dioxide 27 mmol/L (22-30); Chloride 96 mmol/L (98-107); Estimated CRCL calculation 79 ml/min; Estimated Glomerular Filt Rate > 60; Glucose 103 mg/dL (65-110); Magnesium 2.1 mg/dL (1.6-2.3); Potassium 3.3 mmol/L (3.4-5.0); Sodium 129 mmol/L (137-145)
[2025-03-31 05:44] LABS: CRP 17.6 mg/dL (<1.0)
--- NOTE | 2025-03-31 06:46 | WPDGIPROGNO ---
Progress Note: A&P Assessment and Plan (1) Acute pancreatitis: Code(s): K85.90 - Acute pancreatitis without necrosis or infection, unspecified Status: Acute Assessment and Plan: Patient with acute mild interstitial pancreatitis showing clinical improvement. Serial inflammatory markers (WBC, procalcitonin, CRP) show a downward trend, reflecting resolution of peripancreatic inflammatory changes. Pulmonary service concluded no pulmonary infectious process, attributing pleural effusions to the initial 48 hours of intensive fluid resuscitation. Antibiotics were therefore discontinued. Surgical evaluation determined no indication for cholecystectomy at this time due to the lack of objective evidence of gallstones. A HIDA scan will be ordered to evaluate gallbladder ejection fraction as a baseline. Reassessment for cholecystectomy will be considered if pancreatitis recurs and is asssociated with elevated transaminases. Subjective Date/time seen: 03/31/25 06:46 Interval history: Patient continues asymptomatic, no fever no abdominal pain. Tolerating oral intake. Exam Narrative: Abdomen: Soft, nontender, nondistended, bowel sounds present. Rest of the exam within norm Objective Data Vital Signs Vital Signs: Vital Signs - 24 hr 03/30/25 08:00 03/30/25 08:12 03/30/25 08:14 Temperature Pulse Rate 80 80 Respiratory Rate Blood Pressure 120/73 Pulse Oximetry 92 92 Oxygen Delivery Nasal Cannula Oxygen Flow Rate 4 Fraction of Inspired Oxygen 03/30/25 14:00 03/30/25 14:17 03/30/25 16:01 Temperature 98.3 F Pulse Rate 81 80 Respiratory Rate 18 16 Blood Pressure 141/76 H Pulse Oximetry 91 92 90 Oxygen Delivery Nasal Cannula Nasal Cannula Oxygen Flow Rate 4 4 Fraction of Inspired Oxygen 21 03/30/25 20:04 03/30/25 20:16 03/30/25 20:24 Temperature 100.1 F H 100.1 F H Pulse Rate 91 Respiratory Rate 20 Blood Pressure 148/79 H Pulse Oximetry 90 90 Oxygen Delivery Nasal Cannula Oxygen Flow Rate 4 Fraction of Inspired Oxygen 03/30/25 20:24 03/30/25 21:24 03/30/25 21:24 Temperature 98.3 F 98.3 F Pulse Rate 91 Respiratory Rate Blood Pressure Pulse Oximetry Oxygen Delivery Oxygen Flow Rate Fraction of Inspired Oxygen 03/31/25 04:59 Temperature 98.3 F Pulse Rate 77 Respiratory Rate 20 Blood Pressure 140/84 Pulse Oximetry 95 Oxygen Delivery Oxygen Flow Rate Fraction of Inspired Oxygen Intake/Output Intake/Output: Intake & Output 03/28/25 03/29/25 03/30/25 03/31/25 23:59 23:59 23:59 23:59 Intake Total 2840 2645 1736 250 Output Total 150 800 200 200 Balance 2690 1845 1536 50 Meds/Results Medications: Active Medications Generic Name Dose Route Start Last Admin Trade Name Freq PRN Reason Stop Dose Admin Acetaminophen 650 mg 03/27/25 15:10 03/30/25 20:24 Acetaminophen 325 Mg Tablet PO 650 mg Q4H PRN Administration Mild Pain (1-3) or Fever Aspirin 81 mg 03/28/25 09:00 03/30/25 08:14 Aspirin 81 Mg Enteric Tablet PO 81 mg DAILY DANYELL Administration Calcium Carbonate 200 mg 03/27/25 20:13 03/27/25 20:55 Calcium Carbonate (Tums) 500 Mg (200 Mg Elemental) PO 200 mg Q6H PRN Administration Indigestion Cyanocobalamin 500 mcg 03/28/25 09:00 03/30/25 08:14 Cyanocobalamin 500 Mcg Tablet PO 500 mcg DAILY DANYELL Administration Diclofenac Sodium 0 applic 03/28/25 21:00 03/30/25 20:27 Diclofenac Sodium 1% 100 Gm Gel (*Bkc) TOPICAL 1 applic HS DANYELL Administration Ezetimibe 10 mg 03/28/25 09:00 03/30/25 08:14 Ezetimibe 10 Mg Tablet PO 10 mg DAILY DANYELL Administration Enoxaparin Sodium 40 mg 03/28/25 09:00 03/30/25 08:15 Enoxaparin 40 Mg/0.4 Ml Syringe SUB-Q 40 mg DAILY DANYELL Administration Ergocalciferol 50,000 units 03/28/25 09:00 03/28/25 09:43 Ergocalciferol 50,000 Units Capsule PO 50,000 units Tu@0900 DANYELL Administration Finasteride 5 mg 03/27/25 21:00 03/30/25 20:23 Finasteride 5 Mg Tablet PO 5 mg HS DANYELL Administration Fish Oil 1 gm 03/28/25 21:00 03/30/25 20:23 [place] 3 Polyunsat Fatty Acids 1 Gm Cap PO 1 gm QHS DANYELL Administration Levothyroxine Sodium 125 mcg 03/28/25 06:30 03/31/25 04:48 Levothyroxine Sodium 125 Mcg Tablet PO 125 mcg DAILY@0630 DANYELL Administration Losartan Potassium 50 mg 03/28/25 09:00 03/30/25 08:14 Losartan Potassium 50 Mg Tablet PO 50 mg DAILY DANYELL Administration Meclizine HCl 12.5 mg 03/27/25 20:13 Meclizine Hcl 12.5 Mg Tablet PO TID PRN dizziness Morphine Sulfate 2 mg 03/27/25 14:35 03/28/25 13:55 Morphine Sulfate (*Crx) 2 Mg/Ml Inj IV PUSH 2 mg Q2H PRN Administration Pain Rated 7-10 Ondansetron HCl 4 mg 03/27/25 14:35 03/27/25 19:10 Ondansetron Inj 4 Mg/2 Ml Vial IV PUSH 4 mg Q4H PRN Administration Nausea Pantoprazole Sodium 40 mg 03/27/25 20:15 03/30/25 08:14 Pantoprazole 40 Mg Tablet PO 40 mg QAM DANYELL Administration Polyethylene Glycol 17 gm 03/29/25 11:10 03/30/25 08:15 Polyethylene Glycol 3350 17 Gm Powd.Pack PO 17 gm QAM DANYELL Administration Propranolol HCl 20 mg 03/27/25 21:00 03/30/25 20:24 Propranolol Hcl 20 Mg Tablet PO 20 mg Q12H DANYELL Administration Senna/Docusate Sodium 1 tab 03/29/25 21:00 03/30/25 20:23 Senna/Docusate Sodium Tablet PO 1 tab HS DANYELL Administration Tamsulosin HCl 0.8 mg 03/27/25 21:00 03/30/25 20:22 Tamsulosin Hcl 0.4 Mg Capsule PO 0.8 mg HS DANYELL Administration Terbinafine HCl 250 mg 03/28/25 09:00 03/28/25 09:44 Terbinafine Hcl 250 Mg Tablet PO 250 mg TuFr@0900 DANYELL Administration Radiology Results: ITS Impressions Upper Quadrant Ultrasound 03/27/25 12:04 IMPRESSION: 1. Focal adenomyosis at the fundus of the gallbladder. No choledocholithiasis and no evident biliary or pancreatic ductal dilation.. 2. Normal appearance to the pancreas on ultrasound imaging although findings on prior CT are consistent with acute interstitial pancreatitis. Abdomen Ultrasound 03/29/25 10:33 IMPRESSION: 1. Focal adenomyomatosis at the fundus of the gallbladder. Otherwise unremarkable right upper quadrant ultrasound. Chest X-Ray 03/29/25 11:25 IMPRESSION: 1. Mild opacities in the left lower lung zone likely combination of left pericardial fat pad and atelectasis with differential including pneumonia in the appropriate clinical setting. Abdomen/Pelvis CT 03/29/25 23:27 IMPRESSION: 1. Pancreatitis with slightly increased fat stranding with no definite collections. 2. Trace of pericardial effusion. 3. Bilateral pleural effusion with adjacent atelectasis. 4. Nodule in the right middle lobe. 6 months follow-up CT is advised. Labs Labs: Laboratory Results - last 24 hr 03/30/25 03/30/25 03/31/25 07:18 07:25 04:43 WBC 19.3 H RBC 4.77 Hgb 14.1 Hct 42.0 MCV 88.1 MCH 29.6 MCHC 33.6 RDW 13.7 Plt Count 177 MPV 10.0 Immature Gran % (Auto) 1.2 H Neut % (Auto) 83.8 H Lymph % (Auto) 5.6 L [place] % (Auto) 8.5 Eos % (Auto) 0.6 Baso % (Auto) 0.3 Lymph # (Auto) 1.08 [place] # (Auto) 1.7 H Eos # (Auto) 0.1 Baso # (Auto) 0.1 Abs Immat Gran (auto) 0.23 H Absolute Neuts (auto) 16.2 H Absolute Nucleated RBC 0.000 Nucleated RBC % 0.0 Sodium 129 L Potassium 3.3 L Chloride 96 L Carbon Dioxide 27 Anion Gap 6 BUN 15 Creatinine 0.65 L Estim Creat Clear Calc 79 Estimated GFR > 60 Glucose 103 Lactic Acid 1.3 Calcium 8.4 Magnesium 2.1 Total Bilirubin 1.6 H AST 25 ALT 61 H Alkaline Phosphatase 118 C-Reactive Protein 19.7 H 17.6 H NT-Pro-B Natriuret Pep 5360 H Total Protein 6.0 L Albumin 3.1 L Procalcitonin 1.5 1.0
--- NOTE | 2025-03-31 07:23 | PM.IMPN ---
Progress Note: A&P Assessment and Plan (1) Acute pancreatitis: Code(s): K85.90 - Acute pancreatitis without necrosis or infection, unspecified Status: Acute Assessment and Plan: Nausea, vomiting, abdominal pain. Takes Wegovy for weight loss in his last injection was 03/26. He denies any recent use of alcohol, states he quit 19 years ago. - Lipase 17,543, repeat 443 - Given 1.5 L IV fluids in the ED, was on LR 125 ml/hr however DC for worsening SOB - Antibiotics discontinued as concern for cholangitis has resolved - Diet: low fiber, tolerating well - CT of the abdomen and pelvis show acute interstitial pancreatitis - Right upper quadrant ultrasound showed focal adenomyosis at the fundus of the gallbladder, no choledocholithiasis and no evidence of biliary or pancreatic ductal dilation, normal appearance to the pancreas - Repeat US today to reassess biliary pancreatitis concern Focal adenomyomatosis at the fundus of the gallbladder. - Repeat CT abdomen/pelvis showed pancreatitis with slightly increased fat stranding with no definite collections - HIDA scan showed no biliary obstruction but with delayed accumulation of activity within the gallbladder which occurs following morphine administration but which essentially precludes acute cholecystitis. - GI consulted Ddx: acute pancreatitis primarily includes biliary pancreatitis versus alcohol-induced pancreatitis. No overt gallstones or sludge were observed, the presence of gallbladder adenomyosis raises the possibility of subtle, masked microlithiasis or sludge as an underlying cause. Significant elevation in AST and ALT strongly suggests a biliary etiology. Leukocytosis is most likely inflammatory from the pancreatitis, improved. (2) Pleural effusion: Code(s): J90 - Pleural effusion, not elsewhere classified Status: Acute Assessment and Plan: WBC elevated at 22.4, compared to 13.1 on 03/28. Remains afebrile. Endorsing increased SOB and difficulty with deep breathing. CXR: Mild opacities in the left lower lung zone likely combination of left pericardial fat pad and atelectasis with differential including pneumonia in the appropriate clinical setting. Appears worse compared to CXR from 03/27 which showed left basilar atelectasis vs pneumonia CT abd/pelvis: bilateral pleural effusion with adjacent atelectasis - started on HAP tx however not HAP per pulmonology, antibiotics discontinued - MRSA negative - Viral PCR: Flu/COVID/RSV ordered - 2 L NC, baseline room air. Wean as tolerated, keep SpO2 >90. - Monitor vital signs, I&Os, neuro status and patient is a fall risk - Follow WBC, serum electrolytes, temperature curves and cultures - Send sputum cultures - Pulmonology consulted by GI Does not appear to be HAP, likely pancreatitis with volume overload No antibiotics required, patient remains on antibiotics for pancreatitis Recommend minimizing IV fluids and begin mariano diuresis as tolerated from pancreatic perspective Spoke with GI and will hold on diuresis at this time as patient is voiding normally and concern for pancreatitis Continue to wean off of supplemental oxygen. Denies shortness of breath. (3) Transaminitis: Code(s): R74.01 - Elevation of levels of liver transaminase levels Status: Acute Assessment and Plan: Likely secondary to acute pancreatitis Downtrending, continue to monitor (4) Elevated bilirubin: Code(s): R17 - Unspecified jaundice Status: Acute Assessment and Plan: Bilirubin 1.6 on admission, returned to 1.6 on am labs Continue to trend (5) Adenomyomatosis of gallbladder: Code(s): D13.5 - Benign neoplasm of extrahepatic bile ducts Status: Acute Assessment and Plan: The patient was found to have adenomyomatosis in the fundus of the gallbladder. This is an incidental finding on ultrasound. This is not a finding that warrants a cholecystectomy and would not cause the biliary pancreatitis. (6) Pulmonary nodule: Code(s): R91.1 - Solitary pulmonary nodule Status: Acute Assessment and Plan: CT abd/pelvis showed a nodule in the right middle lobe Follow up in the outpatient setting with CT in 6 months (7) Hypertension: Qualifiers: Hypertension type: primary hypertension Qualified Code(s): I10 - Essential (primary) hypertension Code(s): I10 - Essential (primary) hypertension Status: Acute Assessment and Plan: Chronic, continue home medications - losartan 50 mg daily - propranolol 20 mg BID - blood pressures remain stable, continue to monitor (8) Hyperlipidemia: Qualifiers: Hyperlipidemia type: pure hypercholesterolemia Qualified Code(s): E78.00 - Pure hypercholesterolemia, unspecified Code(s): E78.5 - Hyperlipidemia, unspecified Status: Acute Assessment and Plan: Continue Zeita, aspirin (9) Hypothyroidism: Qualifiers: Hypothyroidism type: acquired Qualified Code(s): E03.9 - Hypothyroidism, unspecified Code(s): E03.9 - Hypothyroidism, unspecified Status: Acute Assessment and Plan: Continue Synthroid Time Spent With Patient Time with patient: 25 - 35 minutes Subjective Date/time seen: 03/31/25 07:23 Interval history: 84-year-old male with a significant past medical history of seizure, CVA, basal cell carcinoma, alcohol abuse, hypothyroidism, arthritis, hypertension, hyperlipidemia, former smoker who presented to the hospital for evaluation of abdominal pain, nausea, vomiting. Patient is pleasant lying comfortably in bed. Tolerating his diet well. He has no complaints denying chest pain, shortness of breath, palpitations, nausea/vomiting and abdominal pain. He still has not had a BM, will obtain a KUB to further assess. patient states that he is ambulating at his baseline and has no concern of dizziness/lightheadedness. Review of Systems Review of Systems: All systems reviewed & are unremarkable except as noted in HPI and below Exam Narrative: AF HR 79 RR 20 SPo2 96 2L NC (Baseline RA) BP 139/88 General: male in no acute respiratory distress who is nontoxic appearing, lying semi recumbent in bed. HEENT: Normocephalic. Atraumatic. Extraocular movement intact. Sclera clear and anicteric. No facial asymmetry. Chest: Lungs are crackles to auscultation bilaterally in the bases. No wheezes. CV: Heart was regular rate and rhythm. Abd: Abdomen was soft. Nontender. Nondistended. Positive bowel sounds. Ext: No clubbing, cyanosis, or edema. DP pulses bilaterally. Neuro: Patient is alert and oriented x4. Speech is clear. Objective Data Vital Signs Vital Signs: Vital Signs - 24 hr 03/30/25 08:00 03/30/25 08:12 03/30/25 08:14 Temperature Pulse Rate 80 80 Respiratory Rate Blood Pressure 120/73 Pulse Oximetry 92 92 Oxygen Delivery Nasal Cannula Oxygen Flow Rate 4 Fraction of Inspired Oxygen 03/30/25 14:00 03/30/25 14:17 03/30/25 16:01 Temperature 98.3 F Pulse Rate 81 80 Respiratory Rate 18 16 Blood Pressure 141/76 H Pulse Oximetry 91 92 90 Oxygen Delivery Nasal Cannula Nasal Cannula Oxygen Flow Rate 4 4 Fraction of Inspired Oxygen 21 03/30/25 20:04 03/30/25 20:16 03/30/25 20:24 Temperature 100.1 F H 100.1 F H Pulse Rate 91 Respiratory Rate 20 Blood Pressure 148/79 H Pulse Oximetry 90 90 Oxygen Delivery Nasal Cannula Oxygen Flow Rate 4 Fraction of Inspired Oxygen 03/30/25 20:24 03/30/25 21:24 03/30/25 21:24 Temperature 98.3 F 98.3 F Pulse Rate 91 Respiratory Rate Blood Pressure Pulse Oximetry Oxygen Delivery Oxygen Flow Rate Fraction of Inspired Oxygen 03/31/25 04:59 Temperature 98.3 F Pulse Rate 77 Respiratory Rate 20 Blood Pressure 140/84 Pulse Oximetry 95 Oxygen Delivery Oxygen Flow Rate Fraction of Inspired Oxygen Intake/Output Intake/Output: Intake & Output 03/28/25 03/29/25 03/30/25 03/31/25 23:59 23:59 23:59 23:59 Intake Total 2840 2645 1736 250 Output Total 150 800 200 200 Balance 2690 1845 1536 50 Meds/Results Medications: Active Medications Generic Name Dose Route Start Last Admin Trade Name Freq PRN Reason Stop Dose Admin Acetaminophen 650 mg 03/27/25 15:10 03/30/25 20:24 Acetaminophen 325 Mg Tablet PO 650 mg Q4H PRN Administration Mild Pain (1-3) or Fever Aspirin 81 mg 03/28/25 09:00 03/30/25 08:14 Aspirin 81 Mg Enteric Tablet PO 81 mg DAILY DANYELL Administration Calcium Carbonate 200 mg 03/27/25 20:13 03/27/25 20:55 Calcium Carbonate (Tums) 500 Mg (200 Mg Elemental) PO 200 mg Q6H PRN Administration Indigestion Cyanocobalamin 500 mcg 03/28/25 09:00 03/30/25 08:14 Cyanocobalamin 500 Mcg Tablet PO 500 mcg DAILY [facility] Administration Diclofenac Sodium 0 applic 03/28/25 21:00 03/30/25 20:27 Diclofenac Sodium 1% 100 Gm Gel (*Bkc) TOPICAL 1 applic HS DANYELL Administration Ezetimibe 10 mg 03/28/25 09:00 03/30/25 08:14 Ezetimibe 10 Mg Tablet PO 10 mg DAILY [facility] Administration Enoxaparin Sodium 40 mg 03/28/25 09:00 03/30/25 08:15 Enoxaparin 40 Mg/0.4 Ml Syringe SUB-Q 40 mg DAILY DANYELL Administration Ergocalciferol 50,000 units 03/28/25 09:00 03/28/25 09:43 Ergocalciferol 50,000 Units Capsule PO 50,000 units Tu@0900 [facility] Administration Finasteride 5 mg 03/27/25 21:00 03/30/25 20:23 Finasteride 5 Mg Tablet PO 5 mg HS DANYELL Administration Fish Oil 1 gm 03/28/25 21:00 03/30/25 20:23 [place] 3 Polyunsat Fatty Acids 1 Gm Cap PO 1 gm QHS DANYELL Administration Levothyroxine Sodium 125 mcg 03/28/25 06:30 03/31/25 04:48 Levothyroxine Sodium 125 Mcg Tablet PO 125 mcg DAILY@0630 DANYELL Administration Losartan Potassium 50 mg 03/28/25 09:00 03/30/25 08:14 Losartan Potassium 50 Mg Tablet PO 50 mg DAILY DANYELL Administration Meclizine HCl 12.5 mg 03/27/25 20:13 Meclizine Hcl 12.5 Mg Tablet PO TID PRN dizziness Morphine Sulfate 2 mg 03/27/25 14:35 03/28/25 13:55 Morphine Sulfate (*Crx) 2 Mg/Ml Inj IV PUSH 2 mg Q2H PRN Administration Pain Rated 7-10 Ondansetron HCl 4 mg 03/27/25 14:35 03/27/25 19:10 Ondansetron Inj 4 Mg/2 Ml Vial IV PUSH 4 mg Q4H PRN Administration Nausea Pantoprazole Sodium 40 mg 03/27/25 20:15 03/30/25 08:14 Pantoprazole 40 Mg Tablet PO 40 mg QAM [facility] Administration Polyethylene Glycol 17 gm 03/29/25 11:10 03/30/25 08:15 Polyethylene Glycol 3350 17 Gm Powd.Pack PO 17 gm QAM DANYELL Administration Propranolol HCl 20 mg 03/27/25 21:00 03/30/25 20:24 Propranolol Hcl 20 Mg Tablet PO 20 mg Q12H DANYELL Administration Senna/Docusate Sodium 1 tab 03/29/25 21:00 03/30/25 20:23 Senna/Docusate Sodium Tablet PO 1 tab HS DANYELL Administration Tamsulosin HCl 0.8 mg 03/27/25 21:00 03/30/25 20:22 Tamsulosin Hcl 0.4 Mg Capsule PO 0.8 mg HS DANYELL Administration Terbinafine HCl 250 mg 03/28/25 09:00 03/28/25 09:44 Terbinafine Hcl 250 Mg Tablet PO 250 mg TuFr@0900 DANYELL Administration Radiology Results: ITS Impressions Upper Quadrant Ultrasound 03/27/25 12:04 IMPRESSION: 1. Focal adenomyosis at the fundus of the gallbladder. No choledocholithiasis and no evident biliary or pancreatic ductal dilation.. 2. Normal appearance to the pancreas on ultrasound imaging although findings on prior CT are consistent with acute interstitial pancreatitis. Abdomen Ultrasound 03/29/25 10:33 IMPRESSION: 1. Focal adenomyomatosis at the fundus of the gallbladder. Otherwise unremarkable right upper quadrant ultrasound. Chest X-Ray 03/29/25 11:25 IMPRESSION: 1. Mild opacities in the left lower lung zone likely combination of left pericardial fat pad and atelectasis with differential including pneumonia in the appropriate clinical setting. Abdomen/Pelvis CT 03/29/25 23:27 IMPRESSION: 1. Pancreatitis with slightly increased fat stranding with no definite collections. 2. Trace of pericardial effusion. 3. Bilateral pleural effusion with adjacent atelectasis. 4. Nodule in the right middle lobe. 6 months follow-up CT is advised. Labs Labs: Laboratory Results - last 24 hr 03/30/25 03/30/25 03/31/25 07:18 07:25 04:43 WBC 19.3 H RBC 4.77 Hgb 14.1 Hct 42.0 MCV 88.1 MCH 29.6 MCHC 33.6 RDW 13.7 Plt Count 177 MPV 10.0 Immature Gran % (Auto) 1.2 H Neut % (Auto) 83.8 H Lymph % (Auto) 5.6 L [place] % (Auto) 8.5 Eos % (Auto) 0.6 Baso % (Auto) 0.3 Lymph # (Auto) 1.08 [place] # (Auto) 1.7 H Eos # (Auto) 0.1 Baso # (Auto) 0.1 Abs Immat Gran (auto) 0.23 H Absolute Neuts (auto) 16.2 H Absolute Nucleated RBC 0.000 Nucleated RBC % 0.0 Sodium 129 L Potassium 3.3 L Chloride 96 L Carbon Dioxide 27 Anion Gap 6 BUN 15 Creatinine 0.65 L Estim Creat Clear Calc 79 Estimated GFR > 60 Glucose 103 Lactic Acid 1.3 Calcium 8.4 Magnesium 2.1 Total Bilirubin 1.6 H AST 25 ALT 61 H Alkaline Phosphatase 118 C-Reactive Protein 19.7 H 17.6 H NT-Pro-B Natriuret Pep 5360 H Total Protein 6.0 L Albumin 3.1 L Procalcitonin 1.5 1.0 Quality VTE Prophylaxis VTE prophylaxis: pharmacologic ordered
[2025-03-31] MEDS: EZETIMIBE 10 MG TABLET PO (08:35)
[2025-03-31] MEDS: CYANOCOBALAMIN 500 MCG TABLET PO (08:35)
[2025-03-31] MEDS: ASPIRIN 81 MG ENTERIC TABLET PO (08:35)
[2025-03-31] MEDS: PROPRANOLOL HCL 20 MG TABLET PO ×2 (08:35→21:24)
[2025-03-31] MEDS: PANTOPRAZOLE 40 MG TABLET PO (08:35)
[2025-03-31] MEDS: LOSARTAN POTASSIUM 50 MG TABLET PO (08:35)
[2025-03-31] MEDS: polyethylene glycoL 3350 17 GM POWD.PACK PO (08:35)
[2025-03-31] MEDS: TERBINAFINE HCL 250 MG TABLET PO (08:35)
[2025-03-31] MEDS: ENOXAPARIN 40 MG/0.4 ML SYRINGE SUB-Q (08:36)
[2025-03-31] MEDS: MORPHINE SULFATE (*CRX) 2 MG/ML INJ IV PUSH (12:01)
[2025-03-31] MEDS: DICLOFENAC SODIUM 1% 100 GM GEL (*BKC) TOPICAL (21:23)
[2025-03-31] MEDS: OMEGA 3 POLYUNSAT FATTY ACIDS 1 GM CAP PO (21:24)
[2025-03-31] MEDS: FINASTERIDE 5 MG TABLET PO (21:24)
[2025-03-31] MEDS: TAMSULOSIN HCL 0.4 MG CAPSULE 0.8 MG PO (21:24)
[2025-03-31] MEDS: SENNA/DOCUSATE SODIUM TABLET 1 TAB PO (21:24)
[2025-04-01] VITALS (9 sets, daily range): BP systolic 131–158; BP diastolic 65–88; PULSE 60–77; RESP 16; TEMP 36.3–37.5; O2SAT 94–99
--- NOTE | 2025-04-01 | ECHO_ITS ---
Patient Info Name: Quan Cabrales Age: 84 years : 1940 Gender: Male Ht: 72 in Wt: 216 lbs BSA: 2.25 m2 HR: 60 bpm BP: 136 / 68 mmHg Heart Rhythm: Sinus Rhythm Technical Quality: Fair Exam Date: 04/01/2025 10:51 AM Exam Location: Echo Lab Patient Status: Inpatient Admit Date: 03/27/2025 Staff Ordering Physician: Karla Rowe PA-C Fashion Director: Diane Arechiga RDCS Attending Provider: Karla Rowe PA-C Referring Physician: Jae GRUBBS; Exam Type: CA echo doppler color flow Study Info Indications - Pleural effusion Complete two-dimensional, color flow and Doppler transthoracic echocardiogram is performed. Summary 1. Complete two-dimensional, color flow and Doppler transthoracic echocardiogram is performed. 2. Left ventricular systolic function is normal, estimated at 60-65%. 3. There is mildly increased left ventricular wall thickness. 4. The left ventricular diastolic function is grade II diastolic dysfunction. 5. Right ventricular chamber dimension is mildly enlarged. 6. Right ventricular systolic function is normal. 7. There is mild mitral valve regurgitation. 8. There is mild tricuspid valve regurgitation. 9. Mild pulmonary hypertension, estimated pulmonary arterial systolic pressure is 42 mmHg. 10. The aortic root size at the sinus of Valsalva is mildly dilated. Measures 4.3 cm. 11. The prox ascending aorta size is mildly dilated. Left Ventricle Left ventricular chamber dimension is normal. Left ventricular systolic function is normal, estimated at 60-65%. There is mildly increased left ventricular wall thickness. Left ventricular septal wall motion is normal. The left ventricular diastolic function is grade II diastolic dysfunction. Right Ventricle Right ventricular chamber dimension is mildly enlarged. Right ventricular systolic function is normal. Left Atria Left atrial chamber dimension is normal. Right Atria Right atrial chamber dimension is normal. Aortic Valve The aortic valve is trileaflet. There is no aortic valve sclerosis. There is no aortic valve stenosis. There is no aortic valve regurgitation. Pulmonic Valve The pulmonic valve is normal. There is no pulmonic valve stenosis. There is no pulmonic regurgitation. Mitral Valve The mitral valve has normal leaflets. There is no mitral valve stenosis. There is mild mitral valve regurgitation. Tricuspid Valve The tricuspid valve leaflets are normal. There is no significant tricuspid valve stenosis. There is mild tricuspid valve regurgitation. Mild pulmonary hypertension, estimated pulmonary arterial systolic pressure is 42 mmHg. Pericardium/Pleural The pericardium appears normal. There is no pericardial effusion. Inferior Vena Cava Normal inferior vena cava with >50% collapse upon inspiration consistent with normal right atrial pressure, 5 mmHg. Aorta The aortic root size at the sinus of Valsalva is mildly dilated. Measures 4.3 cm. The prox ascending aorta size is mildly dilated. Left Ventricular Outflow Tract Name Value Normal LVOT 2D LVOT Diameter 2.0 cm LVOT Doppler LVOT Peak Gradient 3 mmHg LVOT Mean Gradient 1 mmHg LVOT VTI 17 cm LVOT VTI/AV VTI Ratio 0.7 LVOT Stroke Volume 56 ml LVOT CO 4.3 l/min LVOT CI 1.9 l/min/m2 Pulmonic Valve Name Value Normal RVOT Doppler RVOT Peak Gradient 3 mmHg PV Doppler PV Peak Gradient 4 mmHg Mitral Valve Name Value Normal MV Doppler MV Decel [place] 514 cm/s2 MV PHT 68 ms MV Area (PHT) 3.3 cm2 4.0-5.0 MV Diastolic Function MV E Peak Velocity 120 cm/s MV A Peak Velocity 90 cm/s MV E/A 1.3 MV Decel Time 233 ms MV Annular TDI MV E/e' (Septal) 15.6 <=8.0 MV E/e' (Lateral) 18.3 <=8.0 MV E/e' (Average) 17.0 Tricuspid Valve Name Value Normal TV Regurgitation Doppler TR Peak Velocity 304 cm/s TR Peak Gradient 37 mmHg Estimated PAP/RSVP RA Pressure 5 mmHg <=5 PA Systolic Pressure 42 mmHg <36 RV Systolic Pressure 42 mmHg <36 Aortic Valve Name Value Normal AV Doppler AV Peak Velocity 118 cm/s AV Peak Gradient 6 mmHg AV Mean Gradient 3 mmHg AV VTI 26 cm AV Area (Cont Eq VTI) 2.2 cm2 >=3.0 AV Area (Cont Eq Joseph) 2.2 cm2 AV Regurgitation 2D LVOT Area 3.2 cm2 Ventricles Name Value Normal LV Dimensions 2D/MM IVS Diastolic Thickness (2D) 1.1 cm 0.6-1.0 LVID Diastole (2D) 4.9 cm 4.2-5.8 LVIW Diastolic Thickness (2D) 1.1 cm 0.6-1.0 LVID Systole (2D) 3.2 cm 2.5-4.0 LVOT Diameter 2.0 cm LV Mass (2D Cubed) 200.17 g 88.00-224.00 LV Mass Index (2D Cubed) 89 g/m2 49-115 Relative Wall Thickness (2D) 0.46 LV Fractional Shortening/Ejection Fraction 2D/MM LV Fractional Shortening (2D) 35 % 25-43 LV EF (2D Teicholz) 64 % 52-72 LV Diastolic Volume (4C MOD) 120 ml LV EF (4C MOD) 74 % LV Diastolic Volume (2C MOD) 121 ml LV EF (2C MOD) 63 % LV Diastolic Volume (BP MOD) 120 ml 62-150 LV Diastolic Volume Index (BP MOD) 53 ml/m2 34-74 LV Systolic Volume (BP MOD) 39 ml 21-61 LV Systolic Volume Index (BP MOD) 17 ml/m2 11-31 LV EF (BP MOD) 67 % 52-72 LV Diastolic Length (4C) 8.4 cm LV Systolic Length (4C) 6.2 cm LV Stroke Volume (4C MOD) 88 ml LV CO (BP MOD) 0.0 l/min LV CI (BP MOD) 0.0 l/min/m2 Atria Name Value Normal LA Dimensions LA Volume (4C A-L) 95 ml LA Volume (BP A-L) 90 ml RA Dimensions RA Area (4C) 13.9 cm2 <=18.0 Report Signatures Amended by Kirit Nagel on 04/01/2025 16:33
[2025-04-01 05:14] LABS: Hematocrit 40.6 % (42.0-52.0); Hemoglobin 13.5 g/dL (14.0-18.0); Mean Corpuscular HGB Conc 33.3 g/dl (32-36); Mean Corpuscular Hemoglobin 29.2 pg (26-34); Mean Corpuscular Volume 87.9 fl (80-100); Mean Platelet Volume 9.5 fl (7.4-10.4); Platelet Count Result 183 k/mm3 (150-375); Red Blood Count 4.62 M/mm3 (4.6-6.20); Red Cell Distribution Width 13.7 % (11.5-14.5); White Blood Count 19.4 K/mm3 (4.5-10.0)
[2025-04-01 05:30] LABS: Alanine Aminotransferase 46 U/L (6-50); Albumin Level 2.8 g/dL (3.5-5.1); Alkaline Phosphatase 126 U/L (38-126); Anion Gap 7 mmol/L (4-12); Aspartate Amino Transferase 25 U/L (17-59); Bilirubin,Total 1.3 mg/dL (0.2-1.3); Blood Urea Nitrogen 13 mg/dL (9-20); Calcium 7.8 mg/dL (8.4-10.2); Carbon Dioxide 23 mmol/L (22-30); Chloride 97 mmol/L (98-107); Estimated CRCL calculation 87 ml/min; Estimated Glomerular Filt Rate > 60; Glucose 95 mg/dL (65-110); Potassium 3.3 mmol/L (3.4-5.0); Sodium 127 mmol/L (137-145)
[2025-04-01] MEDS: LEVOTHYROXINE SODIUM 125 MCG TABLET PO (05:36)
[2025-04-01 05:41] LABS: CRP 12.1 mg/dL (<1.0)
[2025-04-01 05:50] LABS: Procalcitonin 0.6 ng/mL
--- NOTE | 2025-04-01 07:16 | P.PNIM_ITS ---
Progress Note: A&P Assessment and Plan (1) Hyponatremia: Code(s): E87.1 - Hypo-osmolality and hyponatremia Status: Acute Assessment and Plan: Na 133 on admission and has been downtrending, currently 127 on am labs Unable to give fluids due to patients on going pleural effusion requiring oxygen Unable to diurese given pancreatitis Nephrology consulted repeat sodium consider diuresis or salt tabs check cortisol, SPE/UPE, serum/urine osmolality, and urine electrolytes (2) Acute pancreatitis: Code(s): K85.90 - Acute pancreatitis without necrosis or infection, unspecified Status: Acute Assessment and Plan: Nausea, vomiting, abdominal pain. Takes Wegovy for weight loss in his last injection was 03/26. He denies any recent use of alcohol, states he quit 19 years ago. - Lipase 17,543, repeat 443 - Given 1.5 L IV fluids in the ED, was on LR 125 ml/hr however DC for worsening SOB - Antibiotics discontinued as concern for cholangitis has resolved - Diet: low fiber, tolerating well - CT of the abdomen and pelvis show acute interstitial pancreatitis - Right upper quadrant ultrasound showed focal adenomyosis at the fundus of the gallbladder, no choledocholithiasis and no evidence of biliary or pancreatic ductal dilation, normal appearance to the pancreas - Repeat US today to reassess biliary pancreatitis concern Focal adenomyomatosis at the fundus of the gallbladder. - Repeat CT abdomen/pelvis showed pancreatitis with slightly increased fat stranding with no definite collections - HIDA scan showed no biliary obstruction but with delayed accumulation of activity within the gallbladder which occurs following morphine administration but which essentially precludes acute cholecystitis. - GI consulted Ddx: acute pancreatitis primarily includes biliary pancreatitis versus alcohol-induced pancreatitis. No overt gallstones or sludge were observed, the presence of gallbladder adenomyosis raises the possibility of subtle, masked microlithiasis or sludge as an underlying cause. Significant elevation in AST and ALT strongly suggests a biliary etiology. Leukocytosis is most likely inflammatory from the pancreatitis, improved. Continues to tolerate diet well. Denies nausea/vomiting and abdominal pain. (3) Pleural effusion: Code(s): J90 - Pleural effusion, not elsewhere classified Status: Acute Assessment and Plan: WBC elevated at 22.4, compared to 13.1 on 03/28. Remains afebrile. Endorsing increased SOB and difficulty with deep breathing. CXR: Mild opacities in the left lower lung zone likely combination of left pericardial fat pad and atelectasis with differential including pneumonia in the appropriate clinical setting. Appears worse compared to CXR from 03/27 which showed left basilar atelectasis vs pneumonia CT abd/pelvis: bilateral pleural effusion with adjacent atelectasis - started on HAP tx however not HAP per pulmonology, antibiotics discontinued - MRSA negative - Viral PCR: Flu/COVID/RSV ordered - 2 L NC, baseline room air. Wean as tolerated, keep SpO2 >90. - Monitor vital signs, I&Os, neuro status and patient is a fall risk - Follow WBC, serum electrolytes, temperature curves and cultures - Send sputum cultures - Pulmonology consulted by GI Does not appear to be HAP, likely pancreatitis with volume overload No antibiotics required, patient remains on antibiotics for pancreatitis Recommend minimizing IV fluids and begin mariano diuresis as tolerated from pancreatic perspective Spoke with GI and will hold on diuresis at this time as patient is voiding normally and concern for pancreatitis Continue to wean off of supplemental oxygen. Denies shortness of breath. Echo ordered to evaluate heart function. (4) Transaminitis: Code(s): R74.01 - Elevation of levels of liver transaminase levels Status: Acute Assessment and Plan: Likely secondary to acute pancreatitis Downtrending, continue to monitor (5) Elevated bilirubin: Code(s): R17 - Unspecified jaundice Status: Acute Assessment and Plan: * Bilirubin 1.6 on admission, returned to 1.6 on am labs * Continue to trend (6) Adenomyomatosis of gallbladder: Code(s): D13.5 - Benign neoplasm of extrahepatic bile ducts Status: Acute Assessment and Plan: The patient was found to have adenomyomatosis in the fundus of the gallbladder. This is an incidental finding on ultrasound. This is not a finding that warrants a cholecystectomy and would not cause the biliary pancreatitis. (7) Pulmonary nodule: Code(s): R91.1 - Solitary pulmonary nodule Status: Acute Assessment and Plan: CT abd/pelvis showed a nodule in the right middle lobe Follow up in the outpatient setting with CT in 6 months (8) Hypertension: Qualifiers: Hypertension type: primary hypertension Qualified Code(s): I10 - Essential (primary) hypertension Code(s): I10 - Essential (primary) hypertension Status: Acute Assessment and Plan: Chronic, continue home medications - losartan 50 mg daily - propranolol 20 mg BID - blood pressures remain stable, continue to monitor (9) Hyperlipidemia: Qualifiers: Hyperlipidemia type: pure hypercholesterolemia Qualified Code(s): E78.00 - Pure hypercholesterolemia, unspecified Code(s): E78.5 - Hyperlipidemia, unspecified Status: Acute Assessment and Plan: * Continue Zeita, aspirin (10) Hypothyroidism: Qualifiers: Hypothyroidism type: acquired Qualified Code(s): E03.9 - Hypothyroidism, unspecified Code(s): E03.9 - Hypothyroidism, unspecified Status: Acute Assessment and Plan: * Continue Synthroid Time Spent With Patient Time with patient: 25 - 35 minutes Subjective Date/time seen: 04/01/25 07:16 Interval history: 84-year-old male with a significant past medical history of seizure, CVA, basal cell carcinoma, alcohol abuse, hypothyroidism, arthritis, hypertension, hyperlipidemia, former smoker who presented to the hospital for evaluation of abdominal pain, nausea, vomiting. Patient is pleasant lying comfortably in bed. He remains on 2L NC at this time but states that he does not feel short of breath. Will continue to wean. He continues to tolerate his diet well. Denies nausea/vomiting and abdominal pain. He has had a BM this morning. He denies chest pain and palpitations. Review of Systems Review of Systems: All systems reviewed & are unremarkable except as noted in HPI and below Exam Narrative: AF HR 71 RR 16 Spo2 94 BP 136/68 General: male in no acute respiratory distress who is nontoxic appearing, lying semi recumbent in bed. HEENT: Normocephalic. Atraumatic. Extraocular movement intact. Sclera clear and anicteric. No facial asymmetry. Chest: Lungs are crackles to auscultation bilaterally in the bases. No wheezes. Remains on 2L NC. CV: Heart was regular rate and rhythm. Abd: Abdomen was soft. Nontender. Nondistended. Positive bowel sounds. Ext: No clubbing, cyanosis, or edema. DP pulses bilaterally. Neuro: Patient is alert and oriented x4. Speech is clear. Objective Data Vital Signs Vital Signs: Vital Signs - 24 hr 03/31/25 07:54 03/31/25 08:00 03/31/25 08:34 Temperature Pulse Rate 71 Respiratory Rate Blood Pressure 126/66 Pulse Oximetry 93 92 92 Oxygen Delivery Nasal Cannula Nasal Cannula Oxygen Flow Rate 4 4.5 Fraction of Inspired Oxygen 03/31/25 08:35 03/31/25 14:00 03/31/25 19:40 Temperature 98.1 F 99.4 F Pulse Rate 71 79 83 Respiratory Rate 20 16 Blood Pressure 139/88 118/65 Pulse Oximetry 96 94 Oxygen Delivery Oxygen Flow Rate Fraction of Inspired Oxygen 03/31/25 20:00 03/31/25 21:10 03/31/25 21:24 Temperature Pulse Rate 86 86 Respiratory Rate 16 Blood Pressure Pulse Oximetry 94 94 Oxygen Delivery Nasal Cannula Nasal Cannula Oxygen Flow Rate 2 2 Fraction of Inspired Oxygen 21 04/01/25 06:00 Temperature 98.9 F Pulse Rate 71 Respiratory Rate 16 Blood Pressure 136/68 Pulse Oximetry 94 Oxygen Delivery Oxygen Flow Rate Fraction of Inspired Oxygen Intake/Output Intake/Output: Intake & Output 03/29/25 03/30/25 03/31/25 04/01/25 23:59 23:59 23:59 23:59 Intake Total 2645 1736 1350 250 Output Total 800 200 400 Balance 1845 1536 950 250 Meds/Results Medications: Active Medications Generic Name Dose Route Start Last Admin Trade Name Freq PRN Reason Stop Dose Admin Acetaminophen 650 mg 03/27/25 15:10 03/30/25 20:24 Acetaminophen 325 Mg Tablet PO 650 mg Q4H PRN Administration Mild Pain (1-3) or Fever Aspirin 81 mg 03/28/25 09:00 03/31/25 08:35 Aspirin 81 Mg Enteric Tablet PO 81 mg DAILY DANYELL Administration Calcium Carbonate 200 mg 03/27/25 20:13 03/27/25 20:55 Calcium Carbonate (Tums) 500 Mg (200 Mg Elemental) PO 200 mg Q6H PRN Administration Indigestion Cyanocobalamin 500 mcg 03/28/25 09:00 03/31/25 08:35 Cyanocobalamin 500 Mcg Tablet PO 500 mcg DAILY [facility] Administration Diclofenac Sodium 0 applic 03/28/25 21:00 03/31/25 21:23 Diclofenac Sodium 1% 100 Gm Gel (*Bkc) TOPICAL 1 applic HS DANYELL Administration Ezetimibe 10 mg 03/28/25 09:00 03/31/25 08:35 Ezetimibe 10 Mg Tablet PO 10 mg DAILY DANYELL Administration Enoxaparin Sodium 40 mg 03/28/25 09:00 03/31/25 08:36 Enoxaparin 40 Mg/0.4 Ml Syringe SUB-Q 40 mg DAILY DANYELL Administration Ergocalciferol 50,000 units 03/28/25 09:00 03/28/25 09:43 Ergocalciferol 50,000 Units Capsule PO 50,000 units Tu@0900 DANYELL Administration Finasteride 5 mg 03/27/25 21:00 03/31/25 21:24 Finasteride 5 Mg Tablet PO 5 mg HS DANYELL Administration Fish Oil 1 gm 03/28/25 21:00 03/31/25 21:24 Guthrie 3 Polyunsat Fatty Acids 1 Gm Cap PO 1 gm QHS DANYELL Administration Levothyroxine Sodium 125 mcg 03/28/25 06:30 04/01/25 05:36 Levothyroxine Sodium 125 Mcg Tablet PO 125 mcg DAILY@0630 DANYELL Administration Losartan Potassium 50 mg 03/28/25 09:00 03/31/25 08:35 Losartan Potassium 50 Mg Tablet PO 50 mg DAILY DANYELL Administration Meclizine HCl 12.5 mg 03/27/25 20:13 Meclizine Hcl 12.5 Mg Tablet PO TID PRN dizziness Morphine Sulfate 2 mg 03/27/25 14:35 03/31/25 12:01 Morphine Sulfate (*Crx) 2 Mg/Ml Inj IV PUSH 2 mg Q2H PRN Administration Pain Rated 7-10 Ondansetron HCl 4 mg 03/27/25 14:35 03/27/25 19:10 Ondansetron Inj 4 Mg/2 Ml Vial IV PUSH 4 mg Q4H PRN Administration Nausea Pantoprazole Sodium 40 mg 03/27/25 20:15 03/31/25 08:35 Pantoprazole 40 Mg Tablet PO 40 mg QAM DANYELL Administration Polyethylene Glycol 17 gm 03/29/25 11:10 03/31/25 08:35 Polyethylene Glycol 3350 17 Gm Powd.Pack PO 17 gm QAM DANYELL Administration Propranolol HCl 20 mg 03/27/25 21:00 03/31/25 21:24 Propranolol Hcl 20 Mg Tablet PO 20 mg Q12H DANYELL Administration Senna/Docusate Sodium 1 tab 03/29/25 21:00 03/31/25 21:24 Senna/Docusate Sodium Tablet PO 1 tab HS DANYELL Administration Tamsulosin HCl 0.8 mg 03/27/25 21:00 03/31/25 21:24 Tamsulosin Hcl 0.4 Mg Capsule PO 0.8 mg HS DANYELL Administration Terbinafine HCl 250 mg 03/28/25 09:00 03/31/25 08:35 Terbinafine Hcl 250 Mg Tablet PO 250 mg TuFr@0900 DANYELL Administration Radiology Results: ITS Impressions Upper Quadrant Ultrasound 03/27/25 12:04 IMPRESSION: 1. Focal adenomyosis at the fundus of the gallbladder. No choledocholithiasis and no evident biliary or pancreatic ductal dilation.. 2. Normal appearance to the pancreas on ultrasound imaging although findings on prior CT are consistent with acute interstitial pancreatitis. Abdomen Ultrasound 03/29/25 10:33 IMPRESSION: 1. Focal adenomyomatosis at the fundus of the gallbladder. Otherwise unremarkable right upper quadrant ultrasound. Chest X-Ray 03/29/25 11:25 IMPRESSION: 1. Mild opacities in the left lower lung zone likely combination of left pericardial fat pad and atelectasis with differential including pneumonia in the appropriate clinical setting. Abdomen/Pelvis CT 03/29/25 23:27 IMPRESSION: 1. Pancreatitis with slightly increased fat stranding with no definite collections. 2. Trace of pericardial effusion. 3. Bilateral pleural effusion with adjacent atelectasis. 4. Nodule in the right middle lobe. 6 months follow-up CT is advised. Hepatobiliary Scan Nuclear Medicine 03/31/25 12:52 IMPRESSION: 1. No biliary obstruction but with delayed accumulation of activity within the gallbladder which occurs following morphine administration but which essentially precludes acute cholecystitis. Abdomen X-Ray 03/31/25 16:32 IMPRESSION: 1: No acute abdominal abnormality identified. Labs Labs: Laboratory Results - last 24 hr 04/01/25 04:34 WBC 19.4 H RBC 4.62 Hgb 13.5 L Hct 40.6 L MCV 87.9 MCH 29.2 MCHC 33.3 RDW 13.7 Plt Count 183 MPV 9.5 Sodium 127 L Potassium 3.3 L Chloride 97 L Carbon Dioxide 23 Anion Gap 7 BUN 13 Creatinine 0.59 L Estim Creat Clear Calc 87 Estimated GFR > 60 Glucose 95 Calcium 7.8 L Magnesium 2.0 Total Bilirubin 1.3 AST 25 ALT 46 Alkaline Phosphatase 126 C-Reactive Protein 12.1 H Total Protein 5.0 L Albumin 2.8 L Procalcitonin 0.6 Quality VTE Prophylaxis VTE prophylaxis: pharmacologic ordered
[2025-04-01] MEDS: ENOXAPARIN 40 MG/0.4 ML SYRINGE SUB-Q (09:13)
[2025-04-01] MEDS: POTASSIUM CHLORIDE 20 MEQ ER TABLET 40 MEQ PO ×2 (09:13→21:07)
[2025-04-01] MEDS: ASPIRIN 81 MG ENTERIC TABLET PO (09:14)
[2025-04-01] MEDS: CYANOCOBALAMIN 500 MCG TABLET PO (09:14)
[2025-04-01] MEDS: PROPRANOLOL HCL 20 MG TABLET PO ×2 (09:14→21:06)
[2025-04-01] MEDS: EZETIMIBE 10 MG TABLET PO (09:15)
[2025-04-01] MEDS: polyethylene glycoL 3350 17 GM POWD.PACK PO (09:15)
[2025-04-01] MEDS: LOSARTAN POTASSIUM 50 MG TABLET PO (09:15)
--- NOTE | 2025-04-01 10:00 | P.CONNP_ITS ---
Assessment and Plan Assessment and plan (1) Hyponatremia: Code(s): E87.1 - Hypo-osmolality and hyponatremia Status: Acute Assessment and Plan: * as noted by trend of labs since admission * normal sodium at baseline * suspect multifactorial: * prerenal factors on admisison (nausea + vomiting) * volume overload * pleural effusions * 3rd spacing from pancreatitis * CHF(?) - Echo pending * other(?) * risk factors of low sodium: * outpatient use of PPI * history of CVA * thyroid disease * BPH/urinary retention * pain * pain medications (narcotics) * issues on this curren hospitalization * repeat labs later today * if sodium worsening. consider diuresis * may need to add salt tabs as well * TSH noted, check cortisol, SPE/UPE, serum/urine osmolality, and urine electrolytes * follow trend of repeat sodiums (2) Pancreatitis: Code(s): K85.90 - Acute pancreatitis without necrosis or infection, unspecified Status: Acute Assessment and Plan: * as noted on presentation * imaging to date reviewed * Gi following as well * slow and steady clinical improvement noted * diet being slowly advanced (3) Bilateral pleural effusion: Code(s): J90 - Pleural effusion, not elsewhere classified Status: Acute Assessment and Plan: * as noted by recent imaging * initially manifested by shortness of breath and difficulty with deep breathing * Pulmonary evaluation noted * no evidence of infection/pneumonia * suspect secondary to volume overload * Echo pending * wean supplemental oxygen * follow respiratory status (4) Transaminitis: Code(s): R74.01 - Elevation of levels of liver transaminase levels Status: Acute Assessment and Plan: * presumed to be secondary #2 * slow improvement noted * follow trend (5) Leukocytosis: Code(s): D72.829 - Elevated white blood cell count, unspecified Status: Acute Assessment and Plan: * no source of infection * blood cultures negative to date * due to #2 (?) (6) Hypertension: Qualifiers: Hypertension type: primary hypertension Qualified Code(s): I10 - Essential (primary) hypertension Code(s): I10 - Essential (primary) hypertension Status: Acute Assessment and Plan: * reasonable control * follow trend of hemodynamics I will continue to follow the patient with you while he remains hospitalized and make further recommendations as deemed necessary. Thank you for allowing me to participate in the care of this patient. L History of Present Illness Reason for Consult Consult date: 04/01/25 Reason for consult: hyponatremia Chief Complaint Chief complaint: pancreatitis History of Present Illness Narrative: The patient is a 84-year-old male with a past medical history as outlined below who presented to [facility] Emergency Room with complaints of nausea, vomiting, and abdominal pain. The patient reports that the symptoms started the night before admission and persisted until the morning of presentation to the ER. In spite of these symptoms, he reports no fevers, chills, diarrhea, chest pain, shortness of breath, dizziness, or palpitations. He denies any recent alcohol intake or alcohol abuse as he quit approximately 19 years ago. He denies any recent sick contacts or new foods recently. As the symptoms seem to be progressively getting worse, he presented to the emergency room for further assessment. Workup and evaluation emergency room demonstrated the patient to be hemodynamically stable but in mild distress secondary to his pain and associated nausea / vomiting. Routine blood test demonstrated elevated white blood cell count 19.7, mild hyponatremia with a sodium 133, elevated liver function tests including his total bilirubin, AST, ALT as well as a significantly elevated lipase level of 17,543. urinalysis was otherwise unremarkable and his EKG demonstrated normal sinus rhythm without evidence of ischemia. Given his significantly elevated lipase level and the concern for pancreatitis, he underwent a CT scan of the abdomen pelvis which did confirm acute interstitial pancreatitis. 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 His chest x-ray showed left basilar atelectasis versus pneumonia. He was initiated on IV fluids and after cultures were obtained, initiated on IV antibiotic therapy. Gastroenterology was consulted from the ER given his acute pancreatitis and he was subsequently admitted to the hospital for further evaluation therapy. Since his admission, his pancreatitis as well as LFTs have been slowly improving but he did run into issues and problems with shortness of breath and associated bilateral pleural effusions thought to be secondary to volume overload in the context of aggressive IV fluid resuscitation on admission to the hospital. Given his elevated white blood cell count, there was a concern for possible pneumonia but pulmonary was consulted and seem to rule this out as a possibility. Unfortunately, since his admission, his sodium level has been slowly down trending although he does not appear to be symptomatic with regard to this issue. Renal consultation was requested due to his acute hyponatremia. From review his records, the patient's sodium level norms well within normal limits on previous testing earlier this year. As mentioned above, his sodium level on admission was 133 millimoles per L and has been slowly declining since admission with a most recent value of 127 millimoles per L by labs done this morning. Also as mentioned earlier, despite the low sodium level, he otherwise appears to be asymptomatic with regard to this finding. He does have risk factors for hyponatremia in general with regard to his known history of a CVA, known history of alcohol abuse, smoking history, use of proton pump inhibitor prior to admission, possible prerenal factors given his nausea and vomiting, BPH/urinary retention issues, and his issue is shortness of breath and bilateral pleural effusions. Currently, at the time my evaluation, he appears to be in no acute distress. Review of Systems 2 Review of Systems: As per HPI. [facility] Past Medical History Medical History Abdominal pain Leukocytosis Seizure CVA (cerebral vascular accident) Basal cell carcinoma Alcohol abuse Hypothyroidism Arthritis GI bleed Hyperlipidemia Hypertension Surgical History Surgical History History of testicular surgery Family History Family History Mother , Age 89 - CHF Breast cancer Glaucoma Father , Age 81 - Farm Accident GERD (gastroesophageal reflux disease) Lymphoma Grandparent , Age 77 - Heart Arrythmia No problems noted. Grandparent , Age 47 - Gangrene No problems noted. Grandparent , Age 70 - Unknown No problems noted. Grandparent , Age 70 - Unknown No problems noted. Sibling , Age 70 - Thyroid Cancer No problems noted. Social History Social History Smoking status: Never smoker Alcohol intake: former Substance use: never Do You Feel Safe in your Home?: Yes Lack of Transportation: No Lack of Food: Never True Current Housing: I Have Housing Concerned About Future Housing: No Difficulty Paying Gas/Electric Bills: No Difficulty Paying for Meds: No Currently Unemployed: No Education: Master's Degree or Higher Difficulty w/ Childcare or Family Care: No Living arrangements: with family Gender identity (if verbalized by the patient): Male Spiritual care concerns: No Meds Home Medications and Allergies Home Medications ?Medication ?Instructions ?Recorded ?Confirmed ?Type aspirin 81 mg tablet,delayed 81 mg PO DAILY 08/09/24 03/27/25 History release (Adult Aspirin Regimen) vit C 250 mg-vit E 90 mg-zinc 40 1 tablet PO BID 08/09/24 03/27/25 History mg-copper 1 [id number] capsule (PreserVision AREDS-2) losartan 50 mg tablet 50 mg PO DAILY #90 tabs 08/12/24 03/27/25 Rx omeprazole 20 mg capsule,delayed 20 mg PO BID #180 caps 09/21/24 03/27/25 Rx release tamsulosin 0.4 mg capsule 0.8 mg (2 x 0.4 mg) PO DAILY #180 10/10/24 03/27/25 Rx caps cholecalciferol (vitamin D3) 1,250 1,250 mcg PO WEEKLY 10/20/24 03/27/25 History mcg (50,000 unit) capsule semaglutide (weight loss) 0.25 0.25 mg subcut WEEKLY 10/20/24 03/27/25 History mg/0.5 mL subcutaneous pen injector (Wegovy) finasteride 5 mg tablet 5 mg PO DAILY #90 tabs 10/25/24 03/27/25 Rx ezetimibe 10 mg tablet (Zetia) 10 mg PO DAILY #90 tabs 12/13/24 03/27/25 Rx levothyroxine 125 mcg tablet 125 mcg PO DAILY #90 tabs 12/13/24 03/27/25 Rx cyanocobalamin (vitamin B-12) 500 500 mcg PO DAILY 03/27/25 03/27/25 History mcg tablet (Vitamin B-12) diclofenac sodium 1 % topical gel 4 g topical HS 03/27/25 03/27/25 History (Arthritis Pain (diclofenac)) meclizine 12.5 mg tablet 12.5 mg PO TID PRN dizziness 03/27/25 03/27/25 History omega 7-nys-bkq-fish oil 1,200 mg 1 cap PO DAILY 03/27/25 03/27/25 History (144 mg-216 mg) capsule (Fish Oil) propranolol 20 mg tablet 20 mg PO Q12H 03/27/25 03/27/25 History terbinafine HCl 250 mg tablet 250 mg PO .twice weekly 03/27/25 03/27/25 History Allergies Allergy/AdvReac Type Severity Reaction Status Date / Time atorvastatin Allergy Mild Weakness,Muscle Verified 12/08/24 12:59 Pain phenytoin Allergy Mild Rash Verified 12/08/24 12:59 Vital Signs Vital Signs Temp Pulse Resp BP Pulse Ox O2 Del Method O2 Flow Rate 04/01/25 09:14 60 04/01/25 06:00 98.9 F 71 16 136/68 94 03/31/25 21:24 86 03/31/25 21:10 94 Nasal Cannula 2 03/31/25 20:00 86 16 94 Nasal Cannula 2 03/31/25 19:40 99.4 F 83 16 118/65 94 03/31/25 14:00 98.1 F 79 20 139/88 96 Exam 2 Narrative: GENERAL APPEARANCE: elderly but well developed well nourished male in no acute distress HEENT: normocephalic, atraumatic, normal conjunctiva and sclera, nares patient NECK: no lymphadenopathy, thyromegaly, or JVD MOUTH: normal lips, teeth, and gums CARDIOVASCULAR: RRR, normal S1 and S2, no rub detected RESPIRATORY: bibasilar crackles noted ABDOMEN: soft, nontender, nondistended, positive bowel sounds present EXTREMITIES: no evidence of cyanosis, clubbing, or edema NEUROLOGICAL: alert and oriented x 3; CN II - XII intact bilaterally; no focal deficits noted Results Lab Results 04/01/25 04:34 04/01/25 04:34 Lab results: Most recent lab results Calcium 7.8 mg/dL (8.4-10.2) L 04/01/25 04:34 Magnesium 2.0 mg/dL (1.6-2.3) 04/01/25 04:34
--- NOTE | 2025-04-01 11:35 | P.PNGI_ITS ---
Progress Note: A&P Assessment and Plan (1) Acute pancreatitis: Code(s): K85.90 - Acute pancreatitis without necrosis or infection, unspecified Status: Acute Assessment and Plan: clinically better, he is eating and no pain (2) Transaminitis: Code(s): R74.01 - Elevation of levels of liver transaminase levels Status: Acute Assessment and Plan: normalization transaminases hida no cholecystitis he was evaluated by surgery (3) Leukocytosis: Code(s): D72.829 - Elevated white blood cell count, unspecified Status: Acute Assessment and Plan: could be from pancreatitis abx discontinued (4) Abdominal pain: Code(s): R10.9 - Unspecified abdominal pain Status: Acute Assessment and Plan: resolved (5) Hyponatremia: Code(s): E87.1 - Hypo-osmolality and hyponatremia Status: Acute (6) Pleural effusion: Code(s): J90 - Pleural effusion, not elsewhere classified Status: Acute Assessment and Plan: evaluated by pulmonary Subjective Date/time seen: 04/01/25 11:35 Interval history: no major changes, he is eating, no abdominal pain Review of Systems Review of Systems: All systems reviewed & are unremarkable except as noted in HPI and below Exam Const: General: comfortable and no acute distress HENMT: Face/Nose/Sinus: Normal nares present Eyes: General: appearance normal, both eyes and all related structures Neck: Neck: supple Resp: Auscultation: clear to auscultation bilaterally Cardio: Rate: regular rate Rhythm: regular rhythm GI: Inspection: non-distended GI Palp: Yes Soft to palpation and No Tenderness to palpation present (GI) Auscultation: normal bowel sounds Skin: General skin exam: normal color Neuro: Speech: normal speech Extrem: General: normal to inspection Psych: Mental Status: mental status grossly normal Objective Data Vital Signs Vital Signs: Vital Signs - 24 hr 03/31/25 14:00 03/31/25 19:40 03/31/25 20:00 Temperature 98.1 F 99.4 F Pulse Rate 79 83 86 Respiratory Rate 20 16 16 Blood Pressure 139/88 118/65 Pulse Oximetry 96 94 94 Oxygen Delivery Nasal Cannula Oxygen Flow Rate 2 Fraction of Inspired Oxygen 21 03/31/25 21:10 03/31/25 21:24 04/01/25 06:00 Temperature 98.9 F Pulse Rate 86 71 Respiratory Rate 16 Blood Pressure 136/68 Pulse Oximetry 94 94 Oxygen Delivery Nasal Cannula Oxygen Flow Rate 2 Fraction of Inspired Oxygen 04/01/25 09:14 Temperature Pulse Rate 60 Respiratory Rate Blood Pressure Pulse Oximetry Oxygen Delivery Oxygen Flow Rate Fraction of Inspired Oxygen Intake/Output Intake/Output: Intake & Output 03/29/25 03/30/25 03/31/25 04/01/25 23:59 23:59 23:59 23:59 Intake Total 2645 1736 1350 490 Output Total 800 200 400 Balance 1845 1536 950 490 Meds/Results Medications: Active Medications Generic Name Dose Route Start Last Admin Trade Name Freq PRN Reason Stop Dose Admin Acetaminophen 650 mg 03/27/25 15:10 03/30/25 20:24 Acetaminophen 325 Mg Tablet PO 650 mg Q4H PRN Administration Mild Pain (1-3) or Fever Aspirin 81 mg 03/28/25 09:00 04/01/25 09:14 Aspirin 81 Mg Enteric Tablet PO 81 mg DAILY DANYELL Administration Calcium Carbonate 200 mg 03/27/25 20:13 03/27/25 20:55 Calcium Carbonate (Tums) 500 Mg (200 Mg Elemental) PO 200 mg Q6H PRN Administration Indigestion Cyanocobalamin 500 mcg 03/28/25 09:00 04/01/25 09:14 Cyanocobalamin 500 Mcg Tablet PO 500 mcg DAILY DANYELL Administration Diclofenac Sodium 0 applic 03/28/25 21:00 03/31/25 21:23 Diclofenac Sodium 1% 100 Gm Gel (*Bkc) TOPICAL 1 applic HS DANYELL Administration Ezetimibe 10 mg 03/28/25 09:00 04/01/25 09:15 Ezetimibe 10 Mg Tablet PO 10 mg DAILY DANYELL Administration Enoxaparin Sodium 40 mg 03/28/25 09:00 04/01/25 09:13 Enoxaparin 40 Mg/0.4 Ml Syringe SUB-Q 40 mg DAILY DANYELL Administration Ergocalciferol 50,000 units 03/28/25 09:00 03/28/25 09:43 Ergocalciferol 50,000 Units Capsule PO 50,000 units Tu@0900 DANYELL Administration Finasteride 5 mg 03/27/25 21:00 03/31/25 21:24 Finasteride 5 Mg Tablet PO 5 mg HS [facility] Administration Fish Oil 1 gm 03/28/25 21:00 03/31/25 21:24 [place] 3 Polyunsat Fatty Acids 1 Gm Cap PO 1 gm QHS DANYELL Administration Levothyroxine Sodium 125 mcg 03/28/25 06:30 04/01/25 05:36 Levothyroxine Sodium 125 Mcg Tablet PO 125 mcg DAILY@0630 DANYELL Administration Losartan Potassium 50 mg 03/28/25 09:00 04/01/25 09:15 Losartan Potassium 50 Mg Tablet PO 50 mg DAILY DANYELL Administration Meclizine HCl 12.5 mg 03/27/25 20:13 Meclizine Hcl 12.5 Mg Tablet PO TID PRN dizziness Morphine Sulfate 2 mg 03/27/25 14:35 03/31/25 12:01 Morphine Sulfate (*Crx) 2 Mg/Ml Inj IV PUSH 2 mg Q2H PRN Administration Pain Rated 7-10 Ondansetron HCl 4 mg 03/27/25 14:35 03/27/25 19:10 Ondansetron Inj 4 Mg/2 Ml Vial IV PUSH 4 mg Q4H PRN Administration Nausea Perflutren Lipid Microsphere 0 ml 04/01/25 09:22 Perflutren Lipid Microspheres 1.5 Ml Vial Diluted To 10 Ml Total Volume IV PUSH 04/04/25 09:22 ONCE PRN adequate visualization Protocol Polyethylene Glycol 17 gm 03/29/25 11:10 04/01/25 09:15 Polyethylene Glycol 3350 17 Gm Powd.Pack PO 17 gm QAM DANYELL Administration Propranolol HCl 20 mg 03/27/25 21:00 04/01/25 09:14 Propranolol Hcl 20 Mg Tablet PO 20 mg Q12H DANYELL Administration Senna/Docusate Sodium 1 tab 03/29/25 21:00 03/31/25 21:24 Senna/Docusate Sodium Tablet PO 1 tab HS DANYELL Administration Tamsulosin HCl 0.8 mg 03/27/25 21:00 03/31/25 21:24 Tamsulosin Hcl 0.4 Mg Capsule PO 0.8 mg HS DANYELL Administration Terbinafine HCl 250 mg 03/28/25 09:00 03/31/25 08:35 Terbinafine Hcl 250 Mg Tablet PO 250 mg TuFr@0900 DANYELL Administration Radiology Results: ITS Impressions Upper Quadrant Ultrasound 03/27/25 12:04 IMPRESSION: 1. Focal adenomyosis at the fundus of the gallbladder. No choledocholithiasis and no evident biliary or pancreatic ductal dilation.. 2. Normal appearance to the pancreas on ultrasound imaging although findings on prior CT are consistent with acute interstitial pancreatitis. Abdomen Ultrasound 03/29/25 10:33 IMPRESSION: 1. Focal adenomyomatosis at the fundus of the gallbladder. Otherwise unremarkable right upper quadrant ultrasound. Chest X-Ray 03/29/25 11:25 IMPRESSION: 1. Mild opacities in the left lower lung zone likely combination of left pericardial fat pad and atelectasis with differential including pneumonia in the appropriate clinical setting. Abdomen/Pelvis CT 03/29/25 23:27 IMPRESSION: 1. Pancreatitis with slightly increased fat stranding with no definite collections. 2. Trace of pericardial effusion. 3. Bilateral pleural effusion with adjacent atelectasis. 4. Nodule in the right middle lobe. 6 months follow-up CT is advised. Hepatobiliary Scan Nuclear Medicine 03/31/25 12:52 IMPRESSION: 1. No biliary obstruction but with delayed accumulation of activity within the gallbladder which occurs following morphine administration but which essentially precludes acute cholecystitis. Abdomen X-Ray 03/31/25 16:32 IMPRESSION: 1: No acute abdominal abnormality identified. Labs Labs: Laboratory Results - last 24 hr 04/01/25 04:34 WBC 19.4 H RBC 4.62 Hgb 13.5 L Hct 40.6 L MCV 87.9 MCH 29.2 MCHC 33.3 RDW 13.7 Plt Count 183 MPV 9.5 Sodium 127 L Potassium 3.3 L Chloride 97 L Carbon Dioxide 23 Anion Gap 7 BUN 13 Creatinine 0.59 L Estim Creat Clear Calc 87 Estimated GFR > 60 Glucose 95 Calcium 7.8 L Magnesium 2.0 Total Bilirubin 1.3 AST 25 ALT 46 Alkaline Phosphatase 126 C-Reactive Protein 12.1 H Total Protein 5.0 L Albumin 2.8 L Procalcitonin 0.6
[2025-04-01 17:24] LABS: Sodium 126 mmol/L (137-145)
--- NOTE | 2025-04-01 18:38 | PC.NURSE ---
Breaker Mechanic has reviewed and agrees with assessments/charting done by Cathy Sandoval LPN
[2025-04-01] MEDS: SENNA/DOCUSATE SODIUM TABLET 1 TAB PO (21:06)
[2025-04-01] MEDS: FUROSEMIDE INJ 40 MG/4 ML VIAL 20 MG IV PUSH (21:06)
[2025-04-01] MEDS: TAMSULOSIN HCL 0.4 MG CAPSULE 0.8 MG PO (21:06)
[2025-04-01] MEDS: POTASSIUM CHLORIDE 20 MEQ ER TABLET PO (21:06)
[2025-04-01] MEDS: FINASTERIDE 5 MG TABLET PO (21:07)
[2025-04-01] MEDS: DICLOFENAC SODIUM 1% 100 GM GEL (*BKC) TOPICAL (21:08)
[2025-04-01] MEDS: OMEGA 3 POLYUNSAT FATTY ACIDS 1 GM CAP PO (21:08)
[2025-04-02] VITALS (7 sets, daily range): BP systolic 139–157; BP diastolic 64–93; PULSE 72–83; RESP 12–18; TEMP 36.4–37.1; O2SAT 98–99
[2025-04-02] MEDS: ACETAMINOPHEN 325 MG TABLET 650 MG PO ×2 (00:10→22:40)
[2025-04-02] MEDS: MORPHINE SULFATE (*CRX) 2 MG/ML INJ IV PUSH ×2 (02:15→11:52)
[2025-04-02 05:15] LABS: Hemoglobin 14.7 g/dL (14.0-18.0); Mean Corpuscular HGB Conc 33.4 g/dl (32-36); Mean Corpuscular Hemoglobin 29.3 pg (26-34); Mean Corpuscular Volume 87.6 fl (80-100); Mean Platelet Volume 9.6 fl (7.4-10.4); Platelet Count Result 235 k/mm3 (150-375); Red Blood Count 5.02 M/mm3 (4.6-6.20); White Blood Count 17.1 K/mm3 (4.5-10.0)
[2025-04-02 05:37] LABS: Alanine Aminotransferase 47 U/L (6-50); Albumin Level 3.2 g/dL (3.5-5.1); Alkaline Phosphatase 138 U/L (38-126); Anion Gap 7 mmol/L (4-12); Aspartate Amino Transferase 30 U/L (17-59); Blood Urea Nitrogen 12 mg/dL (9-20); CRP 7.2 mg/dL (<1.0); Calcium 8.1 mg/dL (8.4-10.2); Carbon Dioxide 23 mmol/L (22-30); Chloride 100 mmol/L (98-107); Estimated CRCL calculation 87 ml/min; Estimated Glomerular Filt Rate > 60; Glucose 115 mg/dL (65-110); Magnesium 2.2 mg/dL (1.6-2.3); Sodium 130 mmol/L (137-145)
[2025-04-02 05:50] LABS: Procalcitonin 0.4 ng/mL
[2025-04-02] MEDS: LEVOTHYROXINE SODIUM 125 MCG TABLET PO (05:53)
[2025-04-02] MEDS: ASPIRIN 81 MG ENTERIC TABLET PO (08:52)
[2025-04-02] MEDS: PROPRANOLOL HCL 20 MG TABLET PO ×2 (08:52→20:25)
[2025-04-02] MEDS: CYANOCOBALAMIN 500 MCG TABLET PO (08:52)
[2025-04-02] MEDS: ENOXAPARIN 40 MG/0.4 ML SYRINGE SUB-Q (08:53)
[2025-04-02] MEDS: EZETIMIBE 10 MG TABLET PO (08:53)
[2025-04-02] MEDS: LOSARTAN POTASSIUM 50 MG TABLET PO (08:53)
--- NOTE | 2025-04-02 09:27 | PM.IMPN ---
Progress Note: A&P Assessment and Plan (1) Hyponatremia: Code(s): E87.1 - Hypo-osmolality and hyponatremia Status: Acute Assessment and Plan: Na 133 on admission and has been downtrending, currently 127 on am labs Unable to give fluids due to patients on going pleural effusion requiring oxygen Unable to diurese given pancreatitis Nephrology consulted, appreciate recommendations repeat sodium consider diuresis or salt tabs cortisol 10.6 Follow up UPE, serum/urine osmolality, and urine Na, creatinine s/p lasix yesterday, may need to hold further diuresis with acute pancreatitis (2) Acute pancreatitis: Code(s): K85.90 - Acute pancreatitis without necrosis or infection, unspecified Status: Acute Assessment and Plan: Nausea, vomiting, abdominal pain. Takes Wegovy for weight loss in his last injection was 03/26. He denies any recent use of alcohol, states he quit 19 years ago. Lipase 17,543, repeat 443 03/29 LFT's improved since admission but slight increase overnight 03/27 Bili 1.6>1, AST 295>25<30, ALT 172<219>124>46<47, Alk phos 121>99<138 03/27 CT of the abdomen and pelvis show acute interstitial pancreatitis - Right upper quadrant ultrasound showed focal adenomyosis at the fundus of the gallbladder, no choledocholithiasis and no evidence of biliary or pancreatic ductal dilation, normal appearance to the pancreas - Repeat US to reassess biliary pancreatitis concern Focal adenomyomatosis at the fundus of the gallbladder. 03/27 RUQ US Focal adenomyomatosis at the fundus of the gallbladder. Otherwise unremarkable right upper quadrant ultrasound. 03/29 CT abdomen/pelvis showed: 1. Pancreatitis with slightly increased fat stranding with no definite collections. 2. Trace of pericardial effusion. 3. Bilateral pleural effusion with adjacent atelectasis. 4. Nodule in the right middle lobe. 6 months follow-up CT is advised. pancreatitis with slightly increased fat stranding with no definite collections 03/31 HIDA scan showed: No biliary obstruction but with delayed accumulation of activity within the gallbladder which occurs following morphine administration but which essentially precludes acute cholecystitis. Ddx: acute pancreatitis primarily includes biliary pancreatitis versus alcohol-induced pancreatitis or medication related No overt gallstones or sludge were observed, the presence of gallbladder adenomyosis raises the possibility of subtle, masked microlithiasis or sludge as an underlying cause. Leukocytosis is most likely inflammatory from the pancreatitis, improved. PLAN GI consulted, appreciate recommendations - Given 1.5 L IV fluids in the ED, was on LR 125 ml/hr however DC for worsening SOB - Antibiotics discontinued as concern for cholangitis has resolved - Diet: low fiber, tolerating but more pain overnight as noted - Recheck lipase in AM & LFT's for increased back pain overnight, also has RUQ pain and Alk phos slightly elevated. May be related to diuresis --Add on triglycerides (were normal in November) - Also check thoracic and lumbar spine x-rays since reporting some TTP mid right back, but may back pain may be GI. If continues, could consider MRI spine given RML pulmonary nodule --Discussed follow up for incidental RML nodule --Would not restart Wegovy in the future (3) Pleural effusion: Code(s): J90 - Pleural effusion, not elsewhere classified Status: Acute Assessment and Plan: WBC elevated at 22.4, compared to 13.1 on 03/28. Remains afebrile. Endorsing increased SOB and difficulty with deep breathing. CXR: Mild opacities in the left lower lung zone likely combination of left pericardial fat pad and atelectasis with differential including pneumonia in the appropriate clinical setting. Appears worse compared to CXR from 03/27 which showed left basilar atelectasis vs pneumonia CT abd/pelvis: bilateral pleural effusion with adjacent atelectasis 03/27 TTE: 1. Complete two-dimensional, color flow and Doppler transthoracic echocardiogram is performed. 2. Left ventricular systolic function is normal, estimated at 60-65%. 3. There is mildly increased left ventricular wall thickness. 4. The left ventricular diastolic function is grade II diastolic dysfunction. 5. Right ventricular chamber dimension is mildly enlarged. 6. Right ventricular systolic function is normal. 7. There is mild mitral valve regurgitation. 8. There is mild tricuspid valve regurgitation. 9. Mild pulmonary hypertension, estimated pulmonary arterial systolic pressure is 42 mmHg. 10. The aortic root size at the sinus of Valsalva is mildly dilated. Measures 4.3 cm. 11. The prox ascending aorta size is mildly dilated. Started on HAP tx however not HAP per pulmonology, antibiotics discontinued - MRSA negative - Viral PCR: Flu/COVID/RSV ordered - 2 L NC, baseline room air. Wean as tolerated, keep SpO2 >90. - Monitor vital signs, I&Os, neuro status and patient is a fall risk - Follow WBC, serum electrolytes, temperature curves and cultures - Send sputum cultures - Pulmonology consulted by GI Does not appear to be HAP, likely pancreatitis with volume overload Not on antibiotics Recommend minimizing IV fluids and begin mariano diuresis as tolerated from pancreatic perspective Diuresis is limited by acute pancreatitis Weaned to RA. Denies shortness of breath. Echo ordered to evaluate heart function. (4) Transaminitis: Code(s): R74.01 - Elevation of levels of liver transaminase levels Status: Acute Assessment and Plan: Likely secondary to acute pancreatitis Follow (5) Elevated bilirubin: Code(s): R17 - Unspecified jaundice Status: Acute Assessment and Plan: Bilirubin 1.6 on admission,improving Continue to trend (6) Adenomyomatosis of gallbladder: Code(s): D13.5 - Benign neoplasm of extrahepatic bile ducts Status: Acute Assessment and Plan: The patient was found to have adenomyomatosis in the fundus of the gallbladder. This is an incidental finding on ultrasound. This is not a finding that warrants a cholecystectomy and would not cause the biliary pancreatitis. (7) Pulmonary nodule: Code(s): R91.1 - Solitary pulmonary nodule Status: Acute Assessment and Plan: CT abd/pelvis showed a nodule in the right middle lobe Follow up in the outpatient setting with CT in 6 months (8) Hypertension: Qualifiers: Hypertension type: primary hypertension Qualified Code(s): I10 - Essential (primary) hypertension Code(s): I10 - Essential (primary) hypertension Status: Acute Assessment and Plan: Chronic, continue home medications - losartan 50 mg daily - propranolol 20 mg BID - blood pressures remain stable, continue to monitor (9) Hyperlipidemia: Qualifiers: Hyperlipidemia type: pure hypercholesterolemia Qualified Code(s): E78.00 - Pure hypercholesterolemia, unspecified Code(s): E78.5 - Hyperlipidemia, unspecified Status: Acute Assessment and Plan: Continue Zeita, aspirin (10) Hypothyroidism: Qualifiers: Hypothyroidism type: acquired Qualified Code(s): E03.9 - Hypothyroidism, unspecified Code(s): E03.9 - Hypothyroidism, unspecified Status: Acute Assessment and Plan: Continue Synthroid Time Spent With Patient Time: 47 minutes Subjective Date/time seen: 04/02/25 09:27 Interval history: He reports severe right mid back pain overnight, also TTP to RUQ Feels it is worse than yesterday. WBC and LFT's have been improving overall, but Alk phos slightly more elevated overnight. 84-year-old male with a significant past medical history of seizure, CVA, basal cell carcinoma, alcohol abuse, hypothyroidism, arthritis, hypertension, hyperlipidemia, former smoker who presented to the hospital for evaluation of abdominal pain, nausea, vomiting. Reports back pain that started after starting Wegovy, subsequently stopped Wegovy because he'd lost 30 pounds but continued to have intermittently pain. Restarted Wegovy Thursday and had pain and nausea/vomiting the next day. Review of Systems Review of Systems: All systems reviewed & are unremarkable except as noted in HPI and below Exam Narrative: General - Awake and alert. No acute distress Eyes - PERRLA, EOM intact ENT - No thrush, No erythema Neck - No noticeable or palpable swelling Lymph Nodes - No lymphadenopathy Cardiovascular - RRR no m/r/g, no JVD Lungs: Clear to auscultation, No wheezing, use of accessory muscles, no crackles Skin - Skin warm and dry, no wounds or rashes Abdomen - Normal bowel sounds, abdomen soft and mildly tender RUQ Extremities - No edema, cyanosis or clubbing Musculoskeletal - 5/5 strength, normal range of motion, no swollen or erythematous joints. No pain to back with straight leg raise or positioning. Mildly TTP mid back near lower ribs Neurological ? Alert and oriented x 3, CN 2-12 grossly intact. Psych: Normal mood and affect Objective Data Vital Signs Vital Signs: Vital Signs - 24 hr 04/01/25 14:00 04/01/25 14:34 04/01/25 20:00 Temperature 97.4 F L Pulse Rate 77 74 Respiratory Rate 16 16 Blood Pressure 131/65 Pulse Oximetry 95 96 96 Oxygen Delivery Room Air Room Air Fraction of Inspired Oxygen 21 04/01/25 21:01 04/01/25 21:03 04/01/25 21:06 Temperature 99.5 F 99.5 F Pulse Rate 77 75 74 Respiratory Rate 16 16 Blood Pressure 158/88 H 146/84 H Pulse Oximetry 96 96 Oxygen Delivery Fraction of Inspired Oxygen 04/02/25 05:30 04/02/25 08:50 04/02/25 08:52 Temperature 98.7 F 97.6 F Pulse Rate 72 75 77 Respiratory Rate 16 16 Blood Pressure 139/64 157/82 H Pulse Oximetry 99 99 Oxygen Delivery Fraction of Inspired Oxygen 04/02/25 08:52 Temperature Pulse Rate Respiratory Rate Blood Pressure Pulse Oximetry 99 Oxygen Delivery Room Air Fraction of Inspired Oxygen Intake/Output Intake/Output: Intake & Output 03/30/25 03/31/25 04/01/25 04/02/25 23:59 23:59 23:59 23:59 Intake Total 1736 1350 2490 Output Total 200 400 925 400 Balance 2946 973 1174 -400 Meds/Results Medications: Active Medications Generic Name Dose Route Start Last Admin Trade Name Freq PRN Reason Stop Dose Admin Acetaminophen 650 mg 03/27/25 15:10 04/02/25 00:10 Acetaminophen 325 Mg Tablet PO 650 mg Q4H PRN Administration Mild Pain (1-3) or Fever Aspirin 81 mg 03/28/25 09:00 04/02/25 08:52 Aspirin 81 Mg Enteric Tablet PO 81 mg DAILY DANYELL Administration Calcium Carbonate 200 mg 03/27/25 20:13 03/27/25 20:55 Calcium Carbonate (Tums) 500 Mg (200 Mg Elemental) PO 200 mg Q6H PRN Administration Indigestion Cyanocobalamin 500 mcg 03/28/25 09:00 04/02/25 08:52 Cyanocobalamin 500 Mcg Tablet PO 500 mcg DAILY DANYELL Administration Diclofenac Sodium 0 applic 03/28/25 21:00 04/01/25 21:08 Diclofenac Sodium 1% 100 Gm Gel (*Bkc) TOPICAL 1 applic HS DANYELL Administration Ezetimibe 10 mg 03/28/25 09:00 04/02/25 08:53 Ezetimibe 10 Mg Tablet PO 10 mg DAILY DANYELL Administration Enoxaparin Sodium 40 mg 03/28/25 09:00 04/02/25 08:53 Enoxaparin 40 Mg/0.4 Ml Syringe SUB-Q 40 mg DAILY DANYELL Administration Ergocalciferol 50,000 units 03/28/25 09:00 03/28/25 09:43 Ergocalciferol 50,000 Units Capsule PO 50,000 units Tu@0900 DANYELL Administration Finasteride 5 mg 03/27/25 21:00 04/01/25 21:07 Finasteride 5 Mg Tablet PO 5 mg HS [facility] Administration Fish Oil 1 gm 03/28/25 21:00 04/01/25 21:08 [place] 3 Polyunsat Fatty Acids 1 Gm Cap PO 1 gm QHS DANYELL Administration Levothyroxine Sodium 125 mcg 03/28/25 06:30 04/02/25 05:53 Levothyroxine Sodium 125 Mcg Tablet PO 125 mcg DAILY@0630 DANYELL Administration Losartan Potassium 50 mg 03/28/25 09:00 04/02/25 08:53 Losartan Potassium 50 Mg Tablet PO 50 mg DAILY DANYELL Administration Meclizine HCl 12.5 mg 03/27/25 20:13 Meclizine Hcl 12.5 Mg Tablet PO TID PRN dizziness Morphine Sulfate 2 mg 03/27/25 14:35 04/02/25 02:15 Morphine Sulfate (*Crx) 2 Mg/Ml Inj IV PUSH 2 mg Q2H PRN Administration Pain Rated 7-10 Ondansetron HCl 4 mg 03/27/25 14:35 03/27/25 19:10 Ondansetron Inj 4 Mg/2 Ml Vial IV PUSH 4 mg Q4H PRN Administration Nausea Perflutren Lipid Microsphere 0 ml 04/01/25 09:22 Perflutren Lipid Microspheres 1.5 Ml Vial Diluted To 10 Ml Total Volume IV PUSH 04/04/25 09:22 ONCE PRN adequate visualization Protocol Polyethylene Glycol 17 gm 03/29/25 11:10 04/02/25 08:53 Polyethylene Glycol 3350 17 Gm Powd.Pack PO Not Given QAM DANYELL Propranolol HCl 20 mg 03/27/25 21:00 04/02/25 08:52 Propranolol Hcl 20 Mg Tablet PO 20 mg Q12H DANYELL Administration Senna/Docusate Sodium 1 tab 03/29/25 21:00 04/01/25 21:06 Senna/Docusate Sodium Tablet PO 1 tab HS DANYELL Administration Tamsulosin HCl 0.8 mg 03/27/25 21:00 04/01/25 21:06 Tamsulosin Hcl 0.4 Mg Capsule PO 0.8 mg HS DANYELL Administration Terbinafine HCl 250 mg 03/28/25 09:00 03/31/25 08:35 Terbinafine Hcl 250 Mg Tablet PO 250 mg TuFr@0900 DANYELL Administration Radiology Results: ITS Impressions Upper Quadrant Ultrasound 03/27/25 12:04 IMPRESSION: 1. Focal adenomyosis at the fundus of the gallbladder. No choledocholithiasis and no evident biliary or pancreatic ductal dilation.. 2. Normal appearance to the pancreas on ultrasound imaging although findings on prior CT are consistent with acute interstitial pancreatitis. Abdomen Ultrasound 03/29/25 10:33 IMPRESSION: 1. Focal adenomyomatosis at the fundus of the gallbladder. Otherwise unremarkable right upper quadrant ultrasound. Abdomen/Pelvis CT 03/29/25 23:27 IMPRESSION: 1. Pancreatitis with slightly increased fat stranding with no definite collections. 2. Trace of pericardial effusion. 3. Bilateral pleural effusion with adjacent atelectasis. 4. Nodule in the right middle lobe. 6 months follow-up CT is advised. Hepatobiliary Scan Nuclear Medicine 03/31/25 12:52 IMPRESSION: 1. No biliary obstruction but with delayed accumulation of activity within the gallbladder which occurs following morphine administration but which essentially precludes acute cholecystitis. Abdomen X-Ray 03/31/25 16:32 IMPRESSION: 1: No acute abdominal abnormality identified. Chest X-Ray 04/01/25 12:44 IMPRESSION: 1. Small bilateral pleural effusions with mild streaky left basilar atelectasis. Labs Labs: Laboratory Results - last 24 hr 04/01/25 04/02/25 17:12 04:20 WBC 17.1 H RBC 5.02 Hgb 14.7 Hct 44.0 MCV 87.6 MCH 29.3 MCHC 33.4 RDW 14.0 Plt Count 235 MPV 9.6 Sodium 126 L 130 L Potassium 4.0 Chloride 100 Carbon Dioxide 23 Anion Gap 7 BUN 12 Creatinine 0.59 L Estim Creat Clear Calc 87 Estimated GFR > 60 Glucose 115 H Calcium 8.1 L Magnesium 2.2 Total Bilirubin 1.0 AST 30 ALT 47 Alkaline Phosphatase 138 H C-Reactive Protein 7.2 H Total Protein 6.0 L Albumin 3.2 L Procalcitonin 0.4 Random Cortisol 10.60 Quality VTE Prophylaxis VTE prophylaxis: pharmacologic ordered Hospitalist [facility] Advance Care Plan I have confirmed that the patient's Advanced Care Plan is present, code status is documented, or surrogate decision maker is listed in patient medical record.: Yes Medication Reconciliation I have utilized all available resources to obtain, update and review the patients current medications (includes all prescriptions, OTC, herbals, cannabis, and nutritional supplements).: Yes
--- NOTE | 2025-04-02 10:33 | P.PNNP_ITS ---
Progress Note: A&P Assessment and Plan (1) Hyponatremia: Code(s): E87.1 - Hypo-osmolality and hyponatremia Status: Acute Assessment and Plan: * improvement noted * as noted by trend of labs since admission * normal sodium at baseline * suspect multifactorial: * prerenal factors on admisison (nausea + vomiting) * volume overload * pleural effusions * 3rd spacing from pancreatitis * CHF(?) - Echo pending * other(?) * risk factors of low sodium: * outpatient use of PPI * history of CVA * thyroid disease * BPH/urinary retention * pain * pain medications (narcotics) * issues on this current hospitalization * evaluation to date noted: * TSH okay * cortisol lowish - recheck in AM * urine electrolytes pending * SPE/UPE and serum/urine osmolality pending * s/p IV lasix (20mg) on 04/01 * may need to consider further intermittent dosing * however, given fluctuating oral intake, will follow * follow trend of repeat sodiums (2) Pancreatitis: Code(s): K85.90 - Acute pancreatitis without necrosis or infection, unspecified Status: Acute Assessment and Plan: * as noted on presentation * imaging to date reviewed * Gi following as well * slow and steady clinical improvement noted * however, more RUQ pain noted today... * further imaging needed? * diet being slowly advanced (3) Bilateral pleural effusion: Code(s): J90 - Pleural effusion, not elsewhere classified Status: Acute Assessment and Plan: * as noted by recent imaging * initially manifested by shortness of breath and difficulty with deep breathing * Pulmonary evaluation noted * no evidence of infection/pneumonia * suspect secondary to volume overload * Echo results noted: * left ventricular systolic function is normal, estimated at 60-65% * left ventricular diastolic function is grade II diastolic dysfunction * mild mitral valve regurgitation * mild tricuspid valve regurgitation * mild pulmonary hypertension, estimated pulmonary arterial systolic pressure is 42 mmHg * wean supplemental oxygen -- on room air currently * follow respiratory status (4) Transaminitis: Code(s): R74.01 - Elevation of levels of liver transaminase levels Status: Acute Assessment and Plan: * presumed to be secondary #2 * slow improvement noted * follow trend (5) Leukocytosis: Code(s): D72.829 - Elevated white blood cell count, unspecified Status: Acute Assessment and Plan: * no source of infection * blood cultures negative to date * due to #2 (?) (6) Hypertension: Qualifiers: Hypertension type: primary hypertension Qualified Code(s): I10 - Essential (primary) hypertension Code(s): I10 - Essential (primary) hypertension Status: Acute Assessment and Plan: * reasonable control * follow trend of hemodynamics Will continue to follow. L Subjective Date/time seen: 04/02/25 10:33 Interval history: Follow-up for acute hyponatremia. Sodium has improved by recent labs -- dropped to 126mmol/l yesterday afternoon and given IV lasix 20mg IV x 1; major complaint at the time of my visit is significant back pain that was quite significant overnight along with RUQ pain; diminished appetited noted as well; no other acute events earlier this morning. Exam 2 Narrative: General: elderly but WD/WN male in NAD Heart: normal S1 and S2; no rub Lungs: clear anteriorly; decreased at bases Abdomen: soft, mild TTP in RUQ, nondistended, positive bowel sounds Extremities: no cyanosis or clubbing; no edema Skin: warm and dry Objective Data Vital Signs Vital Signs: Vital Signs Temp Pulse Resp BP Pulse Ox O2 Del Method FiO2 04/02/25 08:52 99 Room Air 04/02/25 08:52 77 04/02/25 08:50 97.6 F 75 16 157/82 H 99 04/02/25 05:30 98.7 F 72 16 139/64 99 04/01/25 21:06 74 04/01/25 21:03 99.5 F 75 16 146/84 H 96 04/01/25 21:01 99.5 F 77 16 158/88 H 96 04/01/25 20:00 74 16 96 Room Air 21 04/01/25 14:34 96 Room Air 04/01/25 14:00 97.4 F L 77 16 131/65 95 Intake/Output Intake/Output: Intake & Output 03/30/25 03/31/25 04/01/25 04/02/25 23:59 23:59 23:59 23:59 Intake Total 1736 1350 2490 480 Output Total 200 400 925 400 Balance 4722 703 2902 80 Meds/Results Medications: Active Medications Generic Name Dose Route Start Last Admin Trade Name Freq PRN Reason Stop Dose Admin Acetaminophen 650 mg 03/27/25 15:10 04/02/25 00:10 Acetaminophen 325 Mg Tablet PO 650 mg Q4H PRN Administration Mild Pain (1-3) or Fever Aspirin 81 mg 03/28/25 09:00 04/02/25 08:52 Aspirin 81 Mg Enteric Tablet PO 81 mg DAILY DANYELL Administration Calcium Carbonate 200 mg 03/27/25 20:13 03/27/25 20:55 Calcium Carbonate (Tums) 500 Mg (200 Mg Elemental) PO 200 mg Q6H PRN Administration Indigestion Cyanocobalamin 500 mcg 03/28/25 09:00 04/02/25 08:52 Cyanocobalamin 500 Mcg Tablet PO 500 mcg DAILY DANYELL Administration Diclofenac Sodium 0 applic 03/28/25 21:00 04/01/25 21:08 Diclofenac Sodium 1% 100 Gm Gel (*Bkc) TOPICAL 1 applic HS DANYELL Administration Ezetimibe 10 mg 03/28/25 09:00 04/02/25 08:53 Ezetimibe 10 Mg Tablet PO 10 mg DAILY DANYELL Administration Enoxaparin Sodium 40 mg 03/28/25 09:00 04/02/25 08:53 Enoxaparin 40 Mg/0.4 Ml Syringe SUB-Q 40 mg DAILY DANYELL Administration Ergocalciferol 50,000 units 03/28/25 09:00 03/28/25 09:43 Ergocalciferol 50,000 Units Capsule PO 50,000 units Tu@0900 DANYELL Administration Finasteride 5 mg 03/27/25 21:00 04/01/25 21:07 Finasteride 5 Mg Tablet PO 5 mg HS DANYELL Administration Fish Oil 1 gm 03/28/25 21:00 04/01/25 21:08 [place] 3 Polyunsat Fatty Acids 1 Gm Cap PO 1 gm QHS DANYELL Administration Levothyroxine Sodium 125 mcg 03/28/25 06:30 04/02/25 05:53 Levothyroxine Sodium 125 Mcg Tablet PO 125 mcg DAILY@0630 DANYELL Administration Losartan Potassium 50 mg 03/28/25 09:00 04/02/25 08:53 Losartan Potassium 50 Mg Tablet PO 50 mg DAILY DANYELL Administration Meclizine HCl 12.5 mg 03/27/25 20:13 Meclizine Hcl 12.5 Mg Tablet PO TID PRN dizziness Morphine Sulfate 2 mg 03/27/25 14:35 04/02/25 02:15 Morphine Sulfate (*Crx) 2 Mg/Ml Inj IV PUSH 2 mg Q2H PRN Administration Pain Rated 7-10 Ondansetron HCl 4 mg 03/27/25 14:35 03/27/25 19:10 Ondansetron Inj 4 Mg/2 Ml Vial IV PUSH 4 mg Q4H PRN Administration Nausea Perflutren Lipid Microsphere 0 ml 04/01/25 09:22 Perflutren Lipid Microspheres 1.5 Ml Vial Diluted To 10 Ml Total Volume IV PUSH 04/04/25 09:22 ONCE PRN adequate visualization Protocol Polyethylene Glycol 17 gm 03/29/25 11:10 04/02/25 08:53 Polyethylene Glycol 3350 17 Gm Powd.Pack PO Not Given QAM DANYELL Propranolol HCl 20 mg 03/27/25 21:00 04/02/25 08:52 Propranolol Hcl 20 Mg Tablet PO 20 mg Q12H DANYELL Administration Senna/Docusate Sodium 1 tab 03/29/25 21:00 04/01/25 21:06 Senna/Docusate Sodium Tablet PO 1 tab HS DANYELL Administration Tamsulosin HCl 0.8 mg 03/27/25 21:00 04/01/25 21:06 Tamsulosin Hcl 0.4 Mg Capsule PO 0.8 mg HS DANYELL Administration Terbinafine HCl 250 mg 03/28/25 09:00 03/31/25 08:35 Terbinafine Hcl 250 Mg Tablet PO 250 mg TuFr@0900 DANYELL Administration Radiology Results: ITS Impressions Upper Quadrant Ultrasound 03/27/25 12:04 IMPRESSION: 1. Focal adenomyosis at the fundus of the gallbladder. No choledocholithiasis and no evident biliary or pancreatic ductal dilation.. 2. Normal appearance to the pancreas on ultrasound imaging although findings on prior CT are consistent with acute interstitial pancreatitis. Abdomen Ultrasound 03/29/25 10:33 IMPRESSION: 1. Focal adenomyomatosis at the fundus of the gallbladder. Otherwise unremarkable right upper quadrant ultrasound. Abdomen/Pelvis CT 03/29/25 23:27 IMPRESSION: 1. Pancreatitis with slightly increased fat stranding with no definite collections. 2. Trace of pericardial effusion. 3. Bilateral pleural effusion with adjacent atelectasis. 4. Nodule in the right middle lobe. 6 months follow-up CT is advised. Hepatobiliary Scan Nuclear Medicine 03/31/25 12:52 IMPRESSION: 1. No biliary obstruction but with delayed accumulation of activity within the gallbladder which occurs following morphine administration but which essentially precludes acute cholecystitis. Abdomen X-Ray 03/31/25 16:32 IMPRESSION: 1: No acute abdominal abnormality identified. Chest X-Ray 04/01/25 12:44 IMPRESSION: 1. Small bilateral pleural effusions with mild streaky left basilar atelectasis. Labs Labs: Laboratory Tests 04/02/25 04:20 04/02/25 04:20 Calcium 8.1 L Magnesium 2.2 Total Bilirubin 1.0 AST 30 ALT 47 Alkaline Phosphatase 138 H C-Reactive Protein 7.2 H Total Protein 6.0 L Albumin 3.2 L
[2025-04-02 10:59] LABS: Triglycerides 92 mg/dL (<150)
--- NOTE | 2025-04-02 13:43 | P.PNGI_ITS ---
Progress Note: A&P Assessment and Plan (1) Acute pancreatitis: Code(s): K85.90 - Acute pancreatitis without necrosis or infection, unspecified Status: Acute Assessment and Plan: pain today noted mild elevated AP no obvious cholecystitis will get MRCP to assess biliary system, crp has been trending down (2) Transaminitis: Code(s): R74.01 - Elevation of levels of liver transaminase levels Status: Acute Assessment and Plan: hida no cholecystitis he was evaluated by surgery, no need of lap tico but will get MRCP (3) Leukocytosis: Code(s): D72.829 - Elevated white blood cell count, unspecified Status: Acute Assessment and Plan: could be from pancreatitis abx discontinued (4) Abdominal pain: Code(s): R10.9 - Unspecified abdominal pain Status: Acute Assessment and Plan: resolved (5) Hyponatremia: Code(s): E87.1 - Hypo-osmolality and hyponatremia Status: Acute Assessment and Plan: managed by php consultant probably multifactorial (6) Pleural effusion: Code(s): J90 - Pleural effusion, not elsewhere classified Status: Acute Assessment and Plan: evaluated by pulmonary Subjective Date/time seen: 04/02/25 13:43 Interval history: ruq pain again and required morphine, no much appetite today Review of Systems Review of Systems: All systems reviewed & are unremarkable except as noted in HPI and below Exam Const: General: comfortable and no acute distress HENMT: Face/Nose/Sinus: Normal nares present Eyes: General: appearance normal, both eyes and all related structures Neck: Neck: supple Resp: Auscultation: clear to auscultation bilaterally Cardio: Rate: regular rate Rhythm: regular rhythm GI: Inspection: non-distended GI Palp: Yes Soft to palpation and Yes Tenderness to palpation present (GI) (mild ttp in ruq) Auscultation: normal b owel sounds Skin: General skin exam: normal color Neuro: Speech: normal speech Extrem: General: normal to inspection Psych: Mental Status: mental status grossly normal Objective Data Vital Signs Vital Signs: Vital Signs - 24 hr 04/01/25 14:00 04/01/25 14:34 04/01/25 20:00 Temperature 97.4 F L Pulse Rate 77 74 Respiratory Rate 16 16 Blood Pressure 131/65 Pulse Oximetry 95 96 96 Oxygen Delivery Room Air Room Air Fraction of Inspired Oxygen 21 05/03/25 21:01 04/01/25 21:03 04/01/25 21:06 Temperature 99.5 F 99.5 F Pulse Rate 77 75 74 Respiratory Rate 16 16 Blood Pressure 158/88 H 146/84 H Pulse Oximetry 96 96 Oxygen Delivery Fraction of Inspired Oxygen 04/02/25 05:30 04/02/25 08:50 04/02/25 08:52 Temperature 98.7 F 97.6 F Pulse Rate 72 75 77 Respiratory Rate 16 16 Blood Pressure 139/64 157/82 H Pulse Oximetry 99 99 Oxygen Delivery Fraction of Inspired Oxygen 04/02/25 08:52 Temperature Pulse Rate Respiratory Rate Blood Pressure Pulse Oximetry 99 Oxygen Delivery Room Air Fraction of Inspired Oxygen Intake/Output Intake/Output: Intake & Output 03/30/25 03/31/25 04/01/25 04/02/25 23:59 23:59 23:59 23:59 Intake Total 1736 1350 2490 480 Output Total 200 400 925 400 Balance 2449 434 6320 80 Meds/Results Medications: Active Medications Generic Name Dose Route Start Last Admin Trade Name Freq PRN Reason Stop Dose Admin Acetaminophen 650 mg 03/27/25 15:10 04/02/25 00:10 Acetaminophen 325 Mg Tablet PO 650 mg Q4H PRN Administration Mild Pain (1-3) or Fever Aspirin 81 mg 03/28/25 09:00 04/02/25 08:52 Aspirin 81 Mg Enteric Tablet PO 81 mg DAILY [facility] Administration Calcium Carbonate 200 mg 03/27/25 20:13 03/27/25 20:55 Calcium Carbonate (Tums) 500 Mg (200 Mg Elemental) PO 200 mg Q6H PRN Administration Indigestion Cyanocobalamin 500 mcg 03/28/25 09:00 04/02/25 08:52 Cyanocobalamin 500 Mcg Tablet PO 500 mcg DAILY [facility] Administration Diclofenac Sodium 0 applic 03/28/25 21:00 04/01/25 21:08 Diclofenac Sodium 1% 100 Gm Gel (*Bkc) TOPICAL 1 applic HS DANYELL Administration Ezetimibe 10 mg 03/28/25 09:00 04/02/25 08:53 Ezetimibe 10 Mg Tablet PO 10 mg DAILY DANYELL Administration Enoxaparin Sodium 40 mg 03/28/25 09:00 04/02/25 08:53 Enoxaparin 40 Mg/0.4 Ml Syringe SUB-Q 40 mg DAILY DANYELL Administration Ergocalciferol 50,000 units 03/28/25 09:00 03/28/25 09:43 Ergocalciferol 50,000 Units Capsule PO 50,000 units Tu@0900 DANYELL Administration Finasteride 5 mg 03/27/25 21:00 04/01/25 21:07 Finasteride 5 Mg Tablet PO 5 mg HS DANYELL Administration Fish Oil 1 gm 03/28/25 21:00 04/01/25 21:08 [place] 3 Polyunsat Fatty Acids 1 Gm Cap PO 1 gm QHS DANYELL Administration Levothyroxine Sodium 125 mcg 03/28/25 06:30 04/02/25 05:53 Levothyroxine Sodium 125 Mcg Tablet PO 125 mcg DAILY@0630 DANYELL Administration Losartan Potassium 50 mg 03/28/25 09:00 04/02/25 08:53 Losartan Potassium 50 Mg Tablet PO 50 mg DAILY DANYELL Administration Meclizine HCl 12.5 mg 03/27/25 20:13 Meclizine Hcl 12.5 Mg Tablet PO TID PRN dizziness Morphine Sulfate 2 mg 03/27/25 14:35 04/02/25 11:52 Morphine Sulfate (*Crx) 2 Mg/Ml Inj IV PUSH 2 mg Q2H PRN Administration Pain Rated 7-10 Ondansetron HCl 4 mg 03/27/25 14:35 03/27/25 19:10 Ondansetron Inj 4 Mg/2 Ml Vial IV PUSH 4 mg Q4H PRN Administration Nausea Perflutren Lipid Microsphere 0 ml 04/01/25 09:22 Perflutren Lipid Microspheres 1.5 Ml Vial Diluted To 10 Ml Total Volume IV PUSH 04/04/25 09:22 ONCE PRN adequate visualization Protocol Polyethylene Glycol 17 gm 03/29/25 11:10 04/02/25 08:53 Polyethylene Glycol 3350 17 Gm Powd.Pack PO Not Given QAM DANYELL Propranolol HCl 20 mg 03/27/25 21:00 04/02/25 08:52 Propranolol Hcl 20 Mg Tablet PO 20 mg Q12H DANYELL Administration Senna/Docusate Sodium 1 tab 03/29/25 21:00 04/01/25 21:06 Senna/Docusate Sodium Tablet PO 1 tab HS DANYELL Administration Tamsulosin HCl 0.8 mg 03/27/25 21:00 04/01/25 21:06 Tamsulosin Hcl 0.4 Mg Capsule PO 0.8 mg HS DANYELL Administration Terbinafine HCl 250 mg 03/28/25 09:00 03/31/25 08:35 Terbinafine Hcl 250 Mg Tablet PO 250 mg TuFr@0900 DANYELL Administration Radiology Results: ITS Impressions Upper Quadrant Ultrasound 03/27/25 12:04 IMPRESSION: 1. Focal adenomyosis at the fundus of the gallbladder. No choledocholithiasis and no evident biliary or pancreatic ductal dilation.. 2. Normal appearance to the pancreas on ultrasound imaging although findings on prior CT are consistent with acute interstitial pancreatitis. Abdomen Ultrasound 03/29/25 10:33 IMPRESSION: 1. Focal adenomyomatosis at the fundus of the gallbladder. Otherwise unremarkable right upper quadrant ultrasound. Abdomen/Pelvis CT 03/29/25 23:27 IMPRESSION: 1. Pancreatitis with slightly increased fat stranding with no definite collections. 2. Trace of pericardial effusion. 3. Bilateral pleural effusion with adjacent atelectasis. 4. Nodule in the right middle lobe. 6 months follow-up CT is advised. Hepatobiliary Scan Nuclear Medicine 03/31/25 12:52 IMPRESSION: 1. No biliary obstruction but with delayed accumulation of activity within the gallbladder which occurs following morphine administration but which essentially precludes acute cholecystitis. Abdomen X-Ray 03/31/25 16:32 IMPRESSION: 1: No acute abdominal abnormality identified. Chest X-Ray 04/01/25 12:44 IMPRESSION: 1. Small bilateral pleural effusions with mild streaky left basilar atelectasis. Labs Labs: Laboratory Results - last 24 hr 04/01/25 04/02/25 17:12 04:20 WBC 17.1 H RBC 5.02 Hgb 14.7 Hct 44.0 MCV 87.6 MCH 29.3 MCHC 33.4 RDW 14.0 Plt Count 235 MPV 9.6 Sodium 126 L 130 L Potassium 4.0 Chloride 100 Carbon Dioxide 23 Anion Gap 7 BUN 12 Creatinine 0.59 L Estim Creat Clear Calc 87 Estimated GFR > 60 Glucose 115 H Calcium 8.1 L Magnesium 2.2 Total Bilirubin 1.0 AST 30 ALT 47 Alkaline Phosphatase 138 H C-Reactive Protein 7.2 H Total Protein 6.0 L Albumin 3.2 L Triglycerides 92 Procalcitonin 0.4 Random Cortisol 10.60
[2025-04-02 14:15] LABS: Add Urine Microscopic? NO; Appearance Urine Clear (Clear); Bilirubin Urine Negative (Negative); Blood Urine Negative (Negative); Color Urine Yellow (Yellow); Glucose Urine UA Trace mg/dL (Negative); Ketones Urine Negative (Negative); Leukocyte Esterase Ur Negative LEU/UL (Negative); Nitrate Urine Negative (Negative); Protein Urine Negative (Negative); Specific Grav Ur 1.011 (1.001-1.035)
[2025-04-02 14:37] LABS: Creatinine Urine 29.7 mg/dL; Total Protein Urine Random 22 mg/dL; Ur Ttl Prot Creatinine Ratio 0.74 mg/mg (0-0.20)
[2025-04-02 14:39] LABS: Urea Random Urine 347 MG/DL
[2025-04-02 14:50] LABS: Sodium Urine Random 154 meq/L
[2025-04-02] MEDS: TAMSULOSIN HCL 0.4 MG CAPSULE 0.8 MG PO (20:25)
[2025-04-02] MEDS: MELATONIN 5 MG TABLET PO (20:25)
[2025-04-02] MEDS: DICLOFENAC SODIUM 1% 100 GM GEL (*BKC) TOPICAL (20:25)
[2025-04-02] MEDS: OMEGA 3 POLYUNSAT FATTY ACIDS 1 GM CAP PO (20:25)
[2025-04-02] MEDS: SENNA/DOCUSATE SODIUM TABLET 1 TAB PO (20:25)
[2025-04-02] MEDS: FINASTERIDE 5 MG TABLET PO (20:26)
[2025-04-03] VITALS (7 sets, daily range): BP systolic 131–161; BP diastolic 64–89; PULSE 71–84; RESP 16–20; TEMP 36.3–36.8; O2SAT 92–97; BMI 29.2
[2025-04-03 04:59] LABS: Hemoglobin 15.3 g/dL (14.0-18.0); Mean Corpuscular HGB Conc 33.3 g/dl (32-36); Mean Corpuscular Hemoglobin 29.3 pg (26-34); Mean Platelet Volume 9.8 fl (7.4-10.4); Platelet Count Result 257 k/mm3 (150-375); Red Blood Count 5.23 M/mm3 (4.6-6.20); Red Cell Distribution Width 14.1 % (11.5-14.5); White Blood Count 19.6 K/mm3 (4.5-10.0)
[2025-04-03] MEDS: LEVOTHYROXINE SODIUM 125 MCG TABLET PO (05:00)
[2025-04-03] MEDS: ACETAMINOPHEN 325 MG TABLET 650 MG PO ×2 (05:00→20:40)
[2025-04-03 05:17] LABS: Alanine Aminotransferase 46 U/L (6-50); Albumin Level 3.6 g/dL (3.5-5.1); Alkaline Phosphatase 139 U/L (38-126); Anion Gap 11 mmol/L (4-12); Aspartate Amino Transferase 29 U/L (17-59); Bilirubin,Total 1.2 mg/dL (0.2-1.3); Blood Urea Nitrogen 8 mg/dL (9-20); Calcium 8.7 mg/dL (8.4-10.2); Carbon Dioxide 23 mmol/L (22-30); Chloride 93 mmol/L (98-107); Estimated CRCL calculation 91 ml/min; Estimated Glomerular Filt Rate > 60; Glucose 116 mg/dL (65-110); Magnesium 2.1 mg/dL (1.6-2.3); Potassium 4.5 mmol/L (3.4-5.0); Sodium 127 mmol/L (137-145)
[2025-04-03 05:24] LABS: CRP 8.2 mg/dL (<1.0); Lipase 68 U/L (23-300)
[2025-04-03 05:32] LABS: Procalcitonin 0.3 ng/mL
--- NOTE | 2025-04-03 07:24 | PM.IMPN ---
Progress Note: A&P Assessment and Plan (1) Hyponatremia: Code(s): E87.1 - Hypo-osmolality and hyponatremia Status: Acute Assessment and Plan: Na 133 on admission and has been downtrending, currently 127 on am labs Unable to give fluids due to patients on going pleural effusion requiring oxygen Unable to further diurese given pancreatitis Nephrology consulted check cortisol, SPE/UPE, serum/urine osmolality, and urine electrolytes s/p lasix on 04/01, closely monitor further diuresis with pancreatitis (2) Acute pancreatitis: Code(s): K85.90 - Acute pancreatitis without necrosis or infection, unspecified Status: Acute Assessment and Plan: Nausea, vomiting, abdominal pain. Takes Wegovy for weight loss in his last injection was 03/26. He denies any recent use of alcohol, states he quit 19 years ago. Lipase 17,543, repeat WNL 04/03 LFT's improved since admission but slight increase overnight 03/27 Bili 1.6>1, AST 295>25<30, ALT 172<219>124>46<47, Alk phos 121>99<138 03/27 CT of the abdomen and pelvis show acute interstitial pancreatitis - Right upper quadrant ultrasound showed focal adenomyosis at the fundus of the gallbladder, no choledocholithiasis and no evidence of biliary or pancreatic ductal dilation, normal appearance to the pancreas - Repeat US to reassess biliary pancreatitis concern Focal adenomyomatosis at the fundus of the gallbladder. 03/27 RUQ US Focal adenomyomatosis at the fundus of the gallbladder. Otherwise unremarkable right upper quadrant ultrasound. 03/29 CT abdomen/pelvis showed: 1. Pancreatitis with slightly increased fat stranding with no definite collections. 2. Trace of pericardial effusion. 3. Bilateral pleural effusion with adjacent atelectasis. 4. Nodule in the right middle lobe. 6 months follow-up CT is advised. pancreatitis with slightly increased fat stranding with no definite collections 03/31 HIDA scan showed: No biliary obstruction but with delayed accumulation of activity within the gallbladder which occurs following morphine administration but which essentially precludes acute cholecystitis. 04/03 MRCP showed: Findings compatible with pancreatitis, especially involved the head and neck, with probable developing pancreatic necrosis and/or pseudocyst. Discussed results with Dr. Swann and no acute intervention or transfer required at this time as patient remains stable and is tolerating a diet. Ddx: acute pancreatitis primarily includes biliary pancreatitis versus alcohol-induced pancreatitis or medication related No overt gallstones or sludge were observed, the presence of gallbladder adenomyosis raises the possibility of subtle, masked microlithiasis or sludge as an underlying cause. Leukocytosis is most likely inflammatory from the pancreatitis, remains stable despite no antibiotics PLAN GI consulted, appreciate recommendations - Given 1.5 L IV fluids in the ED, was on LR 125 ml/hr however DC for worsening SOB - Antibiotics discontinued as concern for cholangitis has resolved - Diet: low fiber, tolerating but more pain overnight as noted - Repeat lipase and LFTs WNL. Triglycerides WNL. --Would not restart Wegovy in the future (3) Pleural effusion: Code(s): J90 - Pleural effusion, not elsewhere classified Status: Acute Assessment and Plan: WBC elevated at 22.4, compared to 13.1 on 03/28. Remains afebrile. Endorsing increased SOB and difficulty with deep breathing. CXR: Mild opacities in the left lower lung zone likely combination of left pericardial fat pad and atelectasis with differential including pneumonia in the appropriate clinical setting. Appears worse compared to CXR from 03/27 which showed left basilar atelectasis vs pneumonia CT abd/pelvis: bilateral pleural effusion with adjacent atelectasis - started on HAP tx however not HAP per pulmonology, antibiotics discontinued - MRSA negative - Viral PCR: Flu/COVID/RSV ordered - Monitor vital signs, I&Os, neuro status and patient is a fall risk - Follow WBC, serum electrolytes, temperature curves and cultures - Send sputum cultures - Echo ordered to evaluate heart function given pleural effusions. Echo showed LVEF 60-65% with grade II diastolic dysfunction - Pulmonology consulted by GI Does not appear to be HAP, likely pancreatitis with volume overload Recommend minimizing IV fluids and begin mariano diuresis as tolerated from pancreatic perspective Diuresis is limited due to pancreatitis MRCP showing small bilateral effusions (improved from prior imaging). Weaned to room air. (4) Transaminitis: Code(s): R74.01 - Elevation of levels of liver transaminase levels Status: Acute Assessment and Plan: Likely secondary to acute pancreatitis Downtrending, continue to monitor (5) Elevated bilirubin: Code(s): R17 - Unspecified jaundice Status: Acute Assessment and Plan: Bilirubin 1.6 on admission, returned to 1.6 on am labs Continue to trend (6) Adenomyomatosis of gallbladder: Code(s): D13.5 - Benign neoplasm of extrahepatic bile ducts Status: Acute Assessment and Plan: The patient was found to have adenomyomatosis in the fundus of the gallbladder. This is an incidental finding on ultrasound. This is not a finding that warrants a cholecystectomy and would not cause the biliary pancreatitis. (7) Pulmonary nodule: Code(s): R91.1 - Solitary pulmonary nodule Status: Acute Assessment and Plan: CT abd/pelvis showed a nodule in the right middle lobe Follow up in the outpatient setting with CT in 6 months (8) Hypertension: Qualifiers: Hypertension type: primary hypertension Qualified Code(s): I10 - Essential (primary) hypertension Code(s): I10 - Essential (primary) hypertension Status: Acute Assessment and Plan: Chronic, continue home medications - losartan 50 mg daily - propranolol 20 mg BID - blood pressures remain stable, continue to monitor (9) Hyperlipidemia: Qualifiers: Hyperlipidemia type: pure hypercholesterolemia Qualified Code(s): E78.00 - Pure hypercholesterolemia, unspecified Code(s): E78.5 - Hyperlipidemia, unspecified Status: Acute Assessment and Plan: Continue Zeita, aspirin (10) Hypothyroidism: Qualifiers: Hypothyroidism type: acquired Qualified Code(s): E03.9 - Hypothyroidism, unspecified Code(s): E03.9 - Hypothyroidism, unspecified Status: Acute Assessment and Plan: Continue Synthroid Time Spent With Patient Time with patient: 25 - 35 minutes Subjective Date/time seen: 04/03/25 07:24 Interval history: 84-year-old male with a significant past medical history of seizure, CVA, basal cell carcinoma, alcohol abuse, hypothyroidism, arthritis, hypertension, hyperlipidemia, former smoker who presented to the hospital for evaluation of abdominal pain, nausea, vomiting. Patient is pleasant lying comfortably in bed. He continues to endorse a decreased appetite but denies any nausea/vomiting or abdominal pain. He has no other complaints either denying chest pain, palpitations, shortness of breath. He has been able to ambulate throughout the room without dizziness/lightheadedness. Discussed MRCP results with GI Dr. Swann and no acute intervention or transfer required at this time given patient remains stable and tolerating diet. Review of Systems Review of Systems: All systems reviewed & are unremarkable except as noted in HPI and below Exam Narrative: AF HR 77 RR 16 SpO2 97 RA BP 149/85 General: male in no acute respiratory distress who is nontoxic appearing, sitting up in bed. HEENT: Normocephalic. Atraumatic. Extraocular movement intact. Sclera clear and anicteric. No facial asymmetry. Chest: Lungs are clear to auscultation bilaterally with slight coarseness to bases. No wheezes. CV: Heart was regular rate and rhythm. Abd: Abdomen was soft. Nontender. Nondistended. Positive bowel sounds. Ext: No clubbing, cyanosis, or edema. DP pulses bilaterally. Neuro: Patient is alert and oriented x4. Speech is clear. Objective Data Vital Signs Vital Signs: Vital Signs - 24 hr 04/02/25 08:50 04/02/25 08:52 04/02/25 08:52 Temperature 97.6 F Pulse Rate 75 77 Respiratory Rate 16 Blood Pressure 157/82 H Pulse Oximetry 99 99 Oxygen Delivery Room Air Fraction of Inspired Oxygen 04/02/25 14:00 04/02/25 19:56 04/02/25 20:00 Temperature 97.9 F 98.5 F Pulse Rate 75 83 80 Respiratory Rate 12 18 18 Blood Pressure 148/93 H 150/93 H Pulse Oximetry 98 98 98 Oxygen Delivery Room Air Fraction of Inspired Oxygen 21 04/02/25 20:25 04/03/25 04:48 Temperature 98.2 F Pulse Rate 80 71 Respiratory Rate 16 Blood Pressure 131/64 Pulse Oximetry 95 Oxygen Delivery Fraction of Inspired Oxygen Intake/Output Intake/Output: Intake & Output 03/31/25 04/01/25 04/02/25 04/03/25 23:59 23:59 23:59 23:59 Intake Total 1350 2490 2530 Output Total 400 925 900 Balance 950 1565 1630 Meds/Results Medications: Active Medications Generic Name Dose Route Start Last Admin Trade Name Freq PRN Reason Stop Dose Admin Acetaminophen 650 mg 03/27/25 15:10 04/03/25 05:00 Acetaminophen 325 Mg Tablet PO 650 mg Q4H PRN Administration Mild Pain (1-3) or Fever Aspirin 81 mg 03/28/25 09:00 04/02/25 08:52 Aspirin 81 Mg Enteric Tablet PO 81 mg DAILY DANYELL Administration Calcium Carbonate 200 mg 03/27/25 20:13 03/27/25 20:55 Calcium Carbonate (Tums) 500 Mg (200 Mg Elemental) PO 200 mg Q6H PRN Administration Indigestion Cyanocobalamin 500 mcg 03/28/25 09:00 04/02/25 08:52 Cyanocobalamin 500 Mcg Tablet PO 500 mcg DAILY DANYELL Administration Diclofenac Sodium 0 applic 03/28/25 21:00 04/02/25 20:25 Diclofenac Sodium 1% 100 Gm Gel (*Bkc) TOPICAL 1 applic HS DANYELL Administration Ezetimibe 10 mg 03/28/25 09:00 04/02/25 08:53 Ezetimibe 10 Mg Tablet PO 10 mg DAILY DANYELL Administration Enoxaparin Sodium 40 mg 03/28/25 09:00 04/02/25 08:53 Enoxaparin 40 Mg/0.4 Ml Syringe SUB-Q 40 mg DAILY DANYELL Administration Ergocalciferol 50,000 units 03/28/25 09:00 03/28/25 09:43 Ergocalciferol 50,000 Units Capsule PO 50,000 units Tu@0900 DANYELL Administration Finasteride 5 mg 03/27/25 21:00 04/02/25 20:26 Finasteride 5 Mg Tablet PO 5 mg HS DANYELL Administration Fish Oil 1 gm 03/28/25 21:00 04/02/25 20:25 [place] 3 Polyunsat Fatty Acids 1 Gm Cap PO 1 gm QHS DANYELL Administration Levothyroxine Sodium 125 mcg 03/28/25 06:30 04/03/25 05:00 Levothyroxine Sodium 125 Mcg Tablet PO 125 mcg DAILY@0630 DANYELL Administration Losartan Potassium 50 mg 03/28/25 09:00 04/02/25 08:53 Losartan Potassium 50 Mg Tablet PO 50 mg DAILY DANYELL Administration Meclizine HCl 12.5 mg 03/27/25 20:13 Meclizine Hcl 12.5 Mg Tablet PO TID PRN dizziness Melatonin 5 mg 04/02/25 19:38 04/02/25 20:25 Melatonin 5 Mg Tablet PO 5 mg HS PRN Administration Insomnia Morphine Sulfate 2 mg 03/27/25 14:35 04/02/25 11:52 Morphine Sulfate (*Crx) 2 Mg/Ml Inj IV PUSH 2 mg Q2H PRN Administration Pain Rated 7-10 Ondansetron HCl 4 mg 03/27/25 14:35 03/27/25 19:10 Ondansetron Inj 4 Mg/2 Ml Vial IV PUSH 4 mg Q4H PRN Administration Nausea Perflutren Lipid Microsphere 0 ml 04/01/25 09:22 Perflutren Lipid Microspheres 1.5 Ml Vial Diluted To 10 Ml Total Volume IV PUSH 04/04/25 09:22 ONCE PRN adequate visualization Protocol Polyethylene Glycol 17 gm 03/29/25 11:10 04/02/25 08:53 Polyethylene Glycol 3350 17 Gm Powd.Pack PO Not Given QAM DANYELL Propranolol HCl 20 mg 03/27/25 21:00 04/02/25 20:25 Propranolol Hcl 20 Mg Tablet PO 20 mg Q12H DANYELL Administration Senna/Docusate Sodium 1 tab 03/29/25 21:00 04/02/25 20:25 Senna/Docusate Sodium Tablet PO 1 tab HS DANYELL Administration Tamsulosin HCl 0.8 mg 03/27/25 21:00 04/02/25 20:25 Tamsulosin Hcl 0.4 Mg Capsule PO 0.8 mg HS DANYELL Administration Terbinafine HCl 250 mg 03/28/25 09:00 03/31/25 08:35 Terbinafine Hcl 250 Mg Tablet PO 250 mg TuFr@0900 DANYELL Administration Radiology Results: ITS Impressions Upper Quadrant Ultrasound 03/27/25 12:04 IMPRESSION: 1. Focal adenomyosis at the fundus of the gallbladder. No choledocholithiasis and no evident biliary or pancreatic ductal dilation.. 2. Normal appearance to the pancreas on ultrasound imaging although findings on prior CT are consistent with acute interstitial pancreatitis. Abdomen Ultrasound 03/29/25 10:33 IMPRESSION: 1. Focal adenomyomatosis at the fundus of the gallbladder. Otherwise unremarkable right upper quadrant ultrasound. Abdomen/Pelvis CT 03/29/25 23:27 IMPRESSION: 1. Pancreatitis with slightly increased fat stranding with no definite collections. 2. Trace of pericardial effusion. 3. Bilateral pleural effusion with adjacent atelectasis. 4. Nodule in the right middle lobe. 6 months follow-up CT is advised. Hepatobiliary Scan Nuclear Medicine 03/31/25 12:52 IMPRESSION: 1. No biliary obstruction but with delayed accumulation of activity within the gallbladder which occurs following morphine administration but which essentially precludes acute cholecystitis. Abdomen X-Ray 03/31/25 16:32 IMPRESSION: 1: No acute abdominal abnormality identified. Chest X-Ray 04/01/25 12:44 IMPRESSION: 1. Small bilateral pleural effusions with mild streaky left basilar atelectasis. Thoracic Spine X-Ray 04/02/25 18:05 IMPRESSION: No acute fracture or traumatic malalignment detected in the thoracic spine. Lumbar Spine X-Ray 04/02/25 19:31 IMPRESSION: Multilevel lumbar degenerative disc disease, moderate at L2-3. Moderate mid and lower lumbar facet arthropathy. Labs Labs: Laboratory Results - last 24 hr 04/02/25 04/02/25 04/02/25 04:20 14:01 14:01 WBC RBC Hgb Hct MCV MCH MCHC RDW Plt Count MPV Sodium Potassium Chloride Carbon Dioxide Anion Gap BUN Creatinine Estim Creat Clear Calc Estimated GFR Glucose Calcium Magnesium Total Bilirubin AST ALT Alkaline Phosphatase C-Reactive Protein Total Protein Albumin Triglycerides 92 Lipase Procalcitonin Urine Color Yellow Urine Appearance Clear Urine pH 8.0 Ur Specific [place] 1.011 Urine Protein Negative Urine Glucose (UA) Trace H Urine Ketones Negative Ur Blood (Man) Negative Urine Nitrate Negative Urine Bilirubin Negative Urine Urobilinogen 1.0 Leukocyte Esterase Rfl Negative U Random Total Protein Cancelled 22 Ur Random Sodium 154 Ur Random Urea 347 Urine Total Volume Cancelled Urine Creatinine 29.7 Protein/Creat Ratio 2 04/02/25 04/03/25 14:01 04:25 WBC 19.6 H RBC 5.23 Hgb 15.3 Hct 46.0 MCV 88.0 MCH 29.3 MCHC 33.3 RDW 14.1 Plt Count 257 MPV 9.8 Sodium 127 L Potassium 4.5 Chloride 93 L Carbon Dioxide 23 Anion Gap 11 BUN 8 L Creatinine 0.56 L Estim Creat Clear Calc 91 Estimated GFR > 60 Glucose 116 H Calcium 8.7 Magnesium 2.1 Total Bilirubin 1.2 AST 29 ALT 46 Alkaline Phosphatase 139 H C-Reactive Protein 8.2 H Total Protein 6.0 L Albumin 3.6 Triglycerides Lipase 68 Procalcitonin 0.3 Urine Color Urine Appearance Urine pH Ur Specific [place] Urine Protein Urine Glucose (UA) Urine Ketones Ur Blood (Man) Urine Nitrate Urine Bilirubin Urine Urobilinogen Leukocyte Esterase Rfl U Random Total Protein Ur Random Sodium Ur Random Urea Urine Total Volume Urine Creatinine Cancelled Protein/Creat Ratio 2 0.74 H Quality VTE Prophylaxis VTE prophylaxis: pharmacologic ordered
[2025-04-03] MEDS: CYANOCOBALAMIN 500 MCG TABLET PO (08:32)
[2025-04-03] MEDS: PROPRANOLOL HCL 20 MG TABLET PO ×2 (08:32→20:40)
[2025-04-03] MEDS: LOSARTAN POTASSIUM 50 MG TABLET PO (08:32)
[2025-04-03] MEDS: ASPIRIN 81 MG ENTERIC TABLET PO (08:32)
[2025-04-03] MEDS: EZETIMIBE 10 MG TABLET PO (08:32)
[2025-04-03] MEDS: polyethylene glycoL 3350 17 GM POWD.PACK PO (08:33)
[2025-04-03] MEDS: ENOXAPARIN 40 MG/0.4 ML SYRINGE SUB-Q (08:37)
--- NOTE | 2025-04-03 11:03 | P.PNNP_ITS ---
Progress Note: A&P Assessment and Plan (1) Hyponatremia: Code(s): E87.1 - Hypo-osmolality and hyponatremia Status: Acute Assessment and Plan: * continues to fluctuate * as noted by trend of labs since admission * normal sodium at baseline * suspect multifactorial: * prerenal factors on admission (nausea + vomiting) * volume overload * pleural effusions * 3rd spacing from pancreatitis * CHF(?) - Echo pending * other(?) * risk factors of low sodium: * outpatient use of PPI * history of CVA * thyroid disease * BPH/urinary retention * pain * pain medications (narcotics) * issues on this current hospitalization * evaluation to date noted: * TSH okay * cortisol lowish - recheck in AM * urine electrolytes non-prerenal * SPE/UPE and serum/urine osmolality pending * s/p IV lasix (20mg) on 04/01 * may need to consider further intermittent dosing * however, given fluctuating oral intake, will follow * follow trend of repeat sodiums (2) Pancreatitis: Code(s): K85.90 - Acute pancreatitis without necrosis or infection, unspecified Status: Acute Assessment and Plan: * as noted on presentation * imaging to date reviewed * Gi following as well * slow and steady clinical improvement noted * however, more RUQ pain noted on 04/02 * MRCP results noted * diet being slowly advanced (3) Bilateral pleural effusion: Code(s): J90 - Pleural effusion, not elsewhere classified Status: Acute Assessment and Plan: * as noted by recent imaging * initially manifested by shortness of breath and difficulty with deep breathing * Pulmonary evaluation noted * no evidence of infection/pneumonia * suspect secondary to volume overload * Echo results noted: * left ventricular systolic function is normal, estimated at 60-65% * left ventricular diastolic function is grade II diastolic dysfunction * mild mitral valve regurgitation * mild tricuspid valve regurgitation * mild pulmonary hypertension, estimated pulmonary arterial systolic pressure is 42 mmHg * wean supplemental oxygen -- on room air currently * follow respiratory status (4) Transaminitis: Code(s): R74.01 - Elevation of levels of liver transaminase levels Status: Acute Assessment and Plan: * presumed to be secondary #2 * slow improvement noted * follow trend (5) Leukocytosis: Code(s): D72.829 - Elevated white blood cell count, unspecified Status: Acute Assessment and Plan: * no source of infection * blood cultures negative to date * due to #2 (?) (6) Hypertension: Qualifiers: Hypertension type: primary hypertension Qualified Code(s): I10 - Essential (primary) hypertension Code(s): I10 - Essential (primary) hypertension Status: Acute Assessment and Plan: * reasonable control * follow trend of hemodynamics Will continue to follow. L Subjective Date/time seen: 04/03/25 11:03 Interval history: Follow-up for acute hyponatremia. Sodium down again (130 --> 127) as noted by recent labs; resting comfortably in bed at the time of my visit; still with decreased appetite but denies any issues/problems with nausea, vomiting, or worsening abdominal pain; results of MRCP noted/reviewed. Exam 2 Narrative: General: elderly but WD/WN male in NAD Heart: normal S1 and S2; no rub Lungs: clear anteriorly; decreased at bases Abdomen: soft, mild TTP in RUQ, nondistended, positive bowel sounds Extremities: no cyanosis or clubbing; no edema Skin: warm and intact Objective Data Vital Signs Vital Signs: Vital Signs Temp Pulse Resp BP Pulse Ox O2 Del Method FiO2 04/03/25 08:32 97 Room Air 04/03/25 08:32 77 16 97 Room Air 21 04/03/25 08:32 77 04/03/25 08:30 97.5 F L 77 16 149/85 H 97 04/03/25 04:48 98.2 F 71 16 131/64 95 04/02/25 20:25 80 04/02/25 20:00 80 18 98 Room Air 21 04/02/25 19:56 98.5 F 83 18 150/93 H 98 04/02/25 14:00 97.9 F 75 12 148/93 H 98 Intake/Output Intake/Output: Intake & Output 03/31/25 04/01/25 04/02/25 04/03/25 23:59 23:59 23:59 23:59 Intake Total 1350 2490 2530 Output Total 400 925 900 Balance 950 1565 1630 Meds/Results Medications: Active Medications Generic Name Dose Route Start Last Admin Trade Name Freq PRN Reason Stop Dose Admin Acetaminophen 650 mg 03/27/25 15:10 04/03/25 05:00 Acetaminophen 325 Mg Tablet PO 650 mg Q4H PRN Administration Mild Pain (1-3) or Fever Aspirin 81 mg 04/29/25 09:00 04/03/25 08:32 Aspirin 81 Mg Enteric Tablet PO 81 mg DAILY DANYELL Administration Calcium Carbonate 200 mg 03/27/25 20:13 03/27/25 20:55 Calcium Carbonate (Tums) 500 Mg (200 Mg Elemental) PO 200 mg Q6H PRN Administration Indigestion Cyanocobalamin 500 mcg 03/28/25 09:00 04/03/25 08:32 Cyanocobalamin 500 Mcg Tablet PO 500 mcg DAILY DANYELL Administration Diclofenac Sodium 0 applic 03/28/25 21:00 04/02/25 20:25 Diclofenac Sodium 1% 100 Gm Gel (*Bkc) TOPICAL 1 applic HS DANYELL Administration Ezetimibe 10 mg 03/28/25 09:00 04/03/25 08:32 Ezetimibe 10 Mg Tablet PO 10 mg DAILY DANYELL Administration Enoxaparin Sodium 40 mg 03/28/25 09:00 04/03/25 08:37 Enoxaparin 40 Mg/0.4 Ml Syringe SUB-Q 40 mg DAILY DANYELL Administration Ergocalciferol 50,000 units 03/28/25 09:00 03/28/25 09:43 Ergocalciferol 50,000 Units Capsule PO 50,000 units Tu@0900 DANYELL Administration Finasteride 5 mg 03/27/25 21:00 04/02/25 20:26 Finasteride 5 Mg Tablet PO 5 mg HS DANYELL Administration Fish Oil 1 gm 03/28/25 21:00 04/02/25 20:25 [place] 3 Polyunsat Fatty Acids 1 Gm Cap PO 1 gm QHS DANYELL Administration Levothyroxine Sodium 125 mcg 03/28/25 06:30 04/03/25 05:00 Levothyroxine Sodium 125 Mcg Tablet PO 125 mcg DAILY@0630 DANYELL Administration Losartan Potassium 50 mg 03/28/25 09:00 04/03/25 08:32 Losartan Potassium 50 Mg Tablet PO 50 mg DAILY DANYELL Administration Meclizine HCl 12.5 mg 03/27/25 20:13 Meclizine Hcl 12.5 Mg Tablet PO TID PRN dizziness Melatonin 5 mg 04/02/25 19:38 04/02/25 20:25 Melatonin 5 Mg Tablet PO 5 mg HS PRN Administration Insomnia Morphine Sulfate 2 mg 03/27/25 14:35 04/02/25 11:52 Morphine Sulfate (*Crx) 2 Mg/Ml Inj IV PUSH 2 mg Q2H PRN Administration Pain Rated 7-10 Ondansetron HCl 4 mg 03/27/25 14:35 03/27/25 19:10 Ondansetron Inj 4 Mg/2 Ml Vial IV PUSH 4 mg Q4H PRN Administration Nausea Perflutren Lipid Microsphere 0 ml 04/01/25 09:22 Perflutren Lipid Microspheres 1.5 Ml Vial Diluted To 10 Ml Total Volume IV PUSH 04/04/25 09:22 ONCE PRN adequate visualization Protocol Polyethylene Glycol 17 gm 03/29/25 11:10 04/03/25 08:33 Polyethylene Glycol 3350 17 Gm Powd.Pack PO 17 gm QAM DANYELL Administration Propranolol HCl 20 mg 03/27/25 21:00 04/03/25 08:32 Propranolol Hcl 20 Mg Tablet PO 20 mg Q12H DANYELL Administration Senna/Docusate Sodium 1 tab 03/29/25 21:00 04/02/25 20:25 Senna/Docusate Sodium Tablet PO 1 tab HS DANYELL Administration Tamsulosin HCl 0.8 mg 03/27/25 21:00 04/02/25 20:25 Tamsulosin Hcl 0.4 Mg Capsule PO 0.8 mg HS DANYELL Administration Terbinafine HCl 250 mg 03/28/25 09:00 03/31/25 08:35 Terbinafine Hcl 250 Mg Tablet PO 250 mg TuFr@0900 DANYELL Administration Radiology Results: ITS Impressions Upper Quadrant Ultrasound 03/27/25 12:04 IMPRESSION: 1. Focal adenomyosis at the fundus of the gallbladder. No choledocholithiasis and no evident biliary or pancreatic ductal dilation.. 2. Normal appearance to the pancreas on ultrasound imaging although findings on prior CT are consistent with acute interstitial pancreatitis. Abdomen Ultrasound 03/29/25 10:33 IMPRESSION: 1. Focal adenomyomatosis at the fundus of the gallbladder. Otherwise unremarkable right upper quadrant ultrasound. Abdomen/Pelvis CT 03/29/25 23:27 IMPRESSION: 1. Pancreatitis with slightly increased fat stranding with no definite collections. 2. Trace of pericardial effusion. 3. Bilateral pleural effusion with adjacent atelectasis. 4. Nodule in the right middle lobe. 6 months follow-up CT is advised. Hepatobiliary Scan Nuclear Medicine 03/31/25 12:52 IMPRESSION: 1. No biliary obstruction but with delayed accumulation of activity within the gallbladder which occurs following morphine administration but which essentially precludes acute cholecystitis. Abdomen X-Ray 03/31/25 16:32 IMPRESSION: 1: No acute abdominal abnormality identified. Chest X-Ray 04/01/25 12:44 IMPRESSION: 1. Small bilateral pleural effusions with mild streaky left basilar atelectasis. Thoracic Spine X-Ray 04/02/25 18:05 IMPRESSION: No acute fracture or traumatic malalignment detected in the thoracic spine. Lumbar Spine X-Ray 04/02/25 19:31 IMPRESSION: Multilevel lumbar degenerative disc disease, moderate at L2-3. Moderate mid and lower lumbar facet arthropathy. MRCP 04/03/25 08:02 Impression: Findings compatible with pancreatitis, especially involving the head and neck, with probable developing pancreatic necrosis and/or pseudocyst. No evidence of cholelithiasis or choledocholithiasis. Small bilateral pleural effusions. Labs Labs: Laboratory Tests 04/03/25 04:25 04/03/25 04:25 Calcium 8.7 Magnesium 2.1 Total Bilirubin 1.2 AST 29 ALT 46 Alkaline Phosphatase 139 H C-Reactive Protein 8.2 H Total Protein 6.0 L Albumin 3.6 Lipase 68 Procalcitonin 0.3
[2025-04-03 12:28] LABS: Protein, Total 4.9 g/dL (6.1-8.1)
[2025-04-03 14:24] LABS: Kappa\\Lambda Light Chains 1.08 (0.26-1.65); Lambda Light Chain 27.3 mg/L (5.7-26.3)
--- NOTE | 2025-04-03 17:01 | WPDGIPROGNO ---
Progress Note: A&P Assessment and Plan (1) Acute pancreatitis: Code(s): K85.90 - Acute pancreatitis without necrosis or infection, unspecified Status: Acute Assessment and Plan: mrcp normal bile duct, no GS but noted irregular developing fluid collection in the region of pancreatic head and neck, which could reflect pancreatic necrosis and/or developing pseudocyst. he is symptomatically doing well and tolerating diet no need of intervention at this point but will monitor and based on course or change in symptoms then may need imaging later on leukocytosis also could be from pancreatic findings, no abx hopefull home soon (2) Transaminitis: Code(s): R74.01 - Elevation of levels of liver transaminase levels Status: Acute Assessment and Plan: hida no cholecystitis he was evaluated by surgery, no need of lap tico (3) Leukocytosis: Code(s): D72.829 - Elevated white blood cell count, unspecified Status: Acute Assessment and Plan: could be from pancreatitis abx discontinued (4) Hyponatremia: Code(s): E87.1 - Hypo-osmolality and hyponatremia Status: Acute Assessment and Plan: 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 by automotive 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 representative probably multifactorial (5) Pleural effusion: Code(s): J90 - Pleural effusion, not elsewhere classified Status: Acute Assessment and Plan: evaluated by pulmonary Subjective Date/time seen: 04/03/25 17:01 Interval history: today no pain or nausea he is comfortable eating but still poor appetite Review of Systems Review of Systems: All systems reviewed & are unremarkable except as noted in HPI and below Exam Const: General: comfortable and no acute distress HENMT: Face/Nose/Sinus: Normal nares present Eyes: General: appearance normal, both eyes and all related structures Neck: Neck: supple Resp: Auscultation: clear to auscultation bilaterally Cardio: Rate: regular rate Rhythm: regular rhythm GI: Inspection: non-distended GI Palp: Yes Soft to palpation and No Tenderness to palpation present (GI) Auscultation: normal bowel sounds Skin: General skin exam: normal color Neuro: Speech: normal speech Extrem: General: normal to inspection Psych: Mental Status: mental status grossly normal Objective Data Vital Signs Vital Signs: Vital Signs - 24 hr 04/02/25 19:56 04/02/25 20:00 04/02/25 20:25 Temperature 98.5 F Pulse Rate 83 80 80 Respiratory Rate 18 18 Blood Pressure 150/93 H Pulse Oximetry 98 98 Oxygen Delivery Room Air Fraction of Inspired Oxygen 21 04/03/25 04:48 04/03/25 08:30 04/03/25 08:32 Temperature 98.2 F 97.5 F L Pulse Rate 71 77 77 Respiratory Rate 16 16 Blood Pressure 131/64 149/85 H Pulse Oximetry 95 97 Oxygen Delivery Fraction of Inspired Oxygen 04/03/25 08:32 04/03/25 08:32 04/03/25 14:00 Temperature 97.4 F L Pulse Rate 77 77 Respiratory Rate 16 16 Blood Pressure 149/86 H Pulse Oximetry 97 97 96 Oxygen Delivery Room Air Room Air Fraction of Inspired Oxygen 21 Intake/Output Intake/Output: Intake & Output 03/31/25 04/01/25 04/02/25 04/03/25 23:59 23:59 23:59 23:59 Intake Total 1350 2490 2530 0 Output Total 400 925 900 350 Balance 950 1565 1630 -350 Meds/Results Medications: Active Medications Generic Name Dose Route Start Last Admin Trade Name Freq PRN Reason Stop Dose Admin Acetaminophen 650 mg 03/27/25 15:10 04/03/25 05:00 Acetaminophen 325 Mg Tablet PO 650 mg Q4H PRN Administration Mild Pain (1-3) or Fever Aspirin 81 mg 03/28/25 09:00 04/03/25 08:32 Aspirin 81 Mg Enteric Tablet PO 81 mg DAILY DANYELL Administration Calcium Carbonate 200 mg 03/27/25 20:13 03/27/25 20:55 Calcium Carbonate (Tums) 500 Mg (200 Mg Elemental) PO 200 mg Q6H PRN Administration Indigestion Cyanocobalamin 500 mcg 03/28/25 09:00 04/03/25 08:32 Cyanocobalamin 500 Mcg Tablet PO 500 mcg DAILY DANYELL Administration Diclofenac Sodium 0 applic 03/28/25 21:00 04/02/25 20:25 Diclofenac Sodium 1% 100 Gm Gel (*Bkc) TOPICAL 1 applic HS DANYELL Administration Ezetimibe 10 mg 03/28/25 09:00 04/03/25 08:32 Ezetimibe 10 Mg Tablet PO 10 mg DAILY DANYELL Administration Enoxaparin Sodium 40 mg 03/28/25 09:00 04/03/25 08:37 Enoxaparin 40 Mg/0.4 Ml Syringe SUB-Q 40 mg DAILY DANYELL Administration Ergocalciferol 50,000 units 03/28/25 09:00 03/28/25 09:43 Ergocalciferol 50,000 Units Capsule PO 50,000 units Tu@0900 DANYELL Administration Finasteride 5 mg 03/27/25 21:00 04/02/25 20:26 Finasteride 5 Mg Tablet PO 5 mg HS DANYELL Administration Fish Oil 1 gm 03/28/25 21:00 04/02/25 20:25 [place] 3 Polyunsat Fatty Acids 1 Gm Cap PO 1 gm QHS DANYELL Administration Levothyroxine Sodium 125 mcg 03/28/25 06:30 04/03/25 05:00 Levothyroxine Sodium 125 Mcg Tablet PO 125 mcg DAILY@0630 DANYELL Administration Losartan Potassium 50 mg 03/28/25 09:00 04/03/25 08:32 Losartan Potassium 50 Mg Tablet PO 50 mg DAILY DANYELL Administration Meclizine HCl 12.5 mg 03/27/25 20:13 Meclizine Hcl 12.5 Mg Tablet PO TID PRN dizziness Melatonin 5 mg 04/02/25 19:38 04/02/25 20:25 Melatonin 5 Mg Tablet PO 5 mg HS PRN Administration Insomnia Morphine Sulfate 2 mg 03/27/25 14:35 04/02/25 11:52 Morphine Sulfate (*Crx) 2 Mg/Ml Inj IV PUSH 2 mg Q2H PRN Administration Pain Rated 7-10 Ondansetron HCl 4 mg 03/27/25 14:35 03/27/25 19:10 Ondansetron Inj 4 Mg/2 Ml Vial IV PUSH 4 mg Q4H PRN Administration Nausea Perflutren Lipid Microsphere 0 ml 04/01/25 09:22 Perflutren Lipid Microspheres 1.5 Ml Vial Diluted To 10 Ml Total Volume IV PUSH 04/04/25 09:22 ONCE PRN adequate visualization Protocol Polyethylene Glycol 17 gm 03/29/25 11:10 04/03/25 08:33 Polyethylene Glycol 3350 17 Gm Powd.Pack PO 17 gm QAM DANYELL Administration Propranolol HCl 20 mg 03/27/25 21:00 04/03/25 08:32 Propranolol Hcl 20 Mg Tablet PO 20 mg Q12H DANYELL Administration Senna/Docusate Sodium 1 tab 03/29/25 21:00 04/02/25 20:25 Senna/Docusate Sodium Tablet PO 1 tab HS DANYELL Administration Tamsulosin HCl 0.8 mg 03/27/25 21:00 04/02/25 20:25 Tamsulosin Hcl 0.4 Mg Capsule PO 0.8 mg HS DANYELL Administration Terbinafine HCl 250 mg 03/28/25 09:00 03/31/25 08:35 Terbinafine Hcl 250 Mg Tablet PO 250 mg TuFr@0900 DANYELL Administration Radiology Results: ITS Impressions Upper Quadrant Ultrasound 03/27/25 12:04 IMPRESSION: 1. Focal adenomyosis at the fundus of the gallbladder. No choledocholithiasis and no evident biliary or pancreatic ductal dilation.. 2. Normal appearance to the pancreas on ultrasound imaging although findings on prior CT are consistent with acute interstitial pancreatitis. Abdomen Ultrasound 03/29/25 10:33 IMPRESSION: 1. Focal adenomyomatosis at the fundus of the gallbladder. Otherwise unremarkable right upper quadrant ultrasound. Abdomen/Pelvis CT 03/29/25 23:27 IMPRESSION: 1. Pancreatitis with slightly increased fat stranding with no definite collections. 2. Trace of pericardial effusion. 3. Bilateral pleural effusion with adjacent atelectasis. 4. Nodule in the right middle lobe. 6 months follow-up CT is advised. Hepatobiliary Scan Nuclear Medicine 03/31/25 12:52 IMPRESSION: 1. No biliary obstruction but with delayed accumulation of activity within the gallbladder which occurs following morphine administration but which essentially precludes acute cholecystitis. Abdomen X-Ray 03/31/25 16:32 IMPRESSION: 1: No acute abdominal abnormality identified. Chest X-Ray 04/01/25 12:44 IMPRESSION: 1. Small bilateral pleural effusions with mild streaky left basilar atelectasis. Thoracic Spine X-Ray 04/02/25 18:05 IMPRESSION: No acute fracture or traumatic malalignment detected in the thoracic spine. Lumbar Spine X-Ray 04/02/25 19:31 IMPRESSION: Multilevel lumbar degenerative disc disease, moderate at L2-3. Moderate mid and lower lumbar facet arthropathy. MRCP 04/03/25 08:02 Impression: Findings compatible with pancreatitis, especially involving the head and neck, with probable developing pancreatic necrosis and/or pseudocyst. No evidence of cholelithiasis or choledocholithiasis. Small bilateral pleural effusions. Labs Labs: Laboratory Results - last 24 hr 04/01/25 04/01/25 04/03/25 04:34 17:12 04:25 WBC 19.6 H RBC 5.23 Hgb 15.3 Hct 46.0 MCV 88.0 MCH 29.3 MCHC 33.3 RDW 14.1 Plt Count 257 MPV 9.8 Sodium 127 L Potassium 4.5 Chloride 93 L Carbon Dioxide 23 Anion Gap 11 BUN 8 L Creatinine 0.56 L Estim Creat Clear Calc 91 Estimated GFR > 60 Glucose 116 H Serum Osmolality 273 L Calcium 8.7 Magnesium 2.1 Total Bilirubin 1.2 AST 29 ALT 46 Alkaline Phosphatase 139 H C-Reactive Protein 8.2 H Total Protein 4.9 L 6.0 L Albumin 3.6 Lipase 68 Procalcitonin 0.3 [place]/Lambda Ratio 1.08 Free [place] Light Chains 29.5 H Free [place] Light Chain 27.3 H
[2025-04-03] MEDS: CALCIUM CARBONATE (TUMS) 500 MG (200 MG ELEMENTAL) PO (17:31)
[2025-04-03] MEDS: DICLOFENAC SODIUM 1% 100 GM GEL (*BKC) TOPICAL (20:39)
[2025-04-03] MEDS: FINASTERIDE 5 MG TABLET PO (20:40)
[2025-04-03] MEDS: TAMSULOSIN HCL 0.4 MG CAPSULE 0.8 MG PO (20:40)
[2025-04-03] MEDS: OMEGA 3 POLYUNSAT FATTY ACIDS 1 GM CAP PO (20:40)
[2025-04-03] MEDS: MELATONIN 5 MG TABLET PO (20:40)
[2025-04-03] MEDS: SENNA/DOCUSATE SODIUM TABLET 1 TAB PO (20:40)
[2025-04-04] VITALS (7 sets, daily range): BP systolic 115–154; BP diastolic 60–82; PULSE 72–80; RESP 16–20; TEMP 36.3–37.2; O2SAT 95–97
[2025-04-04 01:39] LABS: Creatinine, Random Urine 33 mg/dL (20-320); Total Prot/Creat ratio mg/mg 0.576 (0.025-0.148); Total Protein/Creatinine Ratio 576 mg/g creat (25-148)
[2025-04-04 05:12] LABS: Hematocrit 44.5 % (42.0-52.0); Mean Corpuscular HGB Conc 33.7 g/dl (32-36); Mean Corpuscular Hemoglobin 29.4 pg (26-34); Mean Corpuscular Volume 87.3 fl (80-100); Mean Platelet Volume 9.1 fl (7.4-10.4); Platelet Count Result 271 k/mm3 (150-375); Red Cell Distribution Width 14.2 % (11.5-14.5); White Blood Count 18.1 K/mm3 (4.5-10.0)
[2025-04-04 05:32] LABS: Alanine Aminotransferase 38 U/L (6-50); Albumin Level 3.5 g/dL (3.5-5.1); Alkaline Phosphatase 136 U/L (38-126); Anion Gap 7 mmol/L (4-12); Aspartate Amino Transferase 26 U/L (17-59); Bilirubin,Total 0.8 mg/dL (0.2-1.3); Blood Urea Nitrogen 13 mg/dL (9-20); Calcium 8.7 mg/dL (8.4-10.2); Carbon Dioxide 26 mmol/L (22-30); Chloride 95 mmol/L (98-107); Estimated CRCL calculation 79 ml/min; Estimated Glomerular Filt Rate > 60; Glucose 122 mg/dL (65-110); Magnesium 2.2 mg/dL (1.6-2.3); Potassium 3.8 mmol/L (3.4-5.0); Sodium 128 mmol/L (137-145)
[2025-04-04 05:42] LABS: Procalcitonin 0.3 ng/mL
[2025-04-04 05:44] LABS: CRP 14.6 mg/dL (<1.0)
[2025-04-04] MEDS: LEVOTHYROXINE SODIUM 125 MCG TABLET PO (06:09)
[2025-04-04] MEDS: ACETAMINOPHEN 325 MG TABLET 650 MG PO (06:09)
--- NOTE | 2025-04-04 07:18 | P.PNIM_ITS ---
Progress Note: A&P Assessment and Plan (1) Hyponatremia: Code(s): E87.1 - Hypo-osmolality and hyponatremia Status: Acute Assessment and Plan: Na 133 on admission and has been downtrending, currently 128 on am labs Unable to give fluids due to patients on going pleural effusion requiring oxygen Unable to further diurese given pancreatitis Possible that poor oral intake is contributing, encourage oral intake. Nephrology consulted TSH okay cortisol lowish - recheck in AM urine electrolytes non-prerenal SPE/UPE and serum/urine osmolality pending s/p lasix on 04/01, closely monitor further diuresis with pancreatitis consider further intermittent dosing (2) Acute pancreatitis: Code(s): K85.90 - Acute pancreatitis without necrosis or infection, unspecified Status: Acute Assessment and Plan: Nausea, vomiting, abdominal pain. Takes Wegovy for weight loss in his last injection was 03/26. He denies any recent use of alcohol, states he quit 19 years ago. Lipase 17,543, repeat WNL 04/03 LFT's improved since admission but slight increase overnight 03/27 Bili 1.6>1, AST 295>25<30, ALT 172<219>124>46<47, Alk phos 121>99<138 03/27 CT of the abdomen and pelvis show acute interstitial pancreatitis - Right upper quadrant ultrasound showed focal adenomyosis at the fundus of the gallbladder, no choledocholithiasis and no evidence of biliary or pancreatic ductal dilation, normal appearance to the pancreas - Repeat US to reassess biliary pancreatitis concern Focal adenomyomatosis at the fundus of the gallbladder. 03/27 RUQ US Focal adenomyomatosis at the fundus of the gallbladder. Otherwise unremarkable right upper quadrant ultrasound. 03/29 CT abdomen/pelvis showed: 1. Pancreatitis with slightly increased fat stranding with no definite collections. 2. Trace of pericardial effusion. 3. Bilateral pleural effusion with adjacent atelectasis. 4. Nodule in the right middle lobe. 6 months follow-up CT is advised. pancreatitis with slightly increased fat stranding with no definite collections 03/31 HIDA scan showed: No biliary obstruction but with delayed accumulation of activity within the gallbladder which occurs following morphine administration but which essentially precludes acute cholecystitis. 04/03 MRCP showed: Findings compatible with pancreatitis, especially involved the head and neck, with probable developing pancreatic necrosis and/or pseudocyst. Discussed results with Dr. Swann and no acute intervention or transfer required at this time as patient remains stable and is tolerating a diet. Ddx: acute pancreatitis primarily includes biliary pancreatitis versus alcohol- induced pancreatitis or medication related No overt gallstones or sludge were observed, the presence of gallbladder adenomyosis raises the possibility of subtle, masked microlithiasis or sludge as an underlying cause. Leukocytosis is most likely inflammatory from the pancreatitis, remains stable despite no antibiotics PLAN GI consulted, appreciate recommendations - Given 1.5 L IV fluids in the ED, was on LR 125 ml/hr however DC for worsening SOB - Antibiotics discontinued as concern for cholangitis has resolved - Diet: low fiber, tolerating well with increased intake today - Repeat lipase and LFTs WNL. Triglycerides WNL. --Would not restart Wegovy in the future (3) Pleural effusion: Code(s): J90 - Pleural effusion, not elsewhere classified Status: Acute Assessment and Plan: WBC elevated at 22.4, compared to 13.1 on 03/28. Remains afebrile. Endorsing increased SOB and difficulty with deep breathing. CXR: Mild opacities in the left lower lung zone likely combination of left pericardial fat pad and atelectasis with differential including pneumonia in the appropriate clinical setting. Appears worse compared to CXR from 03/27 which showed left basilar atelectasis vs pneumonia CT abd/pelvis: bilateral pleural effusion with adjacent atelectasis - started on HAP tx however not HAP per pulmonology, antibiotics discontinued - MRSA negative - Viral PCR: Flu/COVID/RSV ordered - Monitor vital signs, I&Os, neuro status and patient is a fall risk - Follow WBC, serum electrolytes, temperature curves and cultures - Send sputum cultures - Echo ordered to evaluate heart function given pleural effusions. Echo showed LVEF 60-65% with grade II diastolic dysfunction - Pulmonology consulted by GI Does not appear to be HAP, likely pancreatitis with volume overload Recommend minimizing IV fluids and begin mariano diuresis as tolerated from pancreatic perspective Diuresis is limited due to pancreatitis MRCP showing small bilateral effusions (improved from prior imaging). Weaned to room air. Clear lungs on auscultation. Denies SOB. (4) Transaminitis: Code(s): R74.01 - Elevation of levels of liver transaminase levels Status: Acute Assessment and Plan: Likely secondary to acute pancreatitis Downtrending, continue to monitor (5) Elevated bilirubin: Code(s): R17 - Unspecified jaundice Status: Acute Assessment and Plan: * Bilirubin 1.6 on admission, returned to 1.6 on am labs * Continue to trend (6) Adenomyomatosis of gallbladder: Code(s): D13.5 - Benign neoplasm of extrahepatic bile ducts Status: Acute Assessment and Plan: The patient was found to have adenomyomatosis in the fundus of the gallbladder. This is an incidental finding on ultrasound. This is not a finding that warrants a cholecystectomy and would not cause the biliary pancreatitis. (7) Pulmonary nodule: Code(s): R91.1 - Solitary pulmonary nodule Status: Acute Assessment and Plan: CT abd/pelvis showed a nodule in the right middle lobe Follow up in the outpatient setting with CT in 6 months (8) Hypertension: Qualifiers: Hypertension type: primary hypertension Qualified Code(s): I10 - Essential (primary) hypertension Code(s): I10 - Essential (primary) hypertension Status: Acute Assessment and Plan: Chronic, continue home medications - losartan 50 mg daily - propranolol 20 mg BID - blood pressures remain stable, continue to monitor (9) Hyperlipidemia: Qualifiers: Hyperlipidemia type: pure hypercholesterolemia Qualified Code(s): E78.00 - Pure hypercholesterolemia, unspecified Code(s): E78.5 - Hyperlipidemia, unspecified Status: Acute Assessment and Plan: * Continue Zeita, aspirin (10) Hypothyroidism: Qualifiers: Hypothyroidism type: acquired Qualified Code(s): E03.9 - Hypothyroidism, unspecified Code(s): E03.9 - Hypothyroidism, unspecified Status: Acute Assessment and Plan: * Continue Synthroid Time Spent With Patient Time with patient: 25 - 35 minutes Subjective Date/time seen: 04/04/25 07:18 Interval history: 84-year-old male with a significant past medical history of seizure, CVA, basal cell carcinoma, alcohol abuse, hypothyroidism, arthritis, hypertension, hyperlipidemia, former smoker who presented to the hospital for evaluation of abdominal pain, nausea, vomiting. Patient is lying comfortably bed. He denies any nausea/vomiting abdominal pain at this time and notes that his appetite has improved and he is tolerating his diet well. He also denies any shortness of breath and remains on room air. His sodium remains low but he remains asymptomatic denying any dizziness/lightheadedness and no focal deficits on exam. He has no other complaints denies chest pain and palpitations. Review of Systems Review of Systems: All systems reviewed & are unremarkable except as noted in HPI and below Exam Narrative: AF HR 73 RR 16 SpO2 97 BP 115/60 General: male in no acute respiratory distress who is nontoxic appearing, sitting up in bed. HEENT: Normocephalic. Atraumatic. Extraocular movement intact. Sclera clear and anicteric. No facial asymmetry. Chest: Lungs are clear to auscultation bilaterally with slight coarseness to bases. No wheezes. CV: Heart was regular rate and rhythm. Abd: Abdomen was soft. Nontender. Nondistended. Positive bowel sounds. Ext: No clubbing, cyanosis, or edema. DP pulses bilaterally. Neuro: Patient is alert and oriented x4. Speech is clear. Objective Data Vital Signs Vital Signs: Vital Signs - 24 hr 04/03/25 08:30 04/03/25 08:32 04/03/25 08:32 Temperature 97.5 F L Pulse Rate 77 77 77 Respiratory Rate 16 16 Blood Pressure 149/85 H Pulse Oximetry 97 97 Oxygen Delivery Room Air Fraction of Inspired Oxygen 21 04/03/25 08:32 04/03/25 14:00 04/03/25 19:56 Temperature 97.4 F L 98.2 F Pulse Rate 77 84 Respiratory Rate 16 20 Blood Pressure 149/86 H 161/89 H Pulse Oximetry 97 96 92 Oxygen Delivery Room Air Fraction of Inspired Oxygen 04/03/25 20:00 04/03/25 20:40 04/04/25 05:38 Temperature 97.3 F L Pulse Rate 74 74 72 Respiratory Rate 20 16 Blood Pressure 124/76 Pulse Oximetry 92 96 Oxygen Delivery Room Air Fraction of Inspired Oxygen 21 Intake/Output Intake/Output: Intake & Output 04/01/25 04/02/25 04/03/25 04/04/25 23:59 23:59 23:59 23:59 Intake Total 2490 2530 1800 300 Output Total 391 099 1221 800 Balance 1565 1630 700 -500 Meds/Results Medications: Active Medications Generic Name Dose Route Start Last Admin Trade Name Freq PRN Reason Stop Dose Admin Acetaminophen 650 mg 03/27/25 15:10 04/04/25 06:09 Acetaminophen 325 Mg Tablet PO 650 mg Q4H PRN Administration Mild Pain (1-3) or Fever Aspirin 81 mg 03/28/25 09:00 04/03/25 08:32 Aspirin 81 Mg Enteric Tablet PO 81 mg DAILY DANYELL Administration Calcium Carbonate 200 mg 03/27/25 20:13 04/03/25 17:31 Calcium Carbonate (Tums) 500 Mg (200 Mg Elemental) PO 200 mg Q6H PRN Administration Indigestion Cyanocobalamin 500 mcg 03/28/25 09:00 04/03/25 08:32 Cyanocobalamin 500 Mcg Tablet PO 500 mcg DAILY DANYELL Administration Diclofenac Sodium 0 applic 03/28/25 21:00 04/03/25 20:39 Diclofenac Sodium 1% 100 Gm Gel (*Bkc) TOPICAL 1 applic HS DANYELL Administration Ezetimibe 10 mg 03/28/25 09:00 04/03/25 08:32 Ezetimibe 10 Mg Tablet PO 10 mg DAILY DANYELL Administration Enoxaparin Sodium 40 mg 03/28/25 09:00 04/03/25 08:37 Enoxaparin 40 Mg/0.4 Ml Syringe SUB-Q 40 mg DAILY DANYELL Administration Ergocalciferol 50,000 units 03/28/25 09:00 03/28/25 09:43 Ergocalciferol 50,000 Units Capsule PO 50,000 units Tu@0900 DANYELL Administration Finasteride 5 mg 03/27/25 21:00 04/03/25 20:40 Finasteride 5 Mg Tablet PO 5 mg HS DANYELL Administration Fish Oil 1 gm 03/28/25 21:00 04/03/25 20:40 [place] 3 Polyunsat Fatty Acids 1 Gm Cap PO 1 gm QHS DANYELL Administration Levothyroxine Sodium 125 mcg 03/28/25 06:30 04/04/25 06:09 Levothyroxine Sodium 125 Mcg Tablet PO 125 mcg DAILY@0630 DANYELL Administration Losartan Potassium 50 mg 03/28/25 09:00 04/03/25 08:32 Losartan Potassium 50 Mg Tablet PO 50 mg DAILY DANYELL Administration Meclizine HCl 12.5 mg 03/27/25 20:13 Meclizine Hcl 12.5 Mg Tablet PO TID PRN dizziness Melatonin 5 mg 04/02/25 19:38 04/03/25 20:40 Melatonin 5 Mg Tablet PO 5 mg HS PRN Administration Insomnia Morphine Sulfate 2 mg 03/27/25 14:35 04/02/25 11:52 Morphine Sulfate (*Crx) 2 Mg/Ml Inj IV PUSH 2 mg Q2H PRN Administration Pain Rated 7-10 Ondansetron HCl 4 mg 03/27/25 14:35 03/27/25 19:10 Ondansetron Inj 4 Mg/2 Ml Vial IV PUSH 4 mg Q4H PRN Administration Nausea Perflutren Lipid Microsphere 0 ml 04/01/25 09:22 Perflutren Lipid Microspheres 1.5 Ml Vial Diluted To 10 Ml Total Volume IV PUSH 04/04/25 09:22 ONCE PRN adequate visualization Protocol Polyethylene Glycol 17 gm 03/29/25 11:10 04/03/25 08:33 Polyethylene Glycol 3350 17 Gm Powd.Pack PO 17 gm QAM DANYELL Administration Propranolol HCl 20 mg 03/27/25 21:00 04/03/25 20:40 Propranolol Hcl 20 Mg Tablet PO 20 mg Q12H DANYELL Administration Senna/Docusate Sodium 1 tab 03/29/25 21:00 04/03/25 20:40 Senna/Docusate Sodium Tablet PO 1 tab HS DANYELL Administration Tamsulosin HCl 0.8 mg 03/27/25 21:00 04/03/25 20:40 Tamsulosin Hcl 0.4 Mg Capsule PO 0.8 mg HS DANYELL Administration Terbinafine HCl 250 mg 03/28/25 09:00 03/31/25 08:35 Terbinafine Hcl 250 Mg Tablet PO 250 mg TuFr@0900 DANYELL Administration Radiology Results: ITS Impressions Upper Quadrant Ultrasound 03/27/25 12:04 IMPRESSION: 1. Focal adenomyosis at the fundus of the gallbladder. No choledocholithiasis and no evident biliary or pancreatic ductal dilation.. 2. Normal appearance to the pancreas on ultrasound imaging although findings on prior CT are consistent with acute interstitial pancreatitis. Abdomen Ultrasound 03/29/25 10:33 IMPRESSION: 1. Focal adenomyomatosis at the fundus of the gallbladder. Otherwise unremarkable right upper quadrant ultrasound. Abdomen/Pelvis CT 03/29/25 23:27 IMPRESSION: 1. Pancreatitis with slightly increased fat stranding with no definite collections. 2. Trace of pericardial effusion. 3. Bilateral pleural effusion with adjacent atelectasis. 4. Nodule in the right middle lobe. 6 months follow-up CT is advised. Hepatobiliary Scan Nuclear Medicine 03/31/25 12:52 IMPRESSION: 1. No biliary obstruction but with delayed accumulation of activity within the gallbladder which occurs following morphine administration but which essentially precludes acute cholecystitis. Abdomen X-Ray 03/31/25 16:32 IMPRESSION: 1: No acute abdominal abnormality identified. Chest X-Ray 04/01/25 12:44 IMPRESSION: 1. Small bilateral pleural effusions with mild streaky left basilar atelectasis. Thoracic Spine X-Ray 04/02/25 18:05 IMPRESSION: No acute fracture or traumatic malalignment detected in the thoracic spine. Lumbar Spine X-Ray 04/02/25 19:31 IMPRESSION: Multilevel lumbar degenerative disc disease, moderate at L2-3. Moderate mid and lower lumbar facet arthropathy. MRCP 04/03/25 08:02 Impression: Findings compatible with pancreatitis, especially involving the head and neck, with probable developing pancreatic necrosis and/or pseudocyst. No evidence of cholelithiasis or choledocholithiasis. Small bilateral pleural effusions. Labs Labs: Laboratory Results - last 24 hr 04/01/25 04/01/25 04/02/25 04:34 17:12 14:01 WBC RBC Hgb Hct MCV MCH MCHC RDW Plt Count MPV Sodium Potassium Chloride Carbon Dioxide Anion Gap BUN Creatinine Estim Creat Clear Calc Estimated GFR Glucose Serum Osmolality 273 L Calcium Magnesium Total Bilirubin AST ALT Alkaline Phosphatase C-Reactive Protein Total Protein 4.9 L Albumin Procalcitonin Ur Random Creatinine 33 U Random Total Protein 19 Protein/Creatinin Ratio 576 H [place]/Lambda Ratio 1.08 Free [place] Light Chains 29.5 H Free [place] Light Chain 27.3 H 04/04/25 04:33 WBC 18.1 H RBC 5.10 Hgb 15.0 Hct 44.5 MCV 87.3 MCH 29.4 MCHC 33.7 RDW 14.2 Plt Count 271 MPV 9.1 Sodium 128 L Potassium 3.8 Chloride 95 L Carbon Dioxide 26 Anion Gap 7 BUN 13 D Creatinine 0.65 L Estim Creat Clear Calc 79 Estimated GFR > 60 Glucose 122 H Serum Osmolality Calcium 8.7 Magnesium 2.2 Total Bilirubin 0.8 AST 26 ALT 38 Alkaline Phosphatase 136 H C-Reactive Protein 14.6 H Total Protein 7.0 Albumin 3.5 Procalcitonin 0.3 Ur Random Creatinine U Random Total Protein Protein/Creatinin Ratio [place]/Lambda Ratio Free [place] Light Chains Free Lambda Light Chain Quality VTE Prophylaxis VTE prophylaxis: pharmacologic ordered
[2025-04-04] MEDS: ASPIRIN 81 MG ENTERIC TABLET PO (08:12)
[2025-04-04] MEDS: ENOXAPARIN 40 MG/0.4 ML SYRINGE SUB-Q (08:12)
[2025-04-04] MEDS: CYANOCOBALAMIN 500 MCG TABLET PO (08:12)
[2025-04-04] MEDS: PROPRANOLOL HCL 20 MG TABLET PO ×2 (08:13→20:24)
[2025-04-04] MEDS: EZETIMIBE 10 MG TABLET PO (08:13)
[2025-04-04] MEDS: polyethylene glycoL 3350 17 GM POWD.PACK PO (08:13)
[2025-04-04] MEDS: LOSARTAN POTASSIUM 50 MG TABLET PO (08:13)
[2025-04-04] MEDS: ERGOCALCIFEROL 50,000 UNITS CAPSULE 50000 UNITS PO (08:18)
[2025-04-04] MEDS: TERBINAFINE HCL 250 MG TABLET PO (08:18)
--- NOTE | 2025-04-04 11:38 | P.PNNP_ITS ---
Progress Note: A&P Assessment and Plan (1) Hyponatremia: Code(s): E87.1 - Hypo-osmolality and hyponatremia Status: Acute Assessment and Plan: * continues to fluctuate * as noted by trend of labs since admission * normal sodium at baseline * suspect multifactorial: * prerenal factors on admission (nausea + vomiting) * volume overload * pleural effusions * 3rd spacing from pancreatitis * CHF(?) - Echo pending * other(?) * risk factors of low sodium: * outpatient use of PPI * history of CVA * thyroid disease * BPH/urinary retention * pain * pain medications (narcotics) * issues on this current hospitalization * evaluation to date noted: * TSH okay * cortisol lowish - recheck in AM * urine electrolytes non-prerenal * SPE/UPE and serum/urine osmolality pending * s/p IV lasix (20mg) on 04/01 * could consider further intermittent dosing - but his volume status is better * however, given fluctuating oral intake, will follow trend * it is possible that he may auto-correct his sodium on his own * follow trend of repeat sodiums (2) Pancreatitis: Code(s): K85.90 - Acute pancreatitis without necrosis or infection, unspecified Status: Acute Assessment and Plan: * as noted on presentation * imaging to date reviewed * Gi following as well * slow and steady clinical improvement noted * however, more RUQ pain noted on 04/02 * MRCP results noted * tolerating diet (3) Bilateral pleural effusion: Code(s): J90 - Pleural effusion, not elsewhere classified Status: Acute Assessment and Plan: * as noted by previous imaging * initially manifested by shortness of breath and difficulty with deep breathing * Pulmonary evaluation noted * no evidence of infection/pneumonia * suspect secondary to volume overload * Echo results noted: * left ventricular systolic function is normal, estimated at 60-65% * left ventricular diastolic function is grade II diastolic dysfunction * mild mitral valve regurgitation * mild tricuspid valve regurgitation * mild pulmonary hypertension, estimated pulmonary arterial systolic pressure is 42 mmHg * on room air currently * follow respiratory status (4) Transaminitis: Code(s): R74.01 - Elevation of levels of liver transaminase levels Status: Acute Assessment and Plan: * presumed to be secondary #2 * slow improvement noted * follow trend (5) Leukocytosis: Code(s): D72.829 - Elevated white blood cell count, unspecified Status: Acute Assessment and Plan: * no source of infection * blood cultures negative to date * due to #2 (?) (6) Hypertension: Qualifiers: Hypertension type: primary hypertension Qualified Code(s): I10 - Essential (primary) hypertension Code(s): I10 - Essential (primary) hypertension Status: Acute Assessment and Plan: * reasonable control * follow trend of hemodynamics Will continue to follow. L Subjective Date/time seen: 04/04/25 11:38 Interval history: Follow-up for acute hyponatremia. Sodium relatively stable if not slightly improved in the last 24 hours; appetite has improved and he is tolerating oral intake reasonablyh well; no other issues/events overnight or earlier this morning; no apparent distress voiced at the time of my visit. Exam 2 Narrative: General: elderly but WD/WN male in NAD Heart: normal S1 and S2; no rub Lungs: clear anteriorly; decreased at bases Abdomen: soft, mild TTP in RUQ, nondistended, positive bowel sounds Extremities: no cyanosis or clubbing; no edema Skin: no rash Objective Data Vital Signs Vital Signs: Vital Signs Temp Pulse Resp BP Pulse Ox O2 Del Method FiO2 04/04/25 08:13 77 04/04/25 08:12 97 Room Air 04/04/25 08:11 98.1 F 78 16 138/82 97 04/04/25 05:38 97.3 F L 72 16 124/76 96 04/03/25 20:40 74 04/03/25 20:00 74 20 92 Room Air 21 04/03/25 19:56 98.2 F 84 20 161/89 H 92 04/03/25 14:00 97.4 F L 77 16 149/86 H 96 Intake/Output Intake/Output: Intake & Output 04/01/25 04/02/25 04/03/25 04/04/25 23:59 23:59 23:59 23:59 Intake Total 2490 2530 1800 660 Output Total 017 299 9510 800 Balance 1565 1630 700 -140 Meds/Results Medications: Active Medications Generic Name Dose Route Start Last Admin Trade Name Freq PRN Reason Stop Dose Admin Acetaminophen 650 mg 03/27/25 15:10 04/04/25 06:09 Acetaminophen 325 Mg Tablet PO 650 mg Q4H PRN Administration Mild Pain (1-3) or Fever Aspirin 81 mg 03/28/25 09:00 04/04/25 08:12 Aspirin 81 Mg Enteric Tablet PO 81 mg DAILY DANYELL Administration Calcium Carbonate 200 mg 03/27/25 20:13 04/03/25 17:31 Calcium Carbonate (Tums) 500 Mg (200 Mg Elemental) PO 200 mg Q6H PRN Administration Indigestion Cyanocobalamin 500 mcg 03/28/25 09:00 04/04/25 08:12 Cyanocobalamin 500 Mcg Tablet PO 500 mcg DAILY DANYELL Administration Diclofenac Sodium 0 applic 03/28/25 21:00 04/03/25 20:39 Diclofenac Sodium 1% 100 Gm Gel (*Bkc) TOPICAL 1 applic HS DANYELL Administration Ezetimibe 10 mg 03/28/25 09:00 04/04/25 08:13 Ezetimibe 10 Mg Tablet PO 10 mg DAILY DANYELL Administration Enoxaparin Sodium 40 mg 03/28/25 09:00 04/04/25 08:12 Enoxaparin 40 Mg/0.4 Ml Syringe SUB-Q 40 mg DAILY DANYELL Administration Ergocalciferol 50,000 units 03/28/25 09:00 04/04/25 08:18 Ergocalciferol 50,000 Units Capsule PO 50,000 units Tu@0900 DANYELL Administration Finasteride 5 mg 03/27/25 21:00 04/03/25 20:40 Finasteride 5 Mg Tablet PO 5 mg HS DANYELL Administration Fish Oil 1 gm 03/28/25 21:00 04/03/25 20:40 [place] 3 Polyunsat Fatty Acids 1 Gm Cap PO 1 gm QHS DANYELL Administration Levothyroxine Sodium 125 mcg 03/28/25 06:30 04/04/25 06:09 Levothyroxine Sodium 125 Mcg Tablet PO 125 mcg DAILY@0630 DANYELL Administration Losartan Potassium 50 mg 03/28/25 09:00 04/04/25 08:13 Losartan Potassium 50 Mg Tablet PO 50 mg DAILY DANYELL Administration Meclizine HCl 12.5 mg 03/27/25 20:13 Meclizine Hcl 12.5 Mg Tablet PO TID PRN dizziness Melatonin 5 mg 04/02/25 19:38 04/03/25 20:40 Melatonin 5 Mg Tablet PO 5 mg HS PRN Administration Insomnia Morphine Sulfate 2 mg 03/27/25 14:35 04/02/25 11:52 Morphine Sulfate (*Crx) 2 Mg/Ml Inj IV PUSH 2 mg Q2H PRN Administration Pain Rated 7-10 Ondansetron HCl 4 mg 03/27/25 14:35 03/27/25 19:10 Ondansetron Inj 4 Mg/2 Ml Vial IV PUSH 4 mg Q4H PRN Administration Nausea Polyethylene Glycol 17 gm 03/29/25 11:10 04/04/25 08:13 Polyethylene Glycol 3350 17 Gm Powd.Pack PO 17 gm QAM DANYELL Administration Propranolol HCl 20 mg 03/27/25 21:00 04/04/25 08:13 Propranolol Hcl 20 Mg Tablet PO 20 mg Q12H DANYELL Administration Senna/Docusate Sodium 1 tab 03/29/25 21:00 04/03/25 20:40 Senna/Docusate Sodium Tablet PO 1 tab HS DANYELL Administration Tamsulosin HCl 0.8 mg 03/27/25 21:00 04/03/25 20:40 Tamsulosin Hcl 0.4 Mg Capsule PO 0.8 mg HS DANYELL Administration Terbinafine HCl 250 mg 03/28/25 09:00 04/04/25 08:18 Terbinafine Hcl 250 Mg Tablet PO 250 mg TuFr@0900 DANYELL Administration Radiology Results: ITS Impressions Upper Quadrant Ultrasound 03/27/25 12:04 IMPRESSION: 1. Focal adenomyosis at the fundus of the gallbladder. No choledocholithiasis and no evident biliary or pancreatic ductal dilation.. 2. Normal appearance to the pancreas on ultrasound imaging although findings on prior CT are consistent with acute interstitial pancreatitis. Abdomen Ultrasound 03/29/25 10:33 IMPRESSION: 1. Focal adenomyomatosis at the fundus of the gallbladder. Otherwise unremarkable right upper quadrant ultrasound. Abdomen/Pelvis CT 03/29/25 23:27 IMPRESSION: 1. Pancreatitis with slightly increased fat stranding with no definite collections. 2. Trace of pericardial effusion. 3. Bilateral pleural effusion with adjacent atelectasis. 4. Nodule in the right middle lobe. 6 months follow-up CT is advised. Hepatobiliary Scan Nuclear Medicine 03/31/25 12:52 IMPRESSION: 1. No biliary obstruction but with delayed accumulation of activity within the gallbladder which occurs following morphine administration but which essentially precludes acute cholecystitis. Abdomen X-Ray 03/31/25 16:32 IMPRESSION: 1: No acute abdominal abnormality identified. Chest X-Ray 04/01/25 12:44 IMPRESSION: 1. Small bilateral pleural effusions with mild streaky left basilar atelectasis. Thoracic Spine X-Ray 04/02/25 18:05 IMPRESSION: No acute fracture or traumatic malalignment detected in the thoracic spine. Lumbar Spine X-Ray 04/02/25 19:31 IMPRESSION: Multilevel lumbar degenerative disc disease, moderate at L2-3. Moderate mid and lower lumbar facet arthropathy. MRCP 04/03/25 08:02 Impression: Findings compatible with pancreatitis, especially involving the head and neck, with probable developing pancreatic necrosis and/or pseudocyst. No evidence of cholelithiasis or choledocholithiasis. Small bilateral pleural effusions. Labs Labs: Laboratory Tests 04/04/25 04:33 04/04/25 04:33 Calcium 8.7 Magnesium 2.2 Total Bilirubin 0.8 AST 26 ALT 38 Alkaline Phosphatase 136 H C-Reactive Protein 14.6 H Total Protein 7.0 Albumin 3.5 Procalcitonin 0.3
[2025-04-04 12:38] LABS: Osmolality, Urine 469 mOsm/kg (50-1200)
[2025-04-04] MEDS: CALCIUM CARBONATE (TUMS) 500 MG (200 MG ELEMENTAL) PO ×2 (17:44→23:42)
[2025-04-04] MEDS: TAMSULOSIN HCL 0.4 MG CAPSULE 0.8 MG PO (20:25)
[2025-04-04] MEDS: DICLOFENAC SODIUM 1% 100 GM GEL (*BKC) TOPICAL (20:25)
[2025-04-04] MEDS: OMEGA 3 POLYUNSAT FATTY ACIDS 1 GM CAP PO (20:25)
[2025-04-04] MEDS: SENNA/DOCUSATE SODIUM TABLET 1 TAB PO (20:25)
[2025-04-04] MEDS: FINASTERIDE 5 MG TABLET PO (20:25)
[2025-04-04] MEDS: MELATONIN 5 MG TABLET PO (20:32)
[2025-04-05 04:14] VITALS: BP 148/82; PULSE 70; RESP 20; TEMP 36.8; O2SAT 93
[2025-04-05] MEDS: LEVOTHYROXINE SODIUM 125 MCG TABLET PO (05:38)
[2025-04-05 06:28] LABS: Alanine Aminotransferase 41 U/L (6-50); Albumin Level 3.2 g/dL (3.5-5.1); Alkaline Phosphatase 145 U/L (38-126); Anion Gap 6 mmol/L (4-12); Aspartate Amino Transferase 40 U/L (17-59); Bilirubin,Total 0.7 mg/dL (0.2-1.3); Blood Urea Nitrogen 13 mg/dL (9-20); Calcium 8.5 mg/dL (8.4-10.2); Carbon Dioxide 23 mmol/L (22-30); Chloride 98 mmol/L (98-107); Estimated CRCL calculation 83 ml/min; Estimated Glomerular Filt Rate > 60; Glucose 102 mg/dL (65-110); Magnesium 2.2 mg/dL (1.6-2.3); Potassium 4.3 mmol/L (3.4-5.0); Sodium 127 mmol/L (137-145)
[2025-04-05 08:43] LABS: Albumin 2.7 g/dL (3.8-4.8); Alpha 1 Globulin 0.4 g/dL (0.2-0.3); Alpha 2 Globulin 0.8 g/dL (0.5-0.9); Beta 1 Globulin 0.3 g/dL (0.4-0.6); Gamma Globulin 0.6 g/dL (0.8-1.7)
[2025-04-05 09:19] VITALS: PULSE 74
[2025-04-05] MEDS: PROPRANOLOL HCL 20 MG TABLET PO (09:19)
[2025-04-05] MEDS: LOSARTAN POTASSIUM 50 MG TABLET PO (09:20)
[2025-04-05] MEDS: ASPIRIN 81 MG ENTERIC TABLET PO (09:20)
[2025-04-05] MEDS: EZETIMIBE 10 MG TABLET PO (09:20)
[2025-04-05] MEDS: CYANOCOBALAMIN 500 MCG TABLET PO (09:20)
[2025-04-05] MEDS: ENOXAPARIN 40 MG/0.4 ML SYRINGE SUB-Q (09:20)
[2025-04-05] MEDS: polyethylene glycoL 3350 17 GM POWD.PACK PO (09:24)
--- NOTE | 2025-04-05 12:17 | P.DS_ITS ---
DS: Admitting Diagnosis Discharge Date 04/05 Admitting Diagnosis abd pain, n/v. DS: Discharge Diagnosis Discharge Diagnosis (1) Hyponatremia: Code(s): E87.1 - Hypo-osmolality and hyponatremia Status: Acute (2) Acute pancreatitis: Code(s): K85.90 - Acute pancreatitis without necrosis or infection, unspecified Status: Acute (3) Pleural effusion: Code(s): J90 - Pleural effusion, not elsewhere classified Status: Acute (4) Transaminitis: Code(s): R74.01 - Elevation of levels of liver transaminase levels Status: Acute (5) Elevated bilirubin: Code(s): R17 - Unspecified jaundice Status: Acute (6) Adenomyomatosis of gallbladder: Code(s): D13.5 - Benign neoplasm of extrahepatic bile ducts Status: Acute (7) Pulmonary nodule: Code(s): R91.1 - Solitary pulmonary nodule Status: Acute (8) Hypertension: Qualifiers: Hypertension type: primary hypertension Qualified Code(s): I10 - Essential (primary) hypertension Code(s): I10 - Essential (primary) hypertension Status: Acute Assessment and Plan: Chronic, continue home medications - losartan 50 mg daily - propranolol 20 mg BID - blood pressures remain stable, continue to monitor (9) Hyperlipidemia: Qualifiers: Hyperlipidemia type: pure hypercholesterolemia Qualified Code(s): E78.00 - Pure hypercholesterolemia, unspecified Code(s): E78.5 - Hyperlipidemia, unspecified Status: Acute Assessment and Plan: * Continue Zeita, aspirin (10) Hypothyroidism: Qualifiers: Hypothyroidism type: acquired Qualified Code(s): E03.9 - Hypothyroidism, unspecified Code(s): E03.9 - Hypothyroidism, unspecified Status: Acute Assessment and Plan: * Continue Synthroid DS: Summary Hospital Course Hospital Course: 84-year-old male with a significant past medical history of seizure, CVA, basal cell carcinoma, alcohol abuse, hypothyroidism, arthritis, hypertension, hyperlipidemia, former smoker who presented to the hospital for evaluation of abdominal pain, nausea, vomiting. Several issues were addressed: # hyponatremia Na 27- 133 Unable to give fluids due to patients on going pleural effusion requiring oxygen Unable to further diurese given pancreatitis Possible that poor oral intake is contributing, encourage oral intake. Nephrology consulted and followed- cleared for discharge TSH okay cortisol lowish urine electrolytes non-prerenal SPE/UPE and serum/urine osmolality pending s/p lasix on 04/01, closely monitor further diuresis with pancreatitis consider further intermittent dosing # pancreatitis Nausea, vomiting, abdominal pain. Takes Wegovy for weight loss in his last injection was 03/26. He denies any recent use of alcohol, states he quit 19 years ago. Lipase 17,543, repeat WNL 04/03 LFT's improved since admission but slight increase overnight 03/27 Bili 1.6>1, AST 295>25<30, ALT 172<219>124>46<47, Alk phos 121>99<138 03/27 CT of the abdomen and pelvis show acute interstitial pancreatitis - Right upper quadrant ultrasound showed focal adenomyosis at the fundus of the gallbladder, no choledocholithiasis and no evidence of biliary or pancreatic ductal dilation, normal appearance to the pancreas - Repeat US to reassess biliary pancreatitis concern Focal adenomyomatosis at the fundus of the gallbladder. 03/27 RUQ US Focal adenomyomatosis at the fundus of the gallbladder. Otherwise unremarkable right upper quadrant ultrasound. 03/29 CT abdomen/pelvis showed: 1. Pancreatitis with slightly increased fat stranding with no definite collections. 2. Trace of pericardial effusion. 3. Bilateral pleural effusion with adjacent atelectasis. 4. Nodule in the right middle lobe. 6 months follow-up CT is advised. pancreatitis with slightly increased fat stranding with no definite collections 03/31 HIDA scan showed: No biliary obstruction but with delayed accumulation of activity within the gallbladder which occurs following morphine administration but which essentially precludes acute cholecystitis. 04/03 MRCP showed: Findings compatible with pancreatitis, especially involved the head and neck, with probable developing pancreatic necrosis and/or pseudocyst. Discussed results with Dr. Swann and no acute intervention or transfer required at this time as patient remains stable and is tolerating a diet. Ddx: acute pancreatitis primarily includes biliary pancreatitis versus alcohol- induced pancreatitis or medication related No overt gallstones or sludge were observed, the presence of gallbladder adenomyosis raises the possibility of subtle, masked microlithiasis or sludge as an underlying cause. Leukocytosis is most likely inflammatory from the pancreatitis, remains stable despite no antibiotics PLAN GI consulted, appreciate recommendations - Given 1.5 L IV fluids in the ED, was on LR 125 ml/hr however DC for worsening SOB - Antibiotics discontinued as concern for cholangitis has resolved - Diet: low fiber, tolerating well with increased intake today - Repeat lipase and LFTs WNL. Triglycerides WNL. --Would not restart Wegovy in the future # pleural effusion WBC elevated at 22.4, compared to 13.1 on 03/28. Remains afebrile. Endorsing increased SOB and difficulty with deep breathing. CXR: Mild opacities in the left lower lung zone likely combination of left pericardial fat pad and atelectasis with differential including pneumonia in the appropriate clinical setting. Appears worse compared to CXR from 03/27 which showed left basilar atelectasis vs pneumonia CT abd/pelvis: bilateral pleural effusion with adjacent atelectasis - started on HAP tx however not HAP per pulmonology, antibiotics discontinued - MRSA negative - Viral PCR: Flu/COVID/RSV ordered - Monitor vital signs, I&Os, neuro status and patient is a fall risk - Follow WBC, serum electrolytes, temperature curves and cultures - Send sputum cultures - Echo ordered to evaluate heart function given pleural effusions. Echo showed LVEF 60-65% with grade II diastolic dysfunction - Pulmonology consulted by GI Does not appear to be HAP, likely pancreatitis with volume overload Recommend minimizing IV fluids and begin mariano diuresis as tolerated from pancreatic perspective Diuresis is limited due to pancreatitis MRCP showing small bilateral effusions (improved from prior imaging). Weaned to room air. Clear lungs on auscultation. Denies SOB. # pulm nodule CT abd/pelvis showed a nodule in the right middle lobe Follow up in the outpatient setting with CT in 6 months Status at Discharge Functional status at discharge: uses cane/walker Overall status at discharge: patient is progressing back to baseline Time Spent with Patient Time attestation: Total time spent providing and/or coordinating discharge services: Time spent: Greater than 30 minutes Exam Narrative: General: male in no acute respiratory distress who is nontoxic appearing, sitting up in bed. HEENT: Normocephalic. Atraumatic. Extraocular movement intact. Sclera clear and anicteric. No facial asymmetry. Chest: Lungs are clear to auscultation bilaterally with slight coarseness to bases. No wheezes. CV: Heart was regular rate and rhythm. Abd: Abdomen was soft. Nontender. Nondistended. Positive bowel sounds. Ext: No clubbing, cyanosis, or edema. DP pulses bilaterally. Neuro: Patient is alert and oriented x4. Speech is clear. Const: General: comfortable DS: Data Data Completed and Pending Labs on day of discharge: Labs from last 24 hours 04/05/25 04/02/25 04/01/25 04:58 14:01 04:34 Sodium 127 L Potassium 4.3 Chloride 98 Carbon Dioxide 23 Anion Gap 6 BUN 13 Creatinine 0.62 L Estim Creat Clear Calc 83 Estimated GFR > 60 Glucose 102 Calcium 8.5 Magnesium 2.2 Total Bilirubin 0.7 AST 40 ALT 41 Alkaline Phosphatase 145 H Total Protein 6.0 L Albumin 3.2 L 2.7 L Sfwiq-0-Bkpcyjlce 0.4 H Ulwpj-2-Meheysbtz 0.8 Rwer-8-Texhlqqb 0.3 L Lbyt-3-Cwogtaei 0.2 Gamma Globulins 0.6 L PEP Interpretation See note Urine Osmolality 469 Discharge Plan Discharge Attending physician on discharge: López Carrington Consulting providers: Panda Kumar; El Esteves; Maricruz Diez Discharging Clinician: Cee Menard Patient Disposition: Home Activity: march shower Diet: heart healthy Discharge Instructions: You were admitted for abd pain. Evaluated per GI and surgery -no acute intervention needed. For pancreatitis- please eat low fat healthy diet and stay hydrated. Stop taking Wegovy for now and f/u with PCP for further recommendations. Please f/uw ith pcp within 1-2 weeks after discharge to have labs repeated. Patient Instructions: Antibiotic Form Patient Language: Nam[place]ian Stand Alone Forms: General Discharge Information Follow-up/Referrals: Tu,Jennifer Gomez DO [Primary Care Provider] - 1 Week Maricruz Diez MD [Physician] - 2 Weeks Discharge Medications: Continued aspirin [Adult Aspirin Regimen] 81 mg tablet,delayed release (DR/EC) 81 mg PO DAILY PreserVision AREDS-2 250-90-40-1 mg capsule 1 tablet PO BID cholecalciferol (vitamin D3) 1,250 mcg (50,000 unit) capsule 1,250 mcg PO WEEKLY cyanocobalamin (vitamin B-12) [Vitamin B-12] 500 mcg tablet 500 mcg PO DAILY meclizine 12.5 mg tablet 12.5 mg PO TID PRN (Reason: dizziness) propranolol 20 mg tablet 20 mg PO Q12H terbinafine HCl 250 mg tablet 250 mg PO .twice weekly omega 2-eva-ngp-fish oil [Fish Oil] 1,200 (144-216) mg capsule 1 cap PO DAILY diclofenac sodium [Arthritis Pain (diclofenac)] 1 % gel 4 g topical HS Rx Instructions: apply to single knee, ankle, foot; for foot includes sole/toes/top of foot losartan 50 mg tablet 50 mg PO DAILY Qty: 90 1RF omeprazole 20 mg capsule,delayed release(DR/EC) 20 mg PO BID Qty: 180 1RF tamsulosin 0.4 mg capsule 0.8 mg PO DAILY Qty: 180 1RF finasteride 5 mg tablet 5 mg PO DAILY Qty: 90 1RF ezetimibe [Zetia] 10 mg tablet 10 mg PO DAILY Qty: 90 1RF levothyroxine 125 mcg tablet 125 mcg PO DAILY Qty: 90 1RF Discontinued Wegovy 0.25 mg/0.5 mL pen injector 0.25 mg subcut WEEKLY Rx Instructions: administer weeks 1 through 4 of therapy Date of admission: 03/27/25 16:23 Primary Care Provider: Tu,Jennifer Gomez Admitting Provider: Dm Caraballo Attending physician on admission: Karla Rowe Condition: Improved Quality VTE Prophylaxis VTE prophylaxis: pharmacologic ordered Hospitalist MIPS Heart Failure (Exclusion) Patient has history of Heart Transplant or Left Ventricular Assistive Device?: No IF YES, STOP HERE Heart Failure (Qualifier) Patient has current or prior documentation of LVEF less than or equal to 40%, or mod/servere depressed LVSF?: No IF NO, STOP HERE
== END 2025-04-05 14:20 | disposition home or self-care (01) | DRG 439 ==
LOC: ANHED 11:22 → ANH2MED 15:33
PROVIDERS: Internal Medicine Gastroenterology; Internal Medicine Nephrology; Internal Medicine Pulmonary Disease; Nurse Practitioner Acute Care; Student in an Organized Health Care Education/Training Program; Admitting Provider Hospitalist; Emergency Provider Emergency Medicine; PCP Family Medicine; Visit Provider Nurse Practitioner
DX: K85.90 Acute pancreatitis without necrosis or infection, unspecified (principal); E87.1 Hypo-osmolality and hyponatremia; J90 Pleural effusion, not elsewhere classified; R17 Unspecified jaundice; I10 Essential (primary) hypertension; D13.5 Benign neoplasm of extrahepatic bile ducts; E03.9 Hypothyroidism, unspecified; E78.5 Hyperlipidemia, unspecified; M54.9 Dorsalgia, unspecified; M19.90 Unspecified osteoarthritis, unspecified site; R91.1 Solitary pulmonary nodule; F10.11 Alcohol abuse, in remission; Z20.822 Contact with and (suspected) exposure to COVID-19; Z87.891 Personal history of nicotine dependence; Z79.82 Long term (current) use of aspirin; Z86.73 Personal history of transient ischemic attack (TIA), and cerebral infarction without residual deficits
CPT/HCPCS: 36415; 71045; 71046; 72070; 72100; 74018; 74177; 74183; 76376; 76705; 78227; 80053; 81001; 81003; 82533; 82570; 82948; 83605; 83690; 83735; 83880; 83883; 83930; 83935; 84145; 84155; 84156; 84165; 84166; 84295; 84300; 84443; 84478; 84520; 84540; 85025; 85027; 85055; 86140; 87040; 87637; 87641; 93005; 93306; 96361; 96365; 96367; 96375; 99285; A9270; A9537; A9577; G0378; J0692; J0696; J1650; J1836; J1938; J2270; J2405; J7030; J7120; Q9967

== ENCOUNTER 2025-06-13 11:18 | Emergency (ER) | payer MEDICARE, SELFPAY ==
[2025-06-13 11:24] VITALS: BP 116/69; PULSE 63; RESP 20; TEMP 36.7; O2SAT 100
--- NOTE | 2025-06-13 11:25 | ECG_ITS ---
Test Date: 2025-06-13 11:35:34 Measurements Intervals [place] Rate: 63 P: 48 OR: 194 QRS: 11 QRSD: 82 T: 25 QT: 386 QTc: 397 Interpretive Statements SINUS RHYTHM WITH FREQUENT VENTRICULAR PREMATURE COMPLEXES WITH RETROGRADE ATRIAL ACTIVATION ABNORMAL RHYTHM ECG Compared to ECG 03/27/2025 10:27:28 Ventricular premature complex(es) now present Electronically Signed On 06-13-2025 13:23:41 CDT by Panda Love M.D.
[2025-06-13 11:33] VITALS: PULSE 33
[2025-06-13 11:34] VITALS: PULSE 62
--- NOTE | 2025-06-13 11:43 | ECG_ITS ---
Test Date: 2025-06-13 11:36:31 Measurements Intervals [place] Rate: 62 P: 50 MI: 194 QRS: 17 QRSD: 77 T: 29 QT: 390 QTc: 398 Interpretive Statements SINUS RHYTHM WITH FREQUENT VENTRICULAR PREMATURE COMPLEXES WITH EVIDENCE OF RETROGRADE ATRIAL ACTIVATION ABNORMAL RHYTHM ECG Compared to ECG 06/13/2025 11:35:34 No significant changes Electronically Signed On 06-13-2025 13:23:59 CDT by Panda Love M.D.
--- NOTE | 2025-06-13 11:49 | PC.NURSE ---
EMS here, report given.
--- NOTE | 2025-06-13 12:00 | PC.NURSE ---
Pt contacted, informed of status and plan of care.
--- NOTE | 2025-06-13 12:00 | ED.GENADULT ---
HPI - General Adult General Chief complaint: Chest Pain Stated complaint: Irregular heartbeat Time Seen by Provider: 06/13/25 11:33 Mode of arrival: ambulatory Limitations: no limitations History of Present Illness HPI narrative: 84-year-old male presents with concern for near regular heart rate. He reports for 2 weeks he has noticed his heart is skipping beats. He reports he has measured it at a low measurement of 30-40. He reports at 1 point he measured and below 30. He reports over the last 2 or 3 days he has had a heaviness and tightness in his chest. He denies any shortness of breath. He denies any history of heart problems. He denies diaphoresis. Denies cough MD complaint: Irregular heart rate Related Data Home Medications ?Medication ?Instructions ?Recorded ?Confirmed ?Last Taken ?Type aspirin 81 mg tablet,delayed 81 mg PO DAILY 08/09/24 03/27/25 Unknown History release (Adult Aspirin Regimen) vit C 250 mg-vit E 90 mg-zinc 40 1 tablet PO BID 08/09/24 03/27/25 Unknown History mg-copper 1 tj-oeiqrj-njqcsr capsule (PreserVision AREDS-2) cholecalciferol (vitamin D3) 1,250 1,250 mcg PO WEEKLY 10/20/24 03/27/25 Unknown History mcg (50,000 unit) capsule cyanocobalamin (vitamin B-12) 500 500 mcg PO DAILY 03/27/25 03/27/25 03/26/25 History mcg tablet (Vitamin B-12) diclofenac sodium 1 % topical gel 4 g topical HS 03/27/25 03/27/25 Unknown History (Arthritis Pain (diclofenac)) meclizine 12.5 mg tablet 12.5 mg PO TID PRN dizziness 03/27/25 03/27/25 Unknown History omega 0-xlp-ohh-fish oil 1,200 mg 1 cap PO DAILY 03/27/25 03/27/25 Unknown History (144 mg-216 mg) capsule (Fish Oil) propranolol 20 mg tablet 20 mg PO Q12H 03/27/25 03/27/25 Unknown History terbinafine HCl 250 mg tablet 250 mg PO .twice weekly 03/27/25 03/27/25 Unknown History Allergies Allergy/AdvReac Type Severity Reaction Status Date / Time atorvastatin Allergy Mild Weakness,Muscle Verified 06/13/25 11:57 Pain phenytoin Allergy Mild Rash Verified 06/13/25 11:57 semaglutide (From [facility]) AdvReac Severe Abdominal Verified 06/13/25 11:57 Pain Review of Systems Review of Systems: CONSTITUTIONAL: Denies malaise, chills, sweats, or fever. CARDIOVASCULAR: Reports chest heaviness and tightness, palpitations RESPIRATORY: Denies cough or dyspnea. MUSCULOSKELETAL: Denies back pain All systems reviewed & are unremarkable except as noted in HPI and below PMFSH Past Medical History Medical History Abdominal pain Leukocytosis Seizure CVA (cerebral vascular accident) Basal cell carcinoma Alcohol abuse Hypothyroidism Arthritis GI bleed Hyperlipidemia Hypertension Surgical History Surgical History History of testicular surgery Family History Family History Mother , Age 89 - CHF Breast cancer Glaucoma Father , Age 81 - Farm Accident GERD (gastroesophageal reflux disease) Lymphoma Grandparent , Age 77 - Heart Arrythmia No problems noted. Grandparent , Age 47 - Gangrene No problems noted. Grandparent , Age 70 - Unknown No problems noted. Grandparent , Age 70 - Unknown No problems noted. Sibling , Age 70 - Thyroid Cancer No problems noted. Social History Social History Smoking status: Never smoker Alcohol intake: former Substance use: never Do You Feel Safe in your Home?: Yes Lack of Transportation: No Lack of Food: Never True Current Housing: I Have Housing Concerned About Future Housing: No Difficulty Paying Gas/Electric Bills: No Difficulty Paying for Meds: No Currently Unemployed: No Education: Master's Degree or Higher Difficulty w/ Childcare or Family Care: No Living arrangements: with family Gender identity (if verbalized by the patient): Male Spiritual care concerns: No Comments At time of signature, agree with nursing past medical, surgical, social and family history. There is no relevant family history pertinent to the presenting complaint Exam Narrative: GENERAL: Well-appearing, well-nourished, and in no acute distress. HEAD: Normocephalic, atraumatic. EYES: PERRLA, sclera clear, and EOMI. ENT: Nares clear Mucous membranes moist. NECK: Supple. CHEST: No respiratory distress. Speaks in full sentences. HEART: Irregular rate and rhythm.Normal peripheral pulses. SKIN: Warm, dry, no visible rash. NEURO: Alert and oriented x3. PSYCH: Normal mood and affect Course Course Emergency Course: Patient is aware of, understands and agrees to be transferred to the emergency room via EMS Anticipatory guidance given. Patient agrees to follow-up as directed and is aware of reasons to seek care at the emergency department. Portions of this record may have been created with voice recognition software Level of Care: Express Care Visit Vital Signs Vital signs: Reviewed. Transfer Transfered to: [facility]: ALS Transfer rationale: Irregular heart rate Accepting physician: imtiaz Medical Decision Making MDM Narrative Medical decision making narrative: Patient is nontoxic appearing and in no acute distress Critical Care Time Critical Care Time Critical Care Time: No Discharge Plan Discharge Clinical Impression: Irregular heart rate Patient Disposition: Acute Care Hospital Condition: Stable Patient Language: Citizen Of [place] Prescriptions: No Action aspirin [Adult Aspirin Regimen] 81 mg tablet,delayed release (DR/EC) 81 mg PO DAILY PreserVision AREDS-2 250-90-40-1 mg capsule 1 tablet PO BID cholecalciferol (vitamin D3) 1,250 mcg (50,000 unit) capsule 1,250 mcg PO WEEKLY cyanocobalamin (vitamin B-12) [Vitamin B-12] 500 mcg tablet 500 mcg PO DAILY meclizine 12.5 mg tablet 12.5 mg PO TID PRN (Reason: dizziness) propranolol 20 mg tablet 20 mg PO Q12H terbinafine HCl 250 mg tablet 250 mg PO .twice weekly omega 2-lck-aaj-fish oil [Fish Oil] 1,200 (144-216) mg capsule 1 cap PO DAILY diclofenac sodium [Arthritis Pain (diclofenac)] 1 % gel 4 g topical HS Rx Instructions: apply to single knee, ankle, foot; for foot includes sole/toes/top of foot losartan 50 mg tablet 50 mg PO DAILY Qty: 90 1RF omeprazole 20 mg capsule,delayed release(DR/EC) 20 mg PO BID Qty: 180 1RF tamsulosin 0.4 mg capsule 0.8 mg PO DAILY Qty: 180 1RF finasteride 5 mg tablet 5 mg PO DAILY Qty: 90 1RF ezetimibe [Zetia] 10 mg tablet 10 mg PO DAILY Qty: 90 1RF levothyroxine 125 mcg tablet 125 mcg PO DAILY Qty: 90 1RF Follow-up/Referrals: Tu,Jennifer Gomez DO [Primary Care Provider] - Time of Disposition: 11:55
== END 2025-06-13 11:55 | disposition short-term general hospital (02) ==
PROVIDERS: Emergency Provider Nurse Practitioner; PCP Family Medicine
DX: I49.9 Cardiac arrhythmia, unspecified (principal); I10 Essential (primary) hypertension; E78.5 Hyperlipidemia, unspecified; E03.9 Hypothyroidism, unspecified; M19.90 Unspecified osteoarthritis, unspecified site; Z86.73 Personal history of transient ischemic attack (TIA), and cerebral infarction without residual deficits; Z85.828 Personal history of other malignant neoplasm of skin; Z79.82 Long term (current) use of aspirin
CPT/HCPCS: 36415; 71046; 80053; 83735; 83880; 84484; 85025; 85610; 85730; 93005; 99215; G0463

== ENCOUNTER 2025-06-13 12:21 | Emergency (ER) | payer MEDICARE, SELFPAY ==
--- NOTE | ~2025-06-13 | XR_ITS ---
XR chest 2V Ordering provider: Bentley Mortensen MD History: 84 years Male with . palpitations; PT C/O CHEST PRESSURE . Comparison: April 01, 2025 FINDINGS: MEDIASTINUM: The cardiac silhouette is not enlarged. LUNGS: No infiltrates, effusions or pneumothorax. OTHER: No free air under the diaphragm. Degenerative spine. IMPRESSION: No acute cardiopulmonary pathology. Reviewed, dictated and finalized at location A.
--- NOTE | 2025-06-13 12:32 | ECG_ITS ---
Test Date: 2025-06-13 12:41:20 Measurements Intervals [place] Rate: 62 P: 47 UT: 189 QRS: 25 QRSD: 85 T: 36 QT: 388 QTc: 397 Interpretive Statements SINUS RHYTHM WITH FREQUENT VENTRICULAR PREMATURE COMPLEXES IN A BIGEMINAL PATTERN WITH RETROGRADE ATRIAL ACTIVATION POSSIBLE LEFT ATRIAL ENLARGEMENT [-0.1mV P-WAVE IN V1/V2] ABNORMAL RHYTHM ECG Compared to ECG 06/13/2025 11:36:31 No significant changes Electronically Signed On 06-13-2025 13:25:57 CDT by Panda Love M.D.
[2025-06-13 12:35] VITALS: BP 127/77; PULSE 66
[2025-06-13 12:37] VITALS: BP 122/73; PULSE 64
[2025-06-13 12:38] VITALS: BP 121/65; PULSE 64; RESP 16; TEMP 36.4; O2SAT 98
[2025-06-13 12:39] VITALS: BP 121/65; PULSE 65
--- OUTSIDE RECORDS SUMMARY | 2025-06-13 12:41 | XMS_ITS | Encounter Summary ---
Author Organization [facility] Address [address] [place] [id number] Care Team Providers Care Tailor Fitter Name Role Phone Jennifer Mae Primary Care Provider [phone] Encounter Details Date Type Department Care Team (Latest Contact Info) Description 05/13/2025 Results Follow-Up [facility] [place] [address] [address] [place], [place] [id number] [place] [address] [place] [id number] COMPREHENSIVE METABOLIC PANEL, CBC W/DIFF AUTOMATED Social History Tobacco Use Types Packs/Day Years Used Date Smoking Tobacco: Former Cigarettes Q uit: 11/30/1958 Passive Smoke Exposure: Past Smokeless Tobacco: Never Comments:maybe one a week Alcohol Use Standard Drinks/Week Comments Not Currently 0 (1 standard drink = 0.6 oz pur e alcohol) [id number] PHQ-2 Answer Date Recorded Patient Health Questionnaire-2 Score 0 02/28/2025 Sex and Gender Information Value Date Recorded Sex Assigned at Male 02/28/2025 10:33 AM CDT Legal Sex Male 3:45 PM CDT Gender Identity Male 02/28/2025 10:33 AM CDT Sexual Orientation Not on file documented as of this encounter Plan of Treatment Upcoming Encounters Date Type Department Care Team (Late st Contact Info) Description 06/22/2025 2:20 PM CDT Office Visit [facility] [place] [address] [place] [address] Jennifer Mae DO [address] [address] [place] [address] documented as of this encounter Visit Diagnoses Not on filedocumented in this encounter Care Teams Tailor Fitter Relationship Specialty Start Date End Date Jennifer Mae DO [address] [place] [address] PCP - General FAMILY PRACTICE 02/07/25 07/17/25 documented as of this encounter
--- OUTSIDE RECORDS SUMMARY | 2025-06-13 12:41 | XMS_ITS | Clinical Summary ---
Author Organization [facility] Address [address] [place] [address] Care Team Providers Care Digester Name Role Phone Jennifer Mae Primary Care Provider [phone] Allergies Active Allergy Reactions Criticality Noted Date Comments Atorvastatin Myalgias Medium 01/14/2013 Phenytoin Hives 11/30/1984 Phenytoin Sodium Extended Rash Medium 01/14/2013 Statins Myalgias,Other (see comment) 11/30/2004 Myalgias and muscle weakness Medications Aspirin (ASPIR-LOW OR) Take 81 mg by mouth daily. 4 Active vitamin B-12 (CYANOCOBALAMIN) 500 MCG tablet Take 1 tablet (500 mcg total) by mouth daily. Active omeprazole (PRILOSEC) 20 MG capsule Take 1 capsule (20 mg total) by mouth daily. Active terbinafine (LAMISIL) 250 MG tablet Take 1 tablet (250 mg total) by mouth 2 (two) times a week. Active Multiple Vitamins-Minerals (PRESERVISION AREDS 2) Cap Take 2 capsules by mouth daily. 8 Active vitamin D3 (CHOLECALCIFEROL) 1.25 mg capsule Take 1 capsule (1.25 mg total) by mouth once a week. Active [place]-3 Fatty Acids (FISH OIL) 1200 MG CAPSULE DELAYED RELEASE Take 1,200 mg by mouth daily. Active propranolol (INDERAL) 20 MG tabletIndications:E ssential tremor Take 1 tablet (20 mg total) by mouth 2 (two) times daily. 180 tablet 1 5 08/27/20 25 Active finasteride (PROSCAR) 5 MG tabletIndications:E nlarged prostate Take 1 tablet (5 mg total) by mouth nightly. 90 tablet 5 07/31/20 25 Active ezetimibe (ZETIA) 10 MG tabletIndications:M ixed hyperlipidemia Take 1 tablet (10 mg total) by mouth daily. 90 tablet 3 5 04/27/20 26 Active tamsulosin (FLOMAX) 0.4 MG CapIndications:Enla rged prostate Take 2 capsules (0.8 mg total) by mouth daily. 180 capsule 5 07/31/20 25 Active levothyroxine (SYNTHROID) 112 MCG tabletIndications:A cquired hypothyroidism Take 1 tablet (112 mcg total) by mouth every morning. 90 tablet 1 5 10/29/20 25 Active losartan (COZAAR) 50 MG tabletIndications:P rimary hypertension Take 1 tablet (50 mg total) by mouth daily. 90 tablet 5 07/31/20 25 Active Cod Liver Oil w/Vit A & D Cap Active Active Problems Problem Noted Date Diagnosed Date Benign neoplasm of extrahepatic bile ducts 04/13 Overview (04/13/2025): Right upper quadrant ultrasound 03/27/2025 showed focal adenomyosis at the fundus of the gallbladder. No choledocholithiasis and no evident biliary or pancreatic ductal dilation. Normal appearance to the pancreas on ultrasound imaging although findings on prior CT are consistent with acute interstitial pancreatitis. Assessment & Plan (04/13/2025 8:38 AM CDT): Right upper quadrant ultrasound 03/27/2025 showed focal adenomyosis at the fundus of the gallbladder. No choledocholithiasis and no evident biliary or pancreatic ductal dilation. Normal appearance to the pancreas on ultrasound imaging although findings on prior CT are consistent with acute interstitial pancreatitis. Right middle lobe pulmonary nodule 04/13/2025 Assessment & Plan (04/13/2025 8:39 AM CDT): Noted incidentally on CT abdomen pelvis 03/29/2025. Noted nodule in the right middle lobe and recommended 6 months follow-up CT is advised. Will plan for patient to complete CT chest in 6 months. Hoarseness of voice 04/13/2025 Assessment & Plan (04/13/2025 6:15 PM CDT): Unsure of etiology that is contributing to get hoarseness of voice. Discussed with patient that it could be increased GERD despite him not having increase in symptoms of GERD. Discussed with patient that we could send patient to ENT however we both agreed that we will continue to monitor to see if there is improvement over time. Physical deconditioning 04/13/2025 Overview (05/16/2025): 05/16/2025: Patient saw physical therapy at [facility] 05/04/2025 with timed get up and go 11 seconds recommending twice weekly treatments for 6 to 12 weeks. He reports he has been seeing physical therapy and his strength has increased. Assessment & Plan (05/16/2025 11:30 AM CDT): Continue physical therapy as recommended. Assessment & Plan (04/13/2025 6:17 PM CDT): Patient is physically deconditioned due to hospitalization from 03/27/2025 through 04/05/2025 which included over 16 pound weight loss. He is requesting referral to physical therapy. Physical therapy referral placed per patient request to [facility] in [place], [place]. Unintentional weight loss 04/13/2025 Overview (04/13/2025): 04/13/2025: He reports he has gained 1.5 pounds back since hospitalization. Assessment & Plan (05/16/2025 11:32 AM CDT): Patient has gained 2 pounds since last visit 04/13/2025. On general appearance, he appears more well than previous. Assessment & Plan (04/13/2025 6:16 PM CDT): Patient's weight is down 16 pounds from last office visit 02/28/2025. Discussed with patient this is likely related to weight lost during hospitalization. Left-sided thoracic back pain, unspecified chron icity 04/13/2025 Overview (05/16/2025): 05/16/2025: He reports pain is present still at times. He reports physical therapy is working with him. Assessment & Plan (05/16/2025 11:32 AM CDT): Continue physical therapy recommendations Assessment & Plan (04/13/2025 6:19 PM CDT): Suspect patient's left-sided back pain may be related to viscerosomatic response related to his acute pancreatitis. Will continue to monitor however would like patient to trial lidocaine patches. Patient instructed that he can keep lidocaine patch on for 12 hours and then is to take off and leave off for 12 hours. Immune to measles 03/01/2025 Overview (05/15/2025): Component Ref Range & Units 03/01/25 1407 MEASLES AB IGG (CSF) AU/mL >300.00 Comment: AU/mL Interpretation ----- <13.50 Not consistent with immunity 13.50-16.49 Equivocal >16.49 Consistent with immunity The presence of measles IgG suggests immunization or past or current infection with measles virus. For additional information, please refer to http://education.[employer]/faq/NLJ520 (This link is being provided for informational/ educational purposes only.) Resulting Agency [facility] Statin myopathy 02/28/2025 Overview (02/28/2025): Initial visit [...] Stable. Continue propranolol 20 mg twice daily. Gastroesophageal reflux dise ase, unspecified whether esophagitis [...] recent lab work. Other polyneuropathy 02/28/2025 Overview (04/13/2025): Initial visit 02/28/2025: Patient reports he has [...] this is helpful for his neuropathy symptoms. 04/13/2025: He is asking if he can put cream on his back that he uses on his feet. Assessment & Plan (04/13/2025 6:26 PM CDT): Discussed with patient that we will trial lidocaine patches first. He can try cream on his back but is do not put any more than the 2 g that he uses on a foot. If he experiences any side effects or concerning feelings, he is to discontinue. Assessment & Plan (02/28/2025 1:34 PM CDT): [...] I would like to evaluate renal function. Hard of hearing 08/24/2024 Overview (02/28/2025): Initial visit 02/28/2025: He reports he has bilateral hearing aids. He is currently wearing hearing aid in left ear. Heart disease, unspecified 08/18/2024 Primary hypertension 06/08/2024 Overview (05/16/2025): Images from the original note were not included. Regimen: Losartan 50 mg once daily GFR: 89, 05/12/2025 Urine microalbumin to creatinine ratio: Ordered Blood pressure monitoring device at home: Yes Initial visit 02/28/2025: Reports he has controlled hypertension. Taking losartan 50 mg once daily. 05/16/2025: He brought in blood pressure log from home. He reports last blood pressure in office was an outlier. Assessment & Plan (05/16/2025 11:29 AM CDT): Blood pressure appropriate in office and generally appropriate at home. Continue losartan 50 mg daily. Assessment & Plan (04/13/2025 6:14 PM CDT): Blood pressure is low. Discussed with patient and I would like him to hold his losartan 50 mg daily at this time until further notice. He can take blood pressure measurements at home and we will continue to monitor. Assessment & Plan (02/28/2025 1:31 PM CDT): [...] mg nightly. Hyperlipidemia, unspecified 06/08/2024 Overview (02/28/2025): elder trinh Acquired hypothyroidism 06/08/2024 Overview (02/28/2025): Initial visit [...] Problem Noted Date Diagnosed Date Resolved Date Acute pancreatitis without i nfection or necrosis, unspecified pancreatitis type (HHS/HCC) 04/13/2025 05/16/2025 Overview (04/13/2025): Assessment & Plan (04/13/2025 6:11 PM CDT): Patient was recently hospitalized and discharged no etiology was found. Over the past year, patient has been taking Wegovy for weight loss. I suspect Wegovy could have contributed to patient's pancreatitis. Will not continue Wegovy. Last dose of Wegovy 03/26/2025. Will continue to monitor patient's LFTs and alk phos. Drug-induced constipation 04/13/2025 Overview (05/16/2025): 04/13/2025: He reports he is having bowel movements. He reports he does often have to give himself an enema to help provide initial movement of his bowels since being on Wegovy. 05/16/2025: Reports this is resolved. Assessment & Plan (04/13/2025 6:20 PM CDT): Discussed with patient that he could add in stool softener such as docusate on a regular basis and he can supplement with fiber supplement such as Metamucil/psyllium husk. He is to increase his oral fluid intake. Hyponatremia 04/13/2025 05/16/2025 Overview (05/16/2025): Component Ref Range & Units 05/12/25 1242 GLUCOSE 65 - 99 mg/dL 108 High Comment: Fasting reference interval For someone without known diabetes, a glucose value between 100 and 125 mg/dL is consistent with prediabetes and should be confirmed with a follow-up test. BUN 7 - 25 mg/dL 16 CREATININE S/P/B 0.70 - 1.22 mg/dL 0.76 GFR ESTIMATE > OR = 60 mL/min/1.73m2 89 BUN CREATININE RATIO 6 - 22 (calc) SEE NOTE: Comment: Not Reported: BUN and Creatinine are within reference range. SODIUM S/P/B 135 - 146 mmol/L 137 POTASSIUM S/P/B 3.5 - 5.3 mmol/L 4.6 CHLORIDE S/P/B 98 - 110 mmol/L 104 CO2 20 - 32 mmol/L 27 CALCIUM S/P/B 8.6 - 10.3 mg/dL 9.8 TOTAL PROTEIN S/P/B 6.1 - 8.1 g/dL 6.7 ALBUMIN S/P/B 3.6 - 5.1 g/dL 4.2 GLOBULIN 1.9 - 3.7 g/dL (calc) 2.5 ALBUMIN/GLOBULIN RATIO 1.0 - 2.5 (calc) 1.7 BILIRUBIN TOTAL S/P/B 0.2 - 1.2 mg/dL 0.6 ALKALINE PHOSPHATASE S/P/B 35 - 144 U/L 67 AST 10 - 35 U/L 17 ALT 9 - 46 U/L 18 Resulting Agency [facility] Assessment & Plan (04/13/2025 6:20 PM CDT): Improving. Will continue to monitor and repeat metabolic panel in 2 weeks. Transaminitis 04/13/2025 05/16/2025 Overview (05/16/2025): 04/13/2025: LFTs improved from hospital admission however have increased since discharge. CMP 04/11/2025 Alkaline phosphatase 153 AST 57 ALT 98 Component Ref Range & Units 05/12/25 1242 GLUCOSE 65 - 99 mg/dL 108 High Comment: Fasting reference interval For someone without known diabetes, a glucose value between 100 and 125 mg/dL is consistent with prediabetes and should be confirmed with a follow-up test. BUN 7 - 25 mg/dL 16 CREATININE S/P/B 0.70 - 1.22 mg/dL 0.76 GFR ESTIMATE > OR = 60 mL/min/1.73m2 89 BUN CREATININE RATIO 6 - 22 (calc) SEE NOTE: Comment: Not Reported: BUN and Creatinine are within reference range. SODIUM S/P/B 135 - 146 mmol/L 137 POTASSIUM S/P/B 3.5 - 5.3 mmol/L 4.6 CHLORIDE S/P/B 98 - 110 mmol/L 104 CO2 20 - 32 mmol/L 27 CALCIUM S/P/B 8.6 - 10.3 mg/dL 9.8 TOTAL PROTEIN S/P/B 6.1 - 8.1 g/dL 6.7 ALBUMIN S/P/B 3.6 - 5.1 g/dL 4.2 GLOBULIN 1.9 - 3.7 g/dL (calc) 2.5 ALBUMIN/GLOBULIN RATIO 1.0 - 2.5 (calc) 1.7 BILIRUBIN TOTAL S/P/B 0.2 - 1.2 mg/dL 0.6 ALKALINE PHOSPHATASE S/P/B 35 - 144 U/L 67 AST 10 - 35 U/L 17 ALT 9 - 46 U/L 18 Resulting Agency Assessment & Plan (04/13/2025 6:27 PM CDT): Repeat LFTs in 1 to 2 weeks. Having patient hold terbinafine 250 mg twice weekly Need for diphtheria-tetanus- pertussis (Tdap) vaccine 02/28/2025 05/16/2025 Overview (05/15/2025): Last received Tdap booster 03/24/2025 Assessment & Plan (02/28/2025 11:19 AM CDT): Requested records from [facility] regarding TDAP. Immunity status testing 02/28/202503/30 Overview (02/28/2025): Initial visit 02/28/2025: Patient reports he thinks he had measles as a kid however unsure if he received vaccine previously Assessment & Plan (02/28/2025 1:46 PM CDT): Due to patient's age and low likelihood of having received current MMR vaccine, I recommend we check his measles titers given the current circumstances of the measles in [place]. Contact with and (suspected) exposure to other communicable diseases 06/08/2024 02/28/2025 Obesity 06/08/2024 02/28/2025 Overview (02/28/2025): contravenotcovered Seizure disorder ([facility]) 06/08/2024 02/28/2025 Overview (02/28/2025): idiopathich none sinece 85 Supraventricular tachycardia ([facility]) 06/08/2024 02/28/2025 Encounters Date Type Department Care Team Description 05/31/2025 [facility]phone [facility] [address] [place] [address] Jennifer Mae, Information 05/16/2025 9:40 AM CDT [facility] [address] [place] [address] Jennifer Mae, Hypertension (2 month follow up. /Pt states he checks at home once daily. /BP has been good. /) 05/16/2025 Scan [facility] Scanned, [facility] 05/16/2025 Travel 05/13/2025 Results [facility] [address] [place] [address] Troy Porter MD COMPREHENSIVE METABOLIC PANEL, CBC W/DIFF AUTOMATED 05/12/2025 Orders Only [facility] [address] [place] [address] Jennifer Mae DO 05/04/2025 Scan [employer] Scanned, [facility] 05/02/2025 Orders Only [facility] [address] [place] [address] Judi De Jesus MA 04/13/2025 1:40 PM CDT Office Visit [facility] [place] [address] [place] [address] Jennifer Mae DO Hospital Follow Up (Pt discharged 04/05/25. /No questions or concerns today. /) 04/13/2025 Travel 04/11/2025 Scan [facility] Scanned, [facility] Lab (SCAN) 04/02/2025 Scan [facility] Scanned, [facility] Image (SCAN); MRI (SCAN) 04/01/2025 Scan [facility] Scanned, [facility] Image (SCAN) 03/31/2025 Scan [facility] Scanned, [facility] Image (SCAN) 03/27/2025 Scan [facility] Scanned, [facility] Procedure (SCAN); CT (SCAN) 03/23/2025 Scan [facility] Scanned, [facility] from Last 3 Months Immunizations Immunization Administration Dates Next Due Arexvy Respiratory Syncytial Virus (RSV, adjuvanted) 0.5 mL, PF 08/18/2023 FLUAD (IIV, Trivalent, 0.5 M L Pre-filled Syringe) 08/09/2024,08/15/2019,09/01/2018 Fluzone High Dose (IIV, triv alent, 0.5mL) 08/26/2017,09/01/2016,08/27/2015 H1N1 Injectable 2009 Influenza 11/12/2009 Influenza (Generic) 08/25/2013,12/10/2012,2008 Influenza Adult (Generic) 08/18/2023,08/2022,08/19/2021,2019 Pneumococcal (Pneumovax 23) 12/28/2017, 3 Pneumococcal (Prevnar 13) 05/30/2015 Shingrix 08/15/2019,03/26/2018 Tdap (Generic) 03/24/2025 Family History Medical History Relation Comments Cancer [...] drink = 0.6 oz pur e alcohol) [id number] PHQ-2 Answer Date Recorded Patient Health Questionnaire-2 Score 0 02/28/2025 Sex and Gender Information Value Date Recorded Sex Assigned at Male 02/28/2025 10:33 AM CDT Legal Sex Male 3:45 PM CDT Gender Identity Male 02/28/2025 10:33 AM CDT Sexual Orientation Not on file Last Filed Vital Signs Vital Sign Reading Time Taken Comments Blood Pressure 122/81 05/16/2025 9:09 AM CDT Pulse 61 05/16/2025 9:09 AM CDT Temperature 36.3 C (97.3 F) 05/16/2025 9:09 AM CDT Respiratory Rate 16 05/16/2025 9:09 AM CDT Oxygen Saturation 98% 05/16/2025 9:09 AM CDT Inhaled Oxygen Concentration - - Weight 90.3 kg (199 lb) 05/16/2025 9:09 AM CDT Height 180.3 cm (5' 11) 05/16/2025 9:09 AM CDT Body Mass Index 27.75 05/16/2025 9:09 AM CDT Plan of Treatment Upcoming Encounters Date Type Department Care Team (Late st Contact Info) Description 06/22/2025 2:20 PM CDT Office Visit [facility] [address] [place] [address] Jennifer Mae, [address] [place] [address] Health Maintenance Due Date Last Done Comments Annual Medicare Wellness Visit 2005 DTaP, Tdap and Td Vaccines (2 - Td or Tdap) 03/24/2035 03/24/2025 Pneumococcal Vaccine: 50+ Years Completed 12/28/2017, 05/30/2015, 12/10/2012 Zoster Vaccines Completed 08/15/2019, 03/26/2018 RSV Immunization or 60+ Years Completed 08/18/2023 PHQ-2 (Physician [place]) Completed 02/28/2025 COVID-19 Vaccine Completed 03/24/2025, 08/2024, 09/01/2023, Additional history exists Meningococcal B Vaccine Aged Out No l onger eligible based on patient's age to complete this topic Meningococcal Vaccine Aged Out No asad phong eligible based on patient's age to complete this topic RSV Immunizations Under 20 Months Aged Out No longer eligible based on patient's age to complete this topic Procedures Procedure Name Priority Date/Time Associated Diagnosis Comments CBC W/DIFF AUTOMATED Routine 05/12/2025 12:42 PM CDT COMPREHENSIVE METABOLIC PANEL Routine 05/12/2025 12:42 PM CDT OUTSIDE LAB (SCAN ORDER) 04/11/2025 OUTSIDE LAB (SCAN ORDER) 04/11/2025 MRI GENERIC 04/02/2025 IMAGE GENERIC 04/02/2025 IMAGE GENERIC 04/02/2025 IMAGE GENERIC 04/01/2025 IMAGE GENERIC 03/31/2025 CT GENERIC 03/27/2025 PROCEDURE GENERIC (SCAN ORDER) 03/27/2025 from Last 3 Months Results * (ABNORMAL) COMPREHENSIVE METABOLIC PANEL (05/12/2025 12:42 PM CDT) GLUCOSE 108(H) 65 - 99 mg/dL [place] [place] Comment: Fasting reference interval For someone without known diabetes, a glucose value between 100 and 125 mg/dL is consistent with prediabetes and should be confirmed with a follow-up test. BUN 16 7 - 25 mg/dL [place] CREATININE S/P/B 0.76 0.70 - 1.22 mg/dL [place] [place] GFR ESTIMATE 89 > OR = 60 mL/min/1. 73m2 [place] BUN CREATININE RATIO SEE NOTE: (calc) [place] [place] Comment: Not Reported: BUN and Creatinine are within reference range. SODIUM S/P/B 137 135 - 146 mmol/L [place] [place] POTASSIUM S/P/B 4.6 3.5 - 5.3 mmol/L [place] [place] CHLORIDE S/P/B 104 98 - 110 mmol/L [place] CO2 27 20 - 32 mmol/L [place] CALCIUM S/P/B 9.8 8.6 - 10.3 mg/dL [place] TOTAL PROTEIN S/P/B 6.7 6.1 - 8.1 g/dL [place] [place] ALBUMIN S/P/B 4.2 3.6 - 5.1 g/dL [place] GLOBULIN 2.5 1.9 - 3.7 g/dL (calc) [place] ALBUMIN/GLOBULIN RATIO 1.7 1.0 - 2.5 (calc) [place] BILIRUBIN TOTAL S/P/B 0.6 0.2 - 1.2 mg/dL [place] [place] ALKALINE PHOSPHATASE S/P/B 67 35 - 144 U/L [place] [place] AST 17 10 - 35 U/L [place] ALT 18 9 - 46 U/L [place] [place] 05/12/2025 12:4 2 PM CDT 05/12/2025 12:42 PM CDT Narrative Resulting Agency Comment Performing Organization Information: Site ID: Name: [facility] Address: [facility] [place] [address] Director: Izabela Romero us Jennifer Mae DO LABORATORY Final Result [facility] [facility] [address] [id number] * (ABNORMAL) CBC W/DIFF AUTOMATED (05/12/2025 12:42 PM CDT) WBC 7.3 3.8 - 10.8 Thousand/u L [place] RBC 4.99 4.20 - 5.80 Million/uL [place] HGB 15.0 13.2 - 17.1 g/dL [place] HCT 47.2 38.5 - 50.0 % [place] MCV 94.6 80.0 - 100.0 fL [place] MCH 30.1 27.0 - 33.0 pg [place] MCHC 31.8(L) 32.0 - 36.0 g/dL [place] Comment: For adults, a slight decrease in the calculated MCHC value (in the range of 30 to 32 g/dL) is most likely not clinically significant; however, it should be interpreted with caution in correlation with other red cell parameters and the patient's clinical condition. RDW 13.5 11.0 - 15.0 % [place] PLT 225 140 - 400 Thousand/u L [place] MPV 10.4 7.5 - 12.5 fL [place] ABS. NEUTROPHILS 4,701 1,500 - 7,800 cells/uL [place] ABS. LYMPHOCYTES 1,679 850 - 3,900 cells/uL [place] ABS. MONOCYTES 628 200 - 950 cells/uL [place] ABS. EOSINOPHILS 212 15 - 500 cells/uL [place] ABS. BASOPHILS 80 0 - 200 cells/uL [place] SEG NEUTROPHILS 64.4 % [place] LYMPHOCYTES 23.0 % [place] MONOCYTES 8.6 % [place] EOSINOPHILS 2.9 % [place] BASOPHILS 1.1 % [place] 05/12/2025 12:4 2 PM CDT 05/12/2025 12:42 PM CDT Narrative Resulting Agency Comment Performing Organization Information: Site ID: Name: [facility] Address: [address] [place] [address] Director: Izabela Romero Result [facility] Jennifer Mae DO LABORATORY Final Result [facility] [place] [phone], [place] * OUTSIDE LAB (SCAN ORDER) (04/11/2025) Only the most recent of2 resultswithin the time period is included. 04/11/2025 Result [facility] Scanned SCANNING Final Resu lt * MRI GENERIC (04/02/2025) Anatomical Region Laterality Modality Other 04/02/2025 Result [facility] Scanned SCANNING Final Resu lt * IMAGE GENERIC (04/02/2025) Only the most recent of4 resultswithin the time period is included. Anatomical Region Laterality Modality Other 04/02/2025 Result [facility] Scanned SCANNING Final Resu lt * CT GENERIC (03/27/2025) Anatomical Region Laterality Modality Other 03/27/2025 Result [facility] Scanned SCANNING Final Resu lt * PROCEDURE GENERIC (SCAN ORDER) (03/27/2025) 03/27/2025 Result [facility] Scanned SCANNING Final Resu lt from Last 3 Months Insurance [employer] Care Teams Digester Relationship Specialty Start Date End Date Jennifer Mae DO [address] [place] [address] PCP - General FAMILY PRACTICE 02/07/25 07/17/25
--- NOTE | 2025-06-13 12:48 | PC.NURSE ---
Pt. to x-ray
[2025-06-13 12:50] LABS: Hematocrit 44.9 % (42.0-52.0); Hemoglobin 14.3 g/dL (14.0-18.0); Immature Granulocyte Percent A 0.4 % (0-0.5); Lymphocytes Absolute Auto 1.45 K/mm3 (0.9-3.2); Mean Corpuscular HGB Conc 31.8 g/dl (32-36); Mean Corpuscular Hemoglobin 29.3 pg (26-34); Mean Corpuscular Volume 92.0 fl (80-100); Nucleated Red Blood Cells Absolute Auto 0.000 K/mm3 (0.0-0.012); Nucleated Red Blood Cells Perc 0.0 % (0.0-0.2); Platelet Count Result 198 k/mm3 (150-375); Red Blood Count 4.88 M/mm3 (4.6-6.20); White Blood Count 7.6 K/mm3 (4.5-10.0)
[2025-06-13 13:18] LABS: Alanine Aminotransferase 23 U/L (6-50); Albumin Level 4.3 g/dL (3.5-5.1); Alkaline Phosphatase 60 U/L (38-126); Anion Gap 8 mmol/L (4-12); Aspartate Amino Transferase 27 U/L (17-59); Bilirubin,Total 0.7 mg/dL (0.2-1.3); Blood Urea Nitrogen 18 mg/dL (9-20); Calcium 9.5 mg/dL (8.4-10.2); Carbon Dioxide 25 mmol/L (22-30); Chloride 102 mmol/L (98-107); Estimated CRCL calculation 62 ml/min; Estimated Glomerular Filt Rate > 60; Glucose 90 mg/dL (65-110); INR 1.0; Magnesium 2.2 mg/dL (1.6-2.3); Potassium 4.6 mmol/L (3.4-5.0); Prothrombin Time 13.8 Seconds (11.1-14.7); Sodium 135 mmol/L (137-145); Total Protein 7.2 g/dL (6.3-8.2)
[2025-06-13 13:19] LABS: Partial Thromboplastin Time 26.4 Seconds (22.3-36.8)
[2025-06-13 13:29] LABS: NT Pro B Type Natriuretic Pept 921 pg/mL (19.9-100); Troponin I < 0.012 ng/mL (0.000-0.034)
--- NOTE | 2025-06-13 14:45 | ED_ITS ---
HPI - General Adult General Chief complaint: Chest Pain Stated complaint: chest tightness Time Seen by Provider: 06/13/25 12:30 History of Present Illness HPI narrative: Patient is an 84-year-old male who presents ER with irregular heartbeat. Ongoing for 3 weeks. Reports his heart rate is is low as 30 beats per minute. No dizziness or shortness of breath. No syncope. Reports he has had some slight discomfort in chest for last 3 days but does not describe it as sharp. There is no radiation. No vomiting. Related Data Home Medications ?Medication ?Instructions ?Recorded ?Confirmed ?Last Taken ?Type aspirin 81 mg tablet,delayed 81 mg PO DAILY 08/09/24 03/27/25 Unknown History release (Adult Aspirin Regimen) vit C 250 mg-vit E 90 mg-zinc 40 1 tablet PO BID 08/09/24 03/27/25 Unknown History mg-copper 1 pj-oeghvl-ncfbxk capsule (PreserVision AREDS-2) cholecalciferol (vitamin D3) 1,250 1,250 mcg PO WEEKLY 10/20/24 03/27/25 Unknown History mcg (50,000 unit) capsule cyanocobalamin (vitamin B-12) 500 500 mcg PO DAILY 03/27/25 03/27/25 03/26/25 History mcg tablet (Vitamin B-12) diclofenac sodium 1 % topical gel 4 g topical HS 03/27/25 03/27/25 Unknown History (Arthritis Pain (diclofenac)) meclizine 12.5 mg tablet 12.5 mg PO TID PRN dizziness 03/27/25 03/27/25 Unknown History omega 2-gvr-fal-fish oil 1,200 mg 1 cap PO DAILY 03/27/25 03/27/25 Unknown History (144 mg-216 mg) capsule (Fish Oil) propranolol 20 mg tablet 20 mg PO Q12H 03/27/25 03/27/25 Unknown History terbinafine HCl 250 mg tablet 250 mg PO .twice weekly 03/27/25 03/27/25 Unknown History Allergies Allergy/AdvReac Type Severity Reaction Status Date / Time atorvastatin Allergy Mild Weakness,Muscle Verified 06/13/25 12:47 Pain phenytoin Allergy Mild Rash Verified 06/13/25 12:47 Msrykbt-BYB-BxJ Reductase Allergy Weakness Verified 06/13/25 12:47 Inhibitor semaglutide (From [facility]) AdvReac Severe Abdominal Verified 06/13/25 12:47 Pain Review of Systems 2 Review of Systems: All systems reviewed & are unremarkable except as noted in HPI and below Constitutional: Constitutional: Reports no additional constitutional complaints Cardiovascular: Cardiovascular: Reports no additional cardiovascular complaints Respiratory: Respiratory: Reports no additional respiratory complaints Gastrointestinal: Gastrointestinal: Reports no additional gastrointestinal complaints Musculoskeletal: Musculoskeletal: Reports no additional musculoskeletal complaints [facility] Past Medical History Medical History Abdominal pain Leukocytosis Seizure CVA (cerebral vascular accident) Basal cell carcinoma Alcohol abuse Hypothyroidism Arthritis GI bleed Hyperlipidemia Hypertension Surgical History Surgical History History of testicular surgery Family History Family History Mother , Age 89 - CHF Breast cancer Glaucoma Father , Age 81 - Farm Accident GERD (gastroesophageal reflux disease) Lymphoma Grandparent , Age 77 - Heart Arrythmia No problems noted. Grandparent , Age 47 - Gangrene No problems noted. Grandparent , Age 70 - Unknown No problems noted. Grandparent , Age 70 - Unknown No problems noted. Sibling , Age 70 - Thyroid Cancer No problems noted. Social History Social History Smoking status: Never smoker Alcohol intake: former Substance use: never Do You Feel Safe in your Home?: Yes Lack of Transportation: No Lack of Food: Never True Current Housing: I Have Housing Concerned About Future Housing: No Difficulty Paying Gas/Electric Bills: No Difficulty Paying for Meds: No Currently Unemployed: No Education: Master's Degree or Higher Difficulty w/ Childcare or Family Care: No Living arrangements: with family Gender identity (if verbalized by the patient): Male Spiritual care concerns: No Exam 2 Narrative: GENERAL: Well-appearing, well-nourished, and in no acute distress. HEAD: Normocephalic, atraumatic. ENT: Mucous membranes moist. CHEST: Clear to auscultation. No respiratory distress. HEART: Regular rate and rhythm. Normal peripheral pulses. ABDOMEN: Soft, nontender, nondistended. EXTREMITIES: Normal range of motion. No edema. SKIN: Warm, dry, no rash. NEURO: Alert and oriented x3. PSYCH: Normal mood and affect. Course Course Emergency Course: EKG with nancy explaining his observe heart rate of 30 on his home monitor. First troponin negative. Will repeat. Electrolytes otherwise normal. Recommend follow-up with PCP. Vital Signs Vital signs: Vital Signs Pulse Rate 66 06/13/25 12:35 Blood Pressure 127/77 06/13/25 12:35 Temperature 97.6 F 06/13/25 12:38 Pulse Rate 68 06/13/25 15:00 Respiratory Rate 14 06/13/25 15:00 Blood Pressure 109/79 06/13/25 15:00 Pulse Oximetry 98 06/13/25 15:00 Oxygen Delivery Room Air 06/13/25 12:43 Medical Decision Making Vital Signs Vital Signs: Vital Signs Pulse Rate 66 06/13/25 12:35 Blood Pressure 127/77 06/13/25 12:35 Temperature 97.6 F 06/13/25 12:38 Pulse Rate 68 06/13/25 15:00 Respiratory Rate 14 06/13/25 15:00 Blood Pressure 109/79 06/13/25 15:00 Pulse Oximetry 98 06/13/25 15:00 Oxygen Delivery Room Air 06/13/25 12:43 Lab Data 06/13/25 12:44 06/13/25 12:44 Labs: Lab Results 06/13/25 06/13/25 Range/Units 12:44 15:50 WBC 7.6 (4.5-10.0) K/mm3 RBC 4.88 (4.6-6.20) M/mm3 Hgb 14.3 (14.0-18.0) g/dL Hct 44.9 (42.0-52.0) % MCV 92.0 (80-100) fl MCH 29.3 (26-34) pg MCHC 31.8 L (32-36) g/dl RDW 14.6 H (11.5-14.5) % Plt Count 198 (150-375) k/mm3 MPV 10.1 (7.4-10.4) fl Immature Gran % (Auto) 0.4 (0-0.5) % Neut % (Auto) 64.7 (45.5-73.1) % Lymph % (Auto) 19.1 (18.3-44.2) % [place] % (Auto) 11.3 H (2.6-8.5) % Eos % (Auto) 3.4 (0-4.4) % Baso % (Auto) 1.1 (0.2-1.2) % Lymph # (Auto) 1.45 (0.9-3.2) K/mm3 [place] # (Auto) 0.9 H (0.1-0.6) K/mm3 Eos # (Auto) 0.3 (0-0.3) K/mm3 Baso # (Auto) 0.1 (0.0-0.1) K/mm3 Abs Immat Gran (auto) 0.03 (0.00-0.031) K/mm3 Absolute Neuts (auto) 4.9 (1.3-6.7) K/mm3 Absolute Nucleated RBC 0.000 (0.0-0.012) K/mm3 Nucleated RBC % 0.0 (0.0-0.2) % PT 13.8 (11.1-14.7) Seconds INR 1.0 APTT 26.4 (22.3-36.8) Seconds Sodium 135 L (137-145) mmol/L Potassium 4.6 (3.4-5.0) mmol/L Chloride 102 (98-107) mmol/L Carbon Dioxide 25 (22-30) mmol/L Anion Gap 8 (4-12) mmol/L BUN 18 (9-20) mg/dL Creatinine 0.82 (0.7-1.3) mg/dL Estim Creat Clear Calc 62 ml/min Estimated GFR > 60 (59 - ) Glucose 90 (65-110) mg/dL Calcium 9.5 (8.4-10.2) mg/dL Magnesium 2.2 (1.6-2.3) mg/dL Total Bilirubin 0.7 (0.2-1.3) mg/dL AST 27 (17-59) U/L ALT 23 (6-50) U/L Alkaline Phosphatase 60 (38-126) U/L Troponin I < 0.012 < 0.012 (0.000-0.034) ng/mL NT-Pro-B Natriuret Pep 921 H (19.9-100) pg/mL Total Protein 7.2 (6.3-8.2) g/dL Albumin 4.3 (3.5-5.1) g/dL Imaging Data Radiologist's impression: ITS Impressions Chest X-Ray 06/13/25 13:01 IMPRESSION: No acute cardiopulmonary pathology. ECG Data EKG #1: ECG completion date: 06/13/25 ECG completion time: 12:41 EKG Interpretation: normal rate (62), PVCs (bigeminy), normal QRS, normal QT and NL axis Discharge Plan Discharge Clinical Impression: Bigeminy Patient Disposition: Home Condition: Stable Instructions: Premature Ventricular Contractions (ED) Additional Instructions: You are having extra electrical beats. This can be provoked by caffeine. Follow-up with your primary care doctor for further treatment evaluation Patient Language: Icelandic Prescriptions: No Action aspirin [Adult Aspirin Regimen] 81 mg tablet,delayed release (DR/EC) 81 mg PO DAILY PreserVision AREDS-2 250-90-40-1 mg capsule 1 tablet PO BID cholecalciferol (vitamin D3) 1,250 mcg (50,000 unit) capsule 1,250 mcg PO WEEKLY cyanocobalamin (vitamin B-12) [Vitamin B-12] 500 mcg tablet 500 mcg PO DAILY meclizine 12.5 mg tablet 12.5 mg PO TID PRN (Reason: dizziness) propranolol 20 mg tablet 20 mg PO Q12H terbinafine HCl 250 mg tablet 250 mg PO .twice weekly omega 6-blu-izw-fish oil [Fish Oil] 1,200 (144-216) mg capsule 1 cap PO DAILY diclofenac sodium [Arthritis Pain (diclofenac)] 1 % gel 4 g topical HS Rx Instructions: apply to single knee, ankle, foot; for foot includes sole/toes/top of foot losartan 50 mg tablet 50 mg PO DAILY Qty: 90 1RF omeprazole 20 mg capsule,delayed release(DR/EC) 20 mg PO BID Qty: 180 1RF tamsulosin 0.4 mg capsule 0.8 mg PO DAILY Qty: 180 1RF finasteride 5 mg tablet 5 mg PO DAILY Qty: 90 1RF ezetimibe [Zetia] 10 mg tablet 10 mg PO DAILY Qty: 90 1RF levothyroxine 125 mcg tablet 125 mcg PO DAILY Qty: 90 1RF Follow-up/Referrals: Tu,Jennifer Gomez DO [Primary Care Provider] - 1 Week
[2025-06-13 15:00] VITALS: BP 109/79; PULSE 68; RESP 14; O2SAT 98
--- NOTE | 2025-06-13 15:37 | ECG_ITS ---
Test Date: 2025-06-13 15:42:54 Measurements Intervals [place] Rate: 66 P: 38 ID: [id number] QRS: 12 QRSD: 82 T: 29 QT: 388 QTc: 409 Interpretive Statements SINUS RHYTHM WITH FREQUENT VENTRICULAR PREMATURE COMPLEXES IN A BIGEMINAL PATTERN RETROGRADE ATRIAL ACTIVATION POSSIBLE LEFT ATRIAL ENLARGEMENT [-0.1mV P-WAVE IN V1/V2] ABNORMAL RHYTHM ECG Compared to ECG 06/13/2025 12:41:20 No significant changes Electronically Signed On 06-14-2025 12:35:27 CDT by Daniel Jernigan M.D.
[2025-06-13 16:34] LABS: Troponin I < 0.012 ng/mL (0.000-0.034)
[2025-06-13 17:04] VITALS: BP 108/63; PULSE 76; RESP 14; O2SAT 99
== END 2025-06-13 17:06 | disposition home or self-care (01) ==
PROVIDERS: Emergency Provider Emergency Medicine; PCP Family Medicine
DX: R00.8 Other abnormalities of heart beat (principal); I10 Essential (primary) hypertension; E03.9 Hypothyroidism, unspecified; E78.5 Hyperlipidemia, unspecified; M19.90 Unspecified osteoarthritis, unspecified site; Z85.828 Personal history of other malignant neoplasm of skin; Z86.73 Personal history of transient ischemic attack (TIA), and cerebral infarction without residual deficits; Z79.82 Long term (current) use of aspirin; Z79.899 Other long term (current) drug therapy; R94.31 Abnormal electrocardiogram [ECG] [EKG]
CPT/HCPCS: 36415; 71046; 80053; 83735; 83880; 84484; 85025; 85610; 85730; 93005; 99284

== ENCOUNTER 2025-07-26 07:55 | Outpatient (CLI) | payer MEDICARE, SELFPAY ==
--- NOTE | ~2025-07-26 | NM_ITS ---
EXAMINATION: NM shelli stress w perfusion DATE: 07/26/2025 11:00 INDICATION: Chest pain TECHNIQUE: Rest images were obtained following intravenous administration of 10.3 mCi Tc99m tetrofosmin (Myoview). The patient was infused intravenously with Lexiscan (Regadenoson). Then, 32.8 mCi Tc99m tetrofosmin (Myoview) was administered intravenously, and stress images were obtained. Data was tony nstructed into short axis and horizontal and vertical long axis SPECT images. Gated SPECT images were also obtained. COMPARISON: None. FINDINGS: There is no definite reversible or fixed perfusion abnormality to suggest ischemia or infarction. There is normal left ventricular chamber size, wall motion and ejection fraction. Left ventricular ejection fraction measures >70%. IMPRESSION: 1. Normal myocardial perfusion at rest and during stress. 2. Left ventricular ejection fraction measuring >70%. Reviewed, dictated and finalized at location A.
--- NOTE | 2025-07-26 08:17 | EST_ITS ---
Patient Info Name: Quan Cabrales Age: 85 years : 1940 Gender: Male Ht: 71 in Wt: 199 lbs BSA: 2.14 m2 HR: 67 bpm BP: 107 / 85 mmHg Exam Date: 07/26/2025 8:17 AM Patient Status: O Admit Date: 07/26/2025 Exam Type: CA stress shelli w NM A regadenoson stress test was performed. Staff Referring Physician: Charanjit Grossman DO Attending Provider: Charanjit Grossman DO Exercise Technologist: Vanda Sears Exercise Physician: Charanjit Grossman DO Summary 1. 1. Negative lexiscan stress test for ischemic ST changes by ECG criteria. 2. 2. Stable hemodynamics throughout the test. 3. 3. Nuclear scan to follow and will be reported separately. Please correlate with it. 4. 4. Patient informed of the above results. Protocol: Lexiscan Stress ECG Details Stage: REST Duration (min): 6 min : 46 sec HR (bpm): 67 SBP (mmHg): 107 DBP (mmHg): 85 Stage: REST Duration (min): 11 min : 21 sec HR (bpm): 61 SBP (mmHg): 107 DBP (mmHg): 85 Stage: REST Duration (min): 15 min : 36 sec HR (bpm): 61 SBP (mmHg): 107 DBP (mmHg): 85 Stage: STAGE 1 Duration (min): 1 min : 0 sec HR (bpm): 69 SBP (mmHg): 107 DBP (mmHg): 85 Stage: RECOVERY Duration (min): 1 min : 0 sec HR (bpm): 73 SBP (mmHg): 70 DBP (mmHg): 54 Stage: RECOVERY Duration (min): 2 min : 0 sec HR (bpm): 68 SBP (mmHg): 70 DBP (mmHg): 54 Stage: RECOVERY Duration (min): 3 min : 0 sec HR (bpm): 67 SBP (mmHg): 84 DBP (mmHg): 57 Stage: RECOVERY Duration (min): 4 min : 0 sec HR (bpm): 67 SBP (mmHg): 84 DBP (mmHg): 57 Stage: RECOVERY Duration (min): 5 min : 0 sec HR (bpm): 71 SBP (mmHg): 82 DBP (mmHg): 58 Stage: RECOVERY Duration (min): 6 min : 0 sec HR (bpm): 68 SBP (mmHg): 82 DBP (mmHg): 58 Stage: RECOVERY Duration (min): 7 min : 0 sec HR (bpm): 65 SBP (mmHg): 93 DBP (mmHg): 64 Stage: RECOVERY Duration (min): 8 min : 0 sec HR (bpm): 66 SBP (mmHg): 93 DBP (mmHg): 64 Stage: RECOVERY Duration (min): 9 min : 0 sec HR (bpm): 68 SBP (mmHg): 89 DBP (mmHg): 66 Stage: RECOVERY Duration (min): 9 min : 9 sec HR (bpm): 67 SBP (mmHg): 89 DBP (mmHg): 66 Rest HR: 61 bpm Peak HR: 74 bpm Rest Sys BP: 107 mmHg Peak Sys BP: 93 mmHg Max Pred HR: 135 bpm % Max Pred HR: 55 % Target HR: 115 bpm Max RPP: 6,882 bpm*mmHg Termination Reason: Completed protocol Cardiac Symptoms: Shortness of breath Total Time: 1 min : 0 sec Rest Forde BP: 85 mmHg Peak Forde BP: 64 mmHg Total Dose: 0.4 mg Resting ECG Sinus rhythm with ventricular bigeminy. Stress ECG No ST changes. Arrhythmias None. Report Signatures
== END 2025-07-26 07:56 | disposition home or self-care (01) ==
PROVIDERS: Visit Provider Internal Medicine Cardiovascular Disease
DX: R07.9 Chest pain, unspecified (principal)
CPT/HCPCS: 78452; 93017; A9502; J2785

== ENCOUNTER 2025-09-20 09:52 | Outpatient (CLI) | payer MEDICARE, SELFPAY ==
--- NOTE | 2025-10-12 14:47 | WPDSLEEPSTUD ---
Sleep Study Date of Study: 09/20/25 Ordering Provider: Charanjit Grossman DO Interpreting Physician: Shanon Willson MD Sleep Study Type: Polysomnogram Height: 1.8 m Weight: 91.626 kg Body Mass Index: 28.1 Neck Circumference (inches): 16 [place]: 3 Reason for Sleep Study Premature ventricular contractions, gasket former is looking for a trigger. Sleep History Quan Cabrales is an 85-year-old man with history of strokes, idiopathic seizures in 1984, GERD, hypothyroidism and frequent PVCs, paroxysmal supraventricular tachycardia, hypertension and dyslipidemia intolerant of statins.. He never awakens from sleep feeling short of breath. He never wakes at night with heartburn, belching or coughing, never snores, never has trouble sleeping when he has a cold, never wakes up gasping for breath during the night. He never has breathing problems at night reported to him by others, and never sweats excessively at night. He occasionally notices his heart pounding or beating irregularly during the night. He occasionally falls asleep during the day. He never falls asleep involuntarily, never falls asleep while driving. He never has daytime difficulty at work due to excessive sleepiness. He never feels paralyzed on waking or falling asleep, never experiences vivid dreams upon waking or falling asleep, never feels afraid of going to sleep, and never has nightmares. He does not recall his dreams. He rarely has thoughts racing through his mind. He rarely feels sad, depressed, or anxious. He rarely notices parts of his body jerk. He never kicks during the night. He never feels crawling or aching feelings in his legs. He never feels leg pain at night. He rarely has morning jaw pain, rarely grinds his teeth at night. He occasionally feels bothered by pain during the day, never is awakened by pain during the night. He never wakes up feeling stiff in the morning, and he never wakes feeling sore or achy. He never awakens with pain in his neck, spine, or joints. His sleep questionnaire indicates that he always awakens feeling refreshed. Normal bedtime is 11:00 p.m., falling asleep within 15-30 minutes, typically waking 1-2 times during the night to urinate. He returns to sleep within 15-30 minutes. He wakes between 7:00 a.m. and 8:00 a.m.. He keeps the same schedule on weekends. He takes naps in the afternoon or evening lasting 1 hour. He generally feels refreshed when he wakes in the morning. Habits:??Tobacco: never Caffeine: 3 Pepsi per day Alcohol: none Recreational substances: none PMFSH Past Medical History Medical History Abdominal pain Leukocytosis Seizure CVA (cerebral vascular accident) Basal cell carcinoma Alcohol abuse Hypothyroidism Arthritis GI bleed Hyperlipidemia Hypertension Surgical History Surgical History History of testicular surgery Family History Family History Mother , Age 89 - CHF Breast cancer Glaucoma Father , Age 81 - Farm Accident GERD (gastroesophageal reflux disease) Lymphoma Grandparent , Age 77 - Heart Arrythmia No problems noted. Grandparent , Age 47 - Gangrene No problems noted. Grandparent , Age 70 - Unknown No problems noted. Grandparent , Age 70 - Unknown No problems noted. Sibling , Age 70 - Thyroid Cancer No problems noted. Social History Social History Smoking status: Never smoker Alcohol intake: former Substance use: never Do You Feel Safe in your Home?: Yes Lack of Transportation: No Lack of Food: Never True Current Housing: I Have Housing Concerned About Future Housing: No Difficulty Paying Gas/Electric Bills: No Difficulty Paying for Meds: No Currently Unemployed: No Education: Master's Degree or Higher Difficulty w/ Childcare or Family Care: No Living arrangements: with family Gender identity (if verbalized by the patient): Male Spiritual care concerns: No Medications Home Medications ?Medication ?Instructions ?Recorded ?Confirmed ?Type aspirin 81 mg tablet,delayed 81 mg PO DAILY 08/09/24 10/06/25 History release (Adult Aspirin Regimen) vit C 250 mg-vit E 90 mg-zinc 40 1 tablet PO BID 08/09/24 10/06/25 History mg-copper 1 zo-hrwcfc-ngwset capsule (PreserVision AREDS-2) losartan 50 mg tablet 50 mg PO DAILY #90 tabs 08/12/24 10/06/25 Rx omeprazole 20 mg capsule,delayed 20 mg PO BID #180 caps 09/21/24 10/06/25 Rx release tamsulosin 0.4 mg capsule 0.8 mg (2 x 0.4 mg) PO DAILY #180 10/10/24 10/06/25 Rx caps cholecalciferol (vitamin D3) 1,250 1,250 mcg PO WEEKLY 10/20/24 10/06/25 History mcg (50,000 unit) capsule finasteride 5 mg tablet 5 mg PO DAILY #90 tabs 10/25/24 10/06/25 Rx ezetimibe 10 mg tablet (Zetia) 10 mg PO DAILY #90 tabs 12/13/24 10/06/25 Rx cyanocobalamin (vitamin B-12) 500 500 mcg PO DAILY 03/27/25 10/06/25 History mcg tablet (Vitamin B-12) omega 6-woq-omd-fish oil 1,200 mg 1 cap PO DAILY 03/27/25 10/06/25 History (144 mg-216 mg) capsule (Fish Oil) terbinafine HCl 250 mg tablet 250 mg PO .twice weekly 03/27/25 10/06/25 History levothyroxine 112 mcg tablet 112 mcg PO DAILY 07/14/25 10/06/25 History flecainide 50 mg tablet 50 mg PO DAILY 10/06/25 10/06/25 History propranolol 60 mg capsule,24 60 mg PO DAILY 10/06/25 10/06/25 History hr,extended release Sleep Procedure A full night polysomnogram using the [employer] multi-channel system recorded the standard physiologic parameters including EEG, EOG, submentalis EMG, anterior tibialis EMG, EKG, body position, nasal and oral airflow using nasal pressure sensor and thermistor. Respiratory parameters of chest and abdominal movements were recorded with Respiratory Inductance Plethysmography belts. Oxygen saturation was recorded by pulse oximetry. Video monitoring was also performed. Sleep stages, periodic limb movements, and EEG arousals were scored in 30 second epochs according to the criteria of the AASM Scoring Manual. The Apnea-Hypopnea Index was calculated using CMS guidelines for definition of hypopnea while scoring respiratory events. The patient did not take a sleep aid at the beginning of the study. Sleep Architecture The total recording time was 423.6 minutes. The total sleep time was 145.5 minutes. Sleep latency was 14.0 minutes. REM latency was 59.5 minutes. Sleep efficiency was 34.4%. The patient had 20 awakenings for an awakening index of 8.2. Wake after sleep onset time was 264.0 minutes. The patient spent 28.5 minutes, 19.6% of total sleep time in Stage N1. The patient spent 109.0 minutes, 74.9% in Stage N2. The patient spent no time in Stage N3. The patient spent 8.0 minutes, 5.5% in Stage REM sleep. Respiratory Analysis The patient had 7 hypopneas, no obstructive apneas, no mixed or central apneas for an overall Apnea Hypopnea Index of 2.9. The REM Apnea Hypopnea Index was 22.5. The NREM Apnea Hypopnea Index was 2.2. The patient had a Central Apnea Hypopnea Index of 0. There were no Respiratory Effort Related Arousals. The Respiratory Disturbance Index is 4.5 events per hour. There was no evidence of Manpreet-Akhtar Respirations. Arousals There were 118 total arousals for an arousal index of 48.7. There were 57 spontaneous arousals for an index of 23.5. There were 6 arousals due to respiratory events for an index of 2.5. There were 52 arousals due to periodic limb movements for an index of 21.4. There were 5 arousals due to isolated limb movements for an index of 2.1. Periodic Limb Movements The patient had 19 isolated limb movements with an index of 7.8. The patient had 289 periodic limb movements with an index of 119.2. Patient had a total of 308 limb movements with a total limb movement index of 127.0. Oximetry Data The patient had an average oxygen saturation of 92.2% in sleep with a minimum oxygen saturation of 85% and a maximum oxygen saturation of 98%. The patient had 5 oxygen desaturations that were 4% or greater resulting in an Oxygen Desaturation Index of 2.9. The patient spent 42 minutes, 11.1% of total sleep time with an oxygen saturation below 88%. Snoring Profile Snoring was not noted. Cardiac Profile The EKG showed normal sinus rhythm, Frequent PVCs, bigeminy and trigeminy, average pulse rate of 63.9 bpm with a minimum pulse of rate of 34 bpm and a maximum pulse rate of 81 bpm. EEG Profile Unremarkable, no evidence of seizures. Assessment and Plan Assessment and Plan (1) Nocturnal hypoxemia: Code(s): G47.34 - Idiopathic sleep related nonobstructive alveolar hypoventilation Status: Acute Assessment and Plan: This patient had 42 minutes, 11.1% of the night spent below 88%, minimum desaturation was 85%. This is excessive. He qualifies for nocturnal oxygen, I would recommend 2 liters/minute. I also recommend evaluation for why he has significant hypoxemia. It is not due to sleep disordered breathing. Chest x-ray on 06/13/2025 did not show any acute cardiopulmonary abnormality. His history indicates that he has never smoked tobacco. (2) PLMD (periodic limb movement disorder): Code(s): G47.61 - Periodic limb movement disorder Status: Acute Assessment and Plan: This basic nocturnal polysomnogram on 09/20/2025 did not show significant sleep disordered breathing however he had a very low sleep efficiency 34.4%, had difficulty falling asleep and staying asleep. He had long periods of wakefulness during the night. He had very little REM, only 8 minutes, 5.5% of the night. His REM AHI was elevated, 22.5 events per hour but this high number is likely exaggerated due to the small amount of REM that he had. If he had had more sleep during the night and a higher sleep efficiency, it is possible that his AHI would have been higher. We request that patients have a sleep aid available to take at the begging of an in-lab study, if needed. He did not take a sleep aid. He slept about 1/3 of the night. We also recommend that patients do not nap on the day of an in-lab sleep study so that sleep is more likely during the night. his sleep history indicates that he naps approximately 1 hour daily. He desaturated to 85% and spent 42 minutes, 11.1% of the night below 88%. Please see discussion above regarding nocturnal hypoxemia. When he was asleep, he had constant periodic limb movements. The patient had a total of 308 limb movements during the night for a limb movement index of 127. His periodic limb movement arousal index was 21.4, this is elevated and may contribute to feelings of daytime sleepiness or sleep that is not refreshing. Patient does not give a history of having his sleep disturbed by limb movements. The reason for this study was to evaluate if he had sleep disordered breathing that may be causing his excessive PVCs. He does not have significant sleep disordered breathing. He had significant PVCs, bigeminy and trigeminy throughout the night. Clinical correlation is recommended. It is possible that he has periodic limb movements which disturb his sleep, and with low oxygen levels, he has a lack of sleep contributing to other medical problems. Data The data obtained during this sleep study is adequate for interpretation. Certification This sleep study has been reviewed by a board certified sleep medicine physician.
[2025-10-12 15:36] VITALS: BMI 28.1
== END 2025-09-21 05:14 | disposition home or self-care (01) ==
PROVIDERS: PCP Family Medicine; Visit Provider Internal Medicine Cardiovascular Disease
DX: G47.34 Idiopathic sleep related nonobstructive alveolar hypoventilation (principal); G47.61 Periodic limb movement disorder; I10 Essential (primary) hypertension
CPT/HCPCS: 95810